=== PATIENT | male | born 1930 | race Caucasian/White ===

== ENCOUNTER → 2016-06-08 | Outpatient (CLI) | payer OTHER ==
[~2016-06-08] MED LIST: ACET-749 PO; ASPI81TA28 PO; ATOR-26 PO; INSUINJ8 SC; LEVO125T72 PO; METO50TA17 PO; MGNO400 PO; MULT-845 PO; PLV75 PO; PRLSR20 PO
[2016-06-08 10:45] LABS: BASO % 0.5 %; BASO ABS # 0.04 K/uL (0-0.2); COMPLETE YES; EOS % 4.4 %; HEMATOCRIT 33.5 % (42-52); IG% 0.2 %; LYMPH % 29.1 %; LYMPH ABS # 2.38 K/uL (1.2-3.4); MEAN CELL VOLUME 95.2 fL (80-100); MEAN CORPUSCULAR HEMOGLOBIN 31.5 pg (25-34); MEAN CORPUSCULAR HGB CONC 33.1 g/dl (32-36); MEAN PLATELET VOLUME 10.9 fL (7.4-10.4); MONO % 5.1 %; NEUT % 60.7 %; PLATELET COUNT 179 K/uL (130-400); RED BLOOD COUNT 3.52 M/uL (4.7-6.1); WHITE BLOOD COUNT 8.19 K/uL (4.8-10.8)
[2016-06-08 10:56] LABS: ALT/SGPT 24 U/L (12-78); AST/SGOT 21 U/L (15-37); BLOOD UREA NITROGEN 45 mg/dl (7-18); BUN/CREATININE RATIO 19.6 (10-20); CALCIUM 8.2 mg/dl (8.5-10.1); CARBON DIOXIDE 27 mmol/L (21-32); CHLORIDE 108 mmol/L (98-107); GLUCOSE 289 mg/dl (70-99); POTASSIUM 4.2 mmol/L (3.5-5.1); SODIUM 144 mmol/L (136-145)
[2016-06-08 11:06] LABS: ALB/GLOB RATIO 0.9 (0.9-2); ALKALINE PHOSPHATASE 62 U/L (45-117)
[2016-06-08 11:09] LABS: ESTIMATED AVERAGE GLUCOSE 163 mg/dl; HA1C FLAG Normal (Normal)
--- NOTE | 2016-06-12 10:46 | CODING QUERY MEDICAL NECESSITY ---
CQSUPPORTING DIAGNOSIS NEEDED A supporting diagnosis is required for the test/procedure performed on this patient in order for us to be reimbursed by the patient's insurance. Please provide a supporting diagnosis for the following test/procedure listed below next to the test name along with your signature. *If there is no additional diagnosis for this patient that would support the following test/procedure please document that below next to the test/procedure. Test(s)/Procedure(s) that require a supporting diagnosis: DOS 06/08/16 GLYCATED HEMOGLOBIN TEST Provider Signature: Date: Thank you Jeannine Lopez Health Information Management Once completed, please kindly fax back to [phone] For questions please call [phone]
== END | disposition home or self-care (01) ==
LOC: C.LABBC 08:01
PROVIDERS: ATTEND Internal Medicine Geriatric Medicine
DX: I12.9 Hypertensive chronic kidney disease with stage 1 through stage 4 chronic kidney disease, or unspecified chronic kidney disease (principal); N18.3 Chronic kidney disease, stage 3 (moderate); D64.9 Anemia, unspecified; E11.29 Type 2 diabetes mellitus with other diabetic kidney complication

== ENCOUNTER → 2016-08-28 | Outpatient (CLI) | payer OTHER ==
[2016-08-28 12:56] LABS: BLOOD UREA NITROGEN 38 mg/dl (7-18); BUN/CREATININE RATIO 15.3 (10-20); CALCIUM 8.6 mg/dl (8.5-10.1); CARBON DIOXIDE 27 mmol/L (21-32); CHLORIDE 110 mmol/L (98-107); GLUCOSE 149 mg/dl (70-99); POTASSIUM 4.3 mmol/L (3.5-5.1); SODIUM 144 mmol/L (136-145)
[2016-08-28 13:01] LABS: FERRITIN 46.3 ng/ml (8.0-388.0); TOTAL IRON BINDING CAPACITY 256 mcg/dl (250-450)
[2016-08-28 13:48] LABS: HEMATOCRIT 33.5 % (42-52); MEAN CELL VOLUME 95.4 fL (80-100); MEAN CORPUSCULAR HEMOGLOBIN 32.8 pg (25-34); MEAN CORPUSCULAR HGB CONC 34.3 g/dl (32-36); MEAN PLATELET VOLUME 11.1 fL (7.4-10.4); PLATELET COUNT 170 K/uL (130-400); RED BLOOD COUNT 3.51 M/uL (4.7-6.1); WHITE BLOOD COUNT 7.81 K/uL (4.8-10.8)
[2016-08-28 13:53] LABS: BASO % 0.4 %; BASO ABS # 0.03 K/uL (0-0.2); COMPLETE YES; EOS % 4.2 %; IG% 0.1 %; LYMPH % 34.3 %; LYMPH ABS # 2.68 K/uL (1.2-3.4); MONO % 6.9 %; NEUT % 54.1 %
--- NOTE | 2016-09-02 09:35 | CODING QUERY MEDICAL NECESSITY ---
SUPPORTING DIAGNOSIS NEEDED A supporting diagnosis is required for the test/procedure performed on this patient in order for us to be reimbursed by the patient's insurance. Please provide a supporting diagnosis for the following test/procedure listed below next to the test name along with your signature. *If there is no additional diagnosis for this patient that would support the following test/procedure please document that below next to the test/procedure. Test(s)/Procedure(s) that require a supporting diagnosis: DOS 08/28 * Vitamin B12 DIAGNOSIS: Provider Signature: Date: Thank you Daniella Mai Health Information Management Once completed, please kindly fax back to [phone] For questions please call [phone]
== END | disposition home or self-care (01) ==
LOC: C.LABPBG 08:44
PROVIDERS: ATTEND Internal Medicine Geriatric Medicine
DX: E03.9 Hypothyroidism, unspecified (principal); E11.9 Type 2 diabetes mellitus without complications; N18.3 Chronic kidney disease, stage 3 (moderate); I10 Essential (primary) hypertension; D64.9 Anemia, unspecified

== ENCOUNTER → 2016-12-03 | Outpatient (CLI) | payer OTHER ==
[2016-12-03 17:38] LABS: BASO % 0.3 %; BASO ABS # 0.03 K/uL (0-0.2); COMPLETE YES; HEMATOCRIT 34.4 % (42-52); IG% 0.1 %; LYMPH % 34.7 %; LYMPH ABS # 3.28 K/uL (1.2-3.4); MEAN CELL VOLUME 99.1 fL (80-100); MEAN CORPUSCULAR HEMOGLOBIN 32.9 pg (25-34); MEAN CORPUSCULAR HGB CONC 33.1 g/dl (32-36); MEAN PLATELET VOLUME 10.9 fL (7.4-10.4); MONO % 6.7 %; NEUT % 53.2 %; PLATELET COUNT 170 K/uL (130-400); RED BLOOD COUNT 3.47 M/uL (4.7-6.1); WHITE BLOOD COUNT 9.45 K/uL (4.8-10.8)
[2016-12-03 18:24] LABS: URINE PROTIEN/CREAT RATIO 0.9 (0-0.2); URINE TOTAL PROTEIN 243.4 mg/dl (0-11.9)
[2016-12-03 18:26] LABS: ALT/SGPT 31 U/L (12-78); BLOOD UREA NITROGEN 36 mg/dl (7-18); CALCIUM 8.8 mg/dl (8.5-10.1); CARBON DIOXIDE 24 mmol/L (21-32); CHLORIDE 112 mmol/L (98-107); CHOLESTEROL 110 mg/dl (0-200); GLUCOSE 111 mg/dl (70-99); POTASSIUM 4.2 mmol/L (3.5-5.1); SODIUM 145 mmol/L (136-145)
[2016-12-03 18:36] LABS: ALKALINE PHOSPHATASE 71 U/L (45-117); AST/SGOT 25 U/L (15-37); CHOLESTEROL/HDL RATIO 4.4; HDL CHOLESTEROL 25 mg/dl; LDL CHOLESTEROL CALCULATED 31 mg/dl; TRIGLYCERIDES 272 mg/dl (0-150); VERY LOW DENSITY LIPOPROT CALC 54 mg/dl
== END | disposition home or self-care (01) ==
LOC: C.LABPBG 11:34
PROVIDERS: ATTEND Internal Medicine Geriatric Medicine
DX: E03.9 Hypothyroidism, unspecified (principal); E78.5 Hyperlipidemia, unspecified; R80.9 Proteinuria, unspecified; E11.29 Type 2 diabetes mellitus with other diabetic kidney complication; I12.9 Hypertensive chronic kidney disease with stage 1 through stage 4 chronic kidney disease, or unspecified chronic kidney disease; I42.9 Cardiomyopathy, unspecified; N18.4 Chronic kidney disease, stage 4 (severe); I25.10 Atherosclerotic heart disease of native coronary artery without angina pectoris

== ENCOUNTER → 2017-03-29 | Outpatient (CLI) | payer OTHER ==
[2017-03-29 12:53] LABS: ESTIMATED AVERAGE GLUCOSE 171 mg/dl; HA1C FLAG Normal (Normal)
[2017-03-29 12:59] LABS: BLOOD UREA NITROGEN 44 mg/dl (7-18); BUN/CREATININE RATIO 17.3 (10-20); CALCIUM 8.6 mg/dl (8.5-10.1); CARBON DIOXIDE 26 mmol/L (21-32); CHLORIDE 108 mmol/L (98-107); CREATININE 2.52 mg/dl (0.60-1.40); GLUCOSE 211 mg/dl (70-99); POTASSIUM 4.2 mmol/L (3.5-5.1); SODIUM 140 mmol/L (136-145)
== END | disposition home or self-care (01) ==
LOC: C.LABPBG 09:25
PROVIDERS: ATTEND Internal Medicine Geriatric Medicine
DX: Z00.00 Encounter for general adult medical examination without abnormal findings (principal); E11.9 Type 2 diabetes mellitus without complications; N18.4 Chronic kidney disease, stage 4 (severe)

== ENCOUNTER → 2017-07-02 | Outpatient (CLI) | payer OTHER ==
[2017-07-02 12:48] LABS: HEMATOCRIT 34.3 % (42-52); HEMOGLOBIN 11.4 g/dL (14.0-18.0); MEAN CELL VOLUME 97.4 fL (80-100); MEAN CORPUSCULAR HEMOGLOBIN 32.4 pg (25-34); MEAN CORPUSCULAR HGB CONC 33.2 g/dl (32-36); MEAN PLATELET VOLUME 10.8 fL (7.4-10.4); PLATELET COUNT 163 K/uL (130-400); RED CELL DISTRIBUTION WIDTH CV 13.2 % (11.5-14.5); RED CELL DISTRIBUTION WIDTH SD 46.6 fL (36.4-46.3); WHITE BLOOD COUNT 7.58 K/uL (4.8-10.8)
[2017-07-02 13:08] LABS: BLOOD UREA NITROGEN 50 mg/dl (7-18); CARBON DIOXIDE 27 mmol/L (21-32); CREATININE 2.81 mg/dl (0.60-1.40); GLUCOSE 244 mg/dl (70-99); POTASSIUM 4.7 mmol/L (3.5-5.1); SODIUM 138 mmol/L (136-145)
[2017-07-02 13:19] LABS: TRANSFERRIN 219 mg/dl (200-360)
== END | disposition home or self-care (01) ==
LOC: C.LABPBG 09:09
PROVIDERS: ATTEND Internal Medicine Nephrology
DX: N18.4 Chronic kidney disease, stage 4 (severe) (principal); D64.9 Anemia, unspecified; E03.9 Hypothyroidism, unspecified; I10 Essential (primary) hypertension; E11.29 Type 2 diabetes mellitus with other diabetic kidney complication; E55.9 Vitamin D deficiency, unspecified; R80.9 Proteinuria, unspecified

== ENCOUNTER → 2017-10-04 | Outpatient (CLI) | payer OTHER ==
[2017-10-04 13:02] LABS: BASO % 0.4 %; BASO ABS # 0.03 K/uL (0-0.2); EOS % 4.5 %; EOS ABS # 0.34 K/uL (0-0.5); HEMATOCRIT 33.1 % (42-52); HEMOGLOBIN 11.3 g/dL (14.0-18.0); IG# 0.01 K/uL (0.00-0.02); LYMPH % 26.4 %; LYMPH ABS # 1.99 K/uL (1.2-3.4); MEAN CELL VOLUME 97.1 fL (80-100); MEAN CORPUSCULAR HEMOGLOBIN 33.1 pg (25-34); MEAN CORPUSCULAR HGB CONC 34.1 g/dl (32-36); MONO ABS # 0.53 K/uL (0.11-0.59); NEUT % 61.6 %; NEUT ABS # 4.65 K/uL (1.4-6.5); PLATELET COUNT 155 K/uL (130-400); RED CELL DISTRIBUTION WIDTH CV 13.1 % (11.5-14.5); RED CELL DISTRIBUTION WIDTH SD 45.9 fL (36.4-46.3); WHITE BLOOD COUNT 7.55 K/uL (4.8-10.8)
[2017-10-04 14:24] LABS: ALBUMIN 3.1 gm/dl (3.4-5.0); ALT/SGPT 32 U/L (12-78); AST/SGOT 26 U/L (15-37); BLOOD UREA NITROGEN 50 mg/dl (7-18); CALCIUM 8.4 mg/dl (8.5-10.1); CARBON DIOXIDE 26 mmol/L (21-32); CREATININE 3.14 mg/dl (0.60-1.40); GLUCOSE 230 mg/dl (70-99); POTASSIUM 4.3 mmol/L (3.5-5.1); SODIUM 142 mmol/L (136-145)
[2017-10-04 14:33] LABS: ALKALINE PHOSPHATASE 67 U/L (45-117); PHOSPHORUS 3.6 mg/dl (2.5-4.9); TOTAL PROTEIN 6.7 gm/dl (6.4-8.2); TRANSFERRIN 215 mg/dl (200-360)
== END | disposition home or self-care (01) ==
LOC: C.LABPBG 07:53
PROVIDERS: ATTEND Internal Medicine Nephrology
DX: E03.9 Hypothyroidism, unspecified (principal); E78.5 Hyperlipidemia, unspecified; I25.10 Atherosclerotic heart disease of native coronary artery without angina pectoris; E11.22 Type 2 diabetes mellitus with diabetic chronic kidney disease; N18.4 Chronic kidney disease, stage 4 (severe); D64.9 Anemia, unspecified

== ENCOUNTER 2019-11-22 13:23 | Inpatient (IN) ==
--- NOTE | 2019-11-22 13:53 | Emergency Department Note ---
Impression & Plan CHF (congestive heart failure), SOB (shortness of breath), Elevated troponin ED Provider Note NAME: LEVI MORALES AGE: 89 SEX: M : 1930 ARRIVES VIA: Ambulance INFORMANT: Patient, ED PROVIDER(S): Reji Rhodes MD Chief Complaint: Shortness of breath HPI: Patient does present from home via ambulance due to concern for shortness of breath. The patient first noticed that this morning. The patient states currently sitting there he does feel improved compared to prior. The patient did receive a DuoNeb treatment along the way. 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 Patient does state he has some mild orthopnea. He does have a prior history of a valve replacement. Patient is currently not on any blood thinning medications per the patient. Patient states he did take his medications this morning. The patient has been compliant with his medications with no recent changes. Patient denies any increase in fluids. Patient denies any recent travel or coronavirus contacts. The patient has had a nonproductive productive cough. Patient is a former smoker and has not smoked in many years. Patient did receive a DuoNeb treatment in route and the patient does feel improved thereafter. ROS: See HPI for pertinent positives and negatives. A total of 10 systems were reviewed and otherwise negative. Past medical history: See below Surgical history: See below Social history: See below Physical Exam: GENERAL: Tachypnea noted. Mild wheezing noted. EYE EXAM: Normal conjunctiva. PERRL, no anisocoria and EOM's grossly intact w/o pain. NECK: Supple, no nuchal rigidity, no adenopathy, non-tender. No signs of meningismus. LUNGS: Scant wheezing throughout, mild tachypnea noted. HEART: NSR, no MRG. ABDOMEN: Abdomen soft, non-tender, normo-active bowel sounds, no masses, no rebound or guarding. BACK: No CVA TTP. SKIN: No rashes and no bruising. UPPER EXTREMITIES: Upper extremities are grossly normal. LOWER EXTREMITIES: Grossly normal, 1-2+ lower extremity edema bilaterally. Negative Homans sign. NEURO EXAM: A&O x3, cranial nerves II-XII grossly intact, normal speech, moves all 4 extremities on command w/o issue. Differential diagnoses: Reactive airway disease, pneumonia, pneumothorax, COPD, CHF, infections, cardiac ischemia, pulmonary embolism, musculoskeletal, gastrointestinal, as well as other pathologies. Course: Patient was seen and evaluated the bedside. Full history physical exam was performed. EKG: Indication: Shortness of breath Sinus rhythm first-degree AV block, prolonged NE, wide QRS, prolonged QTC, left bundle branch block pattern, normal axis, T wave inversions in the lateral leads, no sgarbossa criteria present. Imaging Studies: Radiology results as stated below per my review in the radiologist's interpretation: XR chest 1V portable HISTORY: 89 years-old Male Dyspnea acute shortness of breath COMPARISON: Chest radiograph 10/09/2019 TECHNIQUE: Portable AP view of the chest FINDINGS: Cardiac silhouette is enlarged, unchanged. Aortic valvular endograft. Calcified plaque of the thoracic aortic arch. Pulmonary vascular congestion. Small pleural effusions. Interstitial coarsening with mild bibasilar densities. No pneumothorax. Degenerative changes of the shoulders and spine. IMPRESSION: 1. Cardiomegaly with pulmonary edema. 2. Small pleural effusions with bibasilar opacities suggestive of atelectasis versus pneumonitis. ACT 112: Negative or not required by law. The above report was generated using voice recognition software. It may contain grammatical, syntax or spelling errors. Electronically signed by: Josh Dumont M.D. 11/22/2019 2:46 PM Dictated: 11/22/19 1444 Transcribed: 11/22/19 1444 Cardiac monitoring: An order was placed for continuous cardiac monitoring. The monitor shows a rate of 96 with sinus rhythm. MDM: Patient did present with concern for shortness of breath. He acutely awoke with it this morning. Patient's chest x-ray does show vascular congestion. Patient's EKG is relatively unchanged. Patient is elevated blood glucose as well as elevated troponin and BNP. I believe the patient's elevated troponin is due to demand ischemia secondary to CHF. The patient was given some additional Lasix. I did speak with the on-call hospitalist Dr. Hagen and the patient subsequently admitted to the medicine service. Past Med/Surg History Medical History Amaurosis fugax of right eye (Chronic) Anemia (Chronic) Aortic stenosis, severe (Resolved) CAD (coronary artery disease) (Chronic) Carcinoma of prostate Cardiomyopathy (Chronic) Carotid atherosclerosis (Chronic) Cerebrovascular disease (Chronic) Chronic hip pain (Chronic) CKD (chronic kidney disease), stage IV (Chronic) Clostridium difficile diarrhea Diabetes mellitus with renal complications (Chronic) Dyslipidemia (Chronic) First degree atrioventricular block (Chronic) Gastroesophageal reflux disease (Chronic) H/O: stroke (2014) L hemispheric subcortical infarct History of aortic stenosis History of cholecystitis (Chronic) History of cholelithiasis (Chronic) History of prostate cancer Hypertension (Chronic) Hypothyroidism (Chronic) 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) Tremor (Chronic) Vitamin D deficiency (Chronic) Surgical History H/O prostatectomy History of cardiac cath CATH STENT 1 FIRST RIGHT POSTEROLATERAL BRANCH History of inguinal hernia repair LEFT INGUINAL HERNIORRHAPHY 1986 S/P CABG (coronary artery bypass graft) S/P coronary artery stent placement (12/2015) RCA S/P prostatectomy 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) Status post placement of implantable loop recorder w/ removal May 2015 Family History Father , IN 70'S WITH HEART DISEASE Patient's father is Heart disease Mother , AT AGE 86 Laryngeal cancer Patient's mother is Denies family history of Ovarian cancer Prostate cancer Kidney disease CKD (chronic kidney disease) Myocardial infarction Breast cancer Bleeding disorder Lung cancer Colorectal cancer Social History Preferred Language: Chinese Communication Ability: Effective Visual Impairment: Limited Hearing Ability: Use of Hearing Aid Speech Language Pathologist Assistant Required: No Beliefs That Will Affect Care: None marital status: Current Living Situation: Spouse Current Living Situation Comment: Lives at home with spouse in [place]. 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 Other Information That Helps Us Care for You: No other: twice; 4 kids from first marriage, none from 2nd marriage. Feels Safe at Home: Yes Smoking Status: Former smoker Years Smoked: 1 ; Hx Alcohol Use: No Hx Substance Use: No Childhood Exposure to Second-Hand Smoke: No Diet Comment: Doesnt follow diet. caffeine: Yes (coffee x 5-6 per day. ) during the past year weight has: remained stable Dental Care, Regularly: Yes Physical Activity Frequency: Does not Exercise Seatbelt Use: always Sunscreen Use: No Allergies Allergies Allergy/AdvReac Type Severity Reaction Status Date / Time No Known Drug Allergies Allergy . Verified 11/22/19 15:04 Home Meds Home Medications Medication Instructions Recorded Confirmed insulin NPH isoph U-100 human 42 unit SUBCUT QPM 06/12/19 11/22/19 [Novolin N NPH U-100 Insulin] insulin NPH isoph U-100 human 60 unit SUBCUT QAM 06/12/19 11/22/19 [Novolin N NPH U-100 Insulin] aspirin 25 mg-dipyridamole 200 mg 1 cap PO DAILY cap 07/13/19 11/22/19 capsule,ext.release 12 hr multiphase furosemide 40 mg PO DAILY 11/22/19 11/22/19 Previous Rx's Medication Instructions Recorded cholecalciferol (vitamin D3) 50 2,000 units PO DAILY #30 cap 12/13/18 mcg (2,000 unit) capsule multivitamin 1 tab PO DAILY #30 tab 12/13/18 amlodipine 10 mg tablet 10 mg PO DAILY #90 tab 02/07/19 omeprazole 20 mg capsule,delayed 20 mg PO DAILY #90 cap 02/07/19 release blood sugar diagnostic #500 ea 06/28/19 calcitriol 0.5 mcg capsule 0.5 mcg PO UD #90 cap 07/20/19 levothyroxine 137 mcg tablet 137 mcg PO DAILY #90 tab 08/25/19 atorvastatin 80 mg tablet 80 mg PO DAILY #90 tab 09/08/19 metoprolol succinate 100 mg 100 mg PO DAILY #90 tab 09/13/19 tablet,extended release 24 hr Results & Data (ED) Vital Signs Vital Signs - 24 hr 11/22/19 13:31 11/22/19 13:33 11/22/19 13:40 Temperature Temperature Source Pulse Rate 97 H 96 H 94 H Pulse Rate from SpO2 Sensor 97 H 98 H 94 H Respiratory Rate 39 H 28 H 35 H Respiratory Effort / Characteristics SOB on Exertion Respiratory Depth Normal Respiratory Pattern Tachypnea Blood Pressure 124/90 Blood Pressure Mean 96 Pulse Oximetry 96 96 95 Oxygen Delivery Method Room Air Sepsis Recent Fever Within 48 Hours Sepsis Action Taken by Nursing 11/22/19 13:45 11/22/19 13:50 11/22/19 14:00 Temperature 37.0 C Temperature Source Oral Pulse Rate 96 H 95 H 101 H Pulse Rate from SpO2 Sensor 94 H 100 H Respiratory Rate 36 H 39 H 39 H Respiratory Effort / Characteristics Non-Labored Respiratory Depth Normal Respiratory Pattern Blood Pressure 124/90 128/72 Blood Pressure Mean 101 98 Pulse Oximetry 95 95 96 Oxygen Delivery Method Room Air Sepsis Recent Fever Within 48 Hours No Sepsis Action Taken by Nursing No Action Required 11/22/19 14:10 11/22/19 14:20 11/22/19 14:28 Temperature Temperature Source Pulse Rate 91 H 91 H Pulse Rate from SpO2 Sensor 92 H 92 H Respiratory Rate 27 H 34 H Respiratory Effort / Characteristics Respiratory Depth Respiratory Pattern Blood Pressure Blood Pressure Mean Pulse Oximetry 95 95 95 Oxygen Delivery Method Room Air Sepsis Recent Fever Within 48 Hours Sepsis Action Taken by Nursing 11/22/19 14:30 11/22/19 14:40 11/22/19 14:50 Temperature Temperature Source Pulse Rate 92 H 92 H 91 H Pulse Rate from SpO2 Sensor 92 H 91 H Respiratory Rate 34 H 34 H 34 H Respiratory Effort / Characteristics Respiratory Depth Respiratory Pattern Blood Pressure 125/72 Blood Pressure Mean 93 Pulse Oximetry 96 96 Oxygen Delivery Method Sepsis Recent Fever Within 48 Hours Sepsis Action Taken by Nursing 11/22/19 15:00 11/22/19 15:10 11/22/19 15:20 Temperature Temperature Source Pulse Rate 87 98 H 88 Pulse Rate from SpO2 Sensor 87 88 Respiratory Rate 31 H 37 H 39 H Respiratory Effort / Characteristics Respiratory Depth Respiratory Pattern Blood Pressure 123/66 Blood Pressure Mean 82 Pulse Oximetry 96 96 Oxygen Delivery Method Sepsis Recent Fever Within 48 Hours Sepsis Action Taken by Nursing 11/22/19 15:30 11/22/19 15:40 11/22/19 15:50 Temperature Temperature Source Pulse Rate 88 92 H 81 Pulse Rate from SpO2 Sensor 89 Respiratory Rate 37 H 34 H 39 H Respiratory Effort / Characteristics Respiratory Depth Respiratory Pattern Blood Pressure 121/64 Blood Pressure Mean 94 Pulse Oximetry 96 Oxygen Delivery Method Sepsis Recent Fever Within 48 Hours Sepsis Action Taken by Nursing 11/22/19 16:15 11/22/19 16:16 11/22/19 16:20 Temperature Temperature Source Pulse Rate 95 H 96 H 93 H Pulse Rate from SpO2 Sensor Respiratory Rate 25 H 38 H 35 H Respiratory Effort / Characteristics Respiratory Depth Respiratory Pattern Blood Pressure 141/76 H Blood Pressure Mean 93 Pulse Oximetry Oxygen Delivery Method Sepsis Recent Fever Within 48 Hours Sepsis Action Taken by [facility] Medications Current Medication List: was personally reviewed by me Laboratory Data Attestation: I reviewed the patient's lab results. Result diagrams: 11/22/19 12:53 11/22/19 12:53 Lab Results 11/22/19 11/22/19 11/22/19 Range/Units 12:53 12:53 12:53 WBC 10.09 (4.8-10.8) K/uL RBC 3.43 L (4.7-6.1) M/uL Hgb 11.1 L (14.0-18.0) g/dL Hct 34.5 L (42-52) % MCV 100.6 H (80-100) fL MCH 32.4 (25-34) pg MCHC 32.2 (32-36) g/dL RDW Std Deviation 46.4 H (36.4-46.3) fL RDW Coeff of Neymar 12.7 (11.5-14.5) % Plt Count 259 (130-400) K/uL MPV 11.3 H (7.4-10.4) fL Immature Gran % (Auto) 0.1 % Neut % (Auto) 65.4 % Lymph % (Auto) 24.8 % [place] % (Auto) 7.4 % Eos % (Auto) 2.0 % Baso % (Auto) 0.3 % Immature Gran # (Auto) 0.01 (0.00-0.02) K/uL Neut # (Auto) 6.60 H (1.4-6.5) K/uL Lymph # (Auto) 2.50 (1.2-3.4) K/uL [place] # (Auto) 0.75 H (0.11-0.59) K/uL Eos # (Auto) 0.20 (0-0.5) K/uL Baso # (Auto) 0.03 (0-0.2) K/uL PT Cancelled INR Cancelled APTT Cancelled PTT Ratio Cancelled Sodium 137 (136-145) mmol/L Potassium 4.9 (3.5-5.1) mmol/L Chloride 103 (98-107) mmol/L Carbon Dioxide 25 (21-32) mmol/L Anion Gap 9.0 (3-11) BUN 63 H (7-18) mg/dl Creatinine 3.68 H (0.6-1.4) mg/dl Est Cr Clr Drug Dosing Not Reportable Est GFR ( Amer) 15.9 Est GFR (Non-Af Amer) 13.7 BUN/Creatinine Ratio 17.3 (10-20) Glucose 361 H* (70-99) mg/dl Calcium 8.6 (8.5-10.1) mg/dl Phosphorus 3.7 (2.5-4.9) mg/dl Total Bilirubin 0.5 (0.2-1) mg/dl AST 29 (15-37) U/L ALT 29 (12-78) U/L Alkaline Phosphatase 71 (45-117) U/L Troponin I 0.264 H* (0-0.045) ng/ml NT-Pro-B Natriuret Pep 82952 H (0-1800) pg/ml Total Protein 7.3 (6.4-8.2) gm/dl Albumin 2.7 L (3.4-5.0) gm/dl Globulin 4.6 H (2.5-4.0) gm/dl Albumin/Globulin Ratio 0.6 L (0.9-2) Beta-Hydroxybutyric Acd 0.88 (0.2-2.81) mg/dl 11/22/19 Range/Units 14:30 WBC (4.8-10.8) K/uL RBC (4.7-6.1) M/uL Hgb (14.0-18.0) g/dL Hct (42-52) % MCV (80-100) fL MCH (25-34) pg MCHC (32-36) g/dL RDW Std Deviation (36.4-46.3) fL RDW Coeff of Neymar (11.5-14.5) % Plt Count (130-400) K/uL MPV (7.4-10.4) fL Immature Gran % (Auto) % Neut % (Auto) % Lymph % (Auto) % [place] % (Auto) % Eos % (Auto) % Baso % (Auto) % Immature Gran # (Auto) (0.00-0.02) K/uL Neut # (Auto) (1.4-6.5) K/uL Lymph # (Auto) (1.2-3.4) K/uL [place] # (Auto) (0.11-0.59) K/uL Eos # (Auto) (0-0.5) K/uL Baso # (Auto) (0-0.2) K/uL PT 11.3 INR 1.1 APTT 28.8 PTT Ratio 1.0 Sodium (136-145) mmol/L Potassium (3.5-5.1) mmol/L Chloride (98-107) mmol/L Carbon Dioxide (21-32) mmol/L Anion Gap (3-11) BUN (7-18) mg/dl Creatinine (0.6-1.4) mg/dl Est Cr Clr Drug Dosing Est GFR ( Amer) Est GFR (Non-Af Amer) BUN/Creatinine Ratio (10-20) Glucose (70-99) mg/dl Calcium (8.5-10.1) mg/dl Phosphorus (2.5-4.9) mg/dl Total Bilirubin (0.2-1) mg/dl AST (15-37) U/L ALT (12-78) U/L Alkaline Phosphatase (45-117) U/L Troponin I (0-0.045) ng/ml NT-Pro-B Natriuret Pep (0-1800) pg/ml Total Protein (6.4-8.2) gm/dl Albumin (3.4-5.0) gm/dl Globulin (2.5-4.0) gm/dl Albumin/Globulin Ratio (0.9-2) Beta-Hydroxybutyric Acd (0.2-2.81) mg/dl Administered Medications Discontinued Medications Furosemide (Lasix) 40 mg IV NOW STA Stop: 11/22/19 15:19 Last Admin: 11/22/19 16:56 Dose: 40 mg Documented by: [id number] Furosemide (Lasix) 40 mg IV NOW STA Stop: 11/22/19 17:18 Last Admin: 11/22/19 17:35 Dose: 40 mg Documented by: [id number] Discharge Plan Visit Data *Final* Discharge Date/Time: 11/22/19 17:42 Chief Complaint: Shortness of Breath/Dyspnea ED Provider: Reji Rhodes Discharge Problem: CHF (congestive heart failure), SOB (shortness of breath), Elevated troponin Patient Disposition: Admitted As Inpatient Discharge Instructions Interventions: ED Discharge Assessment Last Done: 11/22/19 17:42 Discharge Problem: CHF (congestive heart failure) Qualifiers: Heart failure type: unspecified Heart failure chronicity: acute on chronic Qualified Code(s): I50.9 - Heart failure, unspecified
[2019-11-22 14:11] LABS: Basophils # (auto) 0.03 K/uL (0-0.2); Basophils % (auto) 0.3 %; Hematocrit (blood only) 34.5 % (42-52); Hemoglobin 11.1 g/dL (14.0-18.0); Immature Granulocytes # (auto) 0.01 K/uL (0.00-0.02); Immature Granulocytes % (auto) 0.1 %; Lymphocytes % (auto) 24.8 %; Mean Corpuscular Hemoglobin 32.4 pg (25-34); Mean Corpuscular Hgb Conc 32.2 g/dL (32-36); Mean Corpuscular Volume 100.6 fL (80-100); Mean Platelet Volume 11.3 fL (7.4-10.4); Monocytes # (auto) 0.75 K/uL (0.11-0.59); Monocytes % (auto) 7.4 %; Neutrophils % (auto) 65.4 %; Platelet Count 259 K/uL (130-400); RDW Coefficient of Variation 12.7 % (11.5-14.5); RDW Standard Deviation 46.4 fL (36.4-46.3); Red Blood Count 3.43 M/uL (4.7-6.1); White Blood Count 10.09 K/uL (4.8-10.8)
[2019-11-22 14:23] LABS: Alanine Aminotransferase 29 U/L (12-78); Albumin Level 2.7 gm/dl (3.4-5.0); Aspartate Aminotransferase 29 U/L (15-37); BUN Creatinine Ratio 17.3 (10-20); Bilirubin,Total 0.5 mg/dl (0.2-1); Blood Urea Nitrogen 63 mg/dl (7-18); Calcium 8.6 mg/dl (8.5-10.1); Carbon Dioxide 25 mmol/L (21-32); Chloride 103 mmol/L (98-107); Est GFR (African American) 15.9; Est GFR (Non-African American) 13.7; Glucose 361 mg/dl (70-99); Phosphorus 3.7 mg/dl (2.5-4.9); Potassium 4.9 mmol/L (3.5-5.1); Sodium 137 mmol/L (136-145)
[2019-11-22 14:31] LABS: Albumin Globulin Ratio 0.6 (0.9-2); Alkaline Phosphatase 71 U/L (45-117); Globulin 4.6 gm/dl (2.5-4.0); NT Pro B Type Natriuretic Pept 10422 pg/ml (0-1800); Total Protein 7.3 gm/dl (6.4-8.2); Troponin I 0.264 ng/ml (0-0.045)
[2019-11-22 14:45] LABS: Beta-Hydroxybutyrate 0.88 mg/dl (0.2-2.81)
--- NOTE | 2019-11-22 14:47 | XRay Report ---
XR chest 1V portable HISTORY: 89 years-old Male Dyspnea acute shortness of breath COMPARISON: Chest radiograph 10/09/2019 TECHNIQUE: Portable AP view of the chest FINDINGS: Cardiac silhouette is enlarged, unchanged. Aortic valvular endograft. Calcified plaque of the thoraci c aortic arch. Pulmonary vascular congestion. Small pleural effusions. Interstitial coarsening with m ild bibasilar densities. No pneumothorax. Degenerative changes of the shoulders and spine. IMPRESSION: 1. Cardiomegaly with pulmonary edema. 2. Small pleural effusions with bibasilar opacities suggestive of atelectasis versus pneumonitis. ACT 112: Negative or not required by law. The above report was generated using voice recognition software. It may contain grammatical, syntax o r spelling errors. Electronically signed by: Josh Dumont M.D. 11/22/2019 2:46 PM
[2019-11-22 14:59] LABS: INR 1.1 (0.9-1.1); Partial Thromboplastin Time 28.8 Seconds (21.0-31.0); Prothrombin Time 11.3 Seconds (9.0-12.0)
[2019-11-22] MEDS ORDERED: FUROSEMIDE 40 MG/4 ML VIAL IV STA ×2 (15:18→17:17)
--- NOTE | 2019-11-22 16:24 | History & Physical Report ---
Date of Service November 22, 2019 Assessment & Plan (1) Acute respiratory distress: Patient had chest pain followed by significant dyspnea starting acutely this am. He has evidence of volume overload today and has a positive troponin in the setting of his chest pain. Distress may have been multifactorial. He has known CAD with RCA stent in 2015 prior to his TAVR for . I checked on patient several hours after admission. He had received 80mg of IV lasix with good diuresis. Symptoms were improved and lung exam was improved. He had no further chest pain. Treat for volume overload. Serial troponins. Recheck echo (last was in 05/2019). (2) Acute diastolic CHF (congestive heart failure): Acute diastolic CHF in the setting of severe CKD stage 4. Improved s/p lasix 80mg IV x 1. MAR today shows lasix 40mg daily at home, but recent nephrology clinic visit shows he should have been taking bumex 2mg daily. He would benefit from home health at discharge. In meantime, continue diuresis. Will need re-dosing of diuretics in the AM on 11/22 if renal function is stable. Recheck echo. R/o ACS contributing to pulmonary edema - troponins, etc. (3) Elevated troponin: Concerning for ACS given his known CAD and the chest pain at presentation. Of note - LBBB was present on 10/2019 EKG. [id number] will trend his troponins. If troponin rises significantly START low-dose heparin infusion and consult cardiology in AM tomorrow. (4) CAD (coronary artery disease): records indicate RCA stent on December 2015 pre-TAVR heart catheterization. by report his other major coronary vessels were normal but I don't have the actual report. in light of +troponin will add aspirin 81mg daily (he is on aggrenox but aspirin dose is low). cont BB. cont high-intensity statin. follows with [facility] cardiology as outpatient. 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 total daily dose of insulin is ~100 units start lantus 25 units BID start novolog with meals - correction 25; carb ratio 1:8 BSGs ac/hs DM diet (8) Dyslipidemia: on high-intensity statin w/ lipitor 80mg daily if NSTEMI is confirmed then check lipids while here (9) History of aortic stenosis: s/p TAVR 2015 at [facility] 05/2019 with good valve function no appreciable aortic murmur on exam today (10) Hypothyroidism: TSH 06/2019 was wnl Cont synthroid (11) Hypertension: cont home meds (12) H/O: stroke: cont aggrenox for secondary prevention (13) DVT prophylaxis: to be on heparin infusion Kayli - daughter - updated by phone today History of Present Illness Chief Complaint: chest pain, shortness of breath Primary Care Provider: KRYSTLE Lizarraga 89yo male with h/o CKD stage 4, TAVR [address] [facility] for aortic stenosis, hypothyroidism, T2DM on insulin, HTN, GERD, hyperlipidemia, CAD s/p RCA stent 12/2015, and prior prostate cancer who presents with c/o chest pain that awoke him from sleep about 6 or 7am this am. It was substernal and did not radiate. No nausea, emesis, diaphoresis. He did have dyspnea. He states the pain lasted all morning and resolved by the time of ER arrival. He states he received a nebulizer treatment on the ambulance and this helped - and in fact - nearly r esolved the pain. Records also suggest he received nitroglycerin x 1 in the ambulance - unknown if helpful for his symptoms. No cough. He has had LE edema present for several years but worsened in the last 1-2 months. He has noted abdominal swelling. Denies eating salty foods. Denies excessive water intake (2-3 bottles/day). No chest pain prior to today's event. Allergies Allergy/AdvReac Type Severity Reaction Status Date / Time No Known Drug Allergies Allergy . Verified 11/22/19 15:04 Home Medications Home Medications Medication Instructions Recorded Confirmed Type cholecalciferol (vitamin D3) 50 2,000 units PO DAILY #30 cap 12/13/18 11/22/19 Rx mcg (2,000 unit) capsule multivitamin 1 tab PO DAILY #30 tab 12/13/18 11/22/19 Rx amlodipine 10 mg tablet 10 mg PO DAILY #90 tab 02/07/19 11/22/19 Rx omeprazole 20 mg capsule,delayed 20 mg PO DAILY #90 cap 02/07/19 11/22/19 Rx release insulin NPH isoph U-100 human 42 unit SUBCUT QPM 06/12/19 11/22/19 History [Novolin N NPH U-100 Insulin] insulin NPH isoph U-100 human 60 unit SUBCUT QAM 06/12/19 11/22/19 History [Novolin N NPH U-100 Insulin] blood sugar diagnostic #500 ea 06/28/19 10/26/19 Rx aspirin 25 mg-dipyridamole 200 mg 1 cap PO DAILY cap 07/13/19 11/22/19 History capsule,ext.release 12 hr multiphase calcitriol 0.5 mcg capsule 0.5 mcg PO UD #90 cap 07/20/19 11/22/19 Rx levothyroxine 137 mcg tablet 137 mcg PO DAILY #90 tab 08/25/19 11/22/19 Rx atorvastatin 80 mg tablet 80 mg PO DAILY #90 tab 09/08/19 11/22/19 Rx metoprolol succinate 100 mg 100 mg PO DAILY #90 tab 09/13/19 11/22/19 Rx tablet,extended release 24 hr furosemide 40 mg PO DAILY 11/22/19 11/22/19 History Past Med/Surg History Medical History Amaurosis fugax of right eye (Chronic) Anemia (Chronic) Aortic stenosis, severe (Resolved) CAD (coronary artery disease) (Chronic) Carcinoma of prostate Cardiomyopathy (Chronic) Carotid atherosclerosis (Chronic) Cerebrovascular disease (Chronic) Chronic hip pain (Chronic) CKD (chronic kidney disease), stage IV (Chronic) Clostridium difficile diarrhea Diabetes mellitus with renal complications (Chronic) Dyslipidemia (Chronic) First degree atrioventricular block (Chronic) Gastroesophageal reflux disease (Chronic) H/O: stroke (2014) L hemispheric subcortical infarct History of aortic stenosis History of cholecystitis (Chronic) History of cholelithiasis (Chronic) History of prostate cancer Hypertension (Chronic) Hypothyroidism (Chronic) 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) Tremor (Chronic) Vitamin D deficiency (Chronic) Surgical History H/O prostatectomy History of cardiac cath CATH STENT 1 FIRST RIGHT POSTEROLATERAL BRANCH History of inguinal hernia repair LEFT INGUINAL HERNIORRHAPHY 1987 S/P coronary artery stent placement (12/2015) RCA - [facility] S/P prostatectomy 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) [facility] Status post placement of implantable loop recorder w/ removal May 2015 Family History Father , IN 70'S WITH HEART DISEASE Patient's father is Heart disease Mother , AT AGE 86 Laryngeal cancer Patient's mother is Denies family history of Ovarian cancer Prostate cancer Kidney disease CKD (chronic kidney disease) Myocardial infarction Breast cancer Bleeding disorder Lung cancer Colorectal cancer Social History Preferred Language: Nigerien Communication Ability: Effective Visual Impairment: Limited Hearing Ability: Use of Hearing Aid Report Analyst Required: No Beliefs That Will Affect Care: None marital status: Current Living Situation: Spouse Current Living Situation Comment: Lives at home with spouse in [place]. 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 Other Information That Helps Us Care for You: No other: twice; 4 kids from first marriage, none from 2nd marriage. Feels Safe at Home: Yes Smoking Status: Former smoker Years Smoked: 1 ; Hx Alcohol Use: No Hx Substance Use: No Childhood Exposure to Second-Hand Smoke: No Diet Comment: Doesnt follow diet. caffeine: Yes (coffee x 5-6 per day. ) during the past year weight has: remained stable Dental Care, Regularly: Yes Physical Activity Frequency: Does not Exercise Seatbelt Use: always Sunscreen Use: No Review of Systems Constitutional: + weight gain; no fever, no chills and no anorexia Eyes: + discharge (right eye); no worsening vision Ear, Nose, Mouth, Throat: no sore throat and no dysphagia Respiratory: + dyspnea on exertion and + wheezing; no cough Cardiovascular: + chest pain (today - see HPI; none in the last few weeks) and + edema; no orthopnea and no paroxysmal nocturnal dyspnea Gastrointestinal: no abdominal pain, no vomiting and no diarrhea/loose stools Genitourinary: no difficulty urinating Musculoskeletal: no back pain and no neck pain Integumentary: + rash (buttock ) Neurologic: no unsteadiness Psychiatric: no depression Endocrine: diabetes -- blood sugars have been "high" (200-300) Hematologic / Lymphatic: no easy bleeding Physical Exam Constitutional: well developed, well nourished and + acute distress (tachypneic, audible wheezing); no altered mental status Eyes: PERRL ENMT: external ear and nose normal, oropharynx normal Neck: trachea midline, no thyromegaly Respiratory: + respiratory distress, + labored breathing and + tachypneic Auscultation: + crackles (extensive b/l - 2/[address] back) and + wheezes (end-exp wheezes) Cardiovascular: Rate/Rhythm: regular rate and regular rhythm Heart Sounds: normal S1 and normal S2; no murmur Vessels: + JVD (2/[address] way up neck), posterior tibial pulses present and dorsalis pedis pulses present Extremities: + edema (1-2+ b/l legs) Gastrointestinal (Abdomen): normal bowel sounds, soft, nontender, no hepatosplenomegaly +hepatojugular reflex Musculoskeletal: no cyanosis or clubbing, extremities motor strength 5/5 Skin: no rashes, warm and dry Neurologic: deep tendon reflexes 2+ bilaterally and moves all extremities Psychiatric: A+Ox3, euthymic affect Lymphatic: no cervical lymphadenopathy Results & Data Results & Data ([facility]) Vital Signs (Past 12 Hours) Vital Signs Temp Pulse Resp BP Pulse Ox 11/22/19 14:28 95 11/22/19 13:45 37.0 C 96 H 36 H 124/90 95 Laboratory Results Laboratory Results - last 24 hr 11/22/19 11/22/19 11/22/19 12:53 12:53 12:53 WBC 10.09 RBC 3.43 L Hgb 11.1 L Hct 34.5 L MCV 100.6 H MCH 32.4 MCHC 32.2 RDW Std Deviation 46.4 H RDW Coeff of Neymar 12.7 Plt Count 259 MPV 11.3 H Immature Gran % (Auto) 0.1 Neut % (Auto) 65.4 Lymph % (Auto) 24.8 Stanley % (Auto) 7.4 Eos % (Auto) 2.0 Baso % (Auto) 0.3 Immature Gran # (Auto) 0.01 Neut # (Auto) 6.60 H Lymph # (Auto) 2.50 Stanley # (Auto) 0.75 H Eos # (Auto) 0.20 Baso # (Auto) 0.03 PT Cancelled INR Cancelled APTT Cancelled PTT Ratio Cancelled Sodium 137 Potassium 4.9 Chloride 103 Carbon Dioxide 25 Anion Gap 9.0 BUN 63 H Creatinine 3.68 H Est Cr Clr Drug Dosing Not Reportable Est GFR ( Amer) 15.9 Est GFR (Non-Af Amer) 13.7 BUN/Creatinine Ratio 17.3 Glucose 361 H* POC Glucose Calcium 8.6 Phosphorus 3.7 Total Bilirubin 0.5 AST 29 ALT 29 Alkaline Phosphatase 71 Troponin I 0.264 H* NT-Pro-B Natriuret Pep 77660 H Total Protein 7.3 Albumin 2.7 L Globulin 4.6 H Albumin/Globulin Ratio 0.6 L Beta-Hydroxybutyric Acd 0.88 11/22/19 11/22/19 11/22/19 14:30 18:29 20:00 WBC RBC Hgb Hct MCV MCH MCHC RDW Std Deviation RDW Coeff of Neymar Plt Count MPV Immature Gran % (Auto) Neut % (Auto) Lymph % (Auto) Stanley % (Auto) Eos % (Auto) Baso % (Auto) Immature Gran # (Auto) Neut # (Auto) Lymph # (Auto) Stanley # (Auto) Eos # (Auto) Baso # (Auto) PT 11.3 INR 1.1 APTT 28.8 PTT Ratio 1.0 Sodium Potassium Chloride Carbon Dioxide Anion Gap BUN Creatinine Est Cr Clr Drug Dosing Est GFR ( Amer) Est GFR (Non-Af Amer) BUN/Creatinine Ratio Glucose POC Glucose 222 H Calcium Phosphorus Total Bilirubin AST ALT Alkaline Phosphatase Troponin I 1.170 H* NT-Pro-B Natriuret Pep Total Protein Albumin Globulin Albumin/Globulin Ratio Beta-Hydroxybutyric Acd Diagnostic Findings 1. CXR - IMPRESSION: 1. Cardiomegaly with pulmonary edema. 2. Small pleural effusions with bibasilar opacities suggestive of atelectasis versus pneumonitis. 2. EKG - my reading - NSR; LBBB (was present on 10/2019 EKG scanned in EMR); NEW ST depressions V5 and V6 in comparison to 10/2019 EKG; I/AVL with ST depresions (old) 3. EKG from ambulance -- ?a.fib Code Status & VTE Plan Code Status DNR/DNI VTE Prophylaxis Plan VTE Prophylaxis will be ordered: Yes PG Care Time/CCT Total # of Minutes Spent Total Time Spent with Patient: Total time spent is greater than 50% in coordination of care (as documented) at patient's floor/unit and/or counseling patient: Coding Level of Care Code 81127 Initial Inpt Care Lvl 3 Diagnoses Acute respiratory distress R06.03 Acute diastolic CHF (congestive heart failure) I50.31 Elevated troponin R79.89 CAD (coronary artery disease) I25.10 Coronary Disease-Associated Artery/Lesion type: [place] artery [place] vs. transplanted heart: [place] heart Associated angina: angina presence unspecified Chest pain R07.9 Chest pain type: unspecified CKD (chronic kidney disease), stage IV N18.4 Diabetes mellitus with renal complications E11.22; N18.4; Z79.4 Diabetes mellitus type: type 2 Diabetes mellitus continuous churn buttermaker insulin use: with [facility] use Diabetes mellitus complication detail: with chronic kidney disease Chronic kidney disease stage: stage 4 (severe) Dyslipidemia E78.5 History of aortic stenosis Z86.79 Hypothyroidism E03.9 Hypothyroidism type: acquired Hypertension I10 Hypertension type: essential hypertension H/O: stroke Z86.73 DVT prophylaxis Z29.9 (1) CAD (coronary artery disease) Coronary Disease-Associated Artery/Lesion type: [place] artery [place] vs. transplanted heart: [place] heart Associated angina: angina presence unspecified Qualified Code(s): I25.10 - Atherosclerotic heart disease of [place] coronary artery without angina pectoris (2) Chest pain Chest pain type: unspecified Qualified Code(s): R07.9 - Chest pain, unspecified (3) Diabetes mellitus with renal complications Diabetes mellitus type: type 2 Diabetes mellitus continuous churn buttermaker insulin use: with continuous churn buttermaker use Diabetes mellitus complication detail: with chronic kidney disease Chronic kidney disease stage: stage 4 (severe) Qualified Code(s): E11.22 - Type 2 diabetes mellitus with diabetic chronic kidney disease; N18.4 - Chronic kidney disease, stage 4 (severe); 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
[2019-11-22] MEDS ORDERED: ACETAMINOPHEN 325 MG TAB PO PRN (18:03)
[2019-11-22] MEDS ORDERED: ONDANSETRON INJ 2 MG/ML 2 ML VIAL IV PRN (18:03)
[2019-11-22] MEDS: ASPIRIN 81 MG ECTAB PO SCH (19:47)
[2019-11-22] MEDS ORDERED: Heparin IV Low Dose *NO* Bolus IV SCH (21:10)
[2019-11-22] MEDS: HEPARIN SODIUM/DEXTROSE 25,000 UNITS/500 ML BAG IV SCH (21:54)
[2019-11-22] MEDS: INSULIN GLARGINE SOLOSTAR 100 UNITS/ML 3 ML PEN SC SCH (21:55)
[2019-11-22] MEDS: INSULIN ASPART 100 UNITS/ML 3 ML PEN SC SCH (21:56)
[2019-11-22] MEDS ORDERED: METOPROLOL TARTRATE 25 MG TAB PO STA (23:04)
[2019-11-23 04:28] LABS: Partial Thromboplastin Ratio 1.4; Partial Thromboplastin Time 38.3 Seconds (21.0-31.0)
[2019-11-23 04:37] LABS: BUN Creatinine Ratio 17.6 (10-20); Est GFR (Non-African American) 14.7; Potassium 3.7 mmol/L (3.5-5.1)
[2019-11-23] MEDS ORDERED: HEPARIN IV BOLUS 4,500 UNITS in SYRINGE 0 ML IV ONE (05:45)
[2019-11-23] MEDS: LEVOTHYROXINE SODIUM 137 MCG TABLET PO SCH (06:01)
[2019-11-23 06:27] LABS: Magnesium 1.9 mg/dl (1.8-2.4); Troponin I 1.57 ng/ml (0-0.045)
--- NOTE | 2019-11-23 07:44 | Hospitalist Progress Note ---
Date of Service November 23, 2019 Assessment & Plan (1) Acute respiratory distress: Patient had chest pain followed by significant dyspnea starting acutely this am. He has evidence of volume overload on admission likely non stemi with peak and fall of troponin He has known CAD with RCA stent in 2015 prior to his TAVR for . 80mg of IV lasix on admission with good diuresis. Echocardiogram shows heart failure reduced ejection fraction decline from previous no focal regional wall motion abnormalities and no significant valvular abnormalities (2) Acute diastolic CHF (congestive heart failure): Acute heart failure reduced ejection fraction in the setting of severe CKD stage 4. Improved s/p lasix 80mg IV x 1. MAR today shows lasix 40mg daily at home, but recent nephrology clinic visit shows he should have been taking bumex 2mg daily. will restart bumex, given extra dose of Bumex 2 mg in the afternoon of 11/22 for a total of 4 mg on 11/22 continuing Bumex 2 mg daily in the morning on 11/23 (3) Elevated troponin: Concerning for ACS given his known CAD and the chest pain at presentation. troponin with upward trend but overall not significantly high, started on heparin infusion Of note - LBBB was present on 10/2019 EKG. consult cardiology however the patient is in a difficult situation as risk verification procedure such as a left heart cath likely push is renal failure into the realm of needing renal replacement and the patient is not ready to do that. Given his symptoms have quickly resolved with diuresis will attempt to modify his medications for medical management of any underlying coronary disease. His renal dysfunction does prevent us from using afterload reduction to help his significantly reduced ejection fraction. (4) CAD (coronary artery disease): records indicate RCA stent on December 2015 pre-TAVR heart catheterization. +troponin added aspirin 81mg daily (he is on aggrenox but aspirin dose is low). cont BB. cont high-intensity statin. follows with [facility] [place] as outpatient. Dr. Keen saw the patient and will change him to dual antiplatelet therapy likely discontinuing his Aggrenox (5) CKD (chronic kidney disease), stage IV: follows with [facility] nephrology baseline Cr 3 to 3.5, remains in range after diuresis CKD dates back 10-15 years based on records (6) Diabetes mellitus with renal complications: hold NPH total daily dose of insulin is ~100 units lantus 25 units BID plus novolog with meals -pharmacy is adjusting his correction factor and carb ratio BSGs ac/hs DM diet (7) Dyslipidemia: on high-intensity statin w/ lipitor 80mg daily (8) History of aortic stenosis: s/p TAVR 2016 at [facility] echo 05/2019 with good valve function (9) Hypothyroidism: TSH 06/2019 was wnl Cont synthroid (10) Hypertension: cont home meds (11) H/O: stroke: Will likely transition a dual antiplatelet therapy (12) DVT prophylaxis: to be on heparin infusion for 48 hours His Aleyda was updated on the phone 11/22 her numbers [phone] Admission and Anticipated Discharge Date Admission Date: November 22, 2019 Subjective Pt states he feels fine and back to normal, still wtih some evidence of fluid overload on exam, no further chest discomfort or Paroxysmal dyspnea Review of Systems Review of Systems: Mild distress and fatigue no headache, blurry or double vision no speech or swallowing issues no chest pain, pressure or palpitations no shortness of breath, mild dyspnea on exertion, nonproductive cough but no wheezes no abdominal pain, nausea or vomiting, diarrhea or constipation no dysuria, hematuria or frequency no focal joint pain or swelling no back pain, CVA tenderness or radicular pain no bruising, bleeding or rashes no focal signs of weakness or numbness or altered sensation no complaints or anxiety or depression. Physical Exam Physical Exam: The patient appeared well nourished and normally developed. Vital signs as documented. Head exam is normocephalic atraumatic no scleral icterus Neck is with 2 to 3 cm JVD, thyromegaly, or carotid bruits. Lungs are rales at the bases Cardiac exam, Rhythm is regular.. Systolic ejection murmur Abdominal exam reveals normal bowel sounds, soft non tender, no masses Extremities are nonedematous and both pedal pulses are normal. Neurologic exam is alert and oriented, no focal loss of strength or sensation Skin is without bruises or rashes Psychologically is without concerns for anxiety or depression Results & Data Results & Data ([facility]) Vital Signs (Past 12 Hours) Vital Signs Temp Pulse Pulse Resp BP BP Pulse Ox 11/23/19 05:00 103 H 24 126/72 93 11/23/19 03:55 97.3 F L 58 L 20 128/63 96 11/23/19 00:00 98.1 F 88 89 20 126/82 143/79 H 94 11/22/19 21:59 92 H 128/72 94 PG Care Time/CCT Total # of Minutes Spent Total Time Spent with Patient: Total time spent is greater than 50% in coordination of care (as documented) at patient's floor/unit and/or counseling patient: Coding Level of Care Code 82442 Subseq Hosp Care Lvl 3 Diagnoses Acute respiratory distress R06.03 Acute diastolic CHF (congestive heart failure) I50.31 Elevated troponin R79.89 CAD (coronary artery disease) I25.10 Associated angina: angina presence unspecified Coronary Disease-Associated Artery/Lesion type: [place] artery [place] vs. transplanted heart: [place] heart CKD (chronic kidney disease), stage IV N18.4 Diabetes mellitus with renal complications E11.22; N18.4; Z79.4 Chronic kidney disease stage: stage 4 (severe) Diabetes mellitus complication detail: with chronic kidney disease Diabetes mellitus long term care social worker insulin use: with long term care social worker use Diabetes mellitus type: type 2 Dyslipidemia E78.5 History of aortic stenosis Z86.79 Hypothyroidism E03.9 Hypothyroidism type: acquired Hypertension I10 Hypertension type: essential hypertension H/O: stroke Z86.73 DVT prophylaxis Z29.9 (1) CAD (coronary artery disease) Associated angina: angina presence unspecified Coronary Disease-Associated Artery/Lesion type: [place] artery [place] vs. transplanted heart: [place] heart Qualified Code(s): I25.10 - Atherosclerotic heart disease of [place] coronary artery without angina pectoris (2) Hypothyroidism Hypothyroidism type: acquired Qualified Code(s): E03.9 - Hypothyroidism, unspecified (3) Diabetes mellitus with renal complications Chronic kidney disease stage: stage 4 (severe) Diabetes mellitus complication detail: with chronic kidney disease Diabetes mellitus assisted insulin use: with assisted use Diabetes mellitus type: type 2 Qualified Code(s): E11.22 - Type 2 diabetes mellitus with diabetic chronic kidney disease; N18.4 - Chronic kidney disease, stage 4 (severe); 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
[2019-11-23] MEDS: ASPIRIN 81 MG ECTAB PO SCH (08:22)
[2019-11-23] MEDS: BUMETANIDE 1 MG TAB PO SCH (08:22)
[2019-11-23] MEDS: PANTOprazole 40 MG TAB PO SCH (08:22)
[2019-11-23] MEDS: CALCITRIOL 0.25 MCG CAPSULE PO SCH (08:22)
[2019-11-23] MEDS: ATORVASTATIN 40 MG TAB PO SCH (08:22)
[2019-11-23] MEDS: MULTIVITAMIN TAB PO SCH (08:22)
[2019-11-23] MEDS: AMLODIPINE BESYLATE 5 MG TAB PO SCH (08:23)
[2019-11-23] MEDS: CHOLECALCIFEROL 1,000 UNITS 25 MCG TAB PO SCH (08:23)
[2019-11-23] MEDS: INSULIN GLARGINE SOLOSTAR 100 UNITS/ML 3 ML PEN SC SCH ×2 (08:23→21:17)
[2019-11-23] MEDS: METOPROLOL SUCC 50MG EXT REL TAB PO SCH (08:23)
[2019-11-23] MEDS: INSULIN ASPART 100 UNITS/ML 3 ML PEN SC SCH ×4 (08:24→21:17)
[2019-11-23] MEDS ORDERED: DIPYRIDAMOLE/ASPIRIN CAP PO SCH (09:00)
--- NOTE | 2019-11-23 10:10 | Nephrology Consultation ---
Date of Consultation November 23, 2019 Assessment & Plan (1) CKD (chronic kidney disease), stage IV: * Stable advanced CKD: baseline Cr has been 3.4 - 3.8 * Discussed indications/risks/benefits/alternatives of VICE PRESIDENT OF TALENT ACQUISITION in detail w/ patient today. He is interested in obtaining dialysis education and undergoing vascular access evaluation as an outpatient (2) CHF (congestive heart failure): * Continue Bumex 2 mg po today * As outpatient Mr. Soria should weight himself daily. "Dry weight" should be set at 180 lbs/81kg (current weight). He should take Bumex 1 mg daily but increase dose to 2 mg daily for weight > 180 lbs * Will ask dietitian to provide education on low sodium diet. Patient reports that most of his meals are prepackaged (can, jar, box) and may be high in sodium History of Present Illness Reason for Consultation: CKD Attending Physician: Andrés Nicolas MD History of Present Illness Mr. Soria is an 89 year old white male who is seen at the request of Dr. Nicolas for evaluation of CKD in the setting of CHF. Medical records in the EMR were reviewed today and are summarized as follows: Mr. Soria has stage IV CKD w/ baseline Cr 3.4 (EGFR 20 cc/min) due to microvascular disease. His Park Naturalist is Dr. Webb. They have discussed VICE PRESIDENT OF TALENT ACQUISITION in the past and Mr. Soria has declined. Mr. Soria's medical history is also significant for AODM, HTN, MGUS, hypothyroidism, carotid vascular disease s/p CVA, ASCVD s/p RCA stenting, and s/p TAVR. Mr. Soria is monitored closely by [facility]iology. LVEF has been 50 - 55% (05/25). In 10/24 he presented to the Cardiology office w/ a 7 lb weight gain and progressive dyspnea. Lasix 40 mg da josé luis was converted to Bumex 2 mg daily until dry weight is obtained and then reduce to Bumex 1 mg daily. Despite these measures, Mr. Soria developed progressive dyspnea. He was admitted to [facility] 11/21 with CHF. CXR reveals CMG and mild pulmonary congestion w/ small bilateral effusions. IV Furosemide therapy was provided. Patient has diuresed 500 cc. He is now subjectively improved and breathing comfortably on RA. He is anxious to return home. Allergies Allergy/AdvReac Type Severity Reaction Status Date / Time No Known Drug Allergies Allergy . Verified 11/22/19 15:04 Home Medications Home Medications Medication Instructions Recorded Confirmed Type cholecalciferol (vitamin D3) 50 2,000 units PO DAILY #30 cap 12/13/18 11/22/19 Rx mcg (2,000 unit) capsule multivitamin 1 tab PO DAILY #30 tab 12/13/18 11/22/19 Rx amlodipine 10 mg tablet 10 mg PO DAILY #90 tab 02/07/19 11/22/19 Rx omeprazole 20 mg capsule,delayed 20 mg PO DAILY #90 cap 02/07/19 11/22/19 Rx release insulin NPH isoph U-100 human 42 unit SUBCUT QPM 06/12/19 11/22/19 History [Novolin N NPH U-100 Insulin] insulin NPH isoph U-100 human 60 unit SUBCUT QAM 06/12/19 11/22/19 History [Novolin N NPH U-100 Insulin] blood sugar diagnostic #500 ea 06/28/19 10/26/19 Rx aspirin 25 mg-dipyridamole 200 mg 1 cap PO DAILY cap 07/13/19 11/22/19 History capsule,ext.release 12 hr multiphase calcitriol 0.5 mcg capsule 0.5 mcg PO UD #90 cap 07/20/19 11/22/19 Rx levothyroxine 137 mcg tablet 137 mcg PO DAILY #90 tab 08/25/19 11/22/19 Rx atorvastatin 80 mg tablet 80 mg PO DAILY #90 tab 09/08/19 11/22/19 Rx metoprolol succinate 100 mg 100 mg PO DAILY #90 tab 09/13/19 11/22/19 Rx tablet,extended release 24 hr furosemide 40 mg PO DAILY 11/22/19 11/22/19 History Patient History Medical History Amaurosis fugax of right eye (Chronic) Anemia (Chronic) Aortic stenosis, severe (Resolved) CAD (coronary artery disease) (Chronic) Carcinoma of prostate Cardiomyopathy (Chronic) Carotid atherosclerosis (Chronic) Cerebrovascular disease (Chronic) Chronic hip pain (Chronic) CKD (chronic kidney disease), stage IV (Chronic) Clostridium difficile diarrhea Diabetes mellitus with renal complications (Chronic) Dyslipidemia (Chronic) First degree atrioventricular block (Chronic) Gastroesophageal reflux disease (Chronic) H/O: stroke (2014) L hemispheric subcortical infarct History of aortic stenosis History of cholecystitis (Chronic) History of cholelithiasis (Chronic) History of prostate cancer Hypertension (Chronic) Hypothyroidism (Chronic) 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) Tremor (Chronic) Vitamin D deficiency (Chronic) Surgical History H/O prostatectomy History of cardiac cath CATH STENT 1 FIRST RIGHT POSTEROLATERAL BRANCH History of inguinal hernia repair LEFT INGUINAL HERNIORRHAPHY 1986 S/P coronary artery stent placement (12/2015) RCA - [facility] S/P prostatectomy 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) [facility] Status post placement of implantable loop recorder w/ removal May 2015 Family History Father , IN 70'S WITH HEART DISEASE Patient's father is Heart disease Mother , AT AGE 86 Laryngeal cancer Patient's mother is Denies family history of Ovarian cancer Prostate cancer Kidney disease CKD (chronic kidney disease) Myocardial infarction Breast cancer Bleeding disorder Lung cancer Colorectal cancer Social History Preferred Language: Sami Communication Ability: Effective Visual Impairment: Limited Hearing Ability: Use of Hearing Aid Pattern Maker Required: No Beliefs That Will Affect Care: None marital status: Current Living Situation: Spouse Current Living Situation Comment: Lives at home with spouse in [place]. 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 Other Information That Helps Us Care for You: No other: twice; 4 kids from first marriage, none from 2nd marriage. Feels Safe at Home: Yes Smoking Status: Former smoker Years Smoked: 1 ; Hx Alcohol Use: No Hx Substance Use: No Childhood Exposure to Second-Hand Smoke: No Diet Comment: Doesnt follow diet. caffeine: Yes (coffee x 5-6 per day. ) during the past year weight has: remained stable Dental Care, Regularly: Yes Physical Activity Frequency: Does not Exercise Seatbelt Use: always Sunscreen Use: No Review of Systems Constitutional: no fever Eyes: no problem reported Ear, Nose, Mouth, Throat: no problem reported Respiratory: no cough and no dyspnea Cardiovascular: no chest pain, no palpitations and no edema Gastrointestinal: no abdominal pain, no nausea, no vomiting and no diarrhea/loose stools Genitourinary: no dysuria, no urinary hesitancy and no hematuria Musculoskeletal: no back pain Integumentary: no rash Neurologic: no falls, no dizziness and no confusion Physical Exam Constitutional: not in distress Eyes: PERRL, conjunctivae normal, anicteric sclerae ENMT: external ear and nose normal, oropharynx normal Neck: trachea midline, no thyromegaly Respiratory: normal respiratory effort, lungs clear to auscultation Cardiovascular: Rate/Rhythm: regular rate and regular rhythm Extremities: no edema Gastrointestinal (Abdomen): normal bowel sounds, soft, nontender, no hepatosplenomegaly Musculoskeletal: Extremities: no cyanosis Skin: no rashes, warm and dry Neurologic: awake (hard of hearing) Results & Data Vital Signs (Past 12 Hours) Vital Signs Temp Pulse Pulse Resp BP BP Pulse Ox 11/23/19 08:59 99 H 11/23/19 07:54 36.4 C L 100 H 18 121/68 95 11/23/19 05:00 103 H 24 126/72 93 11/23/19 03:55 36.3 C L 58 L 20 128/63 96 11/23/19 00:00 36.7 C 88 89 20 126/82 143/79 H 94 11/22/19 21:59 92 H 128/72 94 Laboratory Results Laboratory Tests 11/22/19 11/23/19 12:53 04:07 WBC 10.09 Hgb 11.1 L Hct 34.5 L Plt Count 259 Sodium 142 Potassium 3.7 D Chloride 107 Carbon Dioxide 28 BUN 61 H Creatinine 3.49 H Glucose 85 PG Care Time/CCT Total # of Minutes Spent Total Time Spent with Patient: Total time spent is greater than 50% in coordination of care (as documented) at patient's floor/unit and/or counseling patient: Coding Level of Care Code 41372 Inpt Consult Level 5 Diagnoses CKD (chronic kidney disease), stage IV N18.4 CHF (congestive heart failure) I50.9 Heart failure chronicity: acute on chronic Heart failure type: unspecified (1) CHF (congestive heart failure) Heart failure chronicity: acute on chronic Heart failure type: unspecified Qualified Code(s): I50.9 - Heart failure, unspecified
[2019-11-23 12:18] LABS: Partial Thromboplastin Ratio 1.9
--- NOTE | 2019-11-23 12:38 | XCELERA ---
[id number]___[id number]
[2019-11-23 12:44] LABS: Partial Thromboplastin Time 52.7 Seconds (21.0-31.0)
[2019-11-23] MEDS ORDERED: BUMETANIDE 2 MG in SYRINGE 0 ML IV ONE (15:00)
--- NOTE | 2019-11-23 16:24 | Cardiology Consultation ---
Date of Consultation November 23, 2019 Assessment & Plan (1) CHF (congestive heart failure): The patient did describe some dyspnea leading up to his admission. He seems to have an element of pulmonary vascular congestion overall volume overload. I would agree with attempts at diuresis. Sent terminal proBNP is markedly elevated but this is difficult to interpret in the setting of advanced age, atrial fibrillation and renal dysfunction. (2) Elevated troponin: Unclear if this represents an acute coronary syndrome. He did have some chest pain. However, 2 hours of symptoms I think would lead to higher elevations in his biomarkers. Even small element of ischemia in the setting of his cardiomyopathy and renal failure may result in his elevation of biomarkers. Nonetheless, I would agree with treating with heparin for 24 hours. We can continue to monitor her for additional symptoms. I do not believe he is a good candidate for coronary angiography or other testing due to his renal dysfunction. I think it would be very high risk for contrast nephropathy. My discussion today centered around his acceptance of dialysis in the event he suffered renal failure. While he did consent to development of dialysis access, he was quite adamant on several different occasions during our conversation today that he would not want dialysis. (3) CAD (coronary artery disease): He has a history of intervention to the right coronary artery prior to his TAVR. He has been maintained on aspirin and atorvastatin (4) Cardiomyopathy: While he did have an echocardiogram performed in May of 2019 suggestive of preserved LV function, his echocardiogram today reveals significant LV dysfunction. This was previously documented. It seems that his degree of LV dysfunction waxes and wanes in severity. He appears to be slightly decompensated and volume overloaded. He is on metoprolol succinate. He is on daily diuretic. He is not on Alexx or ARB due to his renal dysfunction. With his history of ischemic heart disease and LV dysfunction, he would generally be a candidate for an ICD as primary prevention against sudden cardiac . However, given his significant renal dysfunction and advanced age I think it is unlikely that he would derive significant benefit from such a device. (5) S/P TAVR (transcatheter aortic valve replacement): Normally functioning aortic valve 1 echocardiography performed today (6) Atrial fibrillation: This appears to be a new diagnosis for the patient. He is not appear to be overtly symptomatic from the arrhythmia. Unclear if he could have had atrial fibrillation leading up to his admission which precipitated worsening cardiac function and pulmonary edema. Overall rate control appears to be adequate likely due to an element of conduction disease. However, given his comorbidities he should be started on anticoagulation. Unfortunately, with his degree of renal dysfunction and advanced age she is best served by warfarin. I think reduced dose apixaban would be an alternative. (7) Pericardial effusion: He has a small, hemodynamically insignificant pericardial effusion. This is of unknown chronicity. Possibly related to volume overload and renal dysfunction. History of Present Illness Reason for Consultation: Chest pain, elevated troponin Requesting Physician: Maria Isabel Attending Physician: Andrés Nicolas MD History of Present Illness The patient is an 89-year-old gentleman with a history of coronary disease status post PCI to the right coronary artery in 2016. At that time he also underwent a percutaneous aortic valve replacement. He is also known to have severe renal dysfunction. Yesterday morning the patient reported an episode of chest discomfort. This was associated with significant breathing difficulty. His discomfort was precordial in nature. It lasted for approximately 2 hours before he contacted EMS. Patient was administered some nitroglycerin with improvement in his symptoms. Upon arrival to the emergency room additional i nterventions relieved his symptoms entirely. He has not had any recurrence. Up until the past couple of days the patient has been feeling well. He did report some mild dyspnea leading up to this event. Generally speaking he is a fairly sedentary individual but does not have much in the way of limitations with activity. He denies recent dizziness or lightheadedness. He has not had fevers or chills. He denies orthopnea but generally does sleep in a recliner and has done so for some time. He cannot recall having similar chest pains in the past. Allergies Allergy/AdvReac Type Severity Reaction Status Date / Time No Known Drug Allergies Allergy . Verified 11/22/19 15:04 Home Medications Home Medications Medication Instructions Recorded Confirmed Type cholecalciferol (vitamin D3) 50 2,000 units PO DAILY #30 cap 12/13/18 11/22/19 Rx mcg (2,000 unit) capsule multivitamin 1 tab PO DAILY #30 tab 12/13/18 11/22/19 Rx amlodipine 10 mg tablet 10 mg PO DAILY #90 tab 02/07/19 11/22/19 Rx omeprazole 20 mg capsule,delayed 20 mg PO DAILY #90 cap 02/07/19 11/22/19 Rx release insulin NPH isoph U-100 human 42 unit SUBCUT QPM 06/12/19 11/22/19 History [Novolin N NPH U-100 Insulin] insulin NPH isoph U-100 human 60 unit SUBCUT QAM 06/12/19 11/22/19 History [Novolin N NPH U-100 Insulin] blood sugar diagnostic #500 ea 06/28/19 10/26/19 Rx aspirin 25 mg-dipyridamole 200 mg 1 cap PO DAILY cap 07/13/19 11/22/19 History capsule,ext.release 12 hr multiphase calcitriol 0.5 mcg capsule 0.5 mcg PO UD #90 cap 07/20/19 11/22/19 Rx levothyroxine 137 mcg tablet 137 mcg PO DAILY #90 tab 08/25/19 11/22/19 Rx atorvastatin 80 mg tablet 80 mg PO DAILY #90 tab 09/08/19 11/22/19 Rx metoprolol succinate 100 mg 100 mg PO DAILY #90 tab 09/13/19 11/22/19 Rx tablet,extended release 24 hr furosemide 40 mg PO DAILY 11/22/19 11/22/19 History Patient History Medical History Amaurosis fugax of right eye (Chronic) Anemia (Chronic) Aortic stenosis, severe (Resolved) CAD (coronary artery disease) (Chronic) Carcinoma of prostate Cardiomyopathy (Chronic) Carotid atherosclerosis (Chronic) Cerebrovascular disease (Chronic) Chronic hip pain (Chronic) CKD (chronic kidney disease), stage IV (Chronic) Clostridium difficile diarrhea Diabetes mellitus with renal complications (Chronic) Dyslipidemia (Chronic) First degree atrioventricular block (Chronic) Gastroesophageal reflux disease (Chronic) H/O: stroke (2014) L hemispheric subcortical infarct History of aortic stenosis History of cholecystitis (Chronic) History of cholelithiasis (Chronic) History of prostate cancer Hypertension (Chronic) Hypothyroidism (Chronic) 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) Tremor (Chronic) Vitamin D deficiency (Chronic) Surgical History H/O prostatectomy History of cardiac cath CATH STENT 1 FIRST RIGHT POSTEROLATERAL BRANCH History of inguinal hernia repair LEFT INGUINAL HERNIORRHAPHY 1986 S/P coronary artery stent placement (12/2015) [facility] S/P prostatectomy 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) [facility] Status post placement of implantable loop recorder w/ removal May 2015 Family History Father , IN 70'S WITH HEART DISEASE Patient's father is Heart disease Mother , AT AGE 86 Laryngeal cancer Patient's mother is Denies family history of Ovarian cancer Prostate cancer Kidney disease CKD (chronic kidney disease) Myocardial infarction Breast cancer Bleeding disorder Lung cancer Colorectal cancer Social History Preferred Language: Uruguayan Communication Ability: Effective Visual Impairment: Limited Hearing Ability: Use of Hearing Aid 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 Other Information That Helps Us Care for You: No other: twice; 4 kids from first marriage, none from 2nd marriage. Feels Safe at Home: Yes Smoking Status: Former smoker Years Smoked: 1 ; Hx Alcohol Use: No Hx Substance Use: No Childhood Exposure to Second-Hand Smoke: No Diet Comment: Doesnt follow diet. caffeine: Yes (coffee x 5-6 per day. ) during the past year weight has: remained stable Dental Care, Regularly: Yes Physical Activity Frequency: Does not Exercise Seatbelt Use: always Sunscreen Use: No Review of Systems Review of Systems: All systems reviewed & are unremarkable except as noted in HPI & below He denies any recent changes in his diet. Physical Exam Physical Exam: The patient is alert and oriented. Mood and affect appeared normal. He answered all questions appropriately. Hard of hearing HEENT: Pupils are equal and reactive to light and accommodation. Extraocular movements are intact. The sclerae are anicteric. Neuro: Cranial nerves intact Neck: Patient's neck is supple. He has palpable carotid pulses bilaterally without bruits on auscultation. There is no evidence of jugular venous distention. The thyroid is not enlarged. Lungs: Crackles in both lung santamaria. No expiratory wheezing. Normal respiratory effort. Cardiac: Heart demonstrates an irregular rate and rhythm. Normal S1 and S2. Soft systolic murmur of variable intensity. Pulses: The patient has palpable radial pulses bilaterally that are equal in intensity Extremities: There was no evidence of hypoperfusion. There is no cyanosis or clubbing. There is no edema. Skin: I did not appreciate any rashes on examination today. Results & Data ([facility]) Vital Signs (Past 12 Hours) Vital Signs Temp Pulse Pulse Resp BP BP Pulse Ox 11/23/19 11:00 36.4 C L 93 H 18 106/64 94 11/23/19 08:59 99 H 11/23/19 07:54 36.4 C L 100 H 18 121/68 95 11/23/19 05:00 103 H 24 126/72 93 Laboratory Results Abnormal Lab Results 11/22/19 11/22/19 11/22/19 18:29 20:00 21:17 APTT PTT Ratio Sodium Potassium Chloride Carbon Dioxide Anion Gap BUN Creatinine Est Cr Clr Drug Dosing Est GFR ( Amer) Est GFR (Non-Af Amer) BUN/Creatinine Ratio Glucose POC Glucose 222 H 243 H Calcium Magnesium Troponin I 1.170 H* 11/23/19 11/23/19 11/23/19 00:48 04:07 04:07 APTT 38.3 H PTT Ratio 1.4 Sodium 142 Potassium 3.7 D Chloride 107 Carbon Dioxide 28 Anion Gap 7.0 BUN 61 H Creatinine 3.49 H Est Cr Clr Drug Dosing 15.0 Est GFR ( Amer) 17.0 Est GFR (Non-Af Amer) 14.7 BUN/Creatinine Ratio 17.6 Glucose 85 POC Glucose Calcium 9.0 Magnesium Troponin I 2.020 H* 11/23/19 11/23/19 11/23/19 05:39 07:23 11:40 APTT PTT Ratio Sodium Potassium Chloride Carbon Dioxide Anion Gap BUN Creatinine Est Cr Clr Drug Dosing Est GFR ( Amer) Est GFR (Non-Af Amer) BUN/Creatinine Ratio Glucose POC Glucose 70 272 H Calcium Magnesium 1.9 Troponin I 1.570 H* 11/23/19 11:50 APTT 52.7 H* PTT Ratio 1.9 Sodium Potassium Chloride Carbon Dioxide Anion Gap BUN Creatinine Est Cr Clr Drug Dosing Est GFR ( Amer) Est GFR (Non-Af Amer) BUN/Creatinine Ratio Glucose POC Glucose Calcium Magnesium Troponin I Diagnostic Findings Chest x-ray obtained at time admission revealed evidence of pulmonary edema Echocardiogram performed today revealed severely reduced LV systolic function with essentially global hypokinesis, normal prosthetic aortic valve function and moderate mitral regurgitation. Small pericardial effusion. ECG Additional Comments: EKG obtained at time admission revealed atrial fibrillation and left bundle-branch block PG Care Time/CCT Total # of Minutes Spent Total Time Spent with Patient: Total time spent is greater than 50% in coordination of care (as documented) at patient's floor/unit and/or counseling patient: Coding Level of Care Code 65712 Initial Inpt Care Lvl 3 Diagnoses CHF (congestive heart failure) I50.9 Heart failure chronicity: acute on chronic Heart failure type: unspecified Elevated troponin R79.89 CAD (coronary artery disease) I25.10 Coronary Disease-Associated Artery/Lesion type: [place] artery [place] vs. transplanted heart: [place] heart Associated angina: angina presence unspecified Cardiomyopathy I42.9 S/P TAVR (transcatheter aortic valve replacement) Z95.2 Atrial fibrillation I48.91 Pericardial effusion I31.3 (1) CHF (congestive heart failure) Heart failure chronicity: acute on chronic Heart failure type: unspecified Qualified Code(s): I50.9 - Heart failure, unspecified (2) CAD (coronary artery disease) Coronary Disease-Associated Artery/Lesion type: [place] artery [place] vs. transplanted heart: [place] heart Associated angina: angina presence unspecified Qualified Code(s): I25.10 - Atherosclerotic heart disease of [place] coronary artery without angina pectoris
--- NOTE | 2019-11-23 16:59 | Electrocardiogram Report ---
Test Reason : Blood Pressure : / mmHG Vent. Rate : 090 BPM Atrial Rate : 090 BPM P-R Int : 226 ms QRS Dur : 172 ms QT Int : 442 ms P-R-T Axes : 073 018 193 degrees QTc Int : 540 ms Sinus rhythm with 1st degree A-V block with Fusion complexes Left bundle branch block Abnormal ECG When compared with ECG of 12-JUN-2019 15:38, Fusion complexes are now Present Premature supraventricular complexes are no longer Present Left bundle branch block is now Present Confirmed by Kj Keen ([id number]) on 11/23/2019 4:59:21 PM Referred By: REFERRED SELF Confirmed By:Jhon Keen
--- NOTE | 2019-11-23 17:05 | Electrocardiogram Report ---
Test Reason : Blood Pressure : / mmHG Vent. Rate : 093 BPM Atrial Rate : 093 BPM P-R Int : 192 ms QRS Dur : 170 ms QT Int : 434 ms P-R-T Axes : 053 000 165 degrees QTc Int : 539 ms Normal sinus rhythm Left bundle branch block Abnormal ECG When compared with ECG of 22-NOV-2019 14:45, (unconfirmed) Fusion complexes are no longer Present NV interval has decreased T wave inversion less evident in Lateral leads Confirmed by Kj Keen ([id number]) on 11/23/2019 5:05:29 PM Referred By: REFERRED SELF Confirmed By:Jhon Keen
--- NOTE | 2019-11-23 17:12 | Electrocardiogram Report ---
Test Reason : Blood Pressure : / mmHG Vent. Rate : 093 BPM Atrial Rate : 066 BPM P-R Int : 000 ms QRS Dur : 172 ms QT Int : 428 ms P-R-T Axes : 000 000 180 degrees QTc Int : 532 ms Atrial fibrillation with premature ventricular or aberrantly conducted complexes Left bundle branch block Abnormal ECG When compared with ECG of 22-NOV-2019 21:32, (unconfirmed) Atrial fibrillation has replaced Sinus rhythm Confirmed by Kj Keen ([id number]) on 11/23/2019 5:11:49 PM Referred By: REFERRED SELF Confirmed By:Jhon Keen
[2019-11-23] MEDS: WARFARIN SOD 5 MG TAB PO SCH (18:47)
[2019-11-23] MEDS: HEPARIN SODIUM/DEXTROSE 25,000 UNITS/500 ML BAG IV SCH (21:16)
[2019-11-24] MEDS: LEVOTHYROXINE SODIUM 137 MCG TABLET PO SCH (05:32)
[2019-11-24 07:14] LABS: INR 1.1 (0.9-1.1); Partial Thromboplastin Ratio 1.5; Partial Thromboplastin Time 41.2 Seconds (21.0-31.0); Prothrombin Time 11.5 Seconds (9.0-12.0)
[2019-11-24 07:34] LABS: BUN Creatinine Ratio 15.4 (10-20); Calcium 9.1 mg/dl (8.5-10.1); Creatinine Clr Calc Pharmacy 13.5 ml/min; Est GFR (African American) 15.2; Est GFR (Non-African American) 13.1; Potassium 4.2 mmol/L (3.5-5.1)
[2019-11-24] MEDS ORDERED: HEPARIN IV BOLUS 4,500 UNITS in SYRINGE 0 ML IV ONE (07:39)
[2019-11-24] MEDS: METOPROLOL SUCC 50MG EXT REL TAB PO SCH (08:06)
[2019-11-24] MEDS: CHOLECALCIFEROL 1,000 UNITS 25 MCG TAB PO SCH (08:07)
[2019-11-24] MEDS: AMLODIPINE BESYLATE 5 MG TAB PO SCH (08:07)
[2019-11-24] MEDS: ATORVASTATIN 40 MG TAB PO SCH (08:07)
[2019-11-24] MEDS: MULTIVITAMIN TAB PO SCH (08:08)
[2019-11-24] MEDS: PANTOprazole 40 MG TAB PO SCH (08:08)
[2019-11-24] MEDS: CLOPIDOGREL BISULFATE 75 MG TAB PO SCH (08:09)
[2019-11-24] MEDS: BUMETANIDE 1 MG TAB PO SCH (08:09)
[2019-11-24] MEDS: INSULIN GLARGINE SOLOSTAR 100 UNITS/ML 3 ML PEN SC SCH ×2 (08:10→22:07)
[2019-11-24] MEDS: INSULIN ASPART 100 UNITS/ML 3 ML PEN SC SCH ×4 (08:12→22:06)
--- NOTE | 2019-11-24 09:27 | Nephrology Progress Note ---
Date of Service November 24, 2019 Assessment & Plan (1) CKD (chronic kidney disease), stage IV: * Stable advanced CKD: baseline Cr has been 3.4 - 3.8 * Discussed indications/risks/benefits/alternatives of [employer] in detail w/ patient again today. He is interested in discussing this further w/ Dr. Webb. He is open to obtaining dialysis education and undergoing vascular access evaluation as an outpatient (2) CHF (congestive heart failure): * Continue Bumex 2 mg po daily. If weight drops < 180 lbs (81 kg) then reduce to Bumex 1 mg daily * As outpatient Mr. Soria should weight himself daily. "Dry weight" should be set at 180 lbs/81kg (current weight). He should take Bumex 1 mg daily but increase dose to 2 mg daily for weight > 180 lbs * Dietitian has been asked to provide education on low sodium diet. Patient reports that most of his meals are prepackaged (can, jar, box) and may be high in sodium Admission and Anticipated Discharge Date Admission Date: November 22, 2019 Subjective Mr. Soria was seen & examined in his hospital room this morning. He was breathing comfortably on RA. He denied angina, dyspnea or uremic symptoms. Mr. Soria reports brisk UO in response to Bumex therapy. I&O's were matched overnight. Mr. Soria is anxious to return home Review of Systems Constitutional: no fever and no weakness Eyes: no problem reported Ear, Nose, Mouth, Throat: no problem reported Respiratory: no cough and no dyspnea Cardiovascular: no chest pain, no palpitations and no edema Gastrointestinal: no abdominal pain, no nausea, no vomiting and no diarrhea/loose stools Genitourinary: no dysuria, no urinary hesitancy and no hematuria Musculoskeletal: no back pain Integumentary: no rash Neurologic: no dizziness Physical Exam Constitutional: not in distress Eyes: PERRL, conjunctivae normal, anicteric sclerae ENMT: external ear and nose normal, oropharynx normal Neck: trachea midline, no thyromegaly Respiratory: normal respiratory effort, lungs clear to auscultation Cardiovascular: Rate/Rhythm: regular rate and regular rhythm Extremities: no edema Gastrointestinal (Abdomen): normal bowel sounds, soft, nontender, no hepatosplenomegaly Musculoskeletal: Extremities: no cyanosis Skin: no rashes, warm and dry Neurologic: awake (hard of hearing) Results & Data ([facility]) Vital Signs (Past 12 Hours) Vital Signs Temp Pulse Resp BP Pulse Ox 11/24/19 07:00 36.6 C 96 H 20 124/67 96 11/24/19 02:55 36.5 C 86 15 95/60 L 94 11/23/19 23:45 36.7 C 86 17 107/62 97 Laboratory Results Laboratory Tests 11/24/19 06:35 Sodium 138 Potassium 4.2 Chloride 103 Carbon Dioxide 27 BUN 59 H Creatinine 3.82 H D Glucose 111 H Calcium 9.1 PG Care Time/CCT Total # of Minutes Spent Total Time Spent with Patient: Total time spent is greater than 50% in coordination of care (as documented) at patient's floor/unit and/or counseling patient: Coding Level of Care Code 80321 Subseq Hosp Care Lvl 3 Diagnoses CKD (chronic kidney disease), stage IV N18.4 CHF (congestive heart failure) I50.9 Heart failure chronicity: acute on chronic Heart failure type: unspecified (1) CHF (congestive heart failure) Heart failure chronicity: acute on chronic Heart failure type: unspecified Qualified Code(s): I50.9 - Heart failure, unspecified
[2019-11-24] MEDS: NITROGLYCERIN SL 0.4 MG/TAB TAB SL PRN ×2 (11:31→12:14)
--- NOTE | 2019-11-24 12:47 | Hospitalist Progress Note ---
Date of Service November 24, 2019 Assessment & Plan (1) Acute respiratory distress: Patient had chest pain followed by significant dyspnea starting acutely this am. recurrent chest pain required morphine likely non stemi/ type II Mi, with peak and fall of troponin He has known CAD with RCA stent in 2015 prior to his TAVR for . pt was given additional bumex 11/22 and transitioned to plavix/coumadin, with persistent CP/SOB will try to add nitrate po Echocardiogram shows heart failure reduced ejection fraction decline from previous no focal regional wall motion abnormalities and no significant valvular abnormalities (2) Acute diastolic CHF (congestive heart failure): Acute heart failure reduced ejection fraction in the setting of severe CKD stage 4. bumex 2mg daily. (3) Elevated troponin: Myocardial infarction type 2 due to demand ischemia Concerning for ACS given his known CAD and the chest pain at presentation, and recurrent chest pain with minimal exertion. heparin infusion x m48 hours Of note - LBBB was present on 10/2019 EKG. consult cardiology however the patient is in a difficult situation as risk verification procedure such as a left heart cath likely push is renal failure into the realm of needing renal replacement and the patient is not ready to do that. Given his symptoms have quickly resolved with diuresis will attempt to modify his medications for medical management of any underlying coronary disease. His renal dysfunction does prevent us from using afterload reduction to help his significantly reduced ejection fraction. (4) CAD (coronary artery disease): records indicate RCA stent on December 2015 pre-TAVR heart catheterization. +troponin added aspirin 81mg daily transition to plavix/couimadin for CAD secondary prevention and Thromboembolic prevention with PAF cont BB. cont high-intensity statin. 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 total daily dose of insulin is ~100 units lantus 25 units BID plus novolog with meals -pharmacy is adjusting his correction factor and carb ratio BSGs ac/hs DM diet (7) Dyslipidemia: on high-intensity statin w/ lipitor 80mg daily (8) History of aortic stenosis: s/p TAVR 2015 at [place] echo 05/2019 with good valve function (9) Hypothyroidism: TSH 06/2019 was wnl Cont synthroid (10) Hypertension: cont home meds (11) H/O: stroke: Will likely transition a dual antiplatelet therapy (12) DVT prophylaxis: to be on heparin infusion for 48 hours His Aleyda was updated on the phone 11/22 her numbers [phone] Admission and Anticipated Discharge Date Admission Date: November 22, 2019 Subjective Mr Soria was seen shortly after walking back from bathroom, he was dyspneic and complaining of chest pain, state ECG did not show any changes and he was in sinus rhythm but earlier was in afib, two nitro sl did not help and was given morphine Review of Systems Review of Systems: Mild distress and fatigue no headache, blurry or double vision no speech or swallowing issues left sided chest pain, no pressure or palpitations shortness of breath/hernandez, no further cough but no wheezes no abdominal pain, nausea or vomiting, diarrhea or constipation no dysuria, hematuria or frequency no focal joint pain or swelling no back pain, CVA tenderness or radicular pain no bruising, bleeding or rashes no focal signs of weakness or numbness or altered sensation no complaints or anxiety or depression. Physical Exam Physical Exam: The patient appeared well nourished and normally developed. Vital signs as documented. Head exam is normocephalic atraumatic no scleral icterus Neck remains with 2 to 3 cm JVD, thyromegaly, or carotid bruits. Lungs are rales at the bases Cardiac exam, Rhythm is regular.. Systolic ejection murmur Abdominal exam reveals normal bowel sounds, soft non tender, no masses Extremities are nonedematous and both pedal pulses are normal. Neurologic exam is alert and oriented, no focal loss of strength or sensation Skin is without bruises or rashes Psychologically is without concerns for anxiety or depression Results & Data Results & Data ([facility]) Vital Signs (Past 12 Hours) Vital Signs Temp Pulse Pulse Resp BP Pulse Ox 11/24/19 11:00 86 20 119/73 93 11/24/19 08:20 93 H 11/24/19 07:00 97.9 F 96 H 20 124/67 96 11/24/19 02:55 97.7 F 86 15 95/60 L 94 PG Care Time/CCT Total # of Minutes Spent Total Time Spent with Patient: Total time spent is greater than 50% in coordination of care (as documented) at patient's floor/unit and/or counseling patient: Coding Level of Care Code 52458 Subseq Hosp Care Lvl 3 Diagnoses Acute respiratory distress R06.03 Acute diastolic CHF (congestive heart failure) I50.31 Elevated troponin R79.89 CAD (coronary artery disease) I25.10 Associated angina: angina presence unspecified Coronary Disease-Associated Artery/Lesion type: [place] artery [place] vs. transplanted heart: [place] heart CKD (chronic kidney disease), stage IV N18.4 Diabetes mellitus with renal complications E11.22; N18.4; Z79.4 Chronic kidney disease stage: stage 4 (severe) Diabetes mellitus complication detail: with chronic kidney disease Diabetes mellitus jail insulin use: with jail use Diabetes mellitus type: type 2 Dyslipidemia E78.5 History of aortic stenosis Z86.79 Hypothyroidism E03.9 Hypothyroidism type: acquired Hypertension I10 Hypertension type: essential hypertension H/O: stroke Z86.73 DVT prophylaxis Z29.9 (1) CAD (coronary artery disease) Associated angina: angina presence unspecified Coronary Disease-Associated Artery/Lesion type: [place] artery [place] vs. transplanted heart: [place] heart Qualified Code(s): I25.10 - Atherosclerotic heart disease of [place] coronary artery without angina pectoris (2) Hypothyroidism Hypothyroidism type: acquired Qualified Code(s): E03.9 - Hypothyroidism, unspecified (3) Diabetes mellitus with renal complications Chronic kidney disease stage: stage 4 (severe) Diabetes mellitus complication detail: with chronic kidney disease Diabetes mellitus jail insulin use: with jail use Diabetes mellitus type: type 2 Qualified Code(s): E11.22 - Type 2 diabetes mellitus with diabetic chronic kidney disease; N18.4 - Chronic kidney disease, stage 4 (severe); Z79.4 - long term acute care registered nurse (current) use of insulin (4) Hypertension Hypertension type: essential hypertension Qualified Code(s): I10 - Essential (primary) hypertension
[2019-11-24] MEDS: MoRPHine SULFATE 2 MG/ML CARP IV PRN ×2 (13:08→17:59)
[2019-11-24] MEDS ORDERED: ALUMINUM/MAGNESIUM SUSP 18 ML, LIDOCAINE HCL VISCOUS 2% 6 ML, BARCODE IDENTIFIER 1 EA PO ONE (13:40)
[2019-11-24] MEDS: ISOSORBIDE DINITRATE 10 MG TAB PO SCH (14:01)
--- NOTE | 2019-11-24 14:03 | XRay Report ---
XR chest 1V portable CLINICAL HISTORY: chest pain dyspnea COMPARISON STUDY: 11/22/2019 FINDINGS: Unchanged exam compared to the prior study. Small bilateral pleural effusions. Probable sup erimposed left basilar infiltrate also unchanged. Moderate cardiomegaly. Evidence for a valve repair. Upper lungs are clear. IMPRESSION: 1. Bilateral pleural effusions with superimposed left basilar infiltrate. 2. No major change compared to the prior study. 3. Pulmonary vascular congestion stable to slightly improved. ACT 112: Negative or not required by law. The above report was generated using voice recognition software. It may contain grammatical, syntax or spelling errors. Electronically signed by: Chris Muñoz M.D. 11/24/2019 2:02 PM
[2019-11-24 14:46] LABS: Partial Thromboplastin Ratio 2.3
[2019-11-24 14:47] LABS: Partial Thromboplastin Time 65.1 Seconds (21.0-31.0)
[2019-11-24] MEDS: WARFARIN SOD 5 MG TAB PO SCH (16:46)
[2019-11-24] MEDS ORDERED: LORazepam 0.5 MG/1 ML VIAL IV PRN (18:15)
[2019-11-24] MEDS ORDERED: SUCRALFATE 1 GM/10 ML UDC PO ONE (18:15)
--- NOTE | 2019-11-24 18:40 | Cardiology Progress Note ---
Date of Service November 24, 2019 Assessment & Plan (1) CHF (congestive heart failure): Clinically improved. He will continue on his daily Bumex 2 milligrams. On metoprolol but no Alexx inhibitor due to renal dysfunction (2) Elevated troponin: Trending downward. Our decision was not to pursue an invasive evaluation given his concerns about dialysis. I think heparin can be continued as long as he is in the hospital. This could certainly be discontinued tomorrow morning if he is still here. I would send him home on warfarin and Plavix. (3) CAD (coronary artery disease): He has a history of intervention to the right coronary artery prior to his TAVR. He has been maintained on aspirin and atorvastatin. (4) Cardiomyopathy: (5) S/P TAVR (transcatheter aortic valve replacement): Normally functioning aortic valve on echocardiography (6) Atrial fibrillation: A new diagnosis. No recurrence. Started on warfarin and will be maintained on warfarin and Plavix. Aspirin can be discontinued. (7) Pericardial effusion: He has a small, hemodynamically insignificant pericardial effusion. This is of unknown chronicity. Possibly related to volume overload and renal dysfunction. (8) Chest pain: He has some symptoms of chest pain again this afternoon. These are atypical in nature. He describes in this pleuritic. He has been started on some isosorbide dinitrate. For continued symptoms topical nitrates or narcotics could be attempted. Admission and Anticipated Discharge Date Admission Date: November 22, 2019 Subjective This afternoon the patient was anxious to be discharged. Denies any worsening breathing difficulty. He has not been very mobile during the day. He did describe some vague chest discomfort that appear to be pleuritic in nature. He did not report breathing trouble. Review of Systems Review of Systems: Per HPI Physical Exam Physical Exam: The patient is alert and oriented. Mood and affect appeared normal. He answered all questions appropriately. Hard of hearing HEENT: Pupils are equal and reactive to light and accommodation. Extraocular movements are intact. The sclerae are anicteric. Neuro: Cranial nerves intact Lungs: Generally clear lung [place]. Occasional crackle in the bases bilaterally. No expiratory wheezing. Normal respiratory effort. Cardiac: Heart demonstrates an irregular rate and rhythm. Normal S1 and S2. Soft systolic murmur of variable intensity. Pulses: The patient has palpable radial pulses bilaterally that are equal in intensity Skin: I did not appreciate any rashes on examination today. Results & Data ([facility]) Vital Signs (Past 12 Hours) Vital Signs Temp Pulse Pulse Resp BP Pulse Ox 11/24/19 15:33 36.5 C 94 H 16 106/63 96 11/24/19 15:11 95 H 11/24/19 11:00 86 20 119/73 93 11/24/19 08:20 93 H 11/24/19 07:00 36.6 C 96 H 20 124/67 96 Laboratory Results Abnormal Lab Results 11/23/19 11/24/19 11/24/19 20:38 06:35 06:35 PT 11.5 INR 1.1 APTT 41.2 H PTT Ratio 1.5 Sodium 138 Potassium 4.2 Chloride 103 Carbon Dioxide 27 Anion Gap 9.0 BUN 59 H Creatinine 3.82 H D Est Cr Clr Drug Dosing 13.5 Est GFR ( Amer) 15.2 Est GFR (Non-Af Amer) 13.1 BUN/Creatinine Ratio 15.4 Glucose 111 H POC Glucose 261 H Calcium 9.1 11/24/19 11/24/19 11/24/19 07:34 11:45 14:04 PT INR APTT 65.1 H* PTT Ratio 2.3 Sodium Potassium Chloride Carbon Dioxide Anion Gap BUN Creatinine Est Cr Clr Drug Dosing Est GFR ( Amer) Est GFR (Non-Af Amer) BUN/Creatinine Ratio Glucose POC Glucose 144 H 276 H Calcium 11/24/19 16:57 PT INR APTT PTT Ratio Sodium Potassium Chloride Carbon Dioxide Anion Gap BUN Creatinine Est Cr Clr Drug Dosing Est GFR ( Amer) Est GFR (Non-Af Amer) BUN/Creatinine Ratio Glucose POC Glucose 162 H Calcium PG Care Time/CCT Total # of Minutes Spent Total Time Spent with Patient: Total time spent is greater than 50% in coordination of care (as documented) at patient's floor/unit and/or counseling patient: Coding Level of Care Code 98960 Subseq Obs Care Lvl 3 Diagnoses CHF (congestive heart failure) I50.9 Heart failure chronicity: acute on chronic Heart failure type: unspecified Elevated troponin R79.89 CAD (coronary artery disease) I25.10 Coronary Disease-Associated Artery/Lesion type: [place] artery [place] vs. transplanted heart: [place] heart Associated angina: angina presence unspecified Cardiomyopathy I42.9 S/P TAVR (transcatheter aortic valve replacement) Z95.2 Atrial fibrillation I48.91 Pericardial effusion I31.3 Chest pain R07.9 (1) CHF (congestive heart failure) Heart failure chronicity: acute on chronic Heart failure type: unspecified Qualified Code(s): I50.9 - Heart failure, unspecified (2) CAD (coronary artery disease) Coronary Disease-Associated Artery/Lesion type: [place] artery [place] vs. transplanted heart: [place] heart Associated angina: angina presence unspecified Qualified Code(s): I25.10 - Atherosclerotic heart disease of [place] coronary artery without angina pectoris
--- NOTE | 2019-11-24 19:21 | Electrocardiogram Report ---
Test Reason : Blood Pressure : / mmHG Vent. Rate : 098 BPM Atrial Rate : 098 BPM P-R Int : 176 ms QRS Dur : 166 ms QT Int : 424 ms P-R-T Axes : 002 -34 142 degrees QTc Int : 541 ms Sinus rhythm with Premature atrial complexes Left axis deviation Left bundle branch block Abnormal ECG Confirmed by Kj Keen ([id number]) on 11/24/2019 7:21:09 PM Referred By: REFERRED SELF Confirmed By:Jhon Keen
[2019-11-24] MEDS ORDERED: NITROGLYCERIN 2% OINTMENT 30GM TUBE EXT ONE (23:29)
[2019-11-24] MEDS ORDERED: MoRPHine SULFATE 2 MG/ML CARP IV STA (23:29)
[2019-11-25] MEDS: LEVOTHYROXINE SODIUM 137 MCG TABLET PO SCH (06:30)
[2019-11-25] MEDS: ISOSORBIDE DINITRATE 10 MG TAB PO SCH ×2 (06:30→11:32)
[2019-11-25 07:16] LABS: INR 1.2 (0.9-1.1); Prothrombin Time 12.2 Seconds (9.0-12.0)
[2019-11-25 07:45] LABS: BUN Creatinine Ratio 16.3 (10-20); Calcium 8.5 mg/dl (8.5-10.1); Creatinine Clr Calc Pharmacy 11.7 ml/min; Est GFR (African American) 12.8; Potassium 4.2 mmol/L (3.5-5.1)
[2019-11-25] MEDS: INSULIN ASPART 100 UNITS/ML 3 ML PEN SC SCH ×4 (07:48→21:19)
[2019-11-25] MEDS: HEPARIN SODIUM/DEXTROSE 25,000 UNITS/500 ML BAG IV SCH (07:49)
[2019-11-25] MEDS: INSULIN GLARGINE SOLOSTAR 100 UNITS/ML 3 ML PEN SC SCH ×2 (07:50→21:18)
[2019-11-25] MEDS: ATORVASTATIN 40 MG TAB PO SCH (07:58)
[2019-11-25] MEDS: CHOLECALCIFEROL 1,000 UNITS 25 MCG TAB PO SCH (07:58)
[2019-11-25] MEDS: PANTOprazole 40 MG TAB PO SCH (07:58)
[2019-11-25] MEDS: METOPROLOL SUCC 50MG EXT REL TAB PO SCH (07:58)
[2019-11-25] MEDS: MULTIVITAMIN TAB PO SCH (07:58)
[2019-11-25] MEDS: CLOPIDOGREL BISULFATE 75 MG TAB PO SCH (07:59)
[2019-11-25] MEDS: CALCITRIOL 0.25 MCG CAPSULE PO SCH (07:59)
[2019-11-25] MEDS ORDERED: BUMETANIDE 2 MG in SYRINGE 0 ML IV ONE (08:00)
[2019-11-25] MEDS ORDERED: ACETAMINOPHEN 1000 MG/100 ML IV IV PRN (08:46)
[2019-11-25 09:07] LABS: Troponin I 0.434 ng/ml (0-0.045)
[2019-11-25 09:24] LABS: Albumin Globulin Ratio 0.5 (0.9-2); Albumin Level 2.3 gm/dl (3.4-5.0); Bilirubin,Total 0.6 mg/dl (0.2-1); Globulin 4.3 gm/dl (2.5-4.0); Total Protein 6.6 gm/dl (6.4-8.2)
[2019-11-25] MEDS: MoRPHine SULFATE 2 MG/ML CARP IV PRN ×2 (09:53→17:35)
--- NOTE | 2019-11-25 10:18 | CT Scan Report ---
CT abd pelvis oral con only CT DOSE: 512.01 mGy.cm HISTORY: Pain diffuse abdominal pain TECHNIQUE: Multiaxial CT images of the abdomen and pelvis were performed following the use of oral co ntrast. A dose lowering technique was utilized adhering to the principles of ALARA. COMPARISON STUDY: 02/22/2018 FINDINGS: Moderate cardiomegaly. Reconstructive changes of aortic valve. Small pericardial effusion. Bilateral lower lobe consolidative change. Bilateral basilar pleural effusions. Several small gallstones. Kidneys are negative for hydronephrosis. Nonobstructive bowel pattern. Bladder is midline. No free fluid within the pelvic cul-de-sac. Prior prostatectomy. IMPRESSION: 1. Bilateral bibasilar consolidative change with bilateral pleural effusions. 2. Cardiomegaly with a small pericardial effusion. 3. Several small gallstones. 4. Prior prostatectomy. 5. Otherwise negative study. ACT 112: Negative or not required by law. The above report was generated using voice recognition software. It may contain grammatical, syntax or spelling errors. Electronically signed by: Chris Muñoz M.D. 11/25/2019 10:17 AM
--- NOTE | 2019-11-25 11:01 | Nephrology Progress Note ---
Date of Service November 25, 2019 Assessment & Plan (1) CKD (chronic kidney disease), stage IV: Willy has advanced stage 4/5 CKD with baseline creatinine around 3.4-3.5 secondary to microvascular disease. Admitted to the hospital with chest pain, initially troponin was slightly elevated but it was trending down, no new changes in EKG. Was also found to have new onset AFib, started on Coumadin. Initially found to have volume overload, pulmonary congestion and continued on home dose of Bumex 2 mg daily however on hold since this morning as renal function progressively worsen with creatinine up to 4.5. Still makes urine but urine output seems to be dropping as well. --discussed with Willy about his current situation with worsening of renal function however he still does not want dialysis as he expressed many times before. Discussed over the telephone with his Aleyda ( [phone]) who mentioned that they had discussion several times including her daughter and both of them know that car never wanted dialysis. Explained that renal function might continue to worsen and he developed different electrolyte abnormalities or volume overload without dialysis, she verbalized understanding. --resume Bumex 2 mg daily and increase dose as needed, try to keep even or slightly net negative --monitor renal function daily renal panel, if renal function continues to worsen recommend consulting palliative care cap service to set up hospice care. Will follow (2) CHF (congestive heart failure): Admission and Anticipated Discharge Date Admission Date: November 22, 2019 Subjective Willy was seen and examined in his room this morning. He was awake, alert, seems comfortable but somewhat confused. Denied any specific symptoms specifically no chest pain, shortness of breath, had some abdominal pain which now seems to have resolved. Feels hungry and waiting for lunch. Renal function continues to worsen, electrolyte remained relatively acceptable. Decent urine output. Blood pressure stable. Volume status seems otherwise acceptable. Review of Systems Review of Systems: All systems reviewed & are unremarkable except as noted in HPI & below Physical Exam Constitutional: well developed, well nourished and comfortable; no acute distress Neck: normal visual inspection Respiratory: normal respiratory effort, lungs clear to auscultation Auscultation: + diminished lung sounds Cardiovascular: RRR, no murmur, no edema Rate/Rhythm: + irregularly irregular Heart Sounds: normal S1 and normal S2 Extremities: + edema (trace b/l LE edema.) Neurologic: moves all extremities, awake and + confused Psychiatric: A+Ox3, euthymic affect Results & Data ([facility]) Vital Signs (Past 12 Hours) Vital Signs Temp Pulse Pulse Resp BP Pulse Ox 11/25/19 07:00 36.6 C 102 H 20 117/67 92 11/25/19 06:25 91 H 132/73 11/25/19 04:01 37 C 77 16 125/66 91 11/25/19 02:15 85 11/24/19 23:27 36.3 C L 70 18 130/77 94 PG Care Time/CCT Total # of Minutes Spent Total Time Spent with Patient: Total time spent is greater than 50% in coordination of care (as documented) at patient's floor/unit and/or counseling patient: Coding Level of Care Code 27474 Subseq Hosp Care Lvl 3 Diagnoses CKD (chronic kidney disease), stage IV N18.4 CHF (congestive heart failure) I50.9 Heart failure chronicity: acute on chronic Heart failure type: unspecified (1) CHF (congestive heart failure) Heart failure chronicity: acute on chronic Heart failure type: unspecified Qualified Code(s): I50.9 - Heart failure, unspecified
[2019-11-25] MEDS: SUCRALFATE 1 GM/10 ML UDC PO SCH ×3 (11:32→21:17)
[2019-11-25] MEDS: LIDOCAINE 5% 1 PATCH TD SCH (12:14)
--- NOTE | 2019-11-25 15:18 | Hospitalist Progress Note ---
Date of Service November 25, 2019 Assessment & Plan (1) Chest wall pain: Subjectively this has been the biggest issue to the patient, initially feared to be angina he had no response to nitro or morphine, and had no dynamic ecg changes nor rise in troponin associated with it, has no cutaneous rash to be shingles and since was near RUQ had lfts that are normal and CT abd/pelvis that was unrevealing, now has rib x rays pending and will try topical lido patch as did have some confusion secondary to morphine (2) Acute respiratory distress: Patient had chest pain followed by significant dyspnea, recurrent rib/chest wall pain, not remidied by morphine previous non stemi/ type II Mi, with peak and fall of troponin He has known CAD with RCA stent in 2016 prior to his TAVR for . pt was given additional bumex 11/22 and transitioned to plavix/coumadin, with persistent CP/SOB will try to add nitrate po Echocardiogram shows heart failure reduced ejection fraction decline from previous no focal regional wall motion abnormalities and no significant valvular abnormalities (3) Acute diastolic CHF (congestive heart failure): Acute heart failure reduced ejection fraction in the setting of severe CKD stage 4. bumex 2mg daily has resulted in climbing Cr. (4) Elevated troponin: Myocardial infarction type 2 due to demand ischemia Concerning for ACS given his known CAD and the chest pain at presentation, and recurrent chest pain with minimal exertion. heparin infusion x 48 hours-> started coumadin due to PAF noted on monitor started on isosorbide Of note - LBBB was present on 10/2019 EKG. consult cardiology however the patient is in a difficult situation as risk verification procedure such as a left heart cath likely push is renal failure into the realm of needing renal replacement and the patient is not ready to do that. Given his symptoms have quickly resolved with diuresis will attempt to modify his medications for medical management of any underlying coronary disease. His renal dysfunction does prevent us from using afterload reduction to help his significantly reduced ejection fraction. (5) CAD (coronary artery disease): records indicate RCA stent on December 2015 pre-TAVR heart catheterization. +troponin added aspirin 81mg daily transition to plavix/couimadin for CAD secondary prevention and Thromboembolic prevention with PAF cont BB. added isosorbide cont high-intensity statin. 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 total daily dose of insulin is ~100 units due to hypoglycemia did reduce lantus to 20 units BID on 11/25/19, plus novolog with meals -pharmacy is adjusting his correction factor and carb ratio BSGs ac/hs DM diet (8) Dyslipidemia: on high-intensity statin w/ lipitor 80mg daily (9) History of aortic stenosis: s/p TAVR 2016 at [place] echo 05/2019 with good valve function (10) Hypothyroidism: TSH 06/2019 was wnl Cont synthroid (11) Hypertension: cont home meds (12) H/O: stroke: Will likely transition a dual antiplatelet therapy (13) DVT prophylaxis: to be on heparin infusion for 48 hours His Aleyda was updated on the phone 11/24 her numbers [phone], daughter also updated, if renal function worsens may have palliative care consult Admission and Anticipated Discharge Date Admission Date: November 22, 2019 Subjective this pt has been troubled by right sided upper abdominal pain. he has had an extensive workup thus far being non revealing to the cause of the pain, will treat symptomatically. i did speak to both his daughter and and the biggest issue regarding his health is his worsening renal failure in conjunction with his heart failure Review of Systems Review of Systems: Mild distress and fatigue no headache, blurry or double vision no speech or swallowing issues no formal chest pain no pressure or palpitations continues with shortness of breath/hernandez, no further cough but no wheezes right upper quadrant abdominal pain, reproducible, no nausea or vomiting, diarrhea or constipation no dysuria, hematuria or frequency no focal joint pain or swelling no back pain, CVA tenderness or radicular pain no bruising, bleeding or rashes no focal signs of weakness or numbness or altered sensation no complaints or anxiety or depression. Physical Exam Physical Exam: The patient appeared well nourished and normally developed. Vital signs as documented. Head exam is normocephalic atraumatic no scleral icterus Neck remains with 2 to 3 cm JVD, thyromegaly, or carotid bruits. Lungs are rales at the bases, he is tachypneic Cardiac exam, Rhythm is regular.. Systolic ejection murmur Abdominal exam reveals normal bowel sounds, soft, reproducible to right lower rib cage Extremities are nonedematous and both pedal pulses are normal. Neurologic exam is alert and oriented x2, no focal loss of strength or sensation Skin is without bruises or rashes Psychologically is without concerns for anxiety or depression Results & Data Results & Data ([facility]) Vital Signs (Past 12 Hours) Vital Signs Temp Pulse Resp BP Pulse Ox 11/25/19 11:00 97.5 F L 67 20 103/64 93 11/25/19 07:00 97.9 F 102 H 20 117/67 92 11/25/19 06:25 91 H 132/73 11/25/19 04:01 98.6 F 77 16 125/66 91 PG Care Time/CCT Total # of Minutes Spent Total Time Spent with Patient: Total time spent is greater than 50% in coordina tion of care (as documented) at patient's floor/unit and/or counseling patient: Coding Level of Care Code 35281 Subseq Hosp Care Lvl 3 Diagnoses Chest wall pain R07.89 Acute respiratory distress R06.03 Acute diastolic CHF (congestive heart failure) I50.31 Elevated troponin R79.89 CAD (coronary artery disease) I25.10 Associated angina: angina presence unspecified Coronary Disease-Associated Artery/Lesion type: [place] artery [place] vs. 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 transplanted heart: [place] heart Qualified Code(s): I25.10 - Atherosclerotic heart disease of [place] coronary artery without angina pectoris (2) Hypothyroidism Hypothyroidism type: acquired Qualified Code(s): E03.9 - Hypothyroidism, unspecified (3) Diabetes mellitus with renal complications Chronic kidney disease stage: stage 4 (severe) Diabetes mellitus complication detail: with chronic kidney disease Diabetes mellitus housekeeping assistant insulin use: with senior living use Diabetes mellitus type: type 2 Qualified Code(s): E11.22 - Type 2 diabetes mellitus with diabetic chronic kidney disease; N18.4 - Chronic kidney disease, stage 4 (severe); Z79.4 - [facility] (current) use of insulin (4) Hypertension Hypertension type: essential hypertension Qualified Code(s): I10 - Essential (primary) hypertension
--- NOTE | 2019-11-25 16:06 | XRay Report ---
XR ribs RT min 2V CLINICAL HISTORY: focal anterior right rib pain COMPARISON: None. DISCUSSION: No acute process of the ribs. Possible nondisplaced cortical fracture anterior right eigh th rib. Small parenchymal infiltrate versus atelectatic change right lung base. No evidence of pneumothorax. There is no evidence for soft tissue swelling. IMPRESSION: 1. Nondisplaced cortical fracture anterior right eighth rib. 2. No evidence for pneumothorax. 3. Small parenchymal infiltrate versus atelectasis right base. ACT 112: Negative or not required by law. The above report was generated using voice recognition software. It may contain grammatical, syntax or spelling errors. Electronically signed by: Chris Muñoz M.D. 11/25/2019 4:05 PM
[2019-11-25] MEDS: WARFARIN SOD 5 MG TAB PO SCH (16:23)
[2019-11-25] MEDS: PANTOprazole 40 MG in SYRINGE 0 ML IV SCH (21:17)
[2019-11-26] MEDS ORDERED: DEXTROSE 50% 50 ML SYRINGE IV PRN (03:45)
[2019-11-26] MEDS ORDERED: GLUCOSE 10 TABS/TUBE PO PRN (03:45)
[2019-11-26] MEDS ORDERED: CARBOHYDRATES FOR HYPOGLYCEMIA PO PRN (03:45)
[2019-11-26] MEDS ORDERED: GLUCOSE 40% GEL 15 GM TUBE PO PRN (03:45)
[2019-11-26] MEDS ORDERED: GLUCAGON FOR INJ 1 MG VIAL IM PRN (03:45)
[2019-11-26 06:22] LABS: INR 1.4 (0.9-1.1); Prothrombin Time 14.4 Seconds (9.0-12.0)
[2019-11-26] MEDS: LEVOTHYROXINE SODIUM 137 MCG TABLET PO SCH (06:35)
[2019-11-26] MEDS: ISOSORBIDE DINITRATE 10 MG TAB PO SCH ×2 (06:36→11:32)
--- NOTE | 2019-11-26 07:19 | Hospitalist Progress Note ---
Date of Service November 26, 2019 Assessment & Plan (1) Chest wall pain: Subjectively this has been the biggest issue to the patient, initially feared to be angina he had no response to nitro or morphine, and had no dynamic ecg changes nor rise in troponin associated with it, has no cutaneous rash to be shingles and since was near RUQ had lfts that are normal and CT abd/pelvis that was unrevealing, rib x rays reveal anterior right 8th rib fracture (2) Acute respiratory distress: Patient had chest pain followed by significant dyspnea, recurrent rib/chest wall pain, now found to be a rib fracture previous non stemi/ type II Mi, with peak and fall of troponin He has known CAD with RCA stent in 2016 prior to his TAVR for . pt was given additional bumex 11/22 and transitioned to plavix/coumadin, with persistent CP/SOB did start isosorbide Echocardiogram shows heart failure reduced ejection fraction decline from previous no focal regional wall motion abnormalities and no significant valvular abnormalities (3) Acute diastolic CHF (congestive heart failure): Acute heart failure reduced ejection fraction in the setting of severe CKD stage 4. bumex 2mg daily has resulted in climbing Cr. (4) Atrial fibrillation: rate controlled with metoprolol and coumadin. inr 1.4 (5) Elevated troponin: Myocardial infarction type 2 due to demand ischemia Concerning for ACS given his known CAD and the chest pain at presentation, and recurrent chest pain with minimal exertion. heparin infusion x 48 hours-> started coumadin due to PAF noted on monitor started on isosorbide Of note - LBBB was present on 10/2019 EKG. consult cardiology however the patient is in a difficult situation as risk verification procedure such as a left heart cath likely push is renal failure into the realm of needing renal replacement and the patient is not ready to do that. Given his symptoms have quickly resolved with diuresis will attempt to modify his medications for medical management of any underlying coronary disease. His renal dysfunction does prevent us from using afterload reduction to help his significantly reduced ejection fraction. (6) CAD (coronary artery disease): records indicate RCA stent on December 2015 pre-TAVR heart catheterization. +troponin added aspirin 81mg daily transition to plavix/couimadin for CAD secondary prevention and Thromboembolic prevention with PAF cont BB. added isosorbide cont high-intensity statin. 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 total daily dose of insulin is ~100 units due to hypoglycemia did reduce lantus to 20 units BID on 11/25/19, plus novolog with meals -pharmacy is adjusting his correction factor and carb ratio BSGs ac/hs DM diet (9) Dyslipidemia: on high-intensity statin w/ lipitor 80mg daily (10) History of aortic stenosis: s/p TAVR 2016 at [place] echo 05/2019 with good valve function (11) Hypothyroidism: TSH 06/2019 was wnl Cont synthroid (12) Hypertension: cont home meds (13) H/O: stroke: Will transition a plavix and coumadin (14) DVT prophylaxis: started on coumadin for afib His Aleyda was updated on the phone 11/24, , 22 her numbers [phone], daughter also updated, if renal function worsens may have palliative care consult as is refusing future dialysis Admission and Anticipated Discharge Date Admission Date: November 22, 2019 Subjective this pt has been troubled by right sided upper abdominal pain. he has had an extensive workup thus far being non revealing to the cause of the pain, will treat symptomatically. i did speak to both his daughter and and the biggest issue regarding his health is his worsening renal failure in conjunction with his heart failure Review of Systems Review of Systems: Mild distress and fatigue no headache, blurry or double vision no speech or swallowing issues no formal chest pain no pressure or palpitations continues with shortness of breath/hernandez, no further cough but no wheezes right upper quadrant abdominal pain, reproducible, no nausea or vomiting, diarrhea or constipation no dysuria, hematuria or frequency no focal joint pain or swelling no back pain, CVA tenderness or radicular pain no bruising, bleeding or rashes no focal signs of weakness or numbness or altered sensation no complaints or anxiety or depression. Physical Exam Physical Exam: The patient appeared well nourished and normally developed. Vital signs as documented. Head exam is normocephalic atraumatic no scleral icterus Neck remains with 2 to 3 cm JVD, thyromegaly, or carotid bruits. Lungs are rales at the bases, he is tachypneic Cardiac exam, Rhythm is regular.. Systolic ejection murmur Abdominal exam reveals normal bowel sounds, soft, reproducible to right lower rib cage Extremities are nonedematous and both pedal pulses are normal. Neurologic exam is alert and oriented x2, no focal loss of strength or sensation Skin is without bruises or rashes Psychologically is without concerns for anxiety or depression Results & Data Results & Data ([facility]) Vital Signs (Past 12 Hours) Vital Signs Temp Pulse Pulse Resp BP BP Pulse Ox 11/26/19 05:40 98.1 F 84 20 125/59 L 92 11/26/19 00:53 98.1 F 86 20 124/73 92 11/26/19 00:36 86 11/25/19 20:05 97.5 F L 94 H 18 127/59 L 90 PG Care Time/CCT Total # of Minutes Spent Total Time Spent with Patient: Total time spent is greater than 50% in coordination of care (as documented) at patient's floor/unit and/or counseling patient: Coding Level of Care Code 15780 Subseq Hosp Care Lvl 3 Diagnoses Chest wall pain R07.89 Acute respiratory distress R06.03 Acute diastolic CHF (congestive heart failure) I50.31 Atrial fibrillation I48.91 Elevated troponin R79.89 CAD (coronary artery disease) I25.10 Associated angina: angina presence unspecified Coronary Disease-Associated Artery/Lesion type: [place] artery [place] vs. transplanted heart: [place] heart CKD (chronic kidney disease), stage IV N18.4 Diabetes mellitus with renal complications E11.22; N18.4; Z79.4 Chronic kidney disease stage: stage 4 (severe) Diabetes mellitus complication detail: with chronic kidney disease Diabetes mellitus intermediate insulin use: with intermediate use Diabetes mellitus type: type 2 Dyslipidemia E78.5 History of aortic stenosis Z86.79 Hypothyroidism E03.9 Hypothyroidism type: acquired Hypertension I10 Hypertension type: essential hypertension H/O: stroke Z86.73 DVT prophylaxis Z29.9 (1) CAD (coronary artery disease) Associated angina: angina presence unspecified Coronary Disease-Associated Artery/Lesion type: [place] artery [place] vs. transplanted heart: [place] heart Qualified Code(s): I25.10 - Atherosclerotic heart disease of [place] coronary artery without angina pectoris (2) Hypothyroidism Hypothyroidism type: acquired Qualified Code(s): E03.9 - Hypothyroidism, unspecified (3) Diabetes mellitus with renal complications Chronic kidney disease stage: stage 4 (severe) Diabetes mellitus complication detail: with chronic kidney disease Diabetes mellitus assistant terminal manager insulin use: with intermediate use Diabetes mellitus type: type 2 Qualified Code(s): E11.22 - Type 2 diabetes mellitus with diabetic chronic kidney disease; N18.4 - Chronic kidney disease, stage 4 (severe); Z79.4 - [facility] (current[facility] use of insulin (4) Hypertension Hypertension type: essential hypertension Qualified Code(s): I10 - Essential (primary) hypertension
[2019-11-26] MEDS: METOPROLOL SUCC 50MG EXT REL TAB PO SCH (07:38)
[2019-11-26] MEDS: LIDOCAINE 5% 1 PATCH TD SCH (07:38)
[2019-11-26] MEDS: CLOPIDOGREL BISULFATE 75 MG TAB PO SCH (07:38)
[2019-11-26] MEDS: CHOLECALCIFEROL 1,000 UNITS 25 MCG TAB PO SCH (07:38)
[2019-11-26] MEDS: SUCRALFATE 1 GM/10 ML UDC PO SCH ×4 (07:38→20:10)
[2019-11-26] MEDS: ATORVASTATIN 40 MG TAB PO SCH (07:38)
[2019-11-26] MEDS: MULTIVITAMIN TAB PO SCH (07:38)
[2019-11-26] MEDS: PANTOprazole 40 MG in SYRINGE 0 ML IV SCH ×2 (08:32→20:10)
[2019-11-26] MEDS: INSULIN GLARGINE SOLOSTAR 100 UNITS/ML 3 ML PEN SC SCH ×2 (08:32→20:53)
[2019-11-26] MEDS: INSULIN ASPART 100 UNITS/ML 3 ML PEN SC SCH ×4 (08:32→20:54)
[2019-11-26 09:31] LABS: Albumin Level 2.3 gm/dl (3.4-5.0); BUN Creatinine Ratio 16.5 (10-20); Calcium 8.6 mg/dl (8.5-10.1); Creatinine Clr Calc Pharmacy 11.6 ml/min; Est GFR (African American) 12.6; Est GFR (Non-African American) 10.9; Potassium 4.1 mmol/L (3.5-5.1)
[2019-11-26 09:32] LABS: Phosphorus 4.9 mg/dl (2.5-4.9)
--- NOTE | 2019-11-26 10:51 | Nephrology Progress Note ---
Date of Service November 26, 2019 Assessment & Plan (1) CKD (chronic kidney disease), stage IV: Willy has advanced stage 4/5 CKD with baseline creatinine around 3.4-3.5 secondary to microvascular disease. Admitted to the hospital with chest pain, initially troponin was slightly elevated but it was trending down, no new changes in EKG. Was also found to have new onset AFib, started on Coumadin. Initially found to have volume overload, pulmonary congestion and continued on home dose of Bumex 2 mg daily however on hold since this morning as renal function progressively worsen with creatinine up to 4.5. Still makes urine but urine output seems to be dropping as well. --discussed again with Willy about his current situation with worsening of renal function however now it seems he is not sure what he wants but at jorge a same time he just wants to go home. Discussed over the telephone with his Aleyda ( [phone]) yesterday who mentioned that they had discussion several times including her daughter and both of them know that car never wanted dialysis. Explained that renal function might continue to worsen and he developed different electrolyte abnormalities or volume overload without dialysis, she verbalized understanding. --suggest palliative care consult and possible hospice care. --resume Bumex 2 mg daily and increase dose as needed, try to keep even or slightly net negative --monitor renal function with daily renal panel. Will follow (2) CHF (congestive heart failure): Admission and Anticipated Discharge Date Admission Date: November 22, 2019 Subjective Willy was seen and examined in his room this morning. He looks better today, more awake, alert, seems comfortable. Has occasional pleuritic chest pain. No improvment in renal function , electrolyte remained relatively acceptable. Decent urine output. Blood pressure stable. Volume status seems otherwise acceptable. Review of Systems Review of Systems: All systems reviewed & are unremarkable except as noted in HPI & below Physical Exam Constitutional: well developed, well nourished and comfortable; no acute distress Neck: normal visual inspection Respiratory: normal respiratory effort; no respiratory distress Auscultation: + diminished lung sounds Cardiovascular: RRR, no murmur, no edema Rate/Rhythm: + irregularly irregular Heart Sounds: normal S1 and normal S2 Neurologic: moves all extremities, awake and + confused Psychiatric: A+Ox3, euthymic affect Results & Data ([facility]) Vital Signs (Past 12 Hours) Vital Signs Temp Pulse Pulse Resp BP Pulse Ox 11/26/19 08:00 36.6 C 87 18 107/59 L 90 11/26/19 05:40 36.7 C 84 20 125/59 L 92 11/26/19 00:53 36.7 C 86 20 124/73 92 11/26/19 00:36 86 PG Care Time/CCT Total # of Minutes Spent Total Time Spent with Patient: Total time spent is greater than 50% in coordination of care (as documented) at patient's floor/unit and/or counseling patient: Coding Level of Care Code 43561 Subseq Hosp Care Lvl 3 Diagnoses CKD (chronic kidney disease), stage IV N18.4 CHF (congestive heart failure) I50.9 Heart failure chronicity: acute on chronic Heart failure type: unspecified (1) CHF (congestive heart failure) Heart failure chronicity: acute on chronic Heart failure type: unspecified Qualified Code(s): I50.9 - Heart failure, unspecified
[2019-11-26] MEDS: WARFARIN SOD 5 MG TAB PO SCH (16:51)
[2019-11-27] MEDS: LEVOTHYROXINE SODIUM 137 MCG TABLET PO SCH (06:36)
[2019-11-27] MEDS: ISOSORBIDE DINITRATE 10 MG TAB PO SCH ×2 (06:37→11:17)
[2019-11-27 06:44] LABS: Albumin Level 2.3 gm/dl (3.4-5.0); BUN Creatinine Ratio 18.6 (10-20); Calcium 9.5 mg/dl (8.5-10.1); Creatinine Clr Calc Pharmacy 12.3 ml/min; Est GFR (African American) 13.6; Est GFR (Non-African American) 11.7; Potassium 4.3 mmol/L (3.5-5.1)
[2019-11-27 06:58] LABS: Phosphorus 4.3 mg/dl (2.5-4.9)
[2019-11-27] MEDS: MULTIVITAMIN TAB PO SCH (08:04)
[2019-11-27] MEDS: METOPROLOL SUCC 50MG EXT REL TAB PO SCH (08:04)
[2019-11-27] MEDS: CHOLECALCIFEROL 1,000 UNITS 25 MCG TAB PO SCH (08:04)
[2019-11-27] MEDS: PANTOprazole 40 MG in SYRINGE 0 ML IV SCH (08:04)
[2019-11-27] MEDS: ATORVASTATIN 40 MG TAB PO SCH (08:04)
[2019-11-27] MEDS: SUCRALFATE 1 GM/10 ML UDC PO SCH ×4 (08:05→20:28)
[2019-11-27] MEDS: LIDOCAINE 5% 1 PATCH TD SCH (08:05)
[2019-11-27] MEDS: CLOPIDOGREL BISULFATE 75 MG TAB PO SCH (08:05)
[2019-11-27] MEDS: INSULIN GLARGINE SOLOSTAR 100 UNITS/ML 3 ML PEN SC SCH ×2 (08:08→20:28)
[2019-11-27] MEDS: INSULIN ASPART 100 UNITS/ML 3 ML PEN SC SCH ×4 (08:08→20:28)
--- NOTE | 2019-11-27 09:29 | Nephrology Progress Note ---
Date of Service November 27, 2019 Assessment & Plan (1) CKD (chronic kidney disease), stage IV: Willy has advanced stage 4/5 CKD with baseline creatinine around 3.4-3.5 secondary to microvascular disease. Admitted to the hospital with chest pain, initially troponin was slightly elevated but it was trending down, no new changes in EKG. Was also found to have new onset AFib, started on Coumadin. Initially found to have volume overload, pulmonary congestion and continued on home dose of Bumex 2 mg daily however on hold since this morning as renal function progressively worsen with creatinine up to 4.5. Still makes urine but urine output seems to be dropping as well. --discussed again with Willy about his current situation with worsening of renal function however now it seems he is not sure what he wants but at the same time he just wants to go home. Discussed over the telephone with his Aleyda ( [phone]) who mentioned that they had discussion several times including her daughter and both of them know that car never wanted dialysis. Explained that renal function might continue to worsen and he developed different electrolyte abnormalities or volume overload without dialysis, she verbalized understanding. --suggest palliative care consult and possible hospice care. --hold Bumex for now, try to keep even or slightly net negative, resume at 1 mg daily one discharge. --monitor renal function with daily renal panel. Will follow Admission and Anticipated Discharge Date Admission Date: November 22, 2019 Subjective Willy was seen and examined in his room this morning. He seems to be back to his baseline, awake, alert, seems comfortable. Relatively stable renal function , electrolyte remained relatively acceptable. Decent urine output, net negative. Blood pressure stable. Volume status seems otherwise acceptable. Review of Systems Review of Systems: All systems reviewed & are unremarkable except as noted in HPI & below Physical Exam Constitutional: well developed, well nourished and comfortable; no acute distress Neck: normal visual inspection Respiratory: normal respiratory effort, lungs clear to auscultation normal respiratory effort; no respiratory distress Auscultation: + diminished lung sounds Cardiovascular: RRR, no murmur, no edema Rate/Rhythm: + irregularly irregular Heart Sounds: normal S1 and normal S2 Neurologic: moves all extremities, awake and + confused Psychiatric: A+Ox3, euthymic affect Results & Data ([facility]) Vital Signs (Past 12 Hours) Vital Signs Temp Pulse Pulse Resp BP BP Pulse Ox 11/27/19 07:21 36.5 C 91 H 20 115/69 93 11/27/19 04:13 36.7 C 91 H 19 113/78 94 11/27/19 00:30 36.6 C 87 18 132/73 93 11/27/19 00:00 87 PG Care Time/CCT Total # of Minutes Spent Total Time Spent with Patient: Total time spent is greater than 50% in coordination of care (as documented) at patient's floor/unit and/or counseling patient: Coding Level of Care Code 48926 Subseq Hosp Care Lvl 3 Diagnoses CKD (chronic kidney disease), stage IV N18.4
--- NOTE | 2019-11-27 15:27 | Hospitalist Progress Note ---
Date of Service November 27, 2019 Assessment & Plan (1) Acute systolic CHF (congestive heart failure): Echo on 11/22 showed EF 25-30%. Severe global hypokinesis. - On diuretics earlier in admission; however, presently on hold for being euvolemic. - Monitor symptoms, weights, and I&Os. (2) CKD (chronic kidney disease), stage IV: Follows with [facility] nephrology. Baseline Cr was 3 to 3.5, now in the 4 range. - No major improvement over several days. 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 - Consider palliative care consult. (3) Atrial fibrillation: Rate controlled with metoprolol. - Continue warfarin for anticoagulation. - INR was 1.4 on 11/25 (4) Chest wall pain: Subjectively this has been the biggest issue to the patient. Initially feared to be angina, but he had no response to nitro or morphine, had no dynamic EKG changes or rise in troponin associated with it, has no cutaneous rash to be shingles. Since it was near his RUQ, he had LFTs drawn that were normal and CT abd/pelvis that was unrevealing. - Rib x-rays on 11/24 revealed anterior right 8th rib fracture. - Treating with pain management options. (5) CAD (coronary artery disease): Records indicate RCA stent on December 2015 pre-TAVR heart catheterization. - Continue Plavix, beta-homero, Imdur, statin (6) Acute respiratory distress: Due to CHF. - Continue O2 as needed for O2 sat > 90%. (7) Elevated troponin: Myocardial infarction type 2 due to demand ischemia. 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 Total daily dose of insulin is ~100 units. - Due to hypoglycemia did reduce Lantus to 20 units BID on 11/25/19, plus sliding scale insulin - Blood sugars today are overall good, though bumped > 300 after lunch. (9) Dyslipidemia: - Continue atorvastatin (10) History of aortic stenosis: S/p TAVR 2016 at [place]. Echo 05/2019 with good valve function. (11) Hypothyroidism: TSH in 06/2019 was 2.65. - Cont home Synthroid 137 mcg (12) Hypertension: BP today is 150/65. - Cont home meds (13) H/O: stroke: - Continue Plavix and warfarin for above issues. (14) DVT prophylaxis: Warfarin for afib Admission and Anticipated Discharge Date Admission Date: November 22, 2019 Subjective No complaints at all today. He wants to go home. Reports no fevers/chills, chest pain, shortness of breath, abdominal pain, nausea, or vomiting. Physical Exam Constitutional: WD/WN, vitals as above Eyes: EOM intact bilaterally; no conjunctival abnormality ENMT: external ear and nose normal, oropharynx normal Neck: trachea midline, no thyromegaly normal visual inspection Respiratory: normal respiratory effort, lungs clear to auscultation no respiratory distress Cardiovascular: RRR, no murmur, no edema Gastrointestinal (Abdomen): Inspection/Auscultation: abdomen normal to inspection; abdomen not distended Musculoskeletal: no cyanosis or clubbing, extremities motor strength 5/5 Skin: no rashes, warm and dry Neurologic: moves all extremities and awake Psychiatric: Orientation: alert, oriented to person and cooperative Results & Data Results & Data ([facility]) Vital Signs (Past 12 Hours) Vital Signs Temp Pulse Resp BP BP Pulse Ox 11/27/19 11:31 36.4 C L 81 20 116/63 93 11/27/19 07:21 36.5 C 91 H 20 115/69 93 11/27/19 04:13 36.7 C 91 H 19 113/78 94 PG Care Time/CCT Total # of Minutes Spent Total Time Spent with Patient: Total time spent is greater than 50% in coordination of care (as documented) at patient's floor/unit and/or counseling patient: Coding Level of Care Code 72074 Subseq Hosp Care Lvl 3 Diagnoses Acute systolic CHF (congestive heart failure) I50.21 CKD (chronic kidney disease), stage IV N18.4 Atrial fibrillation I48.91 Chest wall pain R07.89 CAD (coronary artery disease) I25.10 Coronary Disease-Associated Artery/Lesion type: [place] artery [place] vs. transplanted heart: [place] heart Associated angina: angina presence unspecified Acute respiratory distress R06.03 Elevated troponin R79.89 Diabetes mellitus with renal complications E11.22; N18.4; Z79.4 Diabetes mellitus type: type 2 Diabetes mellitus intermediate insulin use: with intermediate use Diabetes mellitus complication detail: with chronic kidney disease Chronic kidney disease stage: stage 4 (severe) Dyslipidemia E78.5 History of aortic stenosis Z86.79 Hypothyroidism E03.9 Hypothyroidism type: acquired Hypertension I10 Hypertension type: essential hypertension H/O: stroke Z86.73 DVT prophylaxis Z29.9 (1) CAD (coronary artery disease) Coronary Disease-Associated Artery/Lesion type: [place] artery [place] vs. 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
[2019-11-27] MEDS: WARFARIN SOD 5 MG TAB PO SCH (17:10)
[2019-11-27] MEDS: PANTOprazole 40 MG TAB PO SCH (20:28)
[2019-11-28] MEDS: LEVOTHYROXINE SODIUM 137 MCG TABLET PO SCH (06:15)
[2019-11-28] MEDS: ISOSORBIDE DINITRATE 10 MG TAB PO SCH ×2 (06:15→13:10)
[2019-11-28 06:21] LABS: Hematocrit (blood only) 31.6 % (42-52); Hemoglobin 10.2 g/dL (14.0-18.0); Mean Corpuscular Hemoglobin 31.9 pg (25-34); Mean Corpuscular Hgb Conc 32.3 g/dL (32-36); Mean Corpuscular Volume 98.8 fL (80-100); Mean Platelet Volume 10.1 fL (7.4-10.4); Platelet Count 276 K/uL (130-400); RDW Coefficient of Variation 12.9 % (11.5-14.5); RDW Standard Deviation 46.3 fL (36.4-46.3); White Blood Count 8.51 K/uL (4.8-10.8)
[2019-11-28 06:30] LABS: INR 2.1 (0.9-1.1); Prothrombin Time 21.2 Seconds (9.0-12.0)
[2019-11-28 06:53] LABS: Albumin Level 2.3 gm/dl (3.4-5.0); BUN Creatinine Ratio 19.2 (10-20); Calcium 8.4 mg/dl (8.5-10.1); Creatinine Clr Calc Pharmacy 12.2 ml/min; Est GFR (African American) 13.6; Est GFR (Non-African American) 11.8
[2019-11-28 07:00] LABS: Phosphorus 3.6 mg/dl (2.5-4.9)
[2019-11-28] MEDS: MULTIVITAMIN TAB PO SCH (08:05)
[2019-11-28] MEDS: CHOLECALCIFEROL 1,000 UNITS 25 MCG TAB PO SCH (08:05)
[2019-11-28] MEDS: CLOPIDOGREL BISULFATE 75 MG TAB PO SCH (08:06)
[2019-11-28] MEDS: PANTOprazole 40 MG TAB PO SCH ×2 (08:07→20:51)
[2019-11-28] MEDS: ATORVASTATIN 40 MG TAB PO SCH (08:07)
[2019-11-28] MEDS: SUCRALFATE 1 GM/10 ML UDC PO SCH ×4 (08:07→20:50)
[2019-11-28] MEDS: CALCITRIOL 0.25 MCG CAPSULE PO SCH (08:08)
[2019-11-28 08:12] LABS: Folate (Folic Acid) 22.6 ng/ml (>5.38)
[2019-11-28] MEDS: INSULIN ASPART 100 UNITS/ML 3 ML PEN SC SCH ×4 (08:13→20:50)
[2019-11-28] MEDS: INSULIN GLARGINE SOLOSTAR 100 UNITS/ML 3 ML PEN SC SCH ×2 (08:13→20:49)
[2019-11-28] MEDS ORDERED: EPOETIN ALFA 20,000 UNITS/ML VIAL SQ ONE (08:33)
[2019-11-28] MEDS: LIDOCAINE 5% 1 PATCH TD SCH (09:47)
[2019-11-28] MEDS: METOPROLOL SUCC 50MG EXT REL TAB PO SCH (09:47)
--- NOTE | 2019-11-28 11:55 | Nephrology Progress Note ---
Date of Service November 28, 2019 Assessment & Plan (1) CKD (chronic kidney disease), stage IV: Willy has advanced stage 4/5 CKD with baseline creatinine around 3.4-3.5 secondary to microvascular disease. Admitted to the hospital with chest pain, initially troponin was slightly elevated but it was trending down, no new changes in EKG. Was also found to have new onset AFib, started on Coumadin. Initially found to have volume overload, pulmonary congestion and continued on home dose of Bumex 2 mg daily however on hold since this morning as renal function progressively worsen with creatinine up to 4.5. Still makes urine, net negative. Clinically stable, no worsening but no improvement in renal function, voiding normally, BP volume status remained acceptable off of diuretics. 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 Pt refused rehab and plan to go home. --continue to hold Bumex for now, OK to be discharge with home health and monitoring of UO, weight daily and lab weekly. Diuretics can be resumed as needed for weight gain > 3 lbs in 2 days, worsening LE edema, decrease in UO or SOB. --monitor renal function with daily renal panel while in patient. --f/u in out pt clinic in 3 to 4 weeks. Will follow Admission and Anticipated Discharge Date Admission Date: November 22, 2019 Subjective Willy was seen and examined in his room this morning. He was lying in bed, awake, alert, seems comfortable, but reports overall not feeling well, although denied any specific symptoms. Relatively stable renal function , electrolyte remained acceptable. Decent urine output, net negative. Blood pressure stable. Volume status seems otherwise acceptable. Review of Systems Review of Systems: All systems reviewed & are unremarkable except as noted in HPI & below Physical Exam Constitutional: well developed, well nourished and comfortable; no acute distress Neck: normal visual inspection Respiratory: normal respiratory effort, lungs clear to auscultation normal respiratory effort; no respiratory distress Auscultation: + diminished lung sounds Cardiovascular: Rate/Rhythm: + irregularly irregular Heart Sounds: normal S1 and normal S2 Extremities: + edema (trace b/l LE edema.) Neurologic: moves all extremities, awake and + confused Psychiatric: A+Ox3, euthymic affect Results & Data ([facility]) Vital Signs (Past 12 Hours) Vital Signs Temp Pulse Pulse Resp BP Pulse Ox 11/28/19 11:29 36.6 C 82 18 127/70 94 11/28/19 07:00 36.4 C L 80 20 116/66 94 11/28/19 06:14 82 20 126/67 96 11/28/19 00:30 96 11/28/19 00:03 36.4 C L 80 20 146/75 H 97 PG Care Time/CCT Total # of Minutes Spent Total Time Spent with Patient: Total time spent is greater than 50% in coordination of care (as documented) at patient's floor/unit and/or counseling patient: Coding Level of Care Code 23845 Subseq Hosp Care Lvl 3 Diagnoses CKD (chronic kidney disease), stage IV N18.4
--- NOTE | 2019-11-28 14:44 | Hospitalist Progress Note ---
Date of Service November 28, 2019 Assessment & Plan (1) Acute systolic CHF (congestive heart failure): Echo on 11/22 showed EF 25-30%. Severe global hypokinesis. - On diuretics earlier in admission; however, presently on hold for being euvolemic. - Monitor symptoms, weights, and I&Os. -> Weight stable today at 81.8 kg; actually slightly lower than priors. No shortness of breath. (2) CKD (chronic kidney disease), stage IV: Follows with [facility] [place] nephrology. Baseline Cr was 3 to 3.5, now in the 4 range. - No major improvement over several days. 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 Cr. stable today at 4.2. - Consider palliative care consult. (3) Atrial fibrillation: Rate controlled with metoprolol. - Continue warfarin for anticoagulation. - INR was 2.1 on 11/27 (4) Chest wall pain: Subjectively this has been the biggest issue to the patient. Initially feared to be angina, but he had no response to nitro or morphine, had no dynamic EKG changes or rise in troponin associated with it, has no cutaneous rash to be shingles. Since it was near his RUQ, he had LFTs drawn that were normal and CT abd/pelvis that was unrevealing. - Rib x-rays on 11/24 revealed anterior right 8th rib fracture. - Treating with pain management options. (5) CAD (coronary artery disease): Records indicate RCA stent on December 2015 pre-TAVR heart catheterization. - Continue Plavix, beta-homero, Imdur, statin (6) Acute respiratory distress: Due to CHF. - Continue O2 as needed for O2 sat > 90%. (7) Elevated troponin: Myocardial infarction type 2 due to demand ischemia. 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 Total daily dose of insulin is ~100 units. - Due to hypoglycemia did reduce Lantus to 20 units BID on 11/25/19, plus sliding scale insulin - Blood sugars today are overall good, though bumped > 300 after lunch on 11/26. Stable today. (9) Dyslipidemia: - Continue atorvastatin (10) History of aortic stenosis: S/p TAVR 2016 at [place]. Echo 05/2019 with good valve function. (11) Hypothyroidism: TSH in 06/2019 was 2.65. - Cont home Synthroid 137 mcg (12) Hypertension: BP today is 130/70. - Cont home meds (13) H/O: stroke: - Continue Plavix and warfarin for above issues. (14) DVT prophylaxis: Warfarin for afib -> INR now therapeutic. Admission and Anticipated Discharge Date Admission Date: November 22, 2019 Subjective No major concerns today. Reports no fevers/chills, chest pain, shortness of breath, abdominal pain, nausea, or vomiting. Physical Exam Constitutional: WD/WN, vitals as above Eyes: EOM intact bilaterally; no conjunctival abnormality ENMT: external ear and nose normal, oropharynx normal Neck: trachea midline, no thyromegaly normal visual inspection Respiratory: normal respiratory effort, lungs clear to auscultation no respiratory distress Cardiovascular: RRR, no murmur, no edema Gastrointestinal (Abdomen): Inspection/Auscultation: abdomen normal to inspection; abdomen not distended Musculoskeletal: no cyanosis or clubbing, extremities motor strength 5/5 Skin: no rashes, warm and dry Neurologic: moves all extremities and awake Psychiatric: Orientation: alert, oriented to person and cooperative Results & Data Results & Data ([facility]) Vital Signs (Past 12 Hours) Vital Signs Temp Pulse Pulse Resp BP Pulse Ox 11/28/19 11:29 36.6 C 82 18 127/70 94 11/28/19 07:00 36.4 C L 80 20 116/66 94 11/28/19 06:14 82 20 126/67 96 PG Care Time/CCT Total # of Minutes Spent Total Time Spent with Patient: Total time spent is greater than 50% in coordination of care (as documented) at patient's floor/unit and/or counseling patient: Coding Level of Care Code 77122 Subseq Hosp Care Lvl 2 Diagnoses Acute systolic CHF (congestive heart failure) I50.21 CKD (chronic kidney disease), stage IV N18.4 Atrial fibrillation I48.91 Chest wall pain R07.89 CAD (coronary artery disease) I25.10 Coronary Disease-Associated Artery/Lesion type: [place] artery [place] vs. transplanted heart: [place] heart Associated angina: angina presence unspecified Acute respiratory distress R06.03 Elevated troponin R79.89 Diabetes mellitus with renal complications E11.22; N18.4; Z79.4 Diabetes mellitus type: type 2 Diabetes mellitus manager terminal insulin use: with halfway use Diabetes mellitus complication detail: with chronic kidney disease Chronic kidney disease stage: stage 4 (severe) Dyslipidemia E78.5 History of aortic stenosis Z86.79 Hypothyroidism E03.9 Hypothyroidism type: acquired Hypertension I10 Hypertension type: essential hypertension H/O: stroke Z86.73 DVT prophylaxis Z29.9 (1) CAD (coronary artery disease) Coronary Disease-Associated Artery/Lesion type: [place] artery [place] vs. 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
[2019-11-28] MEDS: WARFARIN SOD 5 MG TAB PO SCH (16:18)
[2019-11-29] MEDS: LEVOTHYROXINE SODIUM 137 MCG TABLET PO SCH (05:45)
[2019-11-29] MEDS: ISOSORBIDE DINITRATE 10 MG TAB PO SCH ×2 (05:45→12:03)
[2019-11-29] MEDS: SUCRALFATE 1 GM/10 ML UDC PO SCH ×2 (07:51→12:02)
[2019-11-29] MEDS: CHOLECALCIFEROL 1,000 UNITS 25 MCG TAB PO SCH (07:52)
[2019-11-29] MEDS: MULTIVITAMIN TAB PO SCH (07:52)
[2019-11-29] MEDS: ATORVASTATIN 40 MG TAB PO SCH (07:53)
[2019-11-29] MEDS: METOPROLOL SUCC 50MG EXT REL TAB PO SCH (07:53)
[2019-11-29] MEDS: CLOPIDOGREL BISULFATE 75 MG TAB PO SCH (07:54)
[2019-11-29] MEDS: PANTOprazole 40 MG TAB PO SCH (07:54)
[2019-11-29] MEDS: LIDOCAINE 5% 1 PATCH TD SCH (07:54)
[2019-11-29 08:17] LABS: Hematocrit (blood only) 32.5 % (42-52); Hemoglobin 10.9 g/dL (14.0-18.0); Mean Corpuscular Hemoglobin 32.8 pg (25-34); Mean Corpuscular Hgb Conc 33.5 g/dL (32-36); Mean Corpuscular Volume 97.9 fL (80-100); Mean Platelet Volume 9.9 fL (7.4-10.4); Platelet Count 331 K/uL (130-400); RDW Standard Deviation 46.1 fL (36.4-46.3); Red Blood Count 3.32 M/uL (4.7-6.1); White Blood Count 8.71 K/uL (4.8-10.8)
[2019-11-29 08:25] LABS: INR 2.2 (0.9-1.1); Prothrombin Time 22.4 Seconds (9.0-12.0)
[2019-11-29 08:51] LABS: Albumin Level 2.5 gm/dl (3.4-5.0); BUN Creatinine Ratio 18.8 (10-20); Calcium 8.8 mg/dl (8.5-10.1); Creatinine Clr Calc Pharmacy 12.6 ml/min; Est GFR (Non-African American) 12.1; Phosphorus 3.5 mg/dl (2.5-4.9); Potassium 4.5 mmol/L (3.5-5.1)
[2019-11-29] MEDS: INSULIN ASPART 100 UNITS/ML 3 ML PEN SC SCH ×2 (09:26→12:03)
[2019-11-29] MEDS ORDERED: LANTUS PER UNIT CHARGE SQ ONE (09:30)
--- NOTE | 2019-11-29 10:35 | Nephrology Progress Note ---
Date of Service November 29, 2019 Assessment & Plan (1) CKD (chronic kidney disease), stage IV: Willy has advanced stage 4/5 CKD with baseline creatinine around 3.4-3.5 secondary to microvascular disease. Admitted to the hospital with chest pain, initially troponin was slightly elevated but it was trending down, no new changes in EKG. Was also found to have new onset AFib, started on Coumadin. Initially found to have volume overload, pulmonary congestion and continued on home dose of Bumex 2 mg daily however on hold since this morning as renal function progressively worsen with creatinine up to 4.5. Still makes urine, net negative. Clinically stable, renal function relatively stable, voiding normally, BP volume status remained acceptable off of diuretics. 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 Pt refused rehab and plan to go home. --continue to hold Bumex on discharge with home health and monitoring of UO, weight daily and lab weekly. Diuretics can be resumed as needed for weight gain > 3 lbs in 2 days, worsening LE edema, decrease in UO or SOB. --CBC, renal panel early next week and then in 2 weeks --f/u in out pt clinic in 3 to 4 weeks. Will follow Admission and Anticipated Discharge Date Admission Date: November 22, 2019 Subjective Willy was seen and examined in his room this morning. He has been otherwise doing well,, awake, alert, seems comfortable, denied any specific symptoms. Relatively stable renal function, electrolyte remained acceptable. Decent urine output, net even. Blood pressure stable. Volume status seems acceptable. Review of Systems Review of Systems: All systems reviewed & are unremarkable except as noted in HPI & below Physical Exam Constitutional: well developed, well nourished and comfortable; no acute distress Neck: normal visual inspection Respiratory: normal respiratory effort, lungs clear to auscultation normal respiratory effort; no respiratory distress Auscultation: + diminished lung sounds Cardiovascular: Rate/Rhythm: + irregularly irregular Heart Sounds: normal S1 and normal S2 Neurologic: moves all extremities, awake and + confused Psychiatric: A+Ox3, euthymic affect Results & Data ([facility]) Vital Signs (Past 12 Hours) Vital Signs Temp Pulse Pulse Resp BP BP Pulse Ox 11/29/19 07:27 37.0 C 97 H 18 152/66 H 94 11/29/19 03:40 36.5 C 97 H 18 138/72 92 11/29/19 02:42 79 11/28/19 22:58 36.7 C 81 20 127/67 97 PG Care Time/CCT Total # of Minutes Spent Total Time Spent with Patient: Total time spent is greater than 50% in coordination of care (as documented) at patient's floor/unit and/or counseling patient: Coding Level of Care Code 07188 Subseq Hosp Care Lvl 3 Diagnoses CKD (chronic kidney disease), stage IV N18.4
--- NOTE | 2019-11-29 18:16 | Discharge Summary ---
Date of Service November 29, 2019 Admission HPI Per Admitting Provider 89yo male with h/o CKD stage 4, TAVR 2016 at [facility] for aortic stenosis, hypothyroidism, T2DM on insulin, HTN, GERD, hyperlipidemia, CAD s/p RCA stent 12/2015, and prior prostate cancer who presents with c/o chest pain that awoke him from sleep about 6 or 7am this am. It was substernal and did not radiate. No nausea, emesis, diaphoresis. He did have dyspnea. He states the pain lasted all morning and resolved by the time of ER arrival. He states he received a nebulizer treatment on the ambulance and this helped - and in fact - nearly resolved the pain. Records also suggest he received nitroglycerin x 1 in the ambulance - unknown if helpful for his symptoms. No cough. He has had LE edema present for several years but worsened in the last 1-2 months. He has noted abdominal swelling. Denies eating salty foods. Denies excessive water intake (2-3 bottles/day). No chest pain prior to today's event. Principal Diagnosis CHF exacerbation Discharge Exam Constitutional WD/WN, vitals as above Eyes EOM intact bilaterally; no conjunctival abnormality ENMT external ear and nose normal, oropharynx normal Neck trachea midline, no thyromegaly normal visual inspection Respiratory normal respiratory effort, lungs clear to auscultation no respiratory distress Cardiovascular RRR, no murmur, no edema Gastrointestinal (Abdomen) Inspection/Auscultation: abdomen normal to inspection; abdomen not distended Musculoskeletal no cyanosis or clubbing, extremities motor strength 5/5 Skin no rashes, warm and dry Neurologic moves all extremities and awake Psychiatric Orientation: alert, oriented to person and cooperative Discharge Data Allergies Allergy/AdvReac Type Severity Reaction Status Date / Time No Known Drug Allergies Allergy . Verified 11/22/19 15:04 Consultations 11/22/19 15:44 ED Decision to Admit Stat 11/23/19 07:47 Consult Nephrology Routine 11/23/19 10:46 Consult Cardiology Routine Ordered Studies 11/25/19 07:10 CT abd pelvis oral con only Stat Hospital Course (1) Acute systolic CHF (congestive heart failure): Echo on 11/22 showed EF 25-30%. Severe global hypokinesis. - On diuretics earlier in admission; however, presently on hold for being euvolemic. - Monitor symptoms, weights, and I&Os. -> Weight stable today at 81.8 kg; actually slightly lower than priors. No shortness of breath. Will need to restart Lasix for weight gain > 3 lbs over 1-2 days. (2) CKD (chronic kidney disease), stage IV: [place] [facility] [place]. Baseline Cr was 3 to 3.5, now in the 4 range. - No major improvement over several days. - Nephrology recommends PHLEBOTOMY DIRECTOR, but patient and family in agreement he would not want that at this point in his life. Cr. stable today at 4.2. - Consider palliative care consult. (3) Atrial fibrillation: Rate controlled with metoprolol. - Continue warfarin for anticoagulation. - INR was 2.2 on 11/28 -> Will need to follow up with PCP or Anticoagulation Clinic. (4) Chest wall pain: Subjectively this has been the biggest issue to the patient. Initially feared to be angina, but he had no response to nitro or morphine, had no dynamic EKG changes or rise in troponin associated with it, has no cutaneous rash to be shingles. Since it was near his RUQ, he had LFTs drawn that were normal and CT abd/pelvis that was unrevealing. - Rib x-rays on 11/24 revealed anterior right 8th rib fracture. - Treating with pain management options. (5) CAD (coronary artery disease): Records indicate RCA stent on December 2015 pre-TAVR heart catheterization. - Continue Plavix, beta-homero, Imdur, statin (6) Acute respiratory distress: Due to CHF. - Continue O2 as needed for O2 sat > 90%. (7) Elevated troponin: Myocardial infarction type 2 due to demand ischemia. 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 Total daily dose of insulin is ~100 units. - Due to hypoglycemia did reduce Lantus to 20 units BID on 11/25/19, plus sliding scale insulin - Blood sugars today are overall good, though bumped > 300 after lunch on 11/26. Stable today. (9) Dyslipidemia: - Continue atorvastatin (10) History of aortic stenosis: S/p TAVR 2016 at [place]. Echo 05/2019 with good valve function. (11) Hypothyroidism: TSH in 06/2019 was 2.65. - Cont home Synthroid 137 mcg (12) Hypertension: BP today is 130/70. - Cont home meds (13) H/O: stroke: - Continue Plavix and warfarin for above issues. (14) DVT prophylaxis: Warfarin for afib -> INR now therapeutic. 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 Becky Lopez, on WednesdayNovember 27 at 10:00 am. *If you need to change this appointment, call their office at [phone].) Madelin Webb MD [Physician] - (Please see Dr. Webb in the clinic in 3-4 weeks.) Diet: Carb Consistent or DM2, Heart Healthy and Low Sodium (2gm) Addtl Attending Provider Instructions: You were admitted with chest pain and trouble breathing. The chest pain is from a broken rib, and we will give you some non-narcotic medications to help with this pain. The shortness of breath was from fluid building up in your lungs. This is due to your kidneys only working at about 10% of what they should be. This kidney issue probably comes from slow, long-term impacts from your diabetes and high blood pressure. Your kidneys are still making urine which is good, and with some medication we were able to get the fluid off your lungs which allowed you to breath more comfortably. Your weight on the day of discharge is 181 lbs on our scales. Please go home and weigh yourself. If you see yourself gain more than 2 lbs in 1-2 days, please start the diuretic pill that you were on previously and call your doctor. The pill is called Lasix. In the hospital, you didn't need it because we have a fairly strict, low-salt diet that helps prevent the body from retaining fluid, but as your diet changes, you will need to adjust this medication. For your atrial fibrillation (the irregular heart rhythm), we started a medication called warfarin which will help prevent clots from forming in the heart and causing a stroke. This medication must be monitored with something called an "INR" which tells us how thin your blood is. Please follow up with your PCP or you could come to the [facility] ( ) which could test your blood and adjust the warfarin dose at the same time. Pending Studies at Discharge: No Stand-Alone Forms: My [facility], Smoking Cessation Medications and DC Order Prescriptions: New clopidogrel 75 mg Tablet 75 mg PO QAM Qty: 30 RF: 0 warfarin 3 mg tablet 3 mg PO DAILY Qty: 30 RF: 0 isosorbide dinitrate 10 mg Tablet 10 mg PO BID@0700,1200 Qty: 60 RF: 0 pantoprazole 40 mg Tablet,Delayed Release (Dr/Ec) 40 mg PO DAILY Qty: 30 RF: 0 lidocaine 5 % Adhesive Patch,Medicated 1 patch transdermal QAM Qty: 30 RF: 0 Continued (DME) Precision Xtra Test Strip See Rx Instructions .ROUTE .MEDSUPPLY Qty: 500 RF: 1 levothyroxine 137 mcg tablet 137 mcg PO DAILY Qty: 90 RF: 1 atorvastatin 80 mg tablet 80 mg PO DAILY Qty: 90 RF: 1 metoprolol succinate 100 mg tablet extended release 24 hr 100 mg PO DAILY Qty: 90 RF: 1 calcitriol 0.5 mcg capsule 0.5 mcg PO UD Qty: 90 RF: 3 cholecalciferol (vitamin D3) 2,000 unit capsule 2,000 units PO DAILY Qty: 30 RF: 0 multivitamin tablet 1 tab PO DAILY Qty: 30 RF: 0 amlodipine 10 mg tablet 10 mg PO DAILY Qty: 90 RF: 0 Novolin N NPH U-100 Insulin 100 unit/mL suspension 60 unit SUBCUT QAM RF: 0 Novolin N NPH U-100 Insulin 100 unit/mL suspension 42 unit SUBCUT QPM RF: 0 Changed furosemide 40 mg tablet 40 mg PO DAILY PRN (Reason: For weight gain > 2 lbs. or leg swelling) Qty: 0 RF: 0 Discontinued aspirin-dipyridamole 25-200 mg capsule, ER multiphase 12 hr 1 cap PO DAILY RF: 0 omeprazole 20 mg capsule,delayed release(DR/EC) 20 mg PO DAILY Qty: 90 RF: 0 Discharge Orders: Discharge Order (Routine); Ordered 11/29/19 Ordered By: Jeramy Covarrubias Admission Data Admit Date/Time: 11/22/19 16:23 Attending Provider: Jeramy Covarrubias Admit Provider: Shyam Hagen Primary Care Provider: Dimitris Avila Other Providers: Madelin Webb ; Simeon Keen ; Jeramy Covarrubias Other Interventions: Discharge Summary Assessment (RN) Last Done: 11/29/19 11:05 DC Date/Time DO NOT enter until pt leaves facility: 11/29/19 14:40 Coding Level of Care Code D/C Day Management >30 mins Diagnoses Acute systolic CHF (congestive heart failure) I50.21 CKD (chronic kidney disease), stage IV N18.4 Atrial fibrillation I48.91 Chest wall pain R07.89 CAD (coronary artery disease) I25.10 Coronary Disease-Associated Artery/Lesion type: [place] artery [place] vs. 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
== END 2019-11-29 14:40 | disposition home health service (06) | DRG 280 ==
LOC: ED 13:23 → 2N 16:23 → SUATTDRO 16:23 → 2N 17:42

== ENCOUNTER 2019-12-16 14:15 | Inpatient (IN) ==
--- NOTE | 2019-12-16 14:29 | Emergency Department Note ---
History of Present Illness General Chief complaint: Rib Injury/Pain Stated complaint: RIB PAIN Time Seen by Provider: 12/16/19 14:16 Source: patient and EMS Mode of arrival: EMS Limitations: no limitations History of Present Illness Provider complaint: Chest pain Onset (ago): day(s) Location: chest Radiation: non-radiation Severity: mild Pain Consistency: + colicky Quality: + sharp Relieved By: + none Exacerbated By: + none Associated symptoms: + denies other symptoms Treatments prior to arrival: none This is an 89-year-old male who presents via EMS from home complaining of right- sided chest pain. Patient states pain first started last week while he was admitted. Patient states during that admission he was found to have rib fracture. Patient states he has not been using any medications to treat the pain. Patient denies any radiation of the pain, denies any accompanying symptoms. Patient states the pain does not change with position or exertion. Patient states some of his medications were changed following his admission last week. Patient states he does have a history of heart problems as well as kidney problems. Patient does admit to mild lower extremity edema, however he does not feel this is any worse than prior. Patient states the pain comes and goes, however when present is very sharp but only last several seconds and then resolves. On review of EMR, patient was admitted last week for chest pain evaluation. Patient was found to have new onset atrial fibrillation, as well as pulmonary edema. Patient does have a history of chronic kidney disease. Pt seen during a time of high acuity and national emergency pandemic while wearing PPE. Home Medications Home Medications Medication Instructions Recorded Confirmed Type lidocaine 1 patch TRANSDERMAL QAM #30 ea 11/29/19 12/16/19 Rx blood sugar diagnostic #500 ea 12/12/19 12/16/19 Rx clopidogrel 75 mg tablet 75 mg PO QAM #90 tab 12/12/19 12/16/19 Rx insulin NPH isoph U-100 human 100 See Rx Instructions SUBCUT DAILY 12/12/19 12/16/19 Rx unit/mL subcutaneous suspension #100 ml amlodipine 10 mg PO QAM 12/16/19 12/16/19 History atorvastatin 80 mg PO HS 12/16/19 12/16/19 History cholecalciferol (vitamin D3) 2,000 units PO QAM 12/16/19 12/16/19 History furosemide 40 mg PO QAM 12/16/19 12/16/19 History isosorbide dinitrate 10 mg PO BIDM 12/16/19 12/16/19 History levothyroxine 137 mcg PO QAM 12/16/19 12/16/19 History metoprolol succinate 200 mg PO QAM 12/16/19 12/16/19 History multivitamin 1 tab PO QAM 12/16/19 12/16/19 History pantoprazole 40 mg PO QAM 12/16/19 12/16/19 History warfarin 1 mg PO SUTUTHSA@0800 12/16/19 12/16/19 History warfarin 3 mg PO QAM 12/16/19 12/16/19 History Allergies Allergy/AdvReac Type Severity Reaction Status Date / Time No Known Drug Allergies Allergy . Verified 12/16/19 15:03 Past Med/Surg History Medical History Amaurosis fugax of right eye (Chronic) Anemia (Chronic) Aortic stenosis, severe CAD (coronary artery disease) (Chronic) Carcinoma of prostate Cardiomyopathy (Chronic) Carotid atherosclerosis (Chronic) Cerebrovascular disease (Chronic) Chronic hip pain (Chronic) CKD (chronic kidney disease), stage IV (Chronic) Clostridium difficile diarrhea Diabetes mellitus with renal complications (Chronic) Dyslipidemia (Chronic) First degree atrioventricular block (Chronic) Gastroesophageal reflux disease (Chronic) H/O: stroke (2014) L hemispheric subcortical infarct History of aortic stenosis History of cholecystitis (Chronic) History of cholelithiasis (Chronic) History of prostate cancer Hypertension (Chronic) Hypothyroidism (Chronic) 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) Tremor (Chronic) Vitamin D deficiency (Chronic) Surgical History H/O prostatectomy History of cardiac cath CATH STENT 1 FIRST RIGHT POSTEROLATERAL BRANCH History of inguinal hernia repair LEFT INGUINAL HERNIORRHAPHY 1986 S/P coronary artery stent placement (12/2015) RCA - [facility] S/P prostatectomy 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) [facility] Status post placement of implantable loop recorder w/ removal May 2015 Family History Father , IN 70'S WITH HEART DISEASE Patient's father is Heart disease Mother , AT AGE 86 Laryngeal cancer Patient's mother is Denies family history of Ovarian cancer Prostate cancer Kidney disease CKD (chronic kidney disease) Myocardial infarction Breast cancer Bleeding disorder Lung cancer Colorectal cancer Social History Preferred Language: Sinhala Communication Ability: Effective Visual Impairment: Limited Hearing Ability: Use of Hearing Aid [employer] Required: No Beliefs That Will Affect Care: None marital status: Current Living Situation: Spouse Current Living Situation Comment: Lives at home with spouse in [place]. 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 Feels Safe at Home: Yes Smoking Status: Never smoker Hx Alcohol Use: No Hx Substance Use: No Childhood Exposure to Second-Hand Smoke: No Diet Comment: Doesnt follow diet. caffeine: Yes (coffee x 5-6 per day. ) during the past year weight has: remained stable Dental Care, Regularly: Yes Physical Activity Frequency: Does not Exercise Seatbelt Use: always Sunscreen Use: No Review of Systems See HPI for pertinent positives & negatives. and A total of 10 systems reviewed and were otherwise negative Physical Exam Vital Signs Vital Signs - 24 hr 12/16/19 14:27 12/16/19 15:52 12/16/19 16:00 Temperature 36.4 C L Temperature Source Oral Pulse Rate 62 94 H 99 H Pulse Rate from SpO2 Sensor 100 H Respiratory Rate 18 32 H 40 H Respiratory Effort / Characteristics Respiratory Pattern Blood Pressure 140/91 137/78 140/79 Blood Pressure Mean 107 95 105 Pulse Oximetry 96 91 Oxygen Delivery Method Room Air Nasal Cannula Oxygen Flow Rate 5 Fraction of Inspired Oxygen Sepsis Recent Fever Within 48 Hours No Sepsis New/Unexplained Change in Mental Status No Sepsis Action Taken by Nursing No Action Required 12/16/19 16:31 12/16/19 16:40 12/16/19 16:45 Temperature Temperature Source Pulse Rate 101 H 100 H 97 H Pulse Rate from SpO2 Sensor 99 H 109 H 112 H Respiratory Rate 40 H 32 H 35 H Respiratory Effort / Characteristics Respiratory Pattern Blood Pressure 141/91 H 141/95 H 142/86 H Blood Pressure Mean 124 111 123 Pulse Oximetry 98 100 100 Oxygen Delivery Method Oxygen Flow Rate Fraction of Inspired Oxygen Sepsis Recent Fever Within 48 Hours Sepsis New/Unexplained Change in Mental Status Sepsis Action Taken by Nursing 12/16/19 16:49 12/16/19 16:50 12/16/19 16:55 Temperature Temperature Source Pulse Rate 88 104 H 105 H Pulse Rate from SpO2 Sensor 107 H 105 H Respiratory Rate 36 H 39 H 38 H Respiratory Effort / Characteristics Spontaneous Short of Breath Respiratory Pattern Tachypnea Blood Pressure 156/95 H 155/87 H Blood Pressure Mean 108 114 Pulse Oximetry 99 100 98 Oxygen Delivery Method Oxygen Flow Rate Fraction of Inspired Oxygen 40 Sepsis Recent Fever Within 48 Hours Sepsis New/Unexplained Change in Mental Status Sepsis Action Taken by Nursing 12/16/19 17:01 12/16/19 17:05 12/16/19 17:10 Temperature Temperature Source Pulse Rate 103 H 98 H 95 H Pulse Rate from SpO2 Sensor 103 H 98 H 95 H Respiratory Rate 31 H 36 H 36 H Respiratory Effort / Characteristics Respiratory Pattern Blood Pressure 156/112 H 155/82 H 155/87 H Blood Pressure Mean 125 98 104 Pulse Oximetry 98 98 98 Oxygen Delivery Method Oxygen Flow Rate Fraction of Inspired Oxygen Sepsis Recent Fever Within 48 Hours Sepsis New/Unexplained Change in Mental Status Sepsis Action Taken by Nursing 12/16/19 17:15 Temperature Temperature Source Pulse Rate 95 H Pulse Rate from SpO2 Sensor 100 H Respiratory Rate 36 H Respiratory Effort / Characteristics Respiratory Pattern Blood Pressure 150/87 H Blood Pressure Mean 110 Pulse Oximetry 94 Oxygen Delivery Method Oxygen Flow Rate Fraction of Inspired Oxygen Sepsis Recent Fever Within 48 Hours Sepsis New/Unexplained Change in Mental Status Sepsis Action Taken by Nursing GENERAL: alert, well appearing, well nourished, no distress, non-toxic EYE EXAM: normal conjunctiva, PERRL and EOM's grossly intact OROPHARYNX: no exudate, no erythema, lips, buccal mucosa, and tongue normal and mucous membranes are moist NECK: supple, no nuchal rigidity, no adenopathy, non-tender LUNGS: Clear to auscultation. Normal chest wall mechanics, no w/r/r HEART: no murmurs, S1 normal and S2 normal, reproducible chest pain with palpation of left upper sternal border ABDOMEN: abdomen soft, non-tender, normo-active bowel sounds, no masses, no rebound or guarding. BACK: Back is symmetrical on inspection and there is no deformity, no midline tenderness, no CVA tenderness. SKIN: no rashes and no bruising UPPER EXTREMITIES: upper extremities are grossly normal. FROM, nml pulses b/l. LOWER EXTREMITIES: Trace pitting edema. FROM, nml pulses b/l. NEURO EXAM: Normal sensorium, cranial nerves II-XII grossly intact, normal speech, no gross weakness of arms, no gross weakness of legs. Gross sensation intact. Course Course 1620: Patient now acutely short of breath, oxygen via nasal cannula applied and turned up to 4 L/min. Patient states he now feels worse than my initial exam. I updated he and the who is now at bedside on the initial results. She confirms he has not missed any recent doses of his medications including his diuretic. 1640: Pt's breathing now worse. RT called for initiation of BiPAP. 1650: Pt's breathing slightly improved now on BiPAP. confirms pt is a DNI. 1711: Patient reexamined at bedside, patient's work of breathing is improved. Patient's heart rate and tachypnea are improving on BiPAP. Case discussed with Dr. Bergeron for additional inpatient management. He recommends an additional dose of Lasix in addition to the 40 mg the patient was already given. Administered Medications Discontinued Medications Acetaminophen (Tylenol) 650 mg PO NOW STA Stop: 12/16/19 15:09 Last Admin: 12/16/19 15:52 Dose: 650 mg Documented by: [id number] Furosemide (Lasix) 40 mg IV NOW STA Stop: 12/16/19 16:26 Last Admin: 12/16/19 16:36 Dose: 40 mg Documented by: [id number] Furosemide (Lasix) 40 mg IV NOW STA Stop: 12/16/19 17:17 Last Admin: 12/16/19 18:35 Dose: 40 mg Documented by: [id number] Magnesium Sulfate/Dextrose (Magnesium Sulfate / D5w) 1 gm in 100 mls @ 100 mls/hr IV NOW STA Stop: 12/16/19 16:38 Last Infusion: 12/16/19 16:54 Dose: 0 mls/hr Documented by: [id number] Admin: 12/16/19 15:54 Dose: 100 mls/hr Documented by: [id number] Nitroglycerin (Nitro-Bid 2%) 1 inch EXT NOW STA Stop: 12/16/19 16:44 Last Admin: 12/16/19 16:53 Dose: 1 inch Documented by: [id number] Critical Care Time Critical Care Time: Yes Total Critical Care Time: 38 Critical care of 38 min performed to assess and manage high likelihood of life-threatening dyspnea, involving labs and imaging performed with assessment to evaluate chest pain and acute dyspnea diagnosis with frequent reassessment. This time includes bedside time, treatment discussions with patient/family/consultants, documentation time and excludes procedure time. Medical Decision Making Differential Diagnosis Differential diagnoses includes but is not limited to acute coronary syndrome, myocardial infarction, pericarditis, pulmonary embolus, aortic dissection, pneumonia, pneumothorax, musculoskeletal, shingles, esophageal. Medical Records Attestation: I reviewed the patient's medical records. Home Medications Current Medication List: was personally reviewed by me Laboratory Data Attestation: I reviewed the patient's lab results. Result diagrams: 12/16/19 14:40 12/16/19 14:40 Lab Results 12/16/19 12/16/19 12/16/19 Range/Units 14:40 14:40 14:40 WBC 7.47 (4.8-10.8) K/uL RBC 3.53 L (4.7-6.1) M/uL Hgb 11.2 L (14.0-18.0) g/dL Hct 35.5 L (42-52) % MCV 100.6 H (80-100) fL MCH 31.7 (25-34) pg MCHC 31.5 L (32-36) g/dL RDW Std Deviation 50.4 H (36.4-46.3) fL RDW Coeff of Neymar 13.9 (11.5-14.5) % Plt Count 187 (130-400) K/uL MPV 10.5 H (7.4-10.4) fL Immature Gran % (Auto) 0.1 % Neut % (Auto) 54.2 % Lymph % (Auto) 34.9 % [place] % (Auto) 6.2 % Eos % (Auto) 4.3 % Baso % (Auto) 0.3 % Neut # (Auto) 4.05 (1.4-6.5) K/uL Lymph # (Auto) 2.61 (1.2-3.4) K/uL [place] # (Auto) 0.46 (0.11-0.59) K/uL Eos # (Auto) 0.32 (0-0.5) K/uL Baso # (Auto) 0.02 (0-0.2) K/uL Immature Gran # (Auto) 0.01 (0.00-0.02) K/uL PT 12.1 H (9.0-12.0) Seconds INR 1.2 H (0.9-1.1) Sodium 143 (136-145) mmol/L Potassium 4.6 (3.5-5.1) mmol/L Chloride 111 H (98-107) mmol/L Carbon Dioxide 27 (21-32) mmol/L Anion Gap 5.0 (3-11) BUN 51 H (7-18) mg/dl Creatinine 3.52 H (0.6-1.4) mg/dl Est Cr Clr Drug Dosing 14.4 ml/min Est GFR ( Amer) 16.8 Est GFR (Non-Af Amer) 14.5 BUN/Creatinine Ratio 14.4 (10-20) Glucose 228 H (70-99) mg/dl Calcium 8.1 L (8.5-10.1) mg/dl Magnesium 1.6 L (1.8-2.4) mg/dl Total Bilirubin 0.5 (0.2-1) mg/dl AST 16 (15-37) U/L ALT 25 (12-78) U/L Alkaline Phosphatase 65 (45-117) U/L Troponin I 0.028 (0-0.045) ng/ml NT-Pro-B Natriuret Pep 82666 H (0-1800) pg/ml Total Protein 6.9 (6.4-8.2) gm/dl Albumin 2.8 L (3.4-5.0) gm/dl Globulin 4.1 H (2.5-4.0) gm/dl Albumin/Globulin Ratio 0.7 L (0.9-2) Imaging Data Radiologist's Impression: SINGLE VIEW CHEST CLINICAL HISTORY: Atypical chest pain. FINDINGS: An AP, portable, upright chest radiograph is compared to study dated 11/24/2019. There is evidence of previous cardiac valve surgery. The heart is enlarged noting atherosclerotic calcification of the thoracic aorta. There is evidence of congestive failure and interstitial edema. Small pleural effusions are noted. Bibasilar opacities likely represent atelectasis. No pneumothorax is seen. The skeletal structures are osteopenic. The bony thorax is grossly intact. IMPRESSION: 1. Cardiomegaly with evidence of congestive failure and mild interstitial edema. 2. Small pleural effusions. 3. Dependent opacities likely represent atelectasis. Clinical correlation will be required. ACT 112: Negative or not required by law. Electronically signed by: Harsha Weir M.D. 12/16/2019 2:47 PM Blood Pressure Blood Pressure Findings: Elevated blood pressure Blood Pressure Disposition: further management by hospitalist DEJUAN Narrative Patient initially well-appearing here with no distress, and stable vital signs. I did review patient's recent admission. Patient with significant cardiac and renal history. Patient had trace pedal edema which she felt was chronic, and denied any shortness of breath or cough during my initial interview. Patient with intermittent right upper chest pain which she states is been there since his most recent admission and he attributed to the rib fracture that was noted at that time. While being observed here during repletion of his magnesium through the IV, patient appeared to go into flash pulmonary edema and became acutely short of breath with bilateral rales, increased work of breathing, tachypnea, and mild hypoxia. Patient initially placed on nasal cannula and I reexamine the patient at bedside. Patient given a dose of Lasix, Nitropaste ordered, a repeat EKG and chest x-ray ordered. Patient now appears to have worsening pulmonary edema and evolving pleural effusions. Patient's breathing continued to get worse and respiratory was contacted to initiate BiPAP treatment. Patient slowly improved with addition of BiPAP. Case was discussed with hospitalist for additional inpatient evaluation and monitoring. Patient and his were updated at bedside. did confirm DNI status. Patient's initial troponin negative, however BNP was elevated, even compared to prior on review of EMR. Patient's chronic kidney disease slightly worse compared to prior also. An order was placed for continuous cardiac monitoring. The monitor shows a rate of 84 with normal sinus rhythm. Impression & Plan Chest pain, Acute pulmonary edema, CKD (chronic kidney disease), Acute dyspnea, Elevated brain natriuretic peptide (BNP) level Discharge Plan Visit Data *Final* Discharge Date/Time: 12/16/19 18:28 Chief Complaint: Rib Injury/Pain Stated Complaint: RIB PAIN ED Provider: Dana Carrasco Discharge Problem: Chest pain, Acute pulmonary edema, CKD (chronic kidney disease), Acute dyspnea, Elevated brain natriuretic peptide (BNP) level Patient Disposition: Admitted As Inpatient Discharge Instructions Interventions: ED Discharge Assessment Last Done: 12/16/19 18:28 Discharge Problem: Chest pain Qualifiers: Chest pain type: unspecified Qualified Code(s): R07.9 - Chest pain, unspecified CKD (chronic kidney disease) Qualifiers: Chronic kidney disease stage: unspecified stage Qualified Code(s): N18.9 - Chronic kidney disease, unspecified
--- NOTE | 2019-12-16 14:48 | XRay Report ---
SINGLE VIEW CHEST CLINICAL HISTORY: Atypical chest pain. FINDINGS: An AP, portable, upright chest radiograph is compared to study dated 11/24/2019. There is ev idence of previous cardiac valve surgery. The heart is enlarged noting atherosclerotic calcification of the thoracic aorta. There is evidence of congestive failure and interstitial edema. Small pleural effusions are noted. Bibasilar opacities likely represent atelectasis. No pneumothorax is seen. The s keletal structures are osteopenic. The bony thorax is grossly intact. IMPRESSION: 1. Cardiomegaly with evidence of congestive failure and mild interstitial edema. 2. Small pleural effusions. 3. Dependent opacities likely represent atelectasis. Clinical correlation will be required. ACT 112: Negative or not required by law. Electronically signed by: Harsha Weir M.D. 12/16/2019 2:47 PM
[2019-12-16 14:54] LABS: Basophils # (auto) 0.02 K/uL (0-0.2); Basophils % (auto) 0.3 %; Eosinophils # (auto) 0.32 K/uL (0-0.5); Eosinophils % (auto) 4.3 %; Hematocrit (blood only) 35.5 % (42-52); Hemoglobin 11.2 g/dL (14.0-18.0); Immature Granulocytes # (auto) 0.01 K/uL (0.00-0.02); Immature Granulocytes % (auto) 0.1 %; Lymphocytes # (auto) 2.61 K/uL (1.2-3.4); Lymphocytes % (auto) 34.9 %; Mean Corpuscular Hemoglobin 31.7 pg (25-34); Mean Corpuscular Hgb Conc 31.5 g/dL (32-36); Mean Corpuscular Volume 100.6 fL (80-100); Mean Platelet Volume 10.5 fL (7.4-10.4); Monocytes # (auto) 0.46 K/uL (0.11-0.59); Monocytes % (auto) 6.2 %; Neutrophils # (auto) 4.05 K/uL (1.4-6.5); Neutrophils % (auto) 54.2 %; Platelet Count 187 K/uL (130-400); RDW Coefficient of Variation 13.9 % (11.5-14.5); RDW Standard Deviation 50.4 fL (36.4-46.3); Red Blood Count 3.53 M/uL (4.7-6.1); White Blood Count 7.47 K/uL (4.8-10.8)
[2019-12-16 15:04] LABS: INR 1.2 (0.9-1.1); Prothrombin Time 12.1 Seconds (9.0-12.0)
[2019-12-16] MEDS ORDERED: ACETAMINOPHEN 325 MG TAB PO STA (15:08)
[2019-12-16 15:13] LABS: Albumin Level 2.8 gm/dl (3.4-5.0); BUN Creatinine Ratio 14.4 (10-20); Calcium 8.1 mg/dl (8.5-10.1); Creatinine Clr Calc Pharmacy 14.4 ml/min; Est GFR (African American) 16.8; Est GFR (Non-African American) 14.5; Magnesium 1.6 mg/dl (1.8-2.4); Potassium 4.6 mmol/L (3.5-5.1)
[2019-12-16 15:18] LABS: Albumin Globulin Ratio 0.7 (0.9-2); Bilirubin,Total 0.5 mg/dl (0.2-1); Globulin 4.1 gm/dl (2.5-4.0); Total Protein 6.9 gm/dl (6.4-8.2); Troponin I 0.028 ng/ml (0-0.045)
[2019-12-16] MEDS ORDERED: MAGNESIUM SULFATE / D5W 1 GM/100 ML BAG IV STA (15:39)
[2019-12-16] MEDS ORDERED: FUROSEMIDE 40 MG/4 ML VIAL IV STA ×2 (16:25→17:16)
--- NOTE | 2019-12-16 16:42 | XRay Report ---
SINGLE VIEW CHEST CLINICAL HISTORY: Dyspnea. FINDINGS: An AP, portable, upright chest radiograph is compared to study performed earlier the same d ay 12/16/2019. The examination is degraded by portable technique and patient rotation. There is eviden ce of previous cardiac valve surgery. The heart is enlarged noting atherosclerotic calcification of t he thoracic aorta. There is evidence of congestive failure and interstitial edema. Small pleural effu sions are noted. Bibasilar opacities likely represent atelectasis. No pneumothorax is seen. The skele rebecca structures are osteopenic. The bony thorax is grossly intact. IMPRESSION: 1. Cardiomegaly with congestive failure and worsening interstitial edema. 2. Small pleural effusions. 3. Dependent opacities likely represent atelectasis. Clinical correlation will be required. ACT 112: Negative or not required by law. Electronically signed by: Harsha Weir M.D. 12/16/2019 4:41 PM
[2019-12-16] MEDS ORDERED: NITROGLYCERIN 2% OINTMENT 30GM TUBE EXT STA (16:43)
--- NOTE | 2019-12-16 17:18 | History & Physical Report ---
Date of Service December 16, 2019 Assessment & Plan (1) Acute systolic CHF (congestive heart failure): Acute on chronic systolic CHF/pericardial effusion/atrial fibrillation/severe aortic stenosis/hypertension- The patient will be admitted to telemetry for serial cardiac enzymes, serial EKG's, cardiac rhythm monitoring. Given Lasix 80 mg IV in ED and Nitropaste [address] on Lasix 80 mg IV every morning. Place on Nitropaste 1 inch anterior chest wall every 6 hours Hold amlodipine and oral furosemide. Continue clopidogrel, metoprolol succinate and warfarin. Continue BiPAP at current settings, and taper to nasal cannula as symptoms improve. Present on Admission?: Yes (2) Pericardial effusion: See above Present on Admission?: Yes (3) Atrial fibrillation: Present on Admission?: Yes (4) Aortic stenosis, severe: see aboveSee above Present on Admission?: Yes (5) CAD (coronary artery disease): See above Present on Admission?: Yes (6) CKD (chronic kidney disease), stage IV: Follow laboratories serially while diuresing Present on Admission?: Yes (7) Diabetes mellitus with renal complications: Hold insulin NPH until able to eat. Placed on Accu-Cheks before meals and at bedtime with NovoLog coverage per scale Present on Admission?: Yes (8) Gastroesophageal reflux disease: continue pantoprazole Present on Admission?: Yes (9) Hypothyroidism: Continue levothyroxine 37 mcg daily Present on Admission?: Yes History of Present Illness Chief Complaint: The patient presented to the emergency department with complaint of worsening chest pain and shortness of breath. Primary Care Provider: KRYSTLE Lizarraga The patient is a 89-year-old male with a past medical history including pericardial effusion, atrial fibrillation, severe aortic stenosis, CHF, LVH, hyperlipidemia, prostate cancer, left carotid stenosis, hypothyroidism, CAD, CKD stage IV, cardiomyopathy, cerebrovascular disease, diabetes mellitus, dyslipidemia, first-degree heart block, secondary hyperparathyroidism and vitamin D deficiency. He was most recently mated from 11/21-11/28 for similar symptoms as today. Evaluation in the emergency department included chest x-ray, which showed significantly worse CHF than previous admission. He was given Lasix 80 mg IV in the ED and Nitropaste 1 inch to anterior chest wall. He was placed on BiPAP with improved oxygenation and comfort. Allergies Allergy/AdvReac Type Severity Reaction Status Date / Time No Known Drug Allergies Allergy . Verified 12/16/19 15:03 Home Medications Home Medications Medication Instructions Recorded Confirmed Type lidocaine 1 patch TRANSDERMAL QAM #30 ea 11/29/19 12/16/19 Rx blood sugar diagnostic #500 ea 12/12/19 12/16/19 Rx clopidogrel 75 mg tablet 75 mg PO QAM #90 tab 12/12/19 12/16/19 Rx insulin NPH isoph U-100 human 100 See Rx Instructions SUBCUT DAILY 12/12/19 12/16/19 Rx unit/mL subcutaneous suspension #100 ml amlodipine 10 mg PO QAM 12/16/19 12/16/19 History atorvastatin 80 mg PO HS 12/16/19 12/16/19 History cholecalciferol (vitamin D3) 2,000 units PO QAM 12/16/19 12/16/19 History furosemide 40 mg PO QAM 12/16/19 12/16/19 History isosorbide dinitrate 10 mg PO BIDM 12/16/19 12/16/19 History levothyroxine 137 mcg PO QAM 12/16/19 12/16/19 History metoprolol succinate 200 mg PO QAM 12/16/19 12/16/19 History multivitamin 1 tab PO QAM 12/16/19 12/16/19 History pantoprazole 40 mg PO QAM 12/16/19 12/16/19 History warfarin 1 mg PO SUTUTHSA@0800 12/16/19 12/16/19 History warfarin 3 mg PO QAM 12/16/19 12/16/19 History Past Med/Surg History Medical History Amaurosis fugax of right eye (Chronic) Anemia (Chronic) Aortic stenosis, severe CAD (coronary artery disease) (Chronic) Carcinoma of prostate Cardiomyopathy (Chronic) Carotid atherosclerosis (Chronic) Cerebrovascular disease (Chronic) Chronic hip pain (Chronic) CKD (chronic kidney disease), stage IV (Chronic) Clostridium difficile diarrhea Diabetes mellitus with renal complications (Chronic) Dyslipidemia (Chronic) First degree atrioventricular block (Chronic) Gastroesophageal reflux disease (Chronic) H/O: stroke (2014) L hemispheric subcortical infarct History of aortic stenosis History of cholecystitis (Chronic) History of cholelithiasis (Chronic) History of prostate cancer Hypertension (Chronic) Hypothyroidism (Chronic) 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) Tremor (Chronic) Vitamin D deficiency (Chronic) Surgical History H/O prostatectomy History of cardiac cath CATH STENT 1 FIRST RIGHT POSTEROLATERAL BRANCH History of inguinal hernia repair LEFT INGUINAL HERNIORRHAPHY 1986 S/P coronary artery stent placement (12/2015) [facility] S/P prostatectomy 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) [facility] Status post placement of implantable loop recorder w/ removal May 2015 Family History Father , IN 70'S WITH HEART DISEASE Patient's father is Heart disease Mother , AT AGE 86 Laryngeal cancer Patient's mother is Denies family history of Ovarian cancer Prostate cancer Kidney disease CKD (chronic kidney disease) Myocardial infarction Breast cancer Bleeding disorder Lung cancer Colorectal cancer Social History Preferred Language: Swedish Communication Ability: Effective Visual Impairment: Limited Hearing Ability: Use of Hearing Aid Psychologists Required: No Beliefs That Will Affect Care: None marital status: Current Living Situation: Spouse Current Living Situation Comment: Lives at home with spouse in [place]. 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 Feels Safe at Home: Yes Smoking Status: Never smoker Hx Alcohol Use: No Hx Substance Use: No Childhood Exposure to Second-Hand Smoke: No Diet Comment: Doesnt follow diet. caffeine: Yes (coffee x 5-6 per day. ) during the past year weight has: remained stable Dental Care, Regularly: Yes Physical Activity Frequency: Does not Exercise Seatbelt Use: always Sunscreen Use: No Review of Systems Review of Systems: The patient denies palpitations, cough, sore throat, fevers, chills, sweats, nausea, vomiting, diarrhea , constipation, abdominal pain, pelvic pain, blood in urine or stool, dysuria, urinary frequency or urgency, lightheadedness, dizziness, headache, memory loss, loss of consciousness, rash, abnormal bruising or bleeding, focal weakness, numbness or tingling in arms or legs, generalized arthralgias or myalgias, back or neck pain, or night sweats. The review of systems is otherwise negative other than for that already noted above, and at least 10 systems have been reviewed. Physical Exam Physical Exam: The patient is awake, alert and oriented 3, wearing BiPAP mask, sitting upright in bed and in moderate acute distress. HEENT--PERRL, EOMI, mucous membranes and oropharynx. Neck--supple. No JVD. No bruits. Thyroid normal, trachea midline, no adenopathy. Heart--normal S1 and S2. No murmurs, rubs or gallops. Lungs--crackles at the bases to alf up on the right, greater than left. Moderate respiratory distress, no accessory muscle use. Abdomen--normal bowel sounds and soft. Nontender. Nondistended. Extremities--no cyanosis or clubbing. 2+ bilateral pretibial pitting edema. Dermatologic--normal skin turgor, normal color, no abnormal lymph nodes, no rash. Neurologic--cranial nerves II through XII grossly intact. Rheumatologic--exam limited by shortness of breath Psychiatric--normal affect. Results & Data Results & Data ([facility]) Vital Signs (Past 12 Hours) Vital Signs Temp Pulse Resp BP Pulse Ox 12/16/19 16:49 88 36 H 99 12/16/19 16:00 99 H 40 H 140/79 91 12/16/19 15:52 94 H 32 H 137/78 12/16/19 14:27 97.5 F L 62 18 140/91 96 Laboratory Results Laboratory Results WBC 7.47 K/uL (4.8-10.8) 12/16/19 14:40 RBC 3.53 M/uL (4.7-6.1) L 12/16/19 14:40 Hgb 11.2 g/dL (14.0-18.0) L 12/16/19 14:40 Hct 35.5 % (42-52) L 12/16/19 14:40 MCV 100.6 fL (80-100) H 12/16/19 14:40 MCH 31.7 pg (25-34) 12/16/19 14:40 MCHC 31.5 g/dL (32-36) L 12/16/19 14:40 RDW Std Deviation 50.4 fL (36.4-46.3) H 12/16/19 14:40 RDW Coeff of Neymar 13.9 % (11.5-14.5) 12/16/19 14:40 Plt Count 187 K/uL (130-400) 12/16/19 14:40 MPV 10.5 fL (7.4-10.4) H 12/16/19 14:40 Immature Gran % (Auto) 0.1 % 12/16/19 14:40 Neut % (Auto) 54.2 % 12/16/19 14:40 Lymph % (Auto) 34.9 % 12/16/19 14:40 Pettis % (Auto) 6.2 % 12/16/19 14:40 Eos % (Auto) 4.3 % 12/16/19 14:40 Baso % (Auto) 0.3 % 12/16/19 14:40 Neut # (Auto) 4.05 K/uL (1.4-6.5) 12/16/19 14:40 Lymph # (Auto) 2.61 K/uL (1.2-3.4) 12/16/19 14:40 Pettis # (Auto) 0.46 K/uL (0.11-0.59) 12/16/19 14:40 Eos # (Auto) 0.32 K/uL (0-0.5) 12/16/19 14:40 Baso # (Auto) 0.02 K/uL (0-0.2) 12/16/19 14:40 Immature Gran # (Auto) 0.01 K/uL (0.00-0.02) 12/16/19 14:40 PT 12.1 Seconds (9.0-12.0) H 12/16/19 14:40 INR 1.2 (0.9-1.1) H 12/16/19 14:40 Sodium 143 mmol/L (136-145) 12/16/19 14:40 Potassium 4.6 mmol/L (3.5-5.1) 12/16/19 14:40 Chloride 111 mmol/L (98-107) H 12/16/19 14:40 Carbon Dioxide 27 mmol/L (21-32) 12/16/19 14:40 Anion Gap 5.0 (3-11) 12/16/19 14:40 BUN 51 mg/dl (7-18) H 12/16/19 14:40 Creatinine 3.52 mg/dl (0.6-1.4) H 12/16/19 14:40 Est Cr Clr Drug Dosing 14.4 ml/min 12/16/19 14:40 Est GFR ( Amer) 16.8 12/16/19 14:40 Est GFR (Non-Af Amer) 14.5 12/16/19 14:40 BUN/Creatinine Ratio 14.4 (10-20) 12/16/19 14:40 Glucose 228 mg/dl (70-99) H 12/16/19 14:40 Calcium 8.1 mg/dl (8.5-10.1) L 12/16/19 14:40 Magnesium 1.6 mg/dl (1.8-2.4) L 12/16/19 14:40 Total Bilirubin 0.5 mg/dl (0.2-1) 12/16/19 14:40 AST 16 U/L (15-37) 12/16/19 14:40 ALT 25 U/L (12-78) 12/16/19 14:40 Alkaline Phosphatase 65 U/L (45-117) 12/16/19 14:40 Troponin I 0.028 ng/ml (0-0.045) 12/16/19 14:40 NT-Pro-B Natriuret Pep 63162 pg/ml (0-1800) H 12/16/19 14:40 Total Protein 6.9 gm/dl (6.4-8.2) 12/16/19 14:40 Albumin 2.8 gm/dl (3.4-5.0) L 12/16/19 14:40 Globulin 4.1 gm/dl (2.5-4.0) H 12/16/19 14:40 Albumin/Globulin Ratio 0.7 (0.9-2) L 12/16/19 14:40 Diagnostic Findings [facility] [place] [phone] XRay Report Patient: LEVI MORALES OAdmit Date: 12/16/19 MR#: [id number]: [facility] Acct ID:[id number]: Date: 1930[facility] Zip: [place] [address] Age: 89Location: ED Sex: M Room/Bed: Att Phy:Diagnosis: RIB PAIN Vikki Phy: Dimitris Avila CRNPService Date: 12/16/19 [facility] Phy:Interpreting Phy: Harsha Weir MD Admit Phy: Ordering Phy: Dana Carrasco, DO cc: ~ SINGLE VIEW CHEST CLINICAL HISTORY: Atypical chest pain. FINDINGS: An AP, portable, upright chest radiograph is compared to study dated 11/24/2019. There is evidence of previous cardiac valve surgery. The heart is enlarged noting atherosclerotic calcification of the thoracic aorta. There is evidence of congestive failure and interstitial edema. Small pleural effusions are noted. Bibasilar opacities likely represent atelectasis. No pneumothorax is seen. The skeletal structures are osteopenic. The bony thorax is grossly intact. IMPRESSION: 1. Cardiomegaly with evidence of congestive failure and mild interstitial edema. 2. Small pleural effusions. 3. Dependent opacities likely represent atelectasis. Clinical correlation will be required. ACT 112: Negative or not required by law. Electronically signed by: Harsha Weir M.D. 12/16/2019 2:47 PM Dictated: 12/16/19 1445 Transcribed: 12/16/19 1445 [place], [place] [phone] XRay Report Patient: LEVI MORALES OAdmit Date: 12/16/19 MR#: [id number]: [address] [place] [address] Acct ID:[id number]: Date: 1930[facility] Zip: [place] [address] Age: 89Location: ED Sex: M Room/Bed: Att Phy:Diagnosis: RIB PAIN Vikki Phy: Dimitris Avila CRNPService Date: 12/16/19 Fam Phy:Interpreting Phy: Harsha Weir MD Admit Phy: Ordering Phy: Dana Carrasco, DO cc: ~ SINGLE VIEW CHEST CLINICAL HISTORY: Dyspnea. FINDINGS: An AP, portable, upright chest radiograph is compared to study performed earlier the same day 12/16/2019. The examination is degraded by portable technique and patient rotation. There is evidence of previous cardiac valve surgery. The heart is enlarged noting atherosclerotic calcification of the thoracic aorta. There is evidence of congestive failure and interstitial edema. Small pleural effusions are noted. Bibasilar opacities likely represent atelectasis. No pneumothorax is seen. The skeletal structures are osteopenic. The bony thorax is grossly intact. IMPRESSION: 1. Cardiomegaly with congestive failure and worsening interstitial edema. 2. Small pleural effusions. 3. Dependent opacities likely represent atelectasis. Clinical correlation will be required. ACT 112: Negative or not required by law. Electronically signed by: Harsha Weir M.D. 12/16/2019 4:41 PM Dictated: 12/16/19 1640 Transcribed: 12/16/19 1640 Code Status & VTE Plan Code Status Full code VTE Prophylaxis Plan VTE Prophylaxis will be ordered: Yes PG Care Time/CCT Total # of Minutes Spent Total Time Spent with Patient: Total time spent is greater than 50% in coordination of care (as documented) at patient's floor/unit and/or counseling patient: Coding Level of Care Code 48522 Initial Inpt Care Lvl 3 Diagnoses Acute systolic CHF (congestive heart failure) I50.21 Pericardial effusion I31.3 Atrial fibrillation I48.91 Aortic stenosis, severe I35.0 CAD (coronary artery disease) I25.10 Coronary Disease-Associated Artery/Lesion type: grindstone artery [place] vs. transplanted heart: grindstone heart Associated angina: angina presence unspecified CKD (chronic kidney disease), stage IV N18.4 Diabetes mellitus with renal complications E11.22; N18.4; Z79.4 Diabetes mellitus type: type 2 Diabetes mellitus fci insulin use: with fci use Diabetes mellitus complication detail: with chronic kidney disease Chronic kidney disease stage: stage 4 (severe) Gastroesophageal reflux disease K21.9 Hypothyroidism E03.9 Hypothyroidism type: acquired (1) Hypothyroidism Hypothyroidism type: acquired Qualified Code(s): E03.9 - Hypothyroidism, unspecified (2) CAD (coronary artery disease) Coronary Disease-Associated Artery/Lesion type: grindstone artery [place] vs. transplanted heart: grindstone heart Associated angina: angina presence unspecified Qualified Code(s): I25.10 - Atherosclerotic heart disease of grindstone coronary artery without angina pectoris (3) Diabetes mellitus with renal complications Diabetes mellitus type: type 2 Diabetes mellitus fci insulin use: with fci use Diabetes mellitus complication detail: with chronic kidney disease Chronic kidney disease stage: stage 4 (severe) Qualified Code(s): E11.22 - Type 2 diabetes mellitus with diabetic chronic kidney disease; N18.4 - Chronic kidney disease, stage 4 (severe); Z79.4 - FDC (current) use of insulin
[2019-12-16] MEDS ORDERED: ONDANSETRON INJ 2 MG/ML 2 ML VIAL IV PRN (19:12)
[2019-12-16] MEDS ORDERED: CARBOHYDRATES FOR HYPOGLYCEMIA PO PRN (19:12)
[2019-12-16] MEDS ORDERED: GLUCAGON FOR INJ 1 MG VIAL SQ PRN (19:12)
[2019-12-16] MEDS ORDERED: GLUCOSE 40% GEL 15 GM TUBE PO PRN (19:12)
[2019-12-16] MEDS ORDERED: DEXTROSE 50% 50 ML SYRINGE IV PRN (19:12)
[2019-12-16] MEDS ORDERED: GLUCOSE 10 TABS/TUBE PO PRN (19:12)
[2019-12-16] MEDS ORDERED: ACETAMINOPHEN 325 MG TAB PO PRN (19:12)
[2019-12-16] MEDS: NITROGLYCERIN 2% OINTMENT 30GM TUBE EXT SCH (21:31)
[2019-12-16] MEDS: ATORVASTATIN 40 MG TAB PO SCH (21:32)
[2019-12-16] MEDS: INSULIN ASPART 100 UNITS/ML 3 ML PEN SC SCH (21:44)
[2019-12-17] MEDS: NITROGLYCERIN 2% OINTMENT 30GM TUBE EXT SCH ×3 (02:10→16:05)
[2019-12-17 03:00] LABS: Basophils # (auto) 0.02 K/uL (0-0.2); Basophils % (auto) 0.2 %; Eosinophils # (auto) 0.31 K/uL (0-0.5); Eosinophils % (auto) 3.8 %; Hematocrit (blood only) 35.3 % (42-52); Hemoglobin 11.5 g/dL (14.0-18.0); Immature Granulocytes # (auto) 0.01 K/uL (0.00-0.02); Immature Granulocytes % (auto) 0.1 %; Lymphocytes # (auto) 2.51 K/uL (1.2-3.4); Lymphocytes % (auto) 31.1 %; Mean Corpuscular Hemoglobin 32.6 pg (25-34); Mean Corpuscular Hgb Conc 32.6 g/dL (32-36); Mean Platelet Volume 10.5 fL (7.4-10.4); Monocytes # (auto) 0.55 K/uL (0.11-0.59); Monocytes % (auto) 6.8 %; Neutrophils # (auto) 4.66 K/uL (1.4-6.5); Platelet Count 181 K/uL (130-400); RDW Coefficient of Variation 13.8 % (11.5-14.5); RDW Standard Deviation 49.7 fL (36.4-46.3); Red Blood Count 3.53 M/uL (4.7-6.1); White Blood Count 8.06 K/uL (4.8-10.8)
[2019-12-17 03:12] LABS: INR 1.2 (0.9-1.1); Prothrombin Time 12.4 Seconds (9.0-12.0)
[2019-12-17 03:17] LABS: Albumin Level 2.8 gm/dl (3.4-5.0); BUN Creatinine Ratio 15.9 (10-20); Calcium 8.4 mg/dl (8.5-10.1); Creatinine Clr Calc Pharmacy 15.7 ml/min; Est GFR (African American) 18.7; Est GFR (Non-African American) 16.2; Magnesium 1.8 mg/dl (1.8-2.4); Potassium 4.3 mmol/L (3.5-5.1)
[2019-12-17 03:22] LABS: Phosphorus 3.8 mg/dl (2.5-4.9); Troponin I 0.037 ng/ml (0-0.045)
[2019-12-17] MEDS: LEVOTHYROXINE SODIUM 137 MCG TABLET PO SCH (06:01)
[2019-12-17] MEDS: ISOSORBIDE DINITRATE 10 MG TAB PO SCH ×2 (07:01→15:22)
[2019-12-17] MEDS: LIDOCAINE 5% 1 PATCH TD SCH (08:20)
[2019-12-17] MEDS: CLOPIDOGREL BISULFATE 75 MG TAB PO SCH (08:21)
[2019-12-17] MEDS: METOPROLOL SUCC 50MG EXT REL TAB PO SCH (08:21)
[2019-12-17] MEDS: CHOLECALCIFEROL 1,000 UNITS 25 MCG TAB PO SCH (08:21)
[2019-12-17] MEDS: PANTOprazole 40 MG TAB PO SCH (08:21)
[2019-12-17] MEDS: INSULIN ASPART 100 UNITS/ML 3 ML PEN SC SCH ×4 (08:23→20:25)
[2019-12-17] MEDS ORDERED: FUROSEMIDE 80 MG in SYRINGE 0 ML IV SCH (09:00)
[2019-12-17] MEDS ORDERED: FUROSEMIDE 40 MG/4 ML VIAL IV SCH (09:00)
--- NOTE | 2019-12-17 10:24 | Nephrology Consultation ---
Date of Consultation December 17, 2019 Assessment & Plan (1) CKD (chronic kidney disease), stage IV: * Stable advanced CKD. Baseline Cr has been 3.4 - 3.8 * Reviewed indications for HD w/ patient this am. He understands the implications of kidney failure and does not want vascular access creation or HD if his kidneys fail (2) CHF (congestive heart failure): * Echocardiogram 11/24: Significant drop in LVEF to 25% * Troponin WNL x2 so far this hospitalization * Will order renal US, renal artery doppler and urine microscopy however suspect that CHF related to ICM. Recommend titrating nitrate as BP will allow, advise consultation w/ Cardiology * Net 1450 cc diuresis since admission. "Dry weight" appears to have dropped to 176 lbs * Will transition back to outpatient diuretic regimen of Furosemide 40 mg each morning (3) Cardiomyopathy: * LVEF 25%, intermittent atrial fibrillation, recurrent CHF * AICD held due to advanced CKD and desire to avoid HD * Prognosis guarded. Advise consultation w/ palliative care to outline goals of care History of Present Illness Reason for Consultation: Flash pulmonary edema in the setting of advanced CKD Attending Physician: Shyam Hagen History of Present Illness Mr. Soria is an 89 year old white male who is seen at the request of Dr. Bergeron for evaluation of flash pulmonary edema in the setting of advanced CKD. Medical records in the EMR were reviewed today and are summarized as follows: Mr. Soria has stage IV CKD w/ baseline Cr 3.4 (EGFR 20 cc/min) due to microvascular disease. His Refractory Mixer is Dr. Webb. They have discussed INNERSOLE FITTER in the past and Mr. Soria has declined. He has reaffirmed this decision today. Mr. Soria's medical history is also significant for AODM, HTN, MGUS, hypothyroidism, carotid vascular disease s/p CVA, ASCVD s/p RCA stenting, and s/p TAVR. Mr. Soria is monitored closely by [facility] Card[facility]. In 11/24 he developed new onset atrial fibrillation. He is being managed w/ rate control and anticoagulation. Echocardiogram 11/24 revealed a significant drop in LVEF to ~ 25%. ICD was considered but not pursued. It was felt that ICD would not appreciably prolong his life in the setting of advanced CKD and desire to avoid HD. Mr. Soria was last admitted 11/21 - 11/29/19 for management of CHF. He was managed w/ IV diuretic therapy. At discharge his "dry weight" was set at 179 lbs. He was advised to take Furosemide 40 mg daily. Mr. Soria was also diagnosed w/ a R rib fracture in November. Yesterday Mr. Soria presented to the ED w/ complaints of R chest discomfort. ECG revealed 1st degree AVB, LBBB. Initial troponin was wnl. BP was controlled. CXR revealed mild pulmonary congestion. While in ED Mr. Soria suffered acute onset or respiratory distress requiring BiPAP therapy. CXR revealed worsening pulmonary edema. Cardiac enzymes were normal x2 but BNP was markedly elevated. Mr. Soria's condition improved following Furosemide 80 mg IV x2 and topical NTP. This morning he is breathing comfortably on O2 at 5 L/min NC. He denies angina or palpitations. Serum Cr is stable at 3.2. Allergies Allergy/AdvReac Type Severity Reaction Status Date / Time No Known Drug Allergies Allergy . Verified 12/16/19 15:03 Home Medications Home Medications Medication Instructions Recorded Confirmed Type lidocaine 1 patch TRANSDERMAL QAM #30 ea 11/29/19 12/16/19 Rx blood sugar diagnostic #500 ea 12/12/19 12/16/19 Rx clopidogrel 75 mg tablet 75 mg PO QAM #90 tab 12/12/19 12/16/19 Rx insulin NPH isoph U-100 human 100 See Rx Instructions SUBCUT DAILY 12/12/19 12/16/19 Rx unit/mL subcutaneous suspension #100 ml amlodipine 10 mg PO QAM 12/16/19 12/16/19 History atorvastatin 80 mg PO HS 12/16/19 12/16/19 History cholecalciferol (vitamin D3) 2,000 units PO QAM 12/16/19 12/16/19 History furosemide 40 mg PO QAM 12/16/19 12/16/19 History isosorbide dinitrate 10 mg PO BIDM 12/16/19 12/16/19 History levothyroxine 137 mcg PO QAM 12/16/19 12/16/19 History metoprolol succinate 200 mg PO QAM 12/16/19 12/16/19 History multivitamin 1 tab PO QAM 12/16/19 12/16/19 History pantoprazole 40 mg PO QAM 12/16/19 12/16/19 History warfarin 1 mg PO SUTUTHSA@0800 12/16/19 12/16/19 History warfarin 3 mg PO QAM 12/16/19 12/16/19 History Patient History Medical History Amaurosis fugax of right eye (Chronic) Anemia (Chronic) Aortic stenosis, severe CAD (coronary artery disease) (Chronic) Carcinoma of prostate Cardiomyopathy (Chronic) Carotid atherosclerosis (Chronic) Cerebrovascular disease (Chronic) Chronic hip pain (Chronic) CKD (chronic kidney disease), stage IV (Chronic) Clostridium difficile diarrhea Diabetes mellitus with renal complications (Chronic) Dyslipidemia (Chronic) First degree atrioventricular block (Chronic) Gastroesophageal reflux disease (Chronic) H/O: stroke (2014) L hemispheric subcortical infarct History of aortic stenosis History of cholecystitis (Chronic) History of cholelithiasis (Chronic) History of prostate cancer Hypertension (Chronic) Hypothyroidism (Chronic) 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) Tremor (Chronic) Vitamin D deficiency (Chronic) Surgical History H/O prostatectomy History of cardiac cath CATH STENT 1 FIRST RIGHT POSTEROLATERAL BRANCH History of inguinal hernia repair LEFT INGUINAL HERNIORRHAPHY 1986 S/P coronary artery stent placement (12/2015) [facility] S/P prostatectomy 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) [facility] Status post placement of implantable loop recorder w/ removal May 2015 Family History Father , IN 70'S WITH HEART DISEASE Patient's father is Heart disease Mother , AT AGE 86 Laryngeal cancer Patient's mother is Denies family history of Ovarian cancer Prostate cancer Kidney disease CKD (chronic kidney disease) Myocardial infarction Breast cancer Bleeding disorder Lung cancer Colorectal cancer Social History Preferred Language: Chinese Communication Ability: Effective Visual Impairment: Limited Hearing Ability: Use of Hearing Aid Shingle Trimmer Required: No Beliefs That Will Affect Care: None marital status: Current Living Situation: Spouse Current Living Situation Comment: Lives at home with spouse in [place]. 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 Feels Safe at Home: Yes Smoking Status: Never smoker Hx Alcohol Use: No Hx Substance Use: No Childhood Exposure to Second-Hand Smoke: No Diet Comment: Doesnt follow diet. caffeine: Yes (coffee x 5-6 per day. ) during the past year weight has: remained stable Dental Care, Regularly: Yes Physical Activity Frequency: Does not Exercise Seatbelt Use: always Sunscreen Use: No Review of Systems Constitutional: + weakness; no fever Eyes: no problem reported Ear, Nose, Mouth, Throat: no problem reported Respiratory: no dyspnea Cardiovascular: + edema; no chest pain and no palpitations Gastrointestinal: no abdominal pain, no nausea, no vomiting and no diarrhea/loose stools Genitourinary: no dysuria, no urinary hesitancy and no hematuria Musculoskeletal: no back pain Integumentary: no rash Neurologic: no falls, no dizziness and no confusion Physical Exam Constitutional: + frail appearing; not in distress Eyes: PERRL, conjunctivae normal, anicteric sclerae ENMT: external ear and nose normal, oropharynx normal Neck: trachea midline, no thyromegaly Respiratory: normal respiratory effort Auscultation: + rales (at bases bilaterally) Cardiovascular: Rate/Rhythm: regular rate and regular rhythm Extremities: + edema (1+ pretibial edema) Gastrointestinal (Abdomen): normal bowel sounds, soft, nontender, no hepatosplenomegaly Musculoskeletal: Extremities: no cyanosis Skin: no rashes, warm and dry Neurologic: awake; not confused Results & Data Vital Signs (Past 12 Hours) Vital Signs Temp Pulse Pulse Resp BP BP Pulse Ox 12/17/19 08:00 36.4 C L 83 20 111/59 L 98 12/17/19 04:08 36.4 C L 79 18 140/68 95 12/17/19 00:00 90 12/16/19 23:27 36.3 C L 80 18 114/78 94 Laboratory Results Laboratory Tests 12/17/19 12/17/19 02:49 02:49 WBC 8.06 Hgb 11.5 L Hct 35.3 L Plt Count 181 Sodium 146 H Potassium 4.3 Chloride 112 H Carbon Dioxide 27 BUN 51 H Creatinine 3.22 H D Glucose 160 H Calcium 8.4 L Albumin 2.8 L PG Care Time/CCT Total # of Minutes Spent Total Time Spent with Patient: Total time spent is greater than 50% in coordination of care (as documented) at patient's floor/unit and/or counseling patient: Coding Level of Care Code 00172 Inpt Consult Level 5 Diagnoses CKD (chronic kidney disease), stage IV N18.4 CHF (congestive heart failure) I50.9 Heart failure chronicity: acute on chronic Heart failure type: unspecified Cardiomyopathy I42.9 (1) CHF (congestive heart failure) Heart failure chronicity: acute on chronic Heart failure type: unspecified Qualified Code(s): I50.9 - Heart failure, unspecified
[2019-12-17 12:20] LABS: Appearance Urine Clear (Clear); Bacteria Urine Automated Negative (Negative); Bilirubin Urine Negative (Negative); Blood Urine Negative (Negative); Color Urine Yellow; Glucose Urine UA 1+ (Negative); Ketones Urine Negative (Negative); Leukocyte Esterase Urine Negative (Negative); Nitrite Urine Negative (Negative); Protein Urine 1+ (Negative); RBC Urine Automated 0-4 /hpf (0-4); Urobilinogen Urine Negative (Negative); WBC Urine Automated 0 /hpf (0-5); pH Urine 5.5 (4.5-7.5)
--- NOTE | 2019-12-17 12:34 | Electrocardiogram Report ---
Test Reason : Blood Pressure : / mmHG Vent. Rate : 092 BPM Atrial Rate : 092 BPM P-R Int : 264 ms QRS Dur : 172 ms QT Int : 452 ms P-R-T Axes : 000 -12 169 degrees QTc Int : 558 ms Sinus rhythm with sinus arrhythmia with 1st degree A-V block with PAC's and PVC's Left bundle branch block Abnormal ECG When compared with ECG of 24-NOV-2019 11:35, PVC's are present [place] interval has increased T wave inversion more evident in Lateral leads Confirmed by Daryn Chambers ([id number]) on 12/17/2019 12:33:53 PM Referred By: REFERRED SELF Confirmed By:Daryn Chambers
--- NOTE | 2019-12-17 12:39 | Electrocardiogram Report ---
Test Reason : Blood Pressure : / mmHG Vent. Rate : 098 BPM Atrial Rate : 098 BPM P-R Int : 224 ms QRS Dur : 174 ms QT Int : 376 ms P-R-T Axes : 010 004 169 degrees QTc Int : 480 ms Sinus rhythm with 1st degree A-V block Left bundle branch block Abnormal ECG When compared with ECG of 16-DEC-2019 14:44, (unconfirmed) Premature ventricular complexes are no longer Present QT has shortened Confirmed by Daryn Chambers ([id number]) on 12/17/2019 12:39:13 PM Referred By: REFERRED SELF Confirmed By:Daryn Chambers
[2019-12-17] MEDS ORDERED: WARFARIN SOD 4 MG TAB PO SCH (16:00)
--- NOTE | 2019-12-17 17:51 | Ultrasound Report ---
US venous doppler LE BI CLINICAL HISTORY: right sided chest pain, dyspnea; eval for DVT POSSIBLE PULMONARY EMBOLISM. Leg swel ling COMPARISON STUDY: 10/09/2019 FINDINGS: Real-time and color flow Doppler imaging were performed. Flow was seen within the femoral, popliteal and calf veins with no intraluminal thrombus demonstrated. The saphenous vein is patent. IMPRESSION: No evidence of lower extremity DVT. ACT 112: Negative or not required by law. Electronically signed by: Julius Ornelas M.D. 12/17/2019 5:50 PM
--- NOTE | 2019-12-17 17:52 | Ultrasound Report ---
EXAMINATION: RENAL ULTRASOUND CLINICAL HISTORY: Chronic renal disease. COMPARISON STUDY: FINDINGS: The right kidney measures 9.5 cm. The left kidney measures 9.7 cm. There is no evidence of hydronephrosis. No renal masses are visualized. There is bilateral renal cortical thinning. The bladder was not well distended. A left ureteral jet was visualized. The right ureteral jet was id entified. IMPRESSION : No evidence of hydronephrosis. Mild bilateral renal cortical thinning. ACT 112: Negative or not required by law. Electronically signed by: Julius Ornelas M.D. 12/17/2019 5:51 PM
--- NOTE | 2019-12-17 17:53 | Ultrasound Report ---
US duplex renal artery CLINICAL HISTORY: Renal disease with flash pulmonary edema. Evaluate for renal artery stenosis. COMPARISON STUDY: No previous studies for comparison. FINDINGS: The study was very limited from a technical standpoint as the patient was unwilling to cooperate with the examination. The systolic velocity within the aorta was 70 cm/s. The highest right renal artery velocity was 36 cm/s. The highest left renal velocity was 32 cm/s. Both renal veins were patent. IMPRESSION: 1. No ultrasonographic evidence of renal artery stenosis. ACT 112: Negative or not required by law. Electronically signed by: Julius Ornelas M.D. 12/17/2019 5:52 PM
[2019-12-17] MEDS: ATORVASTATIN 40 MG TAB PO SCH (20:05)
--- NOTE | 2019-12-17 20:23 | Hospitalist Progress Note ---
Date of Service December 17, 2019 Assessment & Plan (1) Acute on chronic systolic heart failure: according to CHF clinic notes baseline weight is 178/179 pounds. today he is 176#. he looks euvolemic. agree with nephrology to stop IV diuretics; change back to usual home lasix dose. acute CHF resolved. (2) Chest pain: right-sided at presentation. resolved. trop x 3 negative. did have one rib fracture on x-rays in November but doubt this caused pain. pain from a PE is possible as his INR was well below 2 yesterday/today; thus, obtain LE dopplers - r/o DVT. unable to obtain CTA chest due to severe CKD. monitor for recurrence. (3) Atrial fibrillation: in NSR at presentation and overnight. cannot rule out that runs of a.fib are contributing to volume overload, etc. remains on metoprolol xl and coumadin. continue tele monitoring. (4) Aortic stenosis, severe: s/p TAVR 2015 echo 11/2019 with normal valve gradient (5) CAD (coronary artery disease): trops neg x 3 cannot rule out that chest pain was from CAD but doubt as it was right-sided, no troponin leak, etc. 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 sliding scale needs basal start 10 units HS may need BID lantus (8) Gastroesophageal reflux disease: continue pantoprazole (9) Hypothyroidism: Continue levothyroxine 37 mcg daily TSH 06/2019 wnl (10) DVT prophylaxis: while waiting for INR to >2 with coumadin -- add heparin 5000 BID needs PT, OT evals ok to downgrade from PCU to med/tele Admission and Anticipated Discharge Date Admission Date: December 16, 2019 Subjective tele stable overnight (NSR) patient lying comfortably in bed during the visit offered no complaints of orthopnea, dyspnea or chest pain did confirm that reason for admission was right-sided chest pain and dyspnea - both resolved eating/drinking ok Review of Systems Constitutional: no fever, no chills, no fatigue and no anorexia Respiratory: no cough Cardiovascular: no chest pain Gastrointestinal: no abdominal pain Physical Exam Constitutional: + altered mental status (mild cognitive impairment ); no acute distress ENMT: external ear and nose normal, oropharynx normal Respiratory: Auscultation: + diminished lung sounds (bases); no crackles and no wheezes Cardiovascular: Rate/Rhythm: regular rate and regular rhythm Heart Sounds: normal S1 and normal S2; no murmur Vessels: posterior tibial pulses present and dorsalis pedis pulses present; no JVD Extremities: no edema Chest (Breasts): Additional Comments: no reproducible chest wall pain on exam to palpation Gastrointestinal (Abdomen): normal bowel sounds, soft, nontender, no hepatosplenomegaly Psychiatric: Orientation: alert, oriented to person and oriented to place; + not oriented to time Results & Data Results & Data ([facility]) Vital Signs (Past 12 Hours) Vital Signs Temp Pulse Pulse Resp BP Pulse Ox 12/17/19 19:39 36.4 C L 73 20 105/62 96 12/17/19 18:18 97 12/17/19 18:10 81 12/17/19 15:48 36.5 C 71 16 107/66 99 12/17/19 15:13 36.8 C 67 20 130/72 100 12/17/19 12:00 36.5 C 76 20 116/73 100 Laboratory Results Laboratory Results - last 24 hr 12/16/19 12/17/19 12/17/19 19:24 02:49 02:49 WBC 8.06 RBC 3.53 L Hgb 11.5 L Hct 35.3 L MCV 100.0 MCH 32.6 MCHC 32.6 RDW Std Deviation 49.7 H RDW Coeff of Neymar 13.8 Plt Count 181 MPV 10.5 H Immature Gran % (Auto) 0.1 Neut % (Auto) 58.0 Lymph % (Auto) 31.1 [place] % (Auto) 6.8 Eos % (Auto) 3.8 Baso % (Auto) 0.2 Neut # (Auto) 4.66 Lymph # (Auto) 2.51 [place] # (Auto) 0.55 Eos # (Auto) 0.31 Baso # (Auto) 0.02 Immature Gran # (Auto) 0.01 PT INR Sodium 146 H Potassium 4.3 Chloride 112 H Carbon Dioxide 27 Anion Gap 7.0 BUN 51 H Creatinine 3.22 H D Est Cr Clr Drug Dosing 15.7 Est GFR ( Amer) 18.7 Est GFR (Non-Af Amer) 16.2 BUN/Creatinine Ratio 15.9 Glucose 160 H POC Glucose Calcium 8.4 L Phosphorus 3.8 Magnesium 1.8 Troponin I 0.030 0.037 Albumin 2.8 L Urine Color Urine Appearance Urine pH Ur Specific [place] Urine Protein Urine Glucose (UA) Urine Ketones Urine Blood Urine Nitrite Urine Bilirubin Urine Urobilinogen Ur Leukocyte Esterase Urine WBC (Auto) Urine RBC (Auto) U Hyaline Cast (Auto) U Epithel Cells (Auto) Urine Bacteria (Auto) 12/17/19 12/17/19 12/17/19 02:49 07:18 10:54 WBC RBC Hgb Hct MCV MCH MCHC RDW Std Deviation RDW Coeff of Neymar Plt Count MPV Immature Gran % (Auto) Neut % (Auto) Lymph % (Auto) [place] % (Auto) Eos % (Auto) Baso % (Auto) Neut # (Auto) Lymph # (Auto) [place] # (Auto) Eos # (Auto) Baso # (Auto) Immature Gran # (Auto) PT 12.4 H INR 1.2 H Sodium Potassium Chloride Carbon Dioxide Anion Gap BUN Creatinine Est Cr Clr Drug Dosing Est GFR ( Amer) Est GFR (Non-Af Amer) BUN/Creatinine Ratio Glucose POC Glucose 145 H Calcium Phosphorus Magnesium Troponin I 0.031 Albumin Urine Color Urine Appearance Urine pH Ur Specific [place] Urine Protein Urine Glucose (UA) Urine Ketones Urine Blood Urine Nitrite Urine Bilirubin Urine Urobilinogen Ur Leukocyte Esterase Urine WBC (Auto) Urine RBC (Auto) U Hyaline Cast (Auto) U Epithel Cells (Auto) Urine Bacteria (Auto) 12/17/19 12/17/19 12/17/19 11:28 11:42 12:07 WBC RBC Hgb Hct MCV MCH MCHC RDW Std Deviation RDW Coeff of Neymar Plt Count MPV Immature Gran % (Auto) Neut % (Auto) Lymph % (Auto) [place] % (Auto) Eos % (Auto) Baso % (Auto) Neut # (Auto) Lymph # (Auto) [place] # (Auto) Eos # (Auto) Baso # (Auto) Immature Gran # (Auto) PT INR Sodium Potassium Chloride Carbon Dioxide Anion Gap BUN Creatinine Est Cr Clr Drug Dosing Est GFR ( Amer) Est GFR (Non-Af Amer) BUN/Creatinine Ratio Glucose POC Glucose 377 H* 339 H* Calcium Phosphorus Magnesium Troponin I Albumin Urine Color Yellow Urine Appearance Clear Urine pH 5.5 Ur Specific [place] 1.010 Urine Protein 1+ H Urine Glucose (UA) 1+ H Urine Ketones Negative Urine Blood Negative Urine Nitrite Negative Urine Bilirubin Negative Urine Urobilinogen Negative Ur Leukocyte Esterase Negative Urine WBC (Auto) 0 Urine RBC (Auto) 0-4 U Hyaline Cast (Auto) 1-5 U Epithel Cells (Auto) 5-10 H Urine Bacteria (Auto) Negative 12/17/19 12/17/19 12/17/19 16:24 17:59 20:19 WBC RBC Hgb Hct MCV MCH MCHC RDW Std Deviation RDW Coeff of Neymar Plt Count MPV Immature Gran % (Auto) Neut % (Auto) Lymph % (Auto) [place] % (Auto) Eos % (Auto) Baso % (Auto) Neut # (Auto) Lymph # (Auto) [place] # (Auto) Eos # (Auto) Baso # (Auto) Immature Gran # (Auto) PT INR Sodium Potassium Chloride Carbon Dioxide Anion Gap BUN Creatinine Est Cr Clr Drug Dosing Est GFR ( Amer) Est GFR (Non-Af Amer) BUN/Creatinine Ratio Glucose POC Glucose 161 H 108 H 146 H Calcium Phosphorus Magnesium Troponin I Albumin Urine Color Urine Appearance Urine pH Ur Specific [place] Urine Protein Urine Glucose (UA) Urine Ketones Urine Blood Urine Nitrite Urine Bilirubin Urine Urobilinogen Ur Leukocyte Esterase Urine WBC (Auto) Urine RBC (Auto) U Hyaline Cast (Auto) U Epithel Cells (Auto) Urine Bacteria (Auto) PG Care Time/CCT Total # of Minutes Spent Total Time Spent with Patient: Total time spent is greater than 50% in coordination of care (as documented) at patient's floor/unit and/or counseling patient: Coding Level of Care Code 26274 Subseq Hosp Care Lvl 2 Diagnoses Acute on chronic systolic heart failure I50.23 Chest pain R07.9 Chest pain type: unspecified Atrial fibrillation I48.0 Atrial fibrillation type: paroxysmal Aortic stenosis, severe I35.0 CAD (coronary artery disease) I25.10 Coronary Disease-Associated Artery/Lesion type: [place] artery [place] vs. transplanted heart: [place] heart Associated angina: angina presence unspecified CKD (chronic kidney disease), stage IV N18.4 Diabetes mellitus with renal complications E11.22; N18.4; Z79.4 Diabetes mellitus type: type 2 Diabetes mellitus residential insulin use: with residential use Diabetes mellitus complication detail: with chronic kidney disease Chronic kidney disease stage: stage 4 (severe) Gastroesophageal reflux disease K21.9 Hypothyroidism E03.9 Hypothyroidism type: acquired DVT prophylaxis Z29.9 (1) Atrial fibrillation Atrial fibrillation type: paroxysmal Qualified Code(s): I48.0 - Paroxysmal atrial fibrillation (2) CAD (coronary artery disease) Coronary Disease-Associated Artery/Lesion type: [place] artery [place] vs. 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
[2019-12-17] MEDS: HEPARIN SOD 5,000 UNIT/0.5 ML VIAL SQ SCH (20:54)
[2019-12-17] MEDS ORDERED: INSULIN GLARGINE SOLOSTAR 100 UNITS/ML 3 ML PEN SC SCH (21:00)
[2019-12-18] MEDS: LEVOTHYROXINE SODIUM 137 MCG TABLET PO SCH (06:13)
[2019-12-18] MEDS: ISOSORBIDE DINITRATE 10 MG TAB PO SCH ×2 (06:13→12:28)
[2019-12-18 06:56] LABS: INR 1.2 (0.9-1.1); Prothrombin Time 12.3 Seconds (9.0-12.0)
[2019-12-18 07:22] VITALS: TEMP 97.5
[2019-12-18 07:22] LABS: Albumin Level 2.8 gm/dl (3.4-5.0); BUN Creatinine Ratio 14.8 (10-20); Calcium 8.5 mg/dl (8.5-10.1); Creatinine Clr Calc Pharmacy 12.8 ml/min; Est GFR (Non-African American) 12.9; Phosphorus 3.5 mg/dl (2.5-4.9); Potassium 4.7 mmol/L (3.5-5.1)
[2019-12-18] MEDS: INSULIN ASPART 100 UNITS/ML 3 ML PEN SC SCH ×2 (09:00→12:27)
[2019-12-18] MEDS ORDERED: FUROSEMIDE 40 MG TAB PO SCH (09:00)
[2019-12-18] MEDS: METOPROLOL SUCC 50MG EXT REL TAB PO SCH (09:00)
[2019-12-18] MEDS: HEPARIN SOD 5,000 UNIT/0.5 ML VIAL SQ SCH (09:01)
[2019-12-18] MEDS: CHOLECALCIFEROL 1,000 UNITS 25 MCG TAB PO SCH (09:01)
[2019-12-18] MEDS: PANTOprazole 40 MG TAB PO SCH (09:01)
[2019-12-18] MEDS: CLOPIDOGREL BISULFATE 75 MG TAB PO SCH (09:01)
[2019-12-18] MEDS: LIDOCAINE 5% 1 PATCH TD SCH (09:01)
--- NOTE | 2019-12-18 09:56 | Nephrology Progress Note ---
Date of Service December 18, 2019 Assessment & Plan (1) CKD (chronic kidney disease), stage IV: 89 Y O M with stage IV CKD in the setting of cardiorenal syndrome, baseline creatinine lately has been around 3.5, had repeated hospital admission with volume overload. Admitted again with chest pain thought to be related to rib fracture and found to have a pulmonary congestion. Received IV diuretics with improvement in symptoms and volume status. Slight change in renal function with diuresis however not far off from baseline, electrolyte has been acceptable. Currently volume status acceptable, decent urine output, blood pressure stable. However, diuretics will need to be resume to maintain euvolemia. Would resume home diuretics dose on discharge and follow closely with Heart failure Clinic. He eventually may need to go up on diuretics at the risk of worsening renal function to avoid repeated hospitalization with volume overload. As patient repeatedly expressed not to consider renal replacement therapy, will need to continue with conservative approach. --if discharge planned for today, would resume home diuretics on discharge. --has F/U on 12/22/19 will follow while in patient Admission and Anticipated Discharge Date Admission Date: December 16, 2019 Subjective Willy was seen and examined in his room this morning. He was sitting in bedside chair, comfortable, denies any symptom of chest pain or shortness of breath, he is eager to go home. Blood pressure has been stable, volume status seems acceptable. Decent urine output with net negative > 500 mL. Slight worsening of renal function, electrolyte acceptable. Review of Systems Review of Systems: All systems reviewed & are unremarkable except as noted in HPI & below Physical Exam Constitutional: WD/WN, vitals as above no acute distress Respiratory: normal respiratory effort, lungs clear to auscultation Cardiovascular: RRR, no murmur, no edema Neurologic: moves all extremities and awake; not confused Psychiatric: A+Ox3, euthymic affect Results & Data ([facility]) Vital Signs (Past 12 Hours) Vital Signs Temp Pulse Pulse Resp BP BP Pulse Ox 12/18/19 07:37 79 12/18/19 07:21 36.4 C L 80 18 115/66 96 12/18/19 02:53 36.5 C 78 20 114/70 97 12/17/19 23:46 70 12/17/19 22:42 36.4 C L 72 20 102/47 L 95 PG Care Time/CCT Total # of Minutes Spent Total Time Spent with Patient: Total time spent is greater than 50% in coordination of care (as documented) at patient's floor/unit and/or counseling patient: Coding Level of Care Code 63542 Subseq Hosp Care Lvl 3 Diagnoses CKD (chronic kidney disease), stage IV N18.4
--- NOTE | 2019-12-18 13:53 | Palliative Care Consultation ---
Date of Consultation December 18, 2019 Assessment & Plan (1) Goals of care, counseling/discussion: Patient seen and examined in room 286 bed 1, no family at bedside. 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 fib, severe left ear-status post TAVR, history of CVA, history of prostate cancer, MUGUS, CAD status post stent and diabetes-A1c 7.9 who presented to the emergency room on 12/15 for worsening chest pain or shortness of breath. His chest x-ray showed increased CHF, small pleural effusions. Patient had been hospitalized from 11/21 to 11/28 for a similar presentation. Patient has been diuresed-respiratory status markedly improved, stable on room air, trace lower extremity edema. Patient with significant memory deficits-asked him what year it was he responded "", month was January, he did know his birthday is in [birth year]. He said he had 6 children with the last one being adopted-Aleyda stated he has 5 children with the youngest one being adopted, patient stated he has been to his current , Aleyda, for 47 years, Aleyda reported it's been 35 years. Patient stated his is 10 years younger than he is-Aleyda confirmed that is true. states patient is weighed every morning, if his weight is up 1-1/2 to 2 pounds, they call CHF clinic which advises them regarding his diuretics. - Patient with CKD stage IV-baseline creatinine 3.5 -4.0. Patient stated he does not want dialysis, confirms that decision. - Discussed CODE STATUS with patient regarding chest compressions, shock and intubation-he states he would want none of that done, this was also confirmed by his . - Discussed with the POLST form and that it will be used to protect the patient from these interventions if he comes to the hospital by ambulance or is ever in the emergency room. Patient agreeable to signing his own POLST form also asked his to sign it when he returns home. Patient's POLST form placed in his bag of belongings. (2) Acute on chronic systolic heart failure: Improved with diuresis (3) CKD (chronic kidney disease), stage IV: Baseline creatinine 3.5 -4.0, creatinine 3.87 on labs done this morning (4) Diabetes mellitus with renal complications: A1c 7.9 in September Diabetes mellitus type: type 2 Diabetes mellitus continuous churn buttermaker insulin use: with continuous churn buttermaker use Diabetes mellitus complication detail: with chronic kidney disease Chronic kidney disease stage: stage 4 (severe) Qualified Code(s): E11.22 - Type 2 diabetes mellitus with diabetic chronic kidney disease; N18.4 - Chronic kidney disease, stage 4 (severe); 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 fib, severe left ear-status post TAVR, history of CVA, history of prostate cancer, MUGUS, CAD status post stent and diabetes-A1c 7.9 who presented to the emergency room on 12/15 for worsening chest pain or shortness of breath. His chest x-ray showed increased CHF, small pleural effusions. Patient had been hospitalized from 11/21 to 11/28 for a similar presentation. Patient has been diuresed-respiratory status markedly improved, stable on room air, trace lower extremity edema. Patient with significant memory deficits-asked him what year it was he responded "", month was January, he did know his birthday is in [birth year]. He said he had 6 children with the last one being adopted-Aleyda stated he has 5 children with the youngest one being adopted, patient stated he has been to his current , Aleyda, for 47 years, Aleyda reported it's been 35 years. Patient stated his is 10 years younger than he is-Aleyda confirmed that is true. states patient is weighed every morning, if his weight is up 1-1/2 to 2 pounds, they call CHF clinic which advises them regarding his diuretics. - Patient with CKD stage IV-baseline creatinine 3.5 -4.0. Patient stated he does not want dialysis, confirms that decision. - Discussed CODE STATUS with patient regarding chest compressions, shock and intubation-he states he would want none of that done, this was also confirmed by his . - Discussed with the POLST form and that it will be used to protect the patient from these interventions if he comes to the hospital by ambulance or is ever in the emergency room. Patient agreeable to signing his own POLST form also asked his to sign it when he returns home. Patient's POLST form placed in his bag of belongings. - Allergies Allergy/AdvReac Type Severity Reaction Status Date / Time No Known Drug Allergies Allergy . Verified 12/16/19 15:03 Home Medications Home Medications Medication Instructions Recorded Confirmed Type lidocaine 1 patch TRANSDERMAL QAM #30 ea 11/29/19 12/16/19 Rx blood sugar diagnostic #500 ea 12/12/19 12/16/19 Rx clopidogrel 75 mg tablet 75 mg PO QAM #90 tab 12/12/19 12/16/19 Rx insulin NPH isoph U-100 human 100 See Rx Instructions SUBCUT DAILY 12/12/19 12/16/19 Rx unit/mL subcutaneous suspension #100 ml amlodipine 10 mg PO QAM 12/16/19 12/16/19 History atorvastatin 80 mg PO HS 12/16/19 12/16/19 History cholecalciferol (vitamin D3) 2,000 units PO QAM 12/16/19 12/16/19 History furosemide 40 mg PO QAM 12/16/19 12/16/19 History isosorbide dinitrate 10 mg PO BIDM 12/16/19 12/16/19 History levothyroxine 137 mcg PO QAM 12/16/19 12/16/19 History metoprolol succinate 200 mg PO QAM 12/16/19 12/16/19 History multivitamin 1 tab PO QAM 12/16/19 12/16/19 History pantoprazole 40 mg PO QAM 12/16/19 12/16/19 History warfarin 1 mg PO SUTUTHSA@0800 12/16/19 12/16/19 History warfarin 3 mg PO QAM 12/16/19 12/16/19 History Patient History Medical History Amaurosis fugax of right eye (Chronic) Anemia (Chronic) Aortic stenosis, severe CAD (coronary artery disease) (Chronic) Carcinoma of prostate Cardiomyopathy (Chronic) Carotid atherosclerosis (Chronic) Cerebrovascular disease (Chronic) Chronic hip pain (Chronic) CKD (chronic kidney disease), stage IV (Chronic) Clostridium difficile diarrhea Diabetes mellitus with renal complications (Chronic) Dyslipidemia (Chronic) First degree atrioventricular block (Chronic) Gastroesophageal reflux disease (Chronic) H/O: stroke (2014) L hemispheric subcortical infarct History of aortic stenosis History of cholecystitis (Chronic) History of cholelithiasis (Chronic) History of prostate cancer Hypertension (Chronic) Hypothyroidism (Chronic) 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) Tremor (Chronic) Vitamin D deficiency (Chronic) Surgical History H/O prostatectomy History of cardiac cath CATH STENT 1 FIRST RIGHT POSTEROLATERAL BRANCH History of inguinal hernia repair LEFT INGUINAL HERNIORRHAPHY 1986 S/P coronary artery stent placement (12/2015) [facility] S/P prostatectomy 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) [facility] Status post placement of implantable loop recorder w/ removal May 2015 Family History Father , IN 70'S WITH HEART DISEASE Patient's father is Heart disease Mother , AT AGE 86 Laryngeal cancer Patient's mother is Denies family history of Ovarian cancer Prostate cancer Kidney disease CKD (chronic kidney disease) Myocardial infarction Breast cancer Bleeding disorder Lung cancer Colorectal cancer Social History Preferred Language: Japanese Communication Ability: Effective Visual Impairment: Limited Hearing Ability: Use of Hearing Aid 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 Feels Safe at Home: Yes Smoking Status: Never smoker Hx Alcohol Use: No Hx Substance Use: No Childhood Exposure to Second-Hand Smoke: No Diet Comment: Doesnt follow diet. caffeine: Yes (coffee x 5-6 per day. ) during the past year weight has: remained stable Dental Care, Regularly: Yes Physical Activity Frequency: Does not Exercise Seatbelt Use: always Sunscreen Use: No Review of Systems Review of Systems: Patient denies fever, chills, chest pain, increased shortness of breath, or abdominal pain Physical Exam Physical Exam: PE: Patient awake and alert, no acute distress, sitting in chair at side of bed HEENT: EOMI, right esotropia, mild BIG SANDY Respirations: Rare crackles at bases, unlabored, no increased shortness of breath with conversation CV: Regular rate, trace lower extremity edema Abdomen: Soft, nontender Neuro: Alert to person and place, positive mild cognitive deficits with memory loss Psych: Appropriate mood and affect Results & Data Vital Signs (Past 12 Hours) Vital Signs Temp Pulse Pulse Resp BP Pulse Ox 12/18/19 11:33 97.5 F L 73 20 116/72 95 12/18/19 07:37 79 12/18/19 07:21 97.5 F L 80 18 115/66 96 12/18/19 02:53 97.7 F 78 20 114/70 97 PG Care Time/CCT Total # of Minutes Spent Total Time Spent with Patient: Total time spent 70 minutes with greater than 50% of the time spent at bedside reviewing goals of care as well as CODE STATUS, col laborating patient's statements with his as well as collaboration with attending physician. Coding Level of Care Code 62729 Inpt Consult Level 3 Diagnoses Goals of care, counseling/discussion Z71.89 Acute on chronic systolic heart failure I50.23 CKD (chronic kidney disease), stage IV N18.4 Diabetes mellitus with renal complications E11.22; N18.4; Z79.4 Diabetes mellitus type: type 2 Diabetes mellitus continuous churn buttermaker insulin use: with skilled nursing use Diabetes mellitus complication detail: with chronic kidney disease Chronic kidney disease stage: stage 4 (severe) Time Spent (min) 70
[2019-12-18 15:51] VITALS: O2SAT 97
[2019-12-18] MEDS ORDERED: WARFARIN SOD 3 MG TAB PO SCH (16:00)
[2019-12-18 16:56] VITALS: BP 102/47; PULSE 88
--- NOTE | 2019-12-18 17:30 | Discharge Summary ---
Date of Service date of admission - December 16, 2019 date of discharge - December 18, 2019 Admission HPI Per Admitting Provider The patient is a 89-year-old male with a past medical history including pericardial effusion, atrial fibrillation, severe aortic stenosis, CHF, LVH, hyperlipidemia, prostate cancer, left carotid stenosis, hypothyroidism, CAD, CKD stage IV, cardiomyopathy, cerebrovascular disease, diabetes mellitus, dyslipidemia, first-degree heart block, secondary hyperparathyroidism and vitamin D deficiency. He was most recently admitted from 11/21-11/28 for similar symptoms as today. Evaluation in the emergency department included chest x-ray, which showed significantly worse CHF than previous admission. He was given Lasix 80 mg IV in the ED and Nitropaste 1 inch to anterior chest wall. He was placed on BiPAP with improved oxygenation and comfort. Principal Diagnosis acute respiratory distress 2nd to acute/chronic systolic CHF Discharge Exam Constitutional + altered mental status (mild cognitive impairment ); no acute distress ENMT external ear and nose normal, oropharynx normal Respiratory Auscultation: + diminished lung sounds (bases); no crackles and no wheezes Cardiovascular Rate/Rhythm: regular rate and regular rhythm Heart Sounds: normal S1 and normal S2; no murmur Vessels: posterior tibial pulses present and dorsalis pedis pulses present; no JVD Extremities: no edema Gastrointestinal (Abdomen) normal bowel sounds, soft, nontender, no hepatosplenomegaly Psychiatric Orientation: alert, oriented to person and oriented to place; + not oriented to time Discharge Data Allergies Allergy/AdvReac Type Severity Reaction Status Date / Time No Known Drug Allergies Allergy . Verified 12/22/19 12:42 Consultations [facility] nephrology Palliative Care Ordered Studies US duplex renal artery Routine - no evidence of renal artery stenosis US renal/blad retro comp Routine - no evidence of urinary obstruction; renal cortical thinning US venous doppler LE BI Routine - negative for DVT of either leg Hospital Course (1) Acute on chronic systolic heart failure: according to CHF clinic notes baseline weight is 178/179 pounds. during the stay the patient diuresed and discharge weight was 176 pounds. This may be his new dry weight. he appeared euvolemic at discharge and O2 sats were normal at rest and with walking. continue CHF medications including - * metoprolol xl 200mg daily * lasix SIXTY (60mg) every morning [note increase from 40mg daily] * isosorbide dinitrate 10mg BID He is NOT an JOSELO / ARB / ENTRESTO candidate due to advanced CKD. I am heavily concerned that both he and his are struggling with medication management at home. Patient himself has cognitive impairment. I discussed his care with nephrology as well as Ms Becky Dunn from the CHF clinic. They will coordinate his care post-discharge and he will have follow-up with both within a week of discharge. (2) Acute respiratory distress: 2nd acute/chronic systolic CHF. required BIPAP briefly at beginning of stay and was quickly weaned from such within hours. (3) Chest pain: right-sided at presentation. resolved. trop x 3 negative. did have one rib fracture on x-rays in November but doubt this caused his presenting pain. pain could have been from a PE. Certainly possible as his INR was well below 2 at presentation (takes chronic coumadin for a.fib). Obtained LE dopplers to r/o DVT and these were negative. unable to obtain CTA chest due to severe CKD. he did not have any chest pain during his actual hospitalization. (4) Atrial fibrillation: in NSR at presentation and during the hospital stay. cannot rule out that runs of a.fib are contributing to volume overload, etc. remains on metoprolol xl and coumadin. (5) Aortic stenosis, severe: s/p TAVR 2015 echo 11/2019 with normal valve gradient (6) CAD (coronary artery disease): trops neg x 3 cannot rule out that chest pain was from CAD but doubt as it was right-sided, no troponin leak, etc. cont statin, plavix, BB, nitrates (7) CKD (chronic kidney disease), stage IV: Cr ranged 3.2 to 3.8 during the stay nephrology consult by [facility] nephrology was obtained dopplers of renal arteries obtained - negative for renal artery stenosis no obstruction on renal/bladder u/s patient consistently and adamantly opposes initiation of hemodialysis if kidneys fail further he will follow-up with Dr Webb within a few days of discharge in the nephrology clinic lasix was increased to 60mg qam at discharge (8) Diabetes mellitus with renal complications: he will continue Novolin-N at discharge (9) Gastroesophageal reflux disease: continue pantoprazole (10) Hypothyroidism: Continue levothyroxine 37 mcg daily TSH 06/2019 wnl (11) Seen by palliative care medicine: patient was seen in consult by Dr Roseline Gastelum from palliative care. POLST form was completed. DNR status was confirmed. despite the above patient was not ready to initiate hospice. he was also not ready to initiate a "do not rehospitalize" pathway. in light of advanced CHF and advanced CKD additional palliative care discussions in the outpatient arena should be undertaken to define & refine goals of care. interestingly the patient made it very clear he does NOT like the hospital and was quite demanding on day of discharge to be released. Total Time Total Time Spent Total Time Spent (In Minutes): 45 Total Time Includes: Examination of the Patient, Discharge Planning, Medication Reconciliation and Communication With Other Providers Discharge Plan Discharge Items Patient Disposition: Home - Home Health Services Reason For Visit: CHF EXACERBATION Discharge Diagnosis: Congestive Heart Failure exacerbation (fluid in the lungs) - fluid is now resolved; breathing improved; oxygen weaned off Activity: Resume your previous activity Activity Comment: as tolerated Non-emergency contact: Primary Care Provider and Last Model Department Supervisor Call non-emergency contact if: you have any medication questions, your symptoms worsen and you have a fever Follow-up/Referrals: Dimitris Avila CRNP [Primary Care Provider] - (please schedule follow- up with Mr Aivla within 1-2 weeks ) Madelin Webb MD [Physician] - 12/22/19 (see Dr Webb THIS WEDNESDAY as scheduled ) Becky Dunn PA-C [Physician Card Brusher] - 12/22/19 (Ms Dunn's office will contact you with appointment time for THIS WEDNESDAY) Diet: Carb Consistent or DM2 and Heart Healthy Fluids: 1500ml (6 cups) Addtl Attending Provider Instructions: You were hospitalized for chest discomfort and difficulty breathing. You did not have any evidence of heart attack. Your congestive heart failure caused water retention in the lungs which led to the breathing difficulty. Your breathing improved with lasix (water pills). We did not find blood clots in your lungs. We did not find pneumonia. We did not find any blockages in the arteries leading to your kidneys. Your oxygen was weaned off prior to discharge. Finally, you were seen by Dr Gastelum from the palliative care team who helped you and your define your goals for your care (your wishes for your health). You have told us you would NOT want CPR if your heart or lungs stopped. You also told us you would NOT want dialysis. Note that your weight at discharge is 176 pounds. Recommendations -- 1. INCREASE your lasix (furosemide) to 60mg every morning to prevent water build-up in your lungs and legs. I sent a new prescription to your pharmacy for you. Start this tomorrow morning, 12/19/19. (you previously were taking 40mg daily) 2. CHECK YOUR WEIGHT EVERY MORNING on the same scale. Again your weight at discharge is 176 pounds. If you see any weight gain of more than 2-3 pounds in 1-2 days please let your kidney doctor or your heart doctors know right away. 3. Have a blood draw on 12/21/2019 (can have this done at the [facility]) Follow-up -- see separate section Return to [facility] if -- * you have fever over 100.4 degrees * you have worsening shortness of breath * you have chest pains * any other concerns Pending Studies at Discharge: No Stand-Alone Forms: My [facility], Smoking Cessation Medications and DC Order Prescriptions: New furosemide 20 mg tablet 60 mg PO QAM Qty: 90 RF: 5 Continued (DME) Precision Xtra Test Strip See Rx Instructions .ROUTE .MEDSUPPLY Qty: 500 RF: 1 clopidogrel 75 mg tablet 75 mg PO QAM Qty: 90 RF: 1 lidocaine 5 % Adhesive Patch,Medicated 1 patch transdermal QAM Qty: 30 RF: 0 multivitamin tablet 1 tab PO QAM RF: 0 isosorbide dinitrate 10 mg tablet 10 mg PO BIDM RF: 0 levothyroxine 137 mcg tablet 137 mcg PO QAM RF: 0 atorvastatin 80 mg tablet 80 mg PO HS RF: 0 metoprolol succinate 200 mg tablet extended release 24 hr 200 mg PO QAM RF: 0 warfarin 3 mg tablet 3 mg PO QAM RF: 0 amlodipine 10 mg tablet 10 mg PO QAM RF: 0 pantoprazole 40 mg tablet,delayed release (DR/EC) 40 mg PO QAM RF: 0 warfarin 1 mg tablet 1 mg PO SUTUTHSA@0800 RF: 0 cholecalciferol (vitamin D3) 2,000 unit capsule 2,000 units PO QAM RF: 0 Changed Novolin N NPH U-100 Insulin 100 unit/mL suspension See Rx Instructions .ROUTE .COMPLEX Qty: 100 RF: 1 Discharge Orders: Discharge Order (Routine); Ordered 12/18/19 Ordered By: Shyam Hagen Admission Data Admit Date/Time: 12/16/19 17:18 Attending Provider: Shyam Hagen Admit Provider: Devaughn Bergeron Primary Care Provider: Dimitris Avila Other Providers: Devaughn Bergeron ; Madelin Webb ; Susanne Gastelum Other Interventions: Discharge Summary Assessment (RN) Last Done: 12/18/19 16:55 DC Date/Time DO NOT enter until pt leaves facility: 12/18/19 17:40 Coding Level of Care Code D/C Day Management >30 mins Diagnoses Acute on chronic systolic heart failure I50.23 Acute respiratory distress R06.03 Chest pain R07.9 Chest pain type: unspecified Atrial fibrillation I48.0 Atrial fibrillation type: paroxysmal Aortic stenosis, severe I35.0 CAD (coronary artery disease) I25.10 Associated angina: angina presence unspecified Coronary Disease-Associated Artery/Lesion type: benton artery Circle vs. transplanted heart: benton heart CKD (chronic kidney disease), stage IV N18.4 Diabetes mellitus with renal complications E11.22; N18.4; Z79.4 Chronic kidney disease stage: stage 4 (severe) Diabetes mellitus complication detail: with chronic kidney disease Diabetes mellitus usp insulin use: with rat exterminator use Diabetes mellitus type: type 2 Gastroesophageal reflux disease K21.9 Hypothyroidism E03.9 Hypothyroidism type: acquired Seen by palliative care medicine
== END 2019-12-18 17:40 | disposition home health service (06) | DRG 291 ==
LOC: ED 14:15 → SUATTDRO 17:18 → 2S 17:18 → 2N 12-17 17:50

== ENCOUNTER 2019-12-31 00:36 | Inpatient (IN) ==
[2019-12-31] MEDS ORDERED: FUROSEMIDE 40 MG/4 ML VIAL IV STA (01:05)
[2019-12-31 02:00] LABS: Basophils # (auto) 0.02 K/uL (0-0.2); Basophils % (auto) 0.3 %; Eosinophils # (auto) 0.22 K/uL (0-0.5); Hematocrit (blood only) 35.1 % (42-52); Hemoglobin 11.6 g/dL (14.0-18.0); Lymphocytes # (auto) 1.31 K/uL (1.2-3.4); Lymphocytes % (auto) 18.1 %; Mean Corpuscular Hemoglobin 32.6 pg (25-34); Mean Corpuscular Volume 98.6 fL (80-100); Mean Platelet Volume 10.6 fL (7.4-10.4); Monocytes # (auto) 0.35 K/uL (0.11-0.59); Monocytes % (auto) 4.8 %; Neutrophils # (auto) 5.34 K/uL (1.4-6.5); Neutrophils % (auto) 73.8 %; Platelet Count 190 K/uL (130-400); RDW Coefficient of Variation 14.2 % (11.5-14.5); RDW Standard Deviation 51.2 fL (36.4-46.3); Red Blood Count 3.56 M/uL (4.7-6.1); White Blood Count 7.24 K/uL (4.8-10.8)
[2019-12-31 02:17] LABS: INR 1.7 (0.9-1.1); Partial Thromboplastin Ratio 1.2; Partial Thromboplastin Time 32.5 Seconds (21.0-31.0); Prothrombin Time 17.7 Seconds (9.0-12.0)
[2019-12-31 02:51] LABS: Albumin Globulin Ratio 0.7 (0.9-2); BUN Creatinine Ratio 16.6 (10-20); Bilirubin,Total 0.3 mg/dl (0.2-1); Calcium 8.2 mg/dl (8.5-10.1); Creatinine Clr Calc Pharmacy 13.4 ml/min; Est GFR (African American) 15.1; Globulin 4.3 gm/dl (2.5-4.0); Potassium 4.7 mmol/L (3.5-5.1); Total Protein 7.3 gm/dl (6.4-8.2); Troponin I 0.022 ng/ml (0-0.045)
--- NOTE | 2019-12-31 04:17 | History & Physical Report ---
Date of Service December 31, 2019 Assessment & Plan (1) Acute on chronic respiratory failure with hypoxia: Acute on chronic respiratory failure with hypoxia/bilateral pleural effusions left greater than right/CHF exacerbation/12 pound weight gain in 5 days- The patient will be admitted to telemetry for serial cardiac enzymes, serial EKG's, cardiac rhythm monitoring. Hold amlodipine, clopidogrel, furosemide, isosorbide dinitrate, metoprolol succinate and warfarin due to n.p.o. status. Continue BiPAP, and as clinical symptoms improve, taper to nasal cannula oxygen. Given Lasix 40 mg IV x1 by the ED. Placed on albumin with Lasix IV every 6 hours x4. Chest x-ray and patient clinical examination is significantly worse than when I admitted him on 12/15. Consult his audiometrist Dr. Keen Present on Admission?: Yes (2) Bilateral pleural effusion: See above. Pleural effusion on the left, is particularly likely to be accessible to thoracentesis Present on Admission?: Yes (3) CKD stage 4 due to type 2 diabetes mellitus: Creatinine 3.85 upon admission, with range 3.22-4.46. Follow serially. Present on Admission?: Yes (4) Dyslipidemia: Hold atorvastatin until taking p.o. Present on Admission?: Yes (5) Hypertension: See above Present on Admission?: Yes History of Present Illness Chief Complaint: The patient presents to the emergency department with his , with complaint of worsening shortness of breath over the past few days. Primary Care Provider: KRYSTLE Lizarraga The patient is a 89-year-old male with a past medical history including stroke, LVH, prostate cancer, aortic stenosis, left carotid stenosis, amaurosis fugax of right eye, MGUS, dyslipidemia, cerebrovascular disease, first-degree heart block, hypertension, nonproliferative diabetic retinopathy, secondary hyperparathyroidism, tremor, vitamin D deficiency and CKD stage IV. His most recent hospitalization was from 12/15-12/18/19 for COPD exacerbation and fluid overload. He was most recently followed at the heart failure clinic on 12/25/2019, at which time he had a dry weight established at 177-179, and that date was 180. His entrance weight today is 191 pounds, and 9.3 ounces, for an almost 12 pound weight gain in 5 days. Chest x-ray in the ED showed significant pleural effusions, left much greater than right, and was given a trial Lasix 40 mg IV x1 by the ED. He was also placed on BiPAP, where he appeared to be breathing more comfortably. Allergies Allergy/AdvReac Type Severity Reaction Status Date / Time No Known Drug Allergies Allergy . Verified 12/31/19 01:47 Home Medications Home Medications Medication Instructions Recorded Confirmed Type lidocaine 1 patch TRANSDERMAL QAM #30 ea 11/29/19 12/31/19 Rx blood sugar diagnostic #500 ea 12/12/19 12/29/19 Rx clopidogrel 75 mg tablet 75 mg PO QAM #90 tab 12/12/19 12/31/19 Rx amlodipine 10 mg PO QAM 12/16/19 12/31/19 History atorvastatin 80 mg PO HS 12/16/19 12/31/19 History cholecalciferol (vitamin D3) 2,000 units PO QAM 12/16/19 12/31/19 History isosorbide dinitrate 10 mg PO BIDM 12/16/19 12/31/19 History levothyroxine 137 mcg PO QAM 12/16/19 12/31/19 History metoprolol succinate 200 mg PO QAM 12/16/19 12/31/19 History multivitamin 1 tab PO QAM 12/16/19 12/31/19 History pantoprazole 40 mg PO QAM 12/16/19 12/31/19 History warfarin 1 mg PO SUTUTHSA@0800 12/16/19 12/31/19 History warfarin 3 mg PO QAM 12/16/19 12/31/19 History Novolin N NPH U-100 Insulin See Rx Instructions .ROUTE 12/18/19 12/31/19 Rx .COMPLEX #100 ml furosemide 40 mg tablet 20 mg PO DAILY PRN tab 12/29/19 12/31/19 History furosemide 60 mg PO QAM 12/31/19 12/31/19 History Past Med/Surg History Social History Smoking Status: Former smoker Hx Alcohol Use: No Hx Substance Use: No Preferred Language: Divehi Communication Ability: Effective Visual Impairment: Limited Hearing Ability: Use of Hearing Aid Settlement Worker Required: No Beliefs That Will Affect Care: None marital status: Current Living Situation: Spouse Current Living Situation Comment: Lives at home with spouse in [place]. 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 Feels Safe at Home: Yes Childhood Exposure to Second-Hand Smoke: No Diet Comment: Doesnt follow diet. caffeine: Yes (coffee x 5-6 per day. ) during the past year weight has: remained stable Dental Care, Regularly: Yes Physical Activity Frequency: Does not Exercise Seatbelt Use: always Sunscreen Use: No Review of Systems Review of Systems: Unobtainable due to cognitive status Physical Exam Physical Exam: The patient is lethargic, does attempt to answer questions but is unintelligible, normocephalic and atraumatic, lying in bed and in no acute distress. HEENT--PERRL, EOMI, mucous membranes and oropharynx normal Neck--supple. No JVD. No bruits. Thyroid normal, trachea midline, no adenopathy. Heart--normal S1 and S2. No murmurs, rubs or gallops. Lungs--crackles at bases bilaterally. Mild respiratory distress, no accessory muscle use improved on BiPAP Abdomen--normal bowel sounds and soft. Nontender. Nondistended. Extremities--no cyanosis or clubbing. 3+ bilateral pretibial pitting edema. Dermatologic--normal skin turgor, normal color, no abnormal lymph nodes, no rash. Neurologic--cranial nerves II through XII grossly intact. Rheumatologic--limited exam Psychiatric--lethargic Results & Data Results & Data ([facility]) Vital Signs (Past 12 Hours) Vital Signs Temp Pulse Pulse Resp BP BP Pulse Ox 12/31/19 03:30 76 22 135/83 97 12/31/19 03:00 68 21 123/70 97 12/31/19 02:14 76 20 119/68 96 12/31/19 01:15 97 H 37 H 96 12/31/19 01:13 96 12/31/19 00:35 97.7 F 100 H 26 H 142/81 H 92 Laboratory Results Laboratory Results WBC 7.24 K/uL (4.8-10.8) 12/31/19 01:27 RBC 3.56 M/uL (4.7-6.1) L 12/31/19 01:27 Hgb 11.6 g/dL (14.0-18.0) L 12/31/19 01: Hct 35.1 % (42-52) L 12/31/19 01: MCV 98.6 fL (80-100) 12/31/19 01: MCH 32.6 pg (25-34) 12/31/19 01: MCHC 33.0 g/dL (32-36) 12/31/19 01: RDW Std Deviation 51.2 fL (36.4-46.3) H 12/31/19 01: RDW Coeff of Neymar 14.2 % (11.5-14.5) 12/31/19 01: Plt Count 190 K/uL (130-400) 12/31/19 01: MPV 10.6 fL (7.4-10.4) H 12/31/19 01: Immature Gran % (Auto) 0.0 % 12/31/19 01: Neut % (Auto) 73.8 % 12/31/19 01: Lymph % (Auto) 18.1 % 12/31/19 01: [place] % (Auto) 4.8 % 12/31/19 01: Eos % (Auto) 3.0 % 12/31/19 01: Baso % (Auto) 0.3 % 12/31/19: Neut # (Auto) 5.34 K/uL (1.4-6.5) 12/31/19 01: Lymph # (Auto) 1.31 K/uL (1.2-3.4) 12/31/19 01: [place] # (Auto) 0.35 K/uL (0.11-0.59) 12/31/19 01: Eos # (Auto) 0.22 K/uL (0-0.5) 12/31/19 01: Baso # (Auto) 0.02 K/uL (0-0.2) 12/31/19: Immature Gran # (Auto) 0.00 K/uL (0.00-0.02) 12/31/19 01: PT 17.7 Seconds (9.0-12.0) H 12/31/19 01: INR 1.7 (0.9-1.1) H 12/31/19 01:27 APTT 32.5 Seconds (21.0-31.0) H 12/31/19 01:27 PTT Ratio 1.2 12/31/19 01:27 Sodium 142 mmol/L (136-145) 12/31/19 01:27 Potassium 4.7 mmol/L (3.5-5.1) 12/31/19 01:27 Chloride 109 mmol/L (98-107) H 12/31/19 01:27 Carbon Dioxide 26 mmol/L (21-32) 12/31/19 01:27 Anion Gap 7.0 (3-11) 12/31/19 01:27 BUN 64 mg/dl (7-18) H 12/31/19 01:27 Creatinine 3.85 mg/dl (0.6-1.4) H 12/31/19 01:27 Est Cr Clr Drug Dosing 13.4 ml/min 12/31/19 01:27 Est GFR ( Amer) 15.1 12/31/19 01:27 Est GFR (Non-Af Amer) 13.0 12/31/19 01:27 BUN/Creatinine Ratio 16.6 (10-20) 12/31/19 01:27 Glucose 299 mg/dl (70-99) H 12/31/19 01:27 Calcium 8.2 mg/dl (8.5-10.1) L 12/31/19 01:27 Total Bilirubin 0.3 mg/dl (0.2-1) 12/31/19 01:27 AST 37 U/L (15-37) 12/31/19 01:27 ALT 52 U/L (12-78) 12/31/19 01:27 Alkaline Phosphatase 68 U/L (45-117) 12/31/19 01:27 Troponin I 0.022 ng/ml (0-0.045) 12/31/19 01:27 Total Protein 7.3 gm/dl (6.4-8.2) 12/31/19 01:27 Albumin 3.0 gm/dl (3.4-5.0) L 12/31/19 01:27 Globulin 4.3 gm/dl (2.5-4.0) H 12/31/19 01:27 Albumin/Globulin Ratio 0.7 (0.9-2) L 12/31/19 01:27 Specimen Hemolysis 12/31/19 01:27 Code Status & VTE Plan Code Status Full code VTE Prophylaxis Plan VTE Prophylaxis will be ordered: Yes PG Care Time/CCT Total # of Minutes Spent Total Time Spent with Patient: Total time spent is greater than 50% in coordination of care (as documented) at patient's floor/unit and/or counseling patient: Coding Level of Care Code 03172 Initial Inpt Care Lvl 3 Diagnoses Acute on chronic respiratory failure with hypoxia J96.21 Bilateral pleural effusion J90 CKD stage 4 due to type 2 diabetes mellitus E11.22; N18.4 Dyslipidemia E78.5 Hypertension I10 Hypertension type: essential hypertension (1) Hypertension Hypertension type: essential hypertension Qualified Code(s): I10 - Essential (primary) hypertension
--- NOTE | 2019-12-31 04:25 | Emergency Department Note ---
Impression & Plan CHF (congestive heart failure), Pleural effusion due to CHF (congestive heart failure) ED Provider Note NAME: LEVI MORALES AGE: 89 SEX: M ARRIVES VIA: Ambulance INFORMANT: [Patient][, and his ] ED PROVIDER(S): Mirella High DO CHIEF COMPLAINT: Shortness of breath PLAN: Disposition: Admitted to the [facility] Condition: Stable MEDICAL DECISION MAKING: This is an 89-year-old male patient who presents to the emergency department with worsening shortness of breath. The patient has a history of congestive heart failure and is followed by the heart failure clinic. The patient had increased his Lasix dose over the past 2 days but awoke tonight extremely short of breath. Chest x-ray shows significant worsening of his CHF with a large left-sided pleural effusion. Patient was placed on BiPAP here in the emergency department and given IV Lasix with no urinary output. Patient's creatinine has increased. I discussed the case with the [facility] and they will evaluate for further management. Triage Nursing notes reviewed and agree them. [Additional history obtained from] the patient's [Prior medical records reviewed] Vital Signs: reviewed and remarkable for slight tachycardia Differential diagnosis: CHF, cardiac ischemia, cardiac dysrhythmia, acute renal failure ER treatment provided: BiPAP IV Lasix Diagnostics interpreted by me: ECG: Sinus tachycardia at a rate of 101 with a first-degree AV block, left bundle branch block, and PACs Cardiac Monitoring: Normal sinus rhythm at a rate of 76 Laboratory studies: [See below] Imaging studies: Chest [id number] congestive heart failure with a large left-sided pleural effusion greater than right sided pleural effusion as per my interpretation HPI: 89/M arrives for evaluation of shortness of breath. Patient has a history of congestive heart failure and was hospitalized 10 days ago for the same thing. EMS explains that the patient's shortness of breath seems to have worsened over the past couple days but got much worse overnight tonight where he awoke with significant increased shortness of breath. The explains that he was instructed to double his dose of Lasix over the past 2 days but he has not had any significant increase to his urinary output. The has noticed some increased swelling to his lower legs. ROS: See above HPI for pertinent positives & negatives. A total of [10] systems reviewed and were otherwise negative. PAST MEDICAL HISTORY:[See Below] PAST SURGICAL HISTORY:[See Below] FAMILY HISTORY:[See Below] SOCIAL HISTORY:[See Below] HOME MEDICATIONS:See list ALLERGIES:None VITALS:[See Below] PHYSICAL EXAMINATION: HEENT: Head - normocephalic and atraumatic Pupils are equal, round, and reactive to light. Extraocular eye muscles are intact, and sclera are anicteric. Nose - moist nasal mucosa without discharge. Mouth - moist buccal mucosa. Oropharynx is nonerythematous and there is no tonsillar exudate or edema noted. Neck: Supple; no JVD, nuchal rigidity, cervical lymphadenopathy, or auscultated bruits. Heart: Regular rate and rhythm. There is a normal S1 and S2 with no murmurs, clicks, or gallops appreciated. Lungs: Absent breath sounds in left lung base; diffuse rales in all other lung santamaria Abdomen: Soft, completely nontender, nondistended, with good bowel sounds. There are no palpable pulsatile masses or hepatosplenomegaly. There is no guarding, rigidity, or rebound noted. Extremities: 1+ pedal edema Skin: warm and dry with good turgor and no rashes. ED COURSE: Times/Reassessments: 0050: The patient was evaluated in room C6. A complete history and physical was performed. I obtained some of the history from EMS as well as the patient's who was at the bedside. An order was placed for continuous cardiac monitoring. Patient is in sinus tachycardia at a rate of 104 A twelve-lead EKG was obtained as described above. The patient had a stat portable chest x-ray which shows bilateral pleural effusions and CHF He was placed on BiPAP. 0135: The patient was much more comfortable on the BiPAP. I reviewed some of the preliminary results with his . The patient will be given a dose of IV Lasix. The patient will be given a dose of IV Lasix. 0305: The patient was sleeping at this time. I reviewed the rest of the results with the patient's . His vital signs were stable. I will discuss the case with the [facility] Hospitalist. They will see the patient and speak with his Mirella Guerreroisidro, DO Past Med/Surg History Social History Smoking Status: Never smoker Hx Alcohol Use: No Hx Substance Use: No Preferred Language: Lao Communication Ability: Effective Visual Impairment: Limited Hearing Ability: Use of Hearing Aid Product Marketing Intern Required: No Beliefs That Will Affect Care: None marital status: Current Living Situation: Spouse Current Living Situation Comment: Lives at home with spouse in [place]. 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 Feels Safe at Home: Yes Childhood Exposure to Second-Hand Smoke: No Diet Comment: Doesnt follow diet. caffeine: Yes (coffee x 5-6 per day. ) during the past year weight has: remained stable Dental Care, Regularly: Yes Physical Activity Frequency: Does not Exercise Seatbelt Use: always Sunscreen Use: No Allergies Allergies Allergy/AdvReac Type Severity Reaction Status Date / Time No Known Drug Allergies Allergy . Verified 12/31/19 01:47 Home Meds Home Medications Medication Instructions Recorded Confirmed amlodipine 10 mg PO QAM 12/16/19 12/31/19 atorvastatin 80 mg PO HS 12/16/19 12/31/19 cholecalciferol (vitamin D3) 2,000 units PO QAM 12/16/19 12/31/19 isosorbide dinitrate 10 mg PO BIDM 12/16/19 12/31/19 levothyroxine 137 mcg PO QAM 12/16/19 12/31/19 metoprolol succinate 200 mg PO QAM 12/16/19 12/31/19 multivitamin 1 tab PO QAM 12/16/19 12/31/19 pantoprazole 40 mg PO QAM 12/16/19 12/31/19 warfarin 1 mg PO SUTUTHSA@0800 12/16/19 12/31/19 warfarin 3 mg PO QAM 12/16/19 12/31/19 furosemide 40 mg tablet 20 mg PO DAILY PRN tab 12/29/19 12/31/19 furosemide 60 mg PO QAM 12/31/19 12/31/19 Previous Rx's Medication Instructions Recorded lidocaine 1 patch TRANSDERMAL QAM #30 ea 11/29/19 blood sugar diagnostic #500 ea 12/12/19 clopidogrel 75 mg tablet 75 mg PO QAM #90 tab 12/12/19 Novolin N NPH U-100 Insulin See Rx Instructions .ROUTE 12/18/19 .COMPLEX #100 ml Results & Data (ED) Vital Signs Vital Signs - 24 hr 12/31/19 00:35 12/31/19 01:13 12/31/19 01:15 Temperature 36.5 C Temperature Source Oral Pulse Rate 100 H 97 H Pulse Rate [Right] Pulse Rhythm Irregular Pulse Rhythm [Right] Pulse Strength Normal Pulse Strength [Right] Respiratory Rate 26 H 37 H Respiratory Effort / Characteristics Non-Labored Spontaneous Spontaneous Labored Respiratory Depth Normal Deep Respiratory Pattern Regular Tachypnea Blood Pressure 142/81 H Blood Pressure [Right Arm] Blood Pressure Mean 101 Blood Pressure Mean [Right Arm] Blood Pressure Position Lying Blood Pressure Position [Right Arm] Pulse Oximetry 92 96 96 Oxygen Delivery Method Nasal Cannula BiPAP Oxygen Flow Rate 3 Fraction of Inspired Oxygen 40 SaO2/FiO2 Ratio Sepsis Recent Fever Within 48 Hours No Sepsis New/Unexplained Change in Mental Status N/A Sepsis Action Taken by Nursing No Action Required 12/31/19 02:14 12/31/19 03:00 12/31/19 03:30 Temperature Temperature Source Pulse Rate Pulse Rate [Right] 76 68 76 Pulse Rhythm Pulse Rhythm [Right] Irregular Pulse Strength Pulse Strength [Right] Normal Respiratory Rate 20 21 22 Respiratory Effort / Characteristics Non-Labored Spontaneous Non-Labored Respiratory Depth Normal Respiratory Pattern Blood Pressure Blood Pressure [Right Arm] 119/68 123/70 135/83 Blood Pressure Mean Blood Pressure Mean [Right Arm] 85 87 100 Blood Pressure Position Blood Pressure Position [Right Arm] Lying Pulse Oximetry 96 97 97 Oxygen Delivery Method Room Air BiPAP BiPAP Oxygen Flow Rate Fraction of Inspired Oxygen 40 SaO2/FiO2 Ratio 242 Sepsis Recent Fever Within 48 Hours Sepsis New/Unexplained Change in Mental Status Sepsis Action Taken by Nursing Laboratory Data Result diagrams: 12/31/19 01:27 12/31/19 01:27 Lab Results 12/31/19 12/31/19 12/31/19 Range/Units 01:27 01:27 01:27 WBC 7.24 (4.8-10.8) K/uL RBC 3.56 L (4.7-6.1) M/uL Hgb 11.6 L (14.0-18.0) g/dL Hct 35.1 L (42-52) % MCV 98.6 (80-100) fL MCH 32.6 (25-34) pg MCHC 33.0 (32-36) g/dL RDW Std Deviation 51.2 H (36.4-46.3) fL RDW Coeff of Neymar 14.2 (11.5-14.5) % Plt Count 190 (130-400) K/uL MPV 10.6 H (7.4-10.4) fL Immature Gran % (Auto) 0.0 % Neut % (Auto) 73.8 % Lymph % (Auto) 18.1 % [place] % (Auto) 4.8 % Eos % (Auto) 3.0 % Baso % (Auto) 0.3 % Neut # (Auto) 5.34 (1.4-6.5) K/uL Lymph # (Auto) 1.31 (1.2-3.4) K/uL [place] # (Auto) 0.35 (0.11-0.59) K/uL Eos # (Auto) 0.22 (0-0.5) K/uL Baso # (Auto) 0.02 (0-0.2) K/uL Immature Gran # (Auto) 0.00 (0.00-0.02) K/uL PT 17.7 H (9.0-12.0) Seconds INR 1.7 H (0.9-1.1) APTT 32.5 H (21.0-31.0) Seconds PTT Ratio 1.2 Sodium 142 (136-145) mmol/L Potassium 4.7 (3.5-5.1) mmol/L Chloride 109 H (98-107) mmol/L Carbon Dioxide 26 (21-32) mmol/L Anion Gap 7.0 (3-11) BUN 64 H (7-18) mg/dl Creatinine 3.85 H (0.6-1.4) mg/dl Est Cr Clr Drug Dosing 13.4 ml/min Est GFR ( Amer) 15.1 Est GFR (Non-Af Amer) 13.0 BUN/Creatinine Ratio 16.6 (10-20) Glucose 299 H (70-99) mg/dl Calcium 8.2 L (8.5-10.1) mg/dl Total Bilirubin 0.3 (0.2-1) mg/dl AST 37 (15-37) U/L ALT 52 (12-78) U/L Alkaline Phosphatase 68 (45-117) U/L Troponin I 0.022 (0-0.045) ng/ml Total Protein 7.3 (6.4-8.2) gm/dl Albumin 3.0 L (3.4-5.0) gm/dl Globulin 4.3 H (2.5-4.0) gm/dl Albumin/Globulin Ratio 0.7 L (0.9-2) Specimen Hemolysis Administered Medications Heparin Sodium (Porcine) (Heparin Sodium (Porcine)) 5,000 units SQ Q12 LUCA Stop: 01/30/20 08:59 Last Admin: 12/31/19 08:20 Dose: 5,000 units Documented by: [id number] Cosigned by: [id number] Furosemide 80 mg/ Syringe 8 mls @ 4 mls/min IV [id number] LUCA Stop: 01/30/20 09:59 Last Admin: 12/31/19 10:48 Dose: 4 mls/min Documented by: [id number] Insulin Aspart (Novolog Flexpen) 0 units SC ACHS LUCA Stop: 01/30/20 07:29 Last Admin: 12/31/19 12:27 Dose: 7 units Documented by: [id number] Cosigned by: [id number] Admin: 12/31/19 08:20 Dose: 4 units Documented by: [id number] Cosigned by: [id number] Nitroglycerin (Nitro-Bid 2%) 1 inch EXT Q6H LUCA Stop: 01/30/20 06:23 Last Admin: 12/31/19 14:14 Dose: 1 inch Documented by: [id number] Admin: 12/31/19 08:17 Dose: 1 inch Documented by: [id number] Discontinued Medications Furosemide (Lasix) 40 mg IV NOW STA Stop: 12/31/19 01:06 Last Admin: 12/31/19 01:26 Dose: 40 mg Documented by: [id number] Furosemide 40 mg/ Albumin (Human) 54 mls @ 54 mls/hr IV Q6H LUCA Stop: 12/31/19 23:59 Last Infusion: 12/31/19 08:17 Dose: 0 mls/hr Documented by: [id number] Admin: 12/31/19 07:02 Dose: 54 mls/hr Documented by: [id number] Discharge Plan Visit Data *Final* Discharge Date/Time: 12/31/19 05:15 Chief Complaint: Respiratory Problems Stated Complaint: BREATHING DIFFICULTY ED Provider: Mirella High Discharge Problem: CHF (congestive heart failure), Pleural effusion due to CHF (congestive heart failure) Patient Disposition: Admitted As Inpatient Discharge Instructions Interventions: ED Discharge Assessment Last Done: 12/31/19 05:15 Discharge Problem: CHF (congestive heart failure) Qualifiers: Heart failure type: unspecified Heart failure chronicity: acute on chronic Qualified Code(s): I50.9 - Heart failure, unspecified
[2019-12-31] MEDS ORDERED: ALBUMIN 25% 50 ML with FUROSEMIDE 40 MG IV SCH (05:00)
[2019-12-31 05:16] LABS: Appearance Urine Clear (Clear); Bacteria Urine Automated Negative (Negative); Bilirubin Urine Negative (Negative); Blood Urine Trace (Negative); Color Urine Yellow; Epithelial Cell Urine Auto 0-5 /lpf (0-5); Glucose Urine UA 1+ (Negative); Ketones Urine Negative (Negative); Leukocyte Esterase Urine Negative (Negative); Nitrite Urine Negative (Negative); Protein Urine 2+ (Negative); RBC Urine Automated 0-4 /hpf (0-4); Specific Gravity Urine 1.019 (1.000-1.030); Urobilinogen Urine Negative (Negative)
[2019-12-31] MEDS ORDERED: GLUCAGON FOR INJ 1 MG VIAL SQ PRN (06:24)
[2019-12-31] MEDS ORDERED: GLUCOSE 10 TABS/TUBE PO PRN (06:24)
[2019-12-31] MEDS ORDERED: CARBOHYDRATES FOR HYPOGLYCEMIA PO PRN (06:24)
[2019-12-31] MEDS ORDERED: ONDANSETRON INJ 2 MG/ML 2 ML VIAL IV PRN (06:24)
[2019-12-31] MEDS ORDERED: ACETAMINOPHEN 325 MG TAB PO PRN (06:24)
[2019-12-31] MEDS ORDERED: DEXTROSE 50% 50 ML SYRINGE IV PRN (06:24)
[2019-12-31] MEDS ORDERED: GLUCOSE 40% GEL 15 GM TUBE PO PRN (06:24)
[2019-12-31] MEDS: NITROGLYCERIN 2% OINTMENT 30GM TUBE EXT SCH ×3 (08:17→20:41)
[2019-12-31] MEDS: HEPARIN SOD 5,000 UNIT/0.5 ML VIAL SQ SCH ×2 (08:20→20:43)
[2019-12-31] MEDS: INSULIN ASPART 100 UNITS/ML 3 ML PEN SC SCH ×4 (08:20→20:43)
--- NOTE | 2019-12-31 08:41 | XRay Report ---
SINGLE VIEW CHEST CLINICAL HISTORY: Dyspnea. FINDINGS: An AP, portable, upright chest radiograph is compared to study dated 12/16/2019. There is e vidence of previous cardiac valve surgery. The heart is enlarged noting atherosclerotic calcification of the thoracic aorta. There is evidence of congestive failure and interstitial edema. Small pleural effusions are noted. Bibasilar opacities likely represent atelectasis. No pneumothorax is seen. The skeletal structures are osteopenic. The bony thorax is grossly intact. IMPRESSION: 1. Cardiomegaly with congestive failure and interstitial edema. 2. Small pleural effusions. 3. Dependent opacities likely represent atelectasis. Clinical correlation will be required. ACT 112: Negative or not required by law. Electronically signed by: Harsha Weir M.D. 12/31/2019 8:40 AM
[2019-12-31] MEDS ORDERED: PNEUMOCOCCAL ADMINISTRATION CHARGE ONE (09:00)
[2019-12-31] MEDS ORDERED: PNEUMOCOCCAL POLYSACCHARIDES 25 MCG/0.5 ML VIAL/SYR IM ONE (09:00)
--- NOTE | 2019-12-31 10:00 | Cardiology Consultation ---
Date of Consultation December 31, 2019 Assessment & Plan (1) CHF (congestive heart failure): He presents with CHF. He tells me he drinks a lot of water to help him pee. Agree with diuresis and ongoing education. Creat relatively unchanged. Suspect this admission is due to dietary indiscretion not an event of some type. (2) Elevated troponin: Slightly elevated tropnin probably due to demand ischemia. (3) CAD (coronary artery disease): He has a history of intervention to the right coronary artery prior to his TAVR. He has been maintained on aspirin and atorvastatin. I would not consider evaluation now. (4) Cardiomyopathy: While he did have an echocardiogram performed in May of 2019 suggestive of preserved LV function, his echocardiogram subsequently reveals significant LV dysfunction. He is on metoprolol succinate, he is not on Alexx or ARB due to his renal dysfunction. With his history of ischemic heart disease and LV dysfunction, he would generally be a candidate for an ICD as primary prevention against sudden cardiac . However, given his DNR status and unwillingness to consider HD and advanced age I blake not consider a device. (5) S/P TAVR (transcatheter aortic valve replacement): Normally functioning aortic valve on echocardiography recently History of Present Illness Reason for Consultation: CHF Attending Physician: Jeramy Covarrubias MD History of Present Illness This is an 89-year-old gentleman who has a history of aortic stenosis, chronic kidney disease, hypertension, diabetes mellitus and a mild cardiomyopathy. He had carotid plaque but no carotid obstructive disease and no documented atrial arrhythmia but presented with neurologic symptoms in September 2014, the symptoms were slurred speech, confusion and right upper extremity weakness consistent with TIA or CVA therefore he had an evaluation which included an MRI. He was observed to have 2 small old infarcts in the left frontal and posterior left basal ganglia region, plus what appeared to be a subacute embolic infarction in the left frontoparietal region. A carotid ultrasound showed bilateral plaque but no significant carotid stenosis. A loop recorder was implanted on 11/08/2014 to look for asymptomatic atrial fibrillation, none was identified however he wanted the loop recorder removed and therefore it was explanted on 05/16/2015 without identifying atrial fibrillation. We had been following his aortic stenosis by echocardiography and he had worsening of disease. He therefore underwent TAVR at [facility] on 02/17/2016. Catheterization on 01/03/2016 showed mild diffuse disease as well as a 90% followed by a 70% stenosis in the right coronary artery for which he had stent placement at that time. He also had a mild cardiomyopathy, prior to valve replacement his ejection fraction was 40% by echo, following valve replacement on 05/26/2016 his ejection fraction increased slightly to 40-45% and he had mild global hypokinesis and his valve was functioning well. By June 02, 2017 his left ventricular was normal in size with mild left ventricular hypertrophy and low-normal left ventricular function with ejection fraction of 50-55%. The valve was working well. Echocardiography May 09, 2018 showed low normal left ventricular function with ejection fraction of 50 to 55%, mild concentric left ventricular hypertroph y and acceptable function of the aortic valve. Most recently on May 18, 2019 his echocardiogram had similar findings with an ejection fraction of 50 to 55% and a properly functioning aortic valve replacement. More recently however on his 11/23/19 echo he had mild concentric LVH. Left ventricular systolic function was severely reduced. EF 25-30%. Mild to moderate MR. RV systolic pressure is normal. Normal IVC. Small pericardial effusion. He was recently admitted from 11/22/19 through 11/29/19. He presented with chest discomfort, shortness of breath. He appeared hypervolemic at admission. Ap parently patient stopped his diuretics prior to admission. Coronary angiography was not recommended due to CKD. He was found to be in atrial fibrillation, which was new. He was rate controlled. Anticoagulation was recommended (coumadin). He tolerated diurese and noted improvement in his symptoms. Nephrology recommends WE[employer] MECH[employer]IC, but patient and family in agreement he would not want that at this point in his life. Palliative consult was considered but not done. He was discharged on Lasix 40 mg PRN. He was evaluated by the heart failure program on 12/08/19 for hospital follow up. He was well compensated and euvolemic. He continued Lasix 40 mg. Metoprolol was increased from 100 mg to 200 mg daily. He was then re-admitted from 12/16/19 through 12/18/19 for acute respiratory distress secondary to acute systolic CHF. He presented with right sided chest pain, likely secondary to rib fractures. He developed worsening shortness of breath requiring BiPAP. He was felt to be experiencing flash pulmonary edema with worsening chest xray. He was treated with IV Lasix and admitted. Nephrology was consulted and the patient has declined dialysis if his kidneys fail. His acute component resolved quickly with diuretics. He was converted back to his home regimen. Palliative care was consulted during hospital stay. He is a DNR, again, does not want dialysis. He was discharged on Lasix 60 mg daily. He has been followed closely in our heart failure program, last seen 6 days ago. He now presents with recurrent CHF. Allergies Allergy/AdvReac Type Severity Reaction Status Date / Time No Known Drug Allergies Allergy . Verified 12/31/19 01:47 Home Medications Home Medications Medication Instructions Recorded Confirmed Type lidocaine 1 patch TRANSDERMAL QAM #30 ea 11/29/19 12/31/19 Rx blood sugar diagnostic #500 ea 12/12/19 12/29/19 Rx clopidogrel 75 mg tablet 75 mg PO QAM #90 tab 12/12/19 12/31/19 Rx amlodipine 10 mg PO QAM 12/16/19 12/31/19 History atorvastatin 80 mg PO HS 12/16/19 12/31/19 History cholecalciferol (vitamin D3) 2,000 units PO QAM 12/16/19 12/31/19 History isosorbide dinitrate 10 mg PO BIDM 12/16/19 12/31/19 History levothyroxine 137 mcg PO QAM 12/16/19 12/31/19 History metoprolol succinate 200 mg PO QAM 12/16/19 12/31/19 History multivitamin 1 tab PO QAM 12/16/19 12/31/19 History pantoprazole 40 mg PO QAM 12/16/19 12/31/19 History warfarin 1 mg PO SUTUTHSA@0800 12/16/19 12/31/19 History warfarin 3 mg PO QAM 12/16/19 12/31/19 History Novolin N NPH U-100 Insulin See Rx Instructions .ROUTE 12/18/19 12/31/19 Rx .COMPLEX #100 ml furosemide 40 mg tablet 20 mg PO DAILY PRN tab 12/29/19 12/31/19 History furosemide 60 mg PO QAM 12/31/19 12/31/19 History Patient History Social History Smoking Status: Never smoker Hx Alcohol Use: No Hx Substance Use: No Preferred Language: Urdu Communication Ability: Effective Visual Impairment: Limited Hearing Ability: Use of Hearing Aid Gas Flow Regulator Required: No Beliefs That Will Affect Care: None marital status: Current Living Situation: Spouse Current Living Situation Comment: Lives at home with spouse in [place]. 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 Feels Safe at Home: Yes Childhood Exposure to Second-Hand Smoke: No Diet Comment: Doesnt follow diet. caffeine: Yes (coffee x 5-6 per day. ) during the past year weight has: remained stable Dental Care, Regularly: Yes Physical Activity Frequency: Does not Exercise Seatbelt Use: always Sunscreen Use: No Physical Exam Physical Exam: Constitutional: Alert, cooperative and in no distress. HEENT: Unremarkable Neck: No jugular venous distention, carotid pulses are normal and equal bilaterally without bruits. Pulmonary: Decreased breath sounds at bases bilaterally. Cardiac: Regular rhythm with a soft crescendo decrescendo murmur at the base, no gallop or rub. Abdomen: Soft, nontender with normal bowel sounds. Extremities: Trace bilateral pretibial edema. Distal pulses intact. Neurologic: No focal findings. Gait is steady. Skin: No rash, ecchymoses or petechiae. Results & Data ([facility]) Vital Signs (Past 12 Hours) Vital Signs Temp Pulse Pulse Resp BP BP Pulse Ox 12/31/19 08:02 36.4 C L 79 18 135/81 97 12/31/19 07:58 88 200/84 H 98 12/31/19 06:20 36.5 C 82 19 143/71 H 98 12/31/19 05:22 68 22 97 12/31/19 05:15 68 18 127/75 99 12/31/19 03:30 76 22 135/83 97 12/31/19 03:00 68 21 123/70 97 12/31/19 02:14 76 20 119/68 96 12/31/19 01:15 97 H 37 H 96 12/31/19 01:13 96 12/31/19 00:35 36.5 C 100 H 26 H 142/81 H 92 Laboratory Results Cardiac Enzymes 12/31/19 12/31/19 Range/Units 01:27 07:14 AST 37 (15-37) U/L Troponin I 0.022 0.106 H* (0-0.045) ng/ml Coagulation 12/31/19 Range/Units 01:27 PT 17.7 H (9.0-12.0) Seconds APTT 32.5 H (21.0-31.0) Seconds CBC 12/31/19 Range/Units 01:27 WBC 7.24 (4.8-10.8) K/uL RBC 3.56 L (4.7-6.1) M/uL Hgb 11.6 L (14.0-18.0) g/dL Hct 35.1 L (42-52) % Plt Count 190 (130-400) K/uL Neut # (Auto) 5.34 (1.4-6.5) K/uL Lymph # (Auto) 1.31 (1.2-3.4) K/uL [place] # (Auto) 0.35 (0.11-0.59) K/uL Eos # (Auto) 0.22 (0-0.5) K/uL Baso # (Auto) 0.02 (0-0.2) K/uL Comprehensive Metabolic Panel 12/31/19 Range/Units 01:27 Sodium 142 (136-145) mmol/L Potassium 4.7 (3.5-5.1) mmol/L Chloride 109 H (98-107) mmol/L Carbon Dioxide 26 (21-32) mmol/L BUN 64 H (7-18) mg/dl Creatinine 3.85 H (0.6-1.4) mg/dl Glucose 299 H (70-99) mg/dl Calcium 8.2 L (8.5-10.1) mg/dl AST 37 (15-37) U/L ALT 52 (12-78) U/L Alkaline Phosphatase 68 (45-117) U/L Total Protein 7.3 (6.4-8.2) gm/dl Albumin 3.0 L (3.4-5.0) gm/dl Intake and Output 12/30/19 12/31/19 12/31/19 22:59 06:59 14:59 Intake Total 54 / 54 Balance 54 / 54 Intake: IV 54 / 54 Albumin 25% 50 ml @ 54 mls/hr 54 / 54 IV Q6H LUCA with Lasix 40 mg Rx# :[id number] Other: Weight 82.6 kg Diagnostic Findings Presenting ECG shows ST around 101 with LBBB.' Telemetry: SR with PVCs PG Care Time/CCT Total # of Minutes Spent Total Time Spent with Patient: Total time spent is greater than 50% in coordination of care (as documented) at patient's floor/unit and/or counseling patient: Coding Level of Care Code 71140 Initial Inpt Care Lvl 3 Diagnoses CHF (congestive heart failure) I50.9 Heart failure chronicity: acute on chronic Heart failure type: unspecified Elevated troponin R79.89 CAD (coronary artery disease) I25.10 Associated angina: angina presence unspecified Coronary Disease-Associated Artery/Lesion type: [place] artery [place] vs. transplanted heart: [place] heart Cardiomyopathy I42.9 S/P TAVR (transcatheter aortic valve replacement) Z95.2 (1) CAD (coronary artery disease) Associated angina: angina presence unspecified Coronary Disease-Associated Artery/Lesion type: [place] artery [place] vs. transplanted heart: [place] heart Qualified Code(s): I25.10 - Atherosclerotic heart disease of [place] coronary artery without angina pectoris (2) CHF (congestive heart failure) Heart failure chronicity: acute on chronic Heart failure type: unspecified Qualified Code(s): I50.9 - Heart failure, unspecified
[2019-12-31] MEDS: FUROSEMIDE 80 MG in SYRINGE 0 ML IV SCH ×2 (10:48→16:48)
--- NOTE | 2019-12-31 13:46 | History & Physical Bridge Note ---
Date of Service December 31, 2019 History & Physical Bridge Note Not a lot of output this morning with the 40mg IV Lasix. Will increase dose. Seen by cardiology who is in agreement.
[2020-01-01] MEDS: NITROGLYCERIN 2% OINTMENT 30GM TUBE EXT SCH ×2 (01:13→07:54)
[2020-01-01 07:18] LABS: Basophils # (auto) 0.03 K/uL (0-0.2); Basophils % (auto) 0.4 %; Eosinophils # (auto) 0.25 K/uL (0-0.5); Eosinophils % (auto) 3.3 %; Hematocrit (blood only) 36.1 % (42-52); Hemoglobin 11.9 g/dL (14.0-18.0); Immature Granulocytes # (auto) 0.01 K/uL (0.00-0.02); Immature Granulocytes % (auto) 0.1 %; Lymphocytes # (auto) 2.35 K/uL (1.2-3.4); Lymphocytes % (auto) 30.7 %; Mean Corpuscular Hemoglobin 32.1 pg (25-34); Mean Corpuscular Volume 97.3 fL (80-100); Monocytes # (auto) 0.57 K/uL (0.11-0.59); Monocytes % (auto) 7.4 %; Neutrophils # (auto) 4.45 K/uL (1.4-6.5); Neutrophils % (auto) 58.1 %; Platelet Count 162 K/uL (130-400); RDW Standard Deviation 49.7 fL (36.4-46.3); Red Blood Count 3.71 M/uL (4.7-6.1); White Blood Count 7.66 K/uL (4.8-10.8)
[2020-01-01 07:28] LABS: Partial Thromboplastin Ratio 1.1; Partial Thromboplastin Time 30.1 Seconds (21.0-31.0)
[2020-01-01 07:49] LABS: Est GFR (African American) 16.3; Magnesium 1.8 mg/dl (1.8-2.4); Potassium 4.6 mmol/L (3.5-5.1)
[2020-01-01] MEDS: HEPARIN SOD 5,000 UNIT/0.5 ML VIAL SQ SCH ×2 (07:54→20:48)
[2020-01-01] MEDS: INSULIN ASPART 100 UNITS/ML 3 ML PEN SC SCH ×4 (07:55→20:48)
[2020-01-01 08:00] LABS: Albumin Globulin Ratio 0.7 (0.9-2); Bilirubin,Total 0.9 mg/dl (0.2-1); Globulin 4.1 gm/dl (2.5-4.0); Total Protein 7.1 gm/dl (6.4-8.2)
[2020-01-01] MEDS: FUROSEMIDE 80 MG in SYRINGE 0 ML IV SCH ×2 (08:45→17:09)
--- NOTE | 2020-01-01 09:19 | Cardiology Progress Note ---
Date of Service January 01, 2020 Assessment & Plan (1) Elevated troponin: Slightly elevated troponin likely due to demand ischemia. -- Resume Metoprolol Succinate ER 200 mg po daily. -- Resume Plavix 75 mg daily. -- Resume Atorvastatin 80 mg daily. -- Resume Isosorbide Dinitrate 10 mg b.i.d. (2) CAD (coronary artery disease): He has a history of intervention to the right posterior AV Groove artery prior to his TAVR. -- Resume Metoprolol Succinate ER 200 mg po daily. -- Resume Plavix 75 mg daily. -- Resume Atorvastatin 80 mg daily. -- Resume Isosorbide Dinitrate 10 mg b.i.d. (3) Cardiomyopathy: -- Patient has a history of ischemic heart disease and LV dysfunction that would generally make him a candidate for an ICD for primary prevention against sudden cardiac . -- However, given his DNR status, unwillingness to consider HD, and advanced age -- we would not consider implanting an AICD for this patient. (4) S/P TAVR (transcatheter aortic valve replacement): -- Normally functioning prosthetic aortic valve on Echocardiogram 11/23/2019. Admission and Anticipated Discharge Date Admission Date: December 31, 2019 Subjective Mr. Soria is an 89-year-old male with a history of prior Stroke, Carotid Artery Plaques, CKD, Type 2 Diabetes Mellitus, Dyslipidemia, Hypertension, GERD, Hypothyroidism, MGUS, Severe Aortic Stenosis s/p TAVR, CAD s/p RCA PVA Groove Stent, and a Cardiomyopathy (LVEF 25% to 30% on Echo 11/23/2019) who was admitted on 12/31/2019 with an exacerbation of systolic CHF / flash pulmonary edema. Patient is currently being seen in [facility] and he is sitting in a bedside chair. He states that his breathing has improved and is close to baseline. He was able to lie flat overnight without orthopnea or pnd -- but he did not sleep very well. His body weight is down 9 pounds since he was admitted and he has a negative fluid balance of 2737 ml total. His "dry weight" at home is 177 to 179 pounds on his home scales. His body weight is 181 pounds this morning. Patient offers no complaints. He specifically denies any exertional chest pain, heaviness, tightness, pressure, or discomfort. He denies any exertional neck, jaw, back, or arm pain. He denies any orthopnea or PND. He denies any palpitations, syncope, or near syncope. ECHOCARDIOGRAM 11/23/2019: -- Mild concentric LVH. -- LV systolic function is severely reduced. -- LVEF 25% to 30%. -- Mild to moderate mitral regurgitation. -- Normal estimated RVSP. -- IVC with normal collapsibility suggesting normal CVP. -- Small pericardial effusion. ECHOCARDIOGRAM 05/18/2019: -- LV systolic function is low normal. -- LVEF 50% to 55%, No RWMA's. -- Mild concentric LVH. -- Grade 1 LV diastolic dysfunction. -- Prosthetic aortic valve is well seated with a normal gradient. -- No significant change compared to Echocardiogram 05/09/2018. HISTORICAL BACKGROUND: Patient underwent an ECHOCARDIOGRAM on 10/21/2015 which revealed the followin. Top normal LV size with moderately reduced systolic function. 2. LVEF = 35% to 40%. Global hypokinesis. 3. Moderate concentric LVH with type I diastolic dysfunction. 4. Severe (HERI = 0.8 cm). Peak velocity and mean gradient do not meet "severe" classification, but this is likely secondary to decreased LV systolic function. Mild MR. 5. Compared to Echocardiogram 07/20/2014, LV systolic function is now moderately reduced, and appears more significant. Patient was subsequently referred to [facility] for Cardiothoracic Surgical consultation regarding open AVR vs TAVR and for preoperative cardiac catheterization. He underwent the following procedures: CARDIAC CATHETERIZATION 01/03/2016: 1. LMCA -- Normal. 2. LAD -- Mild disease proximally, 40% midvessel stenosis, mild late midvessel disease. 3. D1 -- 40% proximal stenosis, 30% distal stenosis. 4. LCx -- Mild stenoses proximally, severe and diffusely diseased mid and distal vessel. 5. CHILDHOOD DEVELOPMENT TEACHER -- Dominant vessel. 20% proximal stenosis, 40% midvessel stenosis. 6. R PDA -- Mild disease. 7. R PAV groove -- 90% proximal stenosis, 70% midvessel stenosis. PERCUTANEOUS CORONARY INTERVENTION: 1. Deployment of Xience Alpine 2.75 x 23 mm JAMEY in Right PAV groove artery. TAVR 02/06/2016: -- Percutaneous transfemoral Contreras Sinan 3 TAVR 29 mm Pericardial Tissue Valve. ECHOCARDIOGRAM s/p TAVR 02/17/2016: 1. LVEF 40%. 2. Diffuse hypokinesis, especially of the proximal inferior wall. 3. Mild to moderate concentric LVH. 4. Normally functioning bioprosthetic aortic valve with trivial AI. 5. Mild to moderate MR. 6. Top normal RV size with normal RV systolic function. 7. Severe left atrial dilatation. Physical Exam Physical Exam: General: Patient in no acute distress. HEENT: Head is atraumatic, normocephalic. EOMs intact. Sclera anicteric. Facies symmetric. No perioral cyanosis. Mucous membranes moist. Neck: No JVD. JVP is just above the level of the clavicle sitting upright. Chest and Lungs: Absent breath sounds in the left base, diminished breath sounds in the right base. CVS: S1 and S2 are regular with a grade 1/6 basal systolic murmur. No obvious gallops or rubs. No diastolic murmurs. PMI is nonpalpable. No lifts, heaves, or thrills. No abdominal aortic or renal bruits. Abdominal Exam: Bowel sounds present. No masses, organomegaly, or tenderness. Extremities: No clubbing or cyanosis. Trace to +1 left leg edema, trace right leg edema. Radial pulses +2 bilaterally. Neurologic Exam: Patient is awake, alert, and oriented. Pleasant and cooperative. Answers questions appropriately. Speech is clear. TELEMETRY: -- NSR with IVCD. -- Periods of sinus tachycardia with IVCD. -- Occasional PVC's and PAC's. Results & Data ([facility]) Vital Signs (Past 12 Hours) Vital Signs Temp Pulse Resp BP Pulse Ox 01/01/20 07:54 36.7 C 76 18 129/64 95 01/01/20 04:00 36.4 C L 80 20 139/74 95 01/01/20 00:00 36.6 C 77 20 138/71 97 Laboratory Results Laboratory Results - last 24 hr 12/31/19 12/31/19 12/31/19 14:13 16:49 20:38 WBC RBC Hgb Hct MCV MCH MCHC RDW Std Deviation RDW Coeff of Neymar Plt Count MPV Immature Gran % (Auto) Neut % (Auto) Lymph % (Auto) [place] % (Auto) Eos % (Auto) Baso % (Auto) Neut # (Auto) Lymph # (Auto) [place] # (Auto) Eos # (Auto) Baso # (Auto) Immature Gran # (Auto) APTT PTT Ratio Sodium Potassium Chloride Carbon Dioxide Anion Gap BUN Creatinine Est Cr Clr Drug Dosing Est GFR ( Amer) Est GFR (Non-Af Amer) BUN/Creatinine Ratio Glucose POC Glucose 180 H 188 H Calcium Magnesium Total Bilirubin AST ALT Alkaline Phosphatase Troponin I 0.140 H* Total Protein Albumin Globulin Albumin/Globulin Ratio 12/31/19 01/01/20 01/01/20 22:22 06:55 06:55 WBC 7.66 RBC 3.71 L Hgb 11.9 L Hct 36.1 L MCV 97.3 MCH 32.1 MCHC 33.0 RDW Std Deviation 49.7 H RDW Coeff of Neymar 14.0 Plt Count 162 MPV 11.0 H Immature Gran % (Auto) 0.1 Neut % (Auto) 58.1 Lymph % (Auto) 30.7 [place] % (Auto) 7.4 Eos % (Auto) 3.3 Baso % (Auto) 0.4 Neut # (Auto) 4.45 Lymph # (Auto) 2.35 [place] # (Auto) 0.57 Eos # (Auto) 0.25 Baso # (Auto) 0.03 Immature Gran # (Auto) 0.01 APTT 30.1 PTT Ratio 1.1 Sodium Potassium Chloride Carbon Dioxide Anion Gap BUN Creatinine Est Cr Clr Drug Dosing Est GFR ( Amer) Est GFR (Non-Af Amer) BUN/Creatinine Ratio Glucose POC Glucose Calcium Magnesium Total Bilirubin AST ALT Alkaline Phosphatase Troponin I 0.104 H* Total Protein Albumin Globulin Albumin/Globulin Ratio 01/01/20 01/01/20 06:55 07:18 WBC RBC Hgb Hct MCV MCH MCHC RDW Std Deviation RDW Coeff of Neymar Plt Count MPV Immature Gran % (Auto) Neut % (Auto) Lymph % (Auto) [place] % (Auto) Eos % (Auto) Baso % (Auto) Neut # (Auto) Lymph # (Auto) [place] # (Auto) Eos # (Auto) Baso # (Auto) Immature Gran # (Auto) APTT PTT Ratio Sodium 143 Potassium 4.6 Chloride 108 H Carbon Dioxide 29 Anion Gap 6.0 BUN 65 H Creatinine 3.62 H Est Cr Clr Drug Dosing 14.0 Est GFR ( Amer) 16.3 Est GFR (Non-Af Amer) 14.0 BUN/Creatinine Ratio 18.0 Glucose 212 H POC Glucose 235 H Calcium 9.0 Magnesium 1.8 Total Bilirubin 0.9 D AST 24 ALT 43 Alkaline Phosphatase 66 Troponin I Total Protein 7.1 Albumin 3.0 L Globulin 4.1 H Albumin/Globulin Ratio 0.7 L Medications Administered Active Medications Generic Name Dose Route Start Last Admin Trade Name Freq PRN Reason Stop Dose Admin Acetaminophen 650 mg 12/31/19 06:24 Tylenol PO 01/30/20 06:23 Q4H PRN Pain or Fever Dextrose 25 - 50 ml 12/31/19 06:24 Dextrose 50% IV 01/30/20 06:23 UD PRN Hypoglycemia Protocol Protocol Glucagon 1 mg 12/31/19 06:24 Glucagen SQ 01/30/20 06:23 UD PRN Hypoglycemia Protocol Protocol Glucose 4 - 8 tabs 12/31/19 06:24 Dex4 Glucose PO 01/30/20 06:23 UD PRN Hypoglycemia Protocol Protocol Glucose 15 - 30 gm 12/31/19 06:24 Glucose 40% PO 01/30/20 06:23 UD PRN Hypoglycemia Protocol Protocol Heparin Sodium (Porcine) 5,000 units 12/31/19 09:00 01/01/20 07:54 Heparin Sodium (Porcine) SQ 01/30/20 08:59 5,000 units Q12 LUCA Administration Furosemide 80 mg/ Syringe 8 mls @ 4 mls/min 12/31/19 10:00 01/01/20 08:45 IV 01/30/20 09:59 4 mls/min [id number] LUCA Administration Insulin Aspart 0 units 12/31/19 07:30 01/01/20 07:55 Novolog Flexpen SC 01/30/20 07:29 9 units ACHS LUCA Administration Miscellaneous 15 - 30 gm 12/31/19 06:24 Carbohydrates For Hypoglycemia PO 01/30/20 06:23 UD PRN Hypoglycemia Protocol Nitroglycerin 1 inch 12/31/19 07:00 01/01/20 07:54 Nitro-Bid 2% EXT 01/30/20 06:23 1 inch Q6H LUCA Administration Ondansetron HCl 4 mg 12/31/19 06:24 Zofran IV 01/30/20 06:23 Q6H PRN Nausea PG Care Time/CCT Total # of Minutes Spent Total Time Spent with Patient: Total time spent is greater than 50% in coordination of care (as documented) at patient's floor/unit and/or counseling patient: Coding Level of Care Code 67099 Subseq Hosp Care Lvl 3 Diagnoses Elevated troponin R79.89 CAD (coronary artery disease) I25.10 Associated angina: angina presence unspecified Coronary Disease-Associated Artery/Lesion type: [place] artery [place] vs. transplanted heart: [place] heart Cardiomyopathy I42.9 S/P TAVR (transcatheter aortic valve replacement) Z95.2 (1) CAD (coronary artery disease) Associated angina: angina presence unspecified Coronary Disease-Associated Artery/Lesion type: [place] artery [place] vs. transplanted heart: [place] heart Qualified Code(s): I25.10 - Atherosclerotic heart disease of [place] coronary artery without angina pectoris
[2020-01-01] MEDS: ISOSORBIDE DINITRATE 10 MG TAB PO SCH (11:59)
[2020-01-01] MEDS: METOPROLOL SUCC 50MG EXT REL TAB PO SCH (11:59)
[2020-01-01] MEDS: ATORVASTATIN 40 MG TAB PO SCH (11:59)
--- NOTE | 2020-01-01 13:37 | Electrocardiogram Report ---
Test Reason : Blood Pressure : / mmHG Vent. Rate : 101 BPM Atrial Rate : 101 BPM P-R Int : 264 ms QRS Dur : 174 ms QT Int : 456 ms P-R-T Axes : 031 009 171 degrees QTc Int : 591 ms Sinus tachycardia with 1st degree A-V block with Premature atrial complexes with Aberrant conduction Left bundle branch block Abnormal ECG When compared with ECG of 16-DEC-2019 16:25, Aberrant conduction is now Present Confirmed by Baron Holland ([id number] on 01/01/2020 1:37:41 PM Referred By: REFERRED SELF Confirmed By:Baron Holland
--- NOTE | 2020-01-01 22:31 | Hospitalist Progress Note ---
Date of Service January 01, 2020 Assessment & Plan (1) Acute on chronic respiratory failure with hypoxia: Acute on chronic respiratory failure with hypoxia/bilateral pleural effusions left greater than right/CHF exacerbation/12 pound weight gain in 5 days- Appears likely to be acute congestive heart failure secondary to LOW EF and likely dietary non compliance. Patient appears to not be handling the furosemide as well at home. Likely due to the poor bioavaliablity. May likely switch to bumex as an outpatient. The patient will be admitted to telemetry for serial cardiac enzymes, serial EKG's, cardiac rhythm monitoring. resumed furosemide, isosorbide dinitrate, metoprolol succinate. Plavix and wafarin and amlodipine are still held. Continue IV lasix as creatinine has maintained well and patient is tolerating this medication, (2) Bilateral pleural effusion: See above. Pleural effusion on the left, is particularly likely to be accessible to thoracentesis (3) CKD stage 4 due to type 2 diabetes mellitus: Creatinine 3.85 upon admission, with range 3.22-4.46. Follow serially. (4) Dyslipidemia: Hold atorvastatin until taking p.o. (5) Hypertension: See above Admission and Anticipated Discharge Date Admission Date: December 31, 2019 Subjective Patient appears more awake today. He has no new complaints. He wants to go home. His is at bedside. He reports he continues to require nasal cannula. Review of Systems Review of Systems: All systems reviewed & are unremarkable except as noted in HPI & below Physical Exam Physical Exam: AA0 to person, normocephalic and atraumatic, lying in bed and in no acute distress. HEENT--PERRL, EOMI, mucous membranes and oropharynx normal Neck--supple. No JVD. No bruits. Thyroid normal, trachea midline, no adenopathy. Heart--normal S1 and S2. No murmurs, rubs or gallops. Lungs--crackles at bases bilaterally. Mild respiratory distress, no accessory muscle use improved on BiPAP Abdomen--normal bowel sounds and soft. Nontender. Nondistended. Extremities--no cyanosis or clubbing. decreased edema. Dermatologic--normal skin turgor, normal color, no abnormal lymph nodes, no rash. Neurologic--cranial nerves II through XII grossly intact. Rheumatologic--limited exam Results & Data Results & Data ([facility]) Vital Signs (Past 12 Hours) Vital Signs Temp Pulse Pulse Resp BP Pulse Ox 01/01/20 19:43 36.7 C 77 18 129/74 95 01/01/20 16:00 80 01/01/20 15:22 36.4 C L 71 18 136/71 97 01/01/20 12:00 37.2 C 84 16 133/59 L 97 PG Care Time/CCT Total # of Minutes Spent Total Time Spent with Patient: Total time spent is greater than 50% in coordination of care (as documented) at patient's floor/unit and/or counseling patient: Coding Level of Care Code 96578 Subseq Hosp Care Lvl 3 Diagnoses Acute on chronic respiratory failure with hypoxia J96.21 Bilateral pleural effusion J90 CKD stage 4 due to type 2 diabetes mellitus E11.22; N18.4 Dyslipidemia E78.5 Hypertension I10 Hypertension type: essential hypertension Time Spent (min) 35 (1) Hypertension Hypertension type: essential hypertension Qualified Code(s): I10 - Essential (primary) hypertension
[2020-01-02] MEDS: LOPERAMIDE HCL 2 MG CAP PO PRN ×2 (04:49→09:45)
[2020-01-02 07:32] LABS: Basophils # (auto) 0.02 K/uL (0-0.2); Basophils % (auto) 0.2 %; Eosinophils # (auto) 0.25 K/uL (0-0.5); Eosinophils % (auto) 2.5 %; Hematocrit (blood only) 37.8 % (42-52); Hemoglobin 12.3 g/dL (14.0-18.0); Immature Granulocytes # (auto) 0.01 K/uL (0.00-0.02); Immature Granulocytes % (auto) 0.1 %; Lymphocytes # (auto) 2.34 K/uL (1.2-3.4); Mean Corpuscular Hemoglobin 31.8 pg (25-34); Mean Corpuscular Hgb Conc 32.5 g/dL (32-36); Mean Corpuscular Volume 97.7 fL (80-100); Mean Platelet Volume 11.2 fL (7.4-10.4); Monocytes # (auto) 0.63 K/uL (0.11-0.59); Monocytes % (auto) 6.2 %; Neutrophils # (auto) 6.91 K/uL (1.4-6.5); Platelet Count 188 K/uL (130-400); RDW Coefficient of Variation 13.9 % (11.5-14.5); RDW Standard Deviation 49.7 fL (36.4-46.3); Red Blood Count 3.87 M/uL (4.7-6.1); White Blood Count 10.16 K/uL (4.8-10.8)
[2020-01-02 07:46] LABS: Partial Thromboplastin Ratio 1.1; Partial Thromboplastin Time 29.8 Seconds (21.0-31.0)
[2020-01-02 08:11] LABS: BUN Creatinine Ratio 18.5 (10-20); Calcium 8.7 mg/dl (8.5-10.1); Est GFR (African American) 16.9; Est GFR (Non-African American) 14.6; Magnesium 1.8 mg/dl (1.8-2.4); Potassium 4.3 mmol/L (3.5-5.1)
[2020-01-02 08:14] LABS: Albumin Globulin Ratio 0.8 (0.9-2); Bilirubin,Total 0.9 mg/dl (0.2-1); Globulin 3.9 gm/dl (2.5-4.0); Total Protein 6.9 gm/dl (6.4-8.2)
[2020-01-02] MEDS: FUROSEMIDE 80 MG in SYRINGE 0 ML IV SCH ×2 (09:29→17:25)
[2020-01-02] MEDS: HEPARIN SOD 5,000 UNIT/0.5 ML VIAL SQ SCH ×2 (09:29→21:25)
[2020-01-02] MEDS: ATORVASTATIN 40 MG TAB PO SCH (09:30)
[2020-01-02] MEDS: METOPROLOL SUCC 50MG EXT REL TAB PO SCH (09:30)
[2020-01-02] MEDS: INSULIN ASPART 100 UNITS/ML 3 ML PEN SC SCH ×4 (09:30→21:23)
[2020-01-02] MEDS: ISOSORBIDE DINITRATE 10 MG TAB PO SCH ×2 (09:30→12:14)
--- NOTE | 2020-01-02 09:48 | Cardiology Progress Note ---
Date of Service January 02, 2020 Assessment & Plan Admission and Anticipated Discharge Date Admission Date: December 31, 2019 Subjective Mr. 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 Patient is currently being seen in [facility] and he is lying flat in bed. He states that his breathing has improved and is at baseline. He was able to lie flat overnight without orthopnea or pnd. His body weight is down 9 pounds since he was admitted and he has a negative fluid balance of 2737 ml total. His "dry weight" at home is 177 to 179 pounds on his home scales. His body weight is 181 pounds this morning. Patient offers no complaints. He specifically denies any exertional chest pain, heaviness, tightness, pressure, or discomfort. He denies any exertional neck, jaw, back, or arm pain. He denies any orthopnea or PND. He denies any palpitations, syncope, or near syncope. Results & Data ([facility]) Vital Signs (Past 12 Hours) Vital Signs Temp Pulse Resp BP BP Pulse Ox 01/02/20 07:56 36.5 C 80 18 137/72 97 01/02/20 03:55 37.4 C 87 18 148/74 H 94 01/01/20 23:52 36.5 C 79 20 130/74 97 PG Care Time/CCT Total # of Minutes Spent Total Time Spent with Patient: Total time spent is greater than 50% in coordination of care (as documented) at patient's floor/unit and/or counseling patient: Coding
--- NOTE | 2020-01-02 10:03 | Cardiology Progress Note ---
Date of Service January 02, 2020 Assessment & Plan (1) CHF (congestive heart failure): Mr. Soria is an 89-year-old male with a history of prior Stroke, Carotid Artery Plaques, CKD, Type 2 Diabetes Mellitus, Dyslipidemia, Hypertension, GERD, Hypothyroidism, MGUS, Severe Aortic Stenosis s/p TAVR, CAD s/p RCA PVA Groove Stent, and a Cardiomyopathy (LVEF 25% to 30% on Echo 11/23/2019) who was admitted on 12/31/2019 with an exacerbation of systolic CHF / flash pulmonary edema. Patient is currently being seen in [facility] and he is lying flat in bed. He states that his breathing has improved and is at baseline. He was able to lie flat overnight without orthopnea or pnd. His body weight is down to 170.7 pounds today according to our scales His "dry weight" at home is 177 to 179 pounds on his home scales. He has a negative fluid balance and has been diuresing well. His Creatinine is 3.50 mg/dl has improved compared to yesterday (3.62.mg/dl). Recommend the following: -- Continue Metoprolol Succinate ER 200 mg po daily. -- Continue Plavix 75 mg daily. -- Continue Atorvastatin 80 mg daily. -- Continue Isosorbide Dinitrate 10 mg b.i.d. -- Remain off of Amlodipine because of decreased LV systolic function. -- Consider converting to oral Lasix and discharging on 80 mg daily, f/u labs in 1 week. -- Maintain a 2 gram low sodium diet. -- [place] in [facility] [place] [facility] within 7 to 10 days of discharge. (2) Elevated troponin: Slightly elevated troponin likely due to demand ischemia. -- Continue Metoprolol Succinate ER 200 mg po daily. -- Continue Plavix 75 mg daily. -- Continue Atorvastatin 80 mg daily. -- Continue Isosorbide Dinitrate 10 mg b.i.d. (3) CAD (coronary artery disease): He has a history of intervention to the right posterior AV Groove artery prior to his TAVR. -- Continue Metoprolol Succinate ER 200 mg po daily. -- Continue Plavix 75 mg daily. -- Continue Atorvastatin 80 mg daily. -- Continue Isosorbide Dinitrate 10 mg b.i.d. (4) Cardiomyopathy: -- Patient has a history of ischemic heart disease and LV dysfunction that would generally make him a candidate for an ICD for primary prevention against sudden cardiac . -- However, given his DNR status, unwillingness to consider HD, and advanced age -- we would not consider implanting an AICD for this patient. (5) S/P TAVR (transcatheter aortic valve replacement): -- Normally functioning prosthetic aortic valve on Echocardiogram 11/23/2019. Admission and Anticipated Discharge Date Admission Date: December 31, 2019 Supervising Physician Co-Signing Physician Notes Reviewed with Eliseo Moran, agree with above. Subjective Mr. Soria is an 89-year-old male with a history of prior Stroke, Carotid Artery Plaques, CKD, Type 2 Diabetes Mellitus, Dyslipidemia, Hypertension, GERD, Hypothyroidism, MGUS, Severe Aortic Stenosis s/p TAVR, CAD s/p RCA PVA Groove Stent, and a Cardiomyopathy (LVEF 25% to 30% on Echo 11/23/2019) who was admitted on 12/31/2019 with an exacerbation of systolic CHF / flash pulmonary edema. Patient is currently being seen in [facility]- and he is lying flat in bed. He states that his breathing has improved and is at baseline. He was able to lie flat overnight without orthopnea or pnd. His body weight is down to 170.7 pounds today according to our scales His "dry weight" at home is 177 to 179 pounds on his home scales. Patient is complaining of loose bowel movements over the past 2 days. He offers no other complaints. He specifically denies any exertional chest pain, heaviness, tightness, pressure, or discomfort. He denies any exertional neck, jaw, back, or arm pain. He denies any orthopnea or PND. He denies any palpitations, syncope, or near syncope. His Creatinine is 3.50 mg/dl which is down from yesterday (3.62.mg/dl). Physical Exam Physical Exam: General: Patient in no acute distress. HEENT: Head is atraumatic, normocephalic. EOMs intact. Sclera anicteric. Facies symmetric. No perioral cyanosis. Mucous membranes moist. Neck: No JVD. JVP is just above the level of the clavicle sitting upright. Chest and Lungs: Improved breath sounds throughout, still with absent breath sounds in left base. CVS: S1 and S2 are regular with a grade 1/6 basal systolic murmur. No obvious gallops or rubs. No diastolic murmurs. PMI is nonpalpable. No lifts, heaves, or thrills. No abdominal aortic or renal bruits. Abdominal Exam: Bowel sounds present. No masses, organomegaly, or tenderness. Extremities: No clubbing or cyanosis. No leg edema. Radial pulses +2 bilaterally. Neurologic Exam: Patient is awake, alert, and oriented. Pleasant and cooperative. Answers questions appropriately. Speech is clear. TELEMETRY: -- NSR with IVCD rates in the 60's and 70's. -- Occasional PVC's and PAC's. ECHOCARDIOGRAM 11/23/2019: -- Mild concentric LVH. -- LV systolic function is severely reduced. -- LVEF 25% to 30%. -- Mild to moderate mitral regurgitation. -- Normal estimated RVSP. -- IVC with normal collapsibility suggesting normal CVP. -- Small pericardial effusion. Results & Data ([facility]) Vital Signs (Past 12 Hours) Vital Signs Temp Pulse Resp BP BP Pulse Ox 01/02/20 07:56 36.5 C 80 18 137/72 97 01/02/20 03:55 37.4 C 87 18 148/74 H 94 01/01/20 23:52 36.5 C 79 20 130/74 97 Laboratory Results Laboratory Results - last 24 hr 01/01/20 01/01/20 01/01/20 11:20 11:21 14:04 WBC RBC Hgb Hct MCV MCH MCHC RDW Std Deviation RDW Coeff of Neymar Plt Count MPV Immature Gran % (Auto) Neut % (Auto) Lymph % (Auto) [place] % (Auto) Eos % (Auto) Baso % (Auto) Neut # (Auto) Lymph # (Auto) [place] # (Auto) Eos # (Auto) Baso # (Auto) Immature Gran # (Auto) APTT PTT Ratio Sodium Potassium Chloride Carbon Dioxide Anion Gap BUN Creatinine Est Cr Clr Drug Dosing Est GFR ( Amer) Est GFR (Non-Af Amer) BUN/Creatinine Ratio Glucose POC Glucose 431 H* 393 H* 296 H Calcium Magnesium Total Bilirubin AST ALT Alkaline Phosphatase Total Protein Albumin Globulin Albumin/Globulin Ratio Stl C. diff Tox B Gene 07/27/20 07/27/20 07/27/20 16:33 17:26 20:25 WBC RBC Hgb Hct MCV MCH MCHC RDW Std Deviation RDW Coeff of Neymar Plt Count MPV Immature Gran % (Auto) Neut % (Auto) Lymph % (Auto) [place] % (Auto) Eos % (Auto) Baso % (Auto) Neut # (Auto) Lymph # (Auto) [place] # (Auto) Eos # (Auto) Baso # (Auto) Immature Gran # (Auto) APTT PTT Ratio Sodium Potassium Chloride Carbon Dioxide Anion Gap BUN Creatinine Est Cr Clr Drug Dosing Est GFR ( Amer) Est GFR (Non-Af Amer) BUN/Creatinine Ratio Glucose POC Glucose 160 H 140 H 172 H Calcium Magnesium Total Bilirubin AST ALT Alkaline Phosphatase Total Protein Albumin Globulin Albumin/Globulin Ratio Stl C. diff Tox B Gene 01/02/20 01/02/20 01/02/20 02:00 06:55 06:55 WBC 10.16 RBC 3.87 L Hgb 12.3 L Hct 37.8 L MCV 97.7 MCH 31.8 MCHC 32.5 RDW Std Deviation 49.7 H RDW Coeff of Neymar 13.9 Plt Count 188 MPV 11.2 H Immature Gran % (Auto) 0.1 Neut % (Auto) 68.0 Lymph % (Auto) 23.0 [place] % (Auto) 6.2 Eos % (Auto) 2.5 Baso % (Auto) 0.2 Neut # (Auto) 6.91 H Lymph # (Auto) 2.34 [place] # (Auto) 0.63 H Eos # (Auto) 0.25 Baso # (Auto) 0.02 Immature Gran # (Auto) 0.01 APTT 29.8 PTT Ratio 1.1 Sodium Potassium Chloride Carbon Dioxide Anion Gap BUN Creatinine Est Cr Clr Drug Dosing Est GFR ( Amer) Est GFR (Non-Af Amer) BUN/Creatinine Ratio Glucose POC Glucose Calcium Magnesium Total Bilirubin AST ALT Alkaline Phosphatase Total Protein Albumin Globulin Albumin/Globulin Ratio Stl C. diff Tox B Gene Negative Cdiff Gene 01/02/20 01/02/20 06:55 06:58 WBC RBC Hgb Hct MCV MCH MCHC RDW Std Deviation RDW Coeff of Neymar Plt Count MPV Immature Gran % (Auto) Neut % (Auto) Lymph % (Auto) [place] % (Auto) Eos % (Auto) Baso % (Auto) Neut # (Auto) Lymph # (Auto) [place] # (Auto) Eos # (Auto) Baso # (Auto) Immature Gran # (Auto) APTT PTT Ratio Sodium 140 Potassium 4.3 Chloride 104 Carbon Dioxide 28 Anion Gap 8.0 BUN 65 H Creatinine 3.50 H Est Cr Clr Drug Dosing 14.0 Est GFR ( Amer) 16.9 Est GFR (Non-Af Amer) 14.6 BUN/Creatinine Ratio 18.5 Glucose 231 H POC Glucose 237 H Calcium 8.7 Magnesium 1.8 Total Bilirubin 0.9 AST 28 ALT 43 Alkaline Phosphatase 67 Total Protein 6.9 Albumin 3.0 L Globulin 3.9 Albumin/Globulin Ratio 0.8 L Stl C. diff Tox B Gene Medications Administered Active Medications Generic Name Dose Route Start Last Admin Trade Name Freq PRN Reason Stop Dose Admin Acetaminophen 650 mg 12/31/19 06:24 Tylenol PO 01/30/20 06:23 Q4H PRN Pain or Fever Atorvastatin Calcium 80 mg 01/01/20 11:30 01/02/20 09:30 Lipitor PO 01/31/20 11:29 80 mg QAM LUCA Administration Clopidogrel Bisulfate 75 mg 01/02/20 10:00 Plavix PO 02/01/20 09:59 QAM LUCA Dextrose 25 - 50 ml 12/31/19 06:24 Dextrose 50% IV 01/30/20 06:23 UD PRN Hypoglycemia Protocol Protocol Glucagon 1 mg 12/31/19 06:24 Glucagen SQ 01/30/20 06:23 UD PRN Hypoglycemia Protocol Protocol Glucose 4 - 8 tabs 12/31/19 06:24 Dex4 Glucose PO 01/30/20 06:23 UD PRN Hypoglycemia Protocol Protocol Glucose 15 - 30 gm 12/31/19 06:24 Glucose 40% PO 01/30/20 06:23 UD PRN Hypoglycemia Protocol Protocol Heparin Sodium (Porcine) 5,000 units 12/31/19 09:00 01/02/20 09:29 Heparin Sodium (Porcine) SQ 01/30/20 08:59 5,000 units Q12 LUCA Administration Furosemide 80 mg/ Syringe 8 mls @ 4 mls/min 12/31/19 10:00 01/02/20 09:29 IV 01/30/20 09:59 4 mls/min [id number] LUCA Administration Insulin Aspart 0 units 12/31/19 07:30 01/02/20 09:30 Novolog Flexpen SC 01/30/20 07:29 4 units ACHS LUCA Administration Isosorbide Dinitrate 10 mg 01/01/20 10:55 01/02/20 09:30 Isordil PO 01/31/20 10:54 10 mg BID@0700,1200 LUCA Administration Levothyroxine Sodium 137 mcg 01/02/20 10:00 Levothyroxine Sodium PO 02/01/20 09:59 DAILYBB LUCA Loperamide HCl 2 mg 01/02/20 02:31 01/02/20 04:49 Imodium PO 02/01/20 02:30 2 mg PRN PRN Administration Diarrhea Metoprolol Succinate 200 mg 01/01/20 11:30 01/02/20 09:30 Toprol Xl PO 01/31/20 11:29 200 mg QAM LUCA Administration Miscellaneous 15 - 30 gm 12/31/19 06:24 Carbohydrates For Hypoglycemia PO 01/30/20 06:23 UD PRN Hypoglycemia Protocol Ondansetron HCl 4 mg 12/31/19 06:24 Zofran IV 01/30/20 06:23 Q6H PRN Nausea Warfarin Sodium 3 mg 01/03/20 09:00 Coumadin PO 02/02/20 08:59 QAM LUCA Warfarin Sodium 1 mg 01/04/20 08:00 Coumadin PO 02/03/20 07:59 SUTUTHSA@0800 [facility] PG Care Time/CCT Total # of Minutes Spent Total Time Spent with Patient: Total time spent is greater than 50% in coordination of care (as documented) at patient's floor/unit and/or counseling patient: Coding Level of Care Code 66971 Subseq Hosp Care Lvl 3 Diagnoses CHF (congestive heart failure) I50.9 Heart failure chronicity: acute on chronic Heart failure type: unspecified Elevated troponin R79.89 CAD (coronary artery disease) I25.10 Associated angina: angina presence unspecified Coronary Disease-Associated Artery/Lesion type: [place] artery [place] vs. transplanted heart: [place] heart Cardiomyopathy I42.9 S/P TAVR (transcatheter aortic valve replacement) Z95.2 (1) CAD (coronary artery disease) Associated angina: angina presence unspecified Coronary Disease-Associated Artery/Lesion type: [place] artery [place] vs. transplanted heart: [place] heart Qualified Code(s): I25.10 - Atherosclerotic heart disease of [place] coronary artery without angina pectoris (2) CHF (congestive heart failure) Heart failure chronicity: acute on chronic Heart failure type: unspecified Qualified Code(s): I50.9 - Heart failure, unspecified
--- NOTE | 2020-01-02 10:31 | Hospitalist Progress Note ---
Date of Service January 02, 2020 Assessment & Plan (1) Acute on chronic respiratory failure with hypoxia: Acute on chronic respiratory failure with hypoxia/bilateral pleural effusions left greater than right/CHF exacerbation/12 pound weight gain in 5 days- Appears likely to be acute congestive heart failure secondary to LOW EF and likely dietary non compliance. Patient appears to not be handling the furosemide as well at home. Likely due to the poor bioavaliablity. May likely switch to bumex as an outpatient. The patient will be admitted to telemetry for serial cardiac enzymes, serial EKG's, cardiac rhythm monitoring. resumed furosemide, isosorbide dinitrate, metoprolol succinate. Plavix and wafarin and amlodipine are still held. Continue IV lasix as creatinine has maintained well and patient is tolerating this medication. Creatinine has not been worsening. (2) Bilateral pleural effusion: See above. Pleural effusion on the left, is particularly likely to be accessible to thoracentesis (3) CKD stage 4 due to type 2 diabetes mellitus: Creatinine 3.85 upon admission, with range 3.22-4.46. Follow serially. (4) Dyslipidemia: Hold atorvastatin until taking p.o. (5) Hypertension: See above will transfer to med surg. Admission and Anticipated Discharge Date Admission Date: December 31, 2019 Subjective Patient had a rough night last night. Patient did not sleep. Patient was trying to get out of bed. This am he is more calm, but is still having diarrhea. Loos stools, no blood. Review of Systems Review of Systems: All systems reviewed & are unremarkable except as noted in HPI & below Physical Exam Physical Exam: AA0 to person, normocephalic and atraumatic, lying in bed and in no acute distress. HEENT--PERRL, EOMI, mucous membranes and oropharynx normal Neck--supple. No JVD. No bruits. Thyroid normal, trachea midline, no adenopathy. Heart--normal S1 and S2. No murmurs, rubs or gallops. Lungs--crackles at bases bilaterally. Mild respiratory distress, no accessory muscle use improved on BiPAP Abdomen--normal bowel sounds and soft. Nontender. Nondistended. Extremities--no cyanosis or clubbing. decreased edema. Dermatologic--normal skin turgor, normal color, no abnormal lymph nodes, no rash. Neurologic--cranial nerves II through XII grossly intact. Rheumatologic--limited exam Results & Data Results & Data ([facility]) Vital Signs (Past 12 Hours) Vital Signs Temp Pulse Resp BP BP Pulse Ox 01/02/20 07:56 36.5 C 80 18 137/72 97 01/02/20 03:55 37.4 C 87 18 148/74 H 94 01/01/20 23:52 36.5 C 79 20 130/74 97 PG Care Time/CCT Total # of Minutes Spent Total Time Spent with Patient: Total time spent is greater than 50% in coordination of care (as documented) at patient's floor/unit and/or counseling patient: Coding Level of Care Code 88972 Subseq Hosp Care Lvl 3 Diagnoses Acute on chronic respiratory failure with hypoxia J96.21 Bilateral pleural effusion J90 CKD stage 4 due to type 2 diabetes mellitus E11.22; N18.4 Dyslipidemia E78.5 Hypertension I10 Hypertension type: essential hypertension Time Spent (min) 35 (1) Hypertension Hypertension type: essential hypertension Qualified Code(s): I10 - Essential (primary) hypertension
[2020-01-02] MEDS: LEVOTHYROXINE SODIUM 137 MCG TABLET PO SCH (11:16)
[2020-01-02] MEDS: CLOPIDOGREL BISULFATE 75 MG TAB PO SCH (11:16)
[2020-01-02] MEDS: LOPERAMIDE HCL 2 MG CAP PO SCH ×4 (11:18→23:11)
[2020-01-02] MEDS ORDERED: PHARMACY GLYCEMIC MGMT CONSULT PRN (15:11)
[2020-01-02] MEDS ORDERED: INSULIN GLARGINE SOLOSTAR 100 UNITS/ML 3 ML PEN SC ONE (15:15)
--- NOTE | 2020-01-02 15:26 | Pharmacy Report ---
Pharmacy Glycemic Short Note 2 - Date of Service January 02, 2020 - Glycemic Short BSG Results (Last 24 hours): 01/01/20 01/01/20 01/01/20 16:33 17:26 20:25 Glucose POC Glucose 160 H 140 H 172 H 01/02/20 01/02/20 01/02/20 06:55 06:58 11:40 Glucose 231 H POC Glucose 237 H 277 H OUTPATIENT ANTIDIABETIC REGIMEN: * NPH 60 units w/ breakfast + 30 units with evening meal * A1c = 7.9% 09/18/19 ASSESSMENT: * Patient admitted for acute on chronic resp failure, likely due to ADHF * Fasting BSGs 230-240 range last 2 days - will initiate basal insulin. On prior admissions patient required ~60 units of insulin per day while tolerating a diet and at times required up to 40 units of basal insulin per day. Will base initial basal/bolus doses upon an anticipated total daily dose of ~60 units. PLAN FOR INPATIENT GLYCEMIC CONTROL: * Hold outpatient oral diabetes medications * Basal insulin * Lantus 20units x 1 now then 15 units SQ BID * Bolus insulin * NovoLog per scale ACHS or Q6hrs while NPO * Goal Range: Low 110 mg/dL - High 140 mg/dL * Correction Factor: 25 mg/dL/unit * Nutritional / Prandial insulin per carb ratio of 1 unit per 8 grams CHO consumed PLAN FOR DISCHARGE: * to be determined
[2020-01-02] MEDS ORDERED: WARFARIN SOD 5 MG TAB PO SCH (16:00)
[2020-01-02] MEDS: WARFARIN SOD 4 MG TAB PO SCH (16:17)
[2020-01-02] MEDS: INSULIN GLARGINE SOLOSTAR 100 UNITS/ML 3 ML PEN SC SCH (21:24)
[2020-01-03] MEDS: LOPERAMIDE HCL 2 MG CAP PO SCH ×6 (03:37→22:48)
[2020-01-03] MEDS: LEVOTHYROXINE SODIUM 137 MCG TABLET PO SCH (06:30)
[2020-01-03] MEDS: ISOSORBIDE DINITRATE 10 MG TAB PO SCH ×2 (06:31→12:19)
[2020-01-03 08:15] LABS: Basophils # (auto) 0.02 K/uL (0-0.2); Basophils % (auto) 0.2 %; Eosinophils # (auto) 0.25 K/uL (0-0.5); Eosinophils % (auto) 2.1 %; Hematocrit (blood only) 36.1 % (42-52); Hemoglobin 12.2 g/dL (14.0-18.0); Immature Granulocytes # (auto) 0.03 K/uL (0.00-0.02); Immature Granulocytes % (auto) 0.3 %; Lymphocytes % (auto) 25.5 %; Mean Corpuscular Hemoglobin 32.5 pg (25-34); Mean Corpuscular Hgb Conc 33.8 g/dL (32-36); Mean Corpuscular Volume 96.3 fL (80-100); Mean Platelet Volume 10.7 fL (7.4-10.4); Monocytes # (auto) 0.82 K/uL (0.11-0.59); Neutrophils # (auto) 7.63 K/uL (1.4-6.5); Neutrophils % (auto) 64.9 %; Platelet Count 189 K/uL (130-400); RDW Coefficient of Variation 13.9 % (11.5-14.5); RDW Standard Deviation 49.5 fL (36.4-46.3); Red Blood Count 3.75 M/uL (4.7-6.1); White Blood Count 11.75 K/uL (4.8-10.8)
[2020-01-03 08:27] LABS: INR 1.2 (0.9-1.1); Prothrombin Time 12.6 Seconds (9.0-12.0)
[2020-01-03] MEDS: METOPROLOL SUCC 50MG EXT REL TAB PO SCH (08:51)
[2020-01-03] MEDS: FUROSEMIDE 80 MG in SYRINGE 0 ML IV SCH (08:51)
[2020-01-03] MEDS: INSULIN GLARGINE SOLOSTAR 100 UNITS/ML 3 ML PEN SC SCH ×2 (08:51→21:02)
[2020-01-03] MEDS: HEPARIN SOD 5,000 UNIT/0.5 ML VIAL SQ SCH ×2 (08:51→21:01)
[2020-01-03] MEDS: ATORVASTATIN 40 MG TAB PO SCH (08:51)
[2020-01-03] MEDS: CLOPIDOGREL BISULFATE 75 MG TAB PO SCH (08:51)
[2020-01-03 08:52] LABS: Albumin Level 2.9 gm/dl (3.4-5.0); BUN Creatinine Ratio 18.9 (10-20); Calcium 8.8 mg/dl (8.5-10.1); Creatinine Clr Calc Pharmacy 13.4 ml/min; Est GFR (Non-African American) 13.8; Magnesium 1.9 mg/dl (1.8-2.4); Potassium 3.8 mmol/L (3.5-5.1)
[2020-01-03] MEDS: INSULIN ASPART 100 UNITS/ML 3 ML PEN SC SCH ×4 (08:52→20:56)
[2020-01-03 08:56] LABS: Albumin Globulin Ratio 0.7 (0.9-2); Bilirubin,Total 0.6 mg/dl (0.2-1); Globulin 3.9 gm/dl (2.5-4.0); Total Protein 6.8 gm/dl (6.4-8.2)
[2020-01-03 10:10] LABS: Estimated Average Glucose 212 mg/dl
--- NOTE | 2020-01-03 15:24 | XRay Report ---
XR KUB/Abdomen 1 view CLINICAL HISTORY: diarrhea COMPARISON STUDY: 02/22/2018 FINDINGS: The soft tissues, psoas shadows, renal outlines and intestinal gas pattern appear normal. T here is no evidence for bowel obstruction. No abnormal abdominal calcifications are seen. Small left pleural effusion IMPRESSION: 1. No acute process in the abdomen. 2. Small left pleural effusion and/or atelectasis. ACT 112: Negative or not required by law. The above report was generated using voice recognition software. It may contain grammatical, syntax or spelling errors. Electronically signed by: Chris Muñoz M.D. 01/03/2020 3:22 PM
--- NOTE | 2020-01-03 16:29 | Electrocardiogram Report ---
Test Reason : Blood Pressure : / mmHG Vent. Rate : 081 BPM Atrial Rate : 081 BPM P-R Int : 232 ms QRS Dur : 172 ms QT Int : 466 ms P-R-T Axes : 087 -09 165 degrees QTc Int : 541 ms Sinus rhythm with 1st degree A-V block Left bundle branch block Abnormal ECG When compared with ECG of 31-DEC-2019 00:41, (unconfirmed) HR has decreased Confirmed by Baron Holland ([id number] on 01/03/2020 4:29:00 PM Referred By: REFERRED SELF Confirmed By:Baron Holland
[2020-01-03] MEDS: WARFARIN SOD 3 MG TAB PO SCH (16:30)
[2020-01-03] MEDS: CIPRO 0.3%/DEXAMETHASONE 0.1% OTIC SUSP 7.5ML OT SCH (21:00)
--- NOTE | 2020-01-03 22:57 | Hospitalist Progress Note ---
Date of Service January 03, 2020 Assessment & Plan (1) Acute on chronic respiratory failure with hypoxia: Acute on chronic respiratory failure with hypoxia/bilateral pleural effusions left greater than right/CHF exacerbation/12 pound weight gain in 5 days- Appears likely to be acute congestive heart failure secondary to LOW EF and likely dietary non compliance. Patient appears to not be handling the furosemide as well at home. Likely due to the poor bioavaliablity. May likely switch to bumex as an outpatient. The patient will be admitted to telemetry for serial cardiac enzymes, serial EKG's, cardiac rhythm monitoring. resumed furosemide, isosorbide dinitrate, metoprolol succinate. Plavix and wafarin and amlodipine are still held. Continue IV lasix as creatinine has maintained well and patient is tolerating this medication. Creatinine has not been worsening. (2) Bilateral pleural effusion: See above. Pleural effusion on the left, is particularly likely to be accessible to thoracentesis (3) CKD stage 4 due to type 2 diabetes mellitus: Creatinine 3.85 upon admission, with range 3.22-4.46. Follow serially. (4) Dyslipidemia: Hold atorvastatin until taking p.o. (5) Hypertension: See above will transfer to med surg. (6) Diarrhea: Diarrhea has improved, will continue to monitor. hopefuly it continues to improve now that lasix will be tapered. Admission and Anticipated Discharge Date Admission Date: December 31, 2019 Subjective 89 yo male has no new complaints today. He has been having loose stools this AM, but none in the afternoon. Review of Systems Review of Systems: All systems reviewed & are unremarkable except as noted in HPI & below Physical Exam Physical Exam: AA0 to person, normocephalic and atraumatic, lying in bed and in no acute distress. HEENT--PERRL, EOMI, mucous membranes and oropharynx normal Neck--supple. No JVD. No bruits. Thyroid normal, trachea midline, no adenopathy. Heart--normal S1 and S2. No murmurs, rubs or gallops. Lungs--no crackles,, no accessory muscle use improved on BiPAP Abdomen--normal bowel sounds and soft. Nontender. Nondistended. Extremities--no cyanosis or clubbing. decreased edema. Dermatologic--normal skin turgor, normal color, no abnormal lymph nodes, no rash. Neurologic--cranial nerves II through XII grossly intact. Rheumatologic--limited exam Results & Data Results & Data ([facility]) Vital Signs (Past 12 Hours) Vital Signs Temp Pulse Resp BP BP Pulse Ox 01/03/20 22:52 36.7 C 69 18 122/70 93 01/03/20 15:33 36.5 C 70 20 115/65 96 01/03/20 11:46 36.3 C L 72 20 123/74 97 PG Care Time/CCT Total # of Minutes Spent Total Time Spent with Patient: Total time spent is greater than 50% in coordination of care (as documented) at patient's floor/unit and/or counseling patient: Coding Level of Care Code 34857 Subseq Hosp Care Lvl 2 Diagnoses Acute on chronic respiratory failure with hypoxia J96.21 Bilateral pleural effusion J90 CKD stage 4 due to type 2 diabetes mellitus E11.22; N18.4 Dyslipidemia E78.5 Hypertension I10 Hypertension type: essential hypertension Diarrhea R19.7 (1) Hypertension Hypertension type: essential hypertension Qualified Code(s): I10 - Essential (primary) hypertension
[2020-01-04] MEDS: LOPERAMIDE HCL 2 MG CAP PO SCH ×6 (03:23→23:56)
[2020-01-04] MEDS: ISOSORBIDE DINITRATE 10 MG TAB PO SCH ×2 (06:08→12:31)
[2020-01-04] MEDS: LEVOTHYROXINE SODIUM 137 MCG TABLET PO SCH (06:08)
[2020-01-04] MEDS: METOPROLOL SUCC 50MG EXT REL TAB PO SCH (07:58)
[2020-01-04] MEDS: CLOPIDOGREL BISULFATE 75 MG TAB PO SCH (07:58)
[2020-01-04] MEDS: ATORVASTATIN 40 MG TAB PO SCH (07:58)
[2020-01-04] MEDS: INSULIN GLARGINE SOLOSTAR 100 UNITS/ML 3 ML PEN SC SCH ×2 (07:59→21:47)
[2020-01-04] MEDS: INSULIN ASPART 100 UNITS/ML 3 ML PEN SC SCH ×4 (07:59→21:47)
[2020-01-04] MEDS: CIPRO 0.3%/DEXAMETHASONE 0.1% OTIC SUSP 7.5ML OT SCH ×2 (07:59→21:45)
[2020-01-04] MEDS: HEPARIN SOD 5,000 UNIT/0.5 ML VIAL SQ SCH ×2 (07:59→21:45)
[2020-01-04 08:13] LABS: INR 1.4 (0.9-1.1); Prothrombin Time 14.5 Seconds (9.0-12.0)
--- NOTE | 2020-01-04 08:21 | Electrocardiogram Report ---
Test Reason : Blood Pressure : / mmHG Vent. Rate : 081 BPM Atrial Rate : 081 BPM P-R Int : 222 ms QRS Dur : 174 ms QT Int : 490 ms P-R-T Axes : 074 -35 160 degrees QTc Int : 569 ms Sinus rhythm with 1st degree A-V block with occasional Premature ventricular complexes Left axis deviation Left bundle branch block Abnormal ECG When compared with ECG of 01-JAN-2020 06:48, (unconfirmed) Premature ventricular complexes are now Present T wave inversion more evident in Lateral leads Confirmed by Baron Holland ([id number] on 01/04/2020 8:21:12 AM Referred By: REFERRED SELF Confirmed By:Baron Holland
--- NOTE | 2020-01-04 13:50 | Pharmacy Report ---
Pharmacy Glycemic Short Note 2 - Date of Service January 04, 2020 - Glycemic Short BSG Results (Last 24 hours): 01/03/20 01/03/20 01/04/20 16:38 20:20 07:32 POC Glucose 162 H 120 H 106 H 01/04/20 11:36 POC Glucose 244 H OUTPATIENT ANTIDIABETIC REGIMEN: * NPH 60 units w/ breakfast + 30 units with evening meal * A1c = 7.9% 09/18/19 ASSESSMENT: 01/03 * Patient received 47 units of insulin yesterday, 30 of basal, 17 correctional/prandial * Fasting BSG has trended down, 106 today, will continue current basal, if continues to decrease may consider reducing * Prandial BSGs improved yesterday, lunch elevated again today, will continue current novolog parameters, tighten if continues to be hyperglycemic 01/01 * Patient admitted for acute on chronic resp failure, likely due to ADHF * Fasting BSGs 230-240 range last 2 days - will initiate basal insulin. On prior admissions patient required ~60 units of insulin per day while tolerating a diet and at times required up to 40 units of basal insulin per da y. Will base initial basal/bolus doses upon an anticipated total daily dose of ~60 units. PLAN FOR INPATIENT GLYCEMIC CONTROL: * Hold outpatient oral diabetes medications * Basal insulin * Lantus 15 units SQ BID * Bolus insulin * NovoLog per scale ACHS or Q6hrs while NPO * Goal Range: Low 110 mg/dL - High 140 mg/dL * Correction Factor: 20 mg/dL/unit * Nutritional / Prandial insulin per carb ratio of 1 unit per 8 grams CHO consumed PLAN FOR DISCHARGE: * to be determined
[2020-01-04] MEDS: WARFARIN SOD 4 MG TAB PO SCH (15:45)
[2020-01-04] MEDS ORDERED: BUMETANIDE 1 MG TAB PO ONE (16:29)
[2020-01-04 16:55] LABS: Basophils # (auto) 0.01 K/uL (0-0.2); Basophils % (auto) 0.1 %; Eosinophils # (auto) 0.04 K/uL (0-0.5); Eosinophils % (auto) 0.3 %; Hematocrit (blood only) 35.8 % (42-52); Hemoglobin 11.7 g/dL (14.0-18.0); Immature Granulocytes # (auto) 0.02 K/uL (0.00-0.02); Immature Granulocytes % (auto) 0.2 %; Lymphocytes # (auto) 2.35 K/uL (1.2-3.4); Lymphocytes % (auto) 18.2 %; Mean Corpuscular Hemoglobin 31.5 pg (25-34); Mean Corpuscular Hgb Conc 32.7 g/dL (32-36); Mean Corpuscular Volume 96.2 fL (80-100); Mean Platelet Volume 10.6 fL (7.4-10.4); Monocytes # (auto) 0.85 K/uL (0.11-0.59); Monocytes % (auto) 6.6 %; Neutrophils # (auto) 9.61 K/uL (1.4-6.5); Neutrophils % (auto) 74.6 %; Platelet Count 183 K/uL (130-400); RDW Standard Deviation 49.3 fL (36.4-46.3); Red Blood Count 3.72 M/uL (4.7-6.1); White Blood Count 12.88 K/uL (4.8-10.8)
[2020-01-04 17:12] LABS: BUN Creatinine Ratio 20.5 (10-20); Calcium 8.3 mg/dl (8.5-10.1); Creatinine Clr Calc Pharmacy 12.3 ml/min; Est GFR (African American) 14.4; Est GFR (Non-African American) 12.4; Potassium 4.3 mmol/L (3.5-5.1)
--- NOTE | 2020-01-04 23:05 | Hospitalist Progress Note ---
Date of Service January 04, 2020 Assessment & Plan (1) Acute on chronic respiratory failure with hypoxia: Acute on chronic respiratory failure with hypoxia/bilateral pleural effusions left greater than right/CHF exacerbation/12 pound weight gain in 5 days- Appears likely to be acute congestive heart failure secondary to LOW EF and likely dietary non compliance. Patient appears to not be handling the furosemide as well at home. Likely due to the poor bioavaliablity. May likely switch to bumex as an outpatient. The patient will be admitted to telemetry for serial cardiac enzymes, serial EKG's, cardiac rhythm monitoring. resumed furosemide, isosorbide dinitrate, metoprolol succinate. Resumed plavix and warfarin. will switch to bumex and monitor creatinine. (2) Bilateral pleural effusion: See above. Pleural effusion on the left, is particularly likely to be accessible to thoracentesis (3) CKD stage 4 due to type 2 diabetes mellitus: Creatinine 3.85 upon admission, with range 3.22-4.46. Follow serially. (4) Dyslipidemia: Hold atorvastatin (5) Hypertension: See above will transfer to med surg. (6) Diarrhea: Diarrhea continues to improve. Admission and Anticipated Discharge Date Admission Date: December 31, 2019 Subjective Patient reports no new symptoms at this time. Review of Systems Review of Systems: All systems reviewed & are unremarkable except as noted in HPI & below Physical Exam Physical Exam: AA0 to person, normocephalic and atraumatic, lying in bed and in no acute distress. HEENT--PERRL, EOMI, mucous membranes and oropharynx normal Neck--supple. No JVD. No bruits. Thyroid normal, trachea midline, no adenopathy. Heart--normal S1 and S2. No murmurs, rubs or gallops. Lungs--no crackles,, no accessory muscle use improved on BiPAP Abdomen--normal bowel sounds and soft. Nontender. Nondistended. Extremities--no cyanosis or clubbing. decreased edema. Dermatologic--normal skin turgor, normal color, no abnormal lymph nodes, no rash. Neurologic--cranial nerves II through XII grossly intact. Rheumatologic--limited exam Results & Data Results & Data ([facility]) Vital Signs (Past 12 Hours) Vital Signs Temp Pulse Resp BP Pulse Ox 01/04/20 15:00 36.3 C L 67 18 108/63 96 PG Care Time/CCT Total # of Minutes Spent Total Time Spent with Patient: Total time spent is greater than 50% in coordination of care (as documented) at patient's floor/unit and/or counseling patient: Coding Level of Care Code 68142 Subseq Hosp Care Lvl 2 Diagnoses Acute on chronic respiratory failure with hypoxia J96.21 Bilateral pleural effusion J90 CKD stage 4 due to type 2 diabetes mellitus E11.22; N18.4 Dyslipidemia E78.5 Hypertension I10 Hypertension type: essential hypertension Diarrhea R19.7 Time Spent (min) 25 (1) Hypertension Hypertension type: essential hypertension Qualified Code(s): I10 - Essential (primary) hypertension
[2020-01-05] MEDS: LOPERAMIDE HCL 2 MG CAP PO SCH ×6 (03:43→22:03)
[2020-01-05] MEDS: LEVOTHYROXINE SODIUM 137 MCG TABLET PO SCH (06:33)
[2020-01-05] MEDS: ISOSORBIDE DINITRATE 10 MG TAB PO SCH ×2 (06:33→12:15)
[2020-01-05 08:08] LABS: INR 1.8 (0.9-1.1); Prothrombin Time 18.8 Seconds (9.0-12.0)
[2020-01-05] MEDS: HEPARIN SOD 5,000 UNIT/0.5 ML VIAL SQ SCH ×2 (08:51→21:00)
[2020-01-05] MEDS: INSULIN ASPART 100 UNITS/ML 3 ML PEN SC SCH ×4 (08:52→21:00)
[2020-01-05] MEDS: INSULIN GLARGINE SOLOSTAR 100 UNITS/ML 3 ML PEN SC SCH ×2 (08:52→21:01)
[2020-01-05] MEDS: METOPROLOL SUCC 50MG EXT REL TAB PO SCH (08:53)
[2020-01-05] MEDS: ATORVASTATIN 40 MG TAB PO SCH (08:53)
[2020-01-05] MEDS: CLOPIDOGREL BISULFATE 75 MG TAB PO SCH (08:53)
[2020-01-05] MEDS: CIPRO 0.3%/DEXAMETHASONE 0.1% OTIC SUSP 7.5ML OT SCH ×2 (08:58→21:00)
[2020-01-05 12:45] LABS: Basophils # (auto) 0.01 K/uL (0-0.2); Basophils % (auto) 0.1 %; Eosinophils # (auto) 0.01 K/uL (0-0.5); Eosinophils % (auto) 0.1 %; Hematocrit (blood only) 33.6 % (42-52); Hemoglobin 11.2 g/dL (14.0-18.0); Immature Granulocytes # (auto) 0.02 K/uL (0.00-0.02); Immature Granulocytes % (auto) 0.2 %; Lymphocytes # (auto) 1.66 K/uL (1.2-3.4); Lymphocytes % (auto) 14.9 %; Mean Corpuscular Hemoglobin 31.9 pg (25-34); Mean Corpuscular Hgb Conc 33.3 g/dL (32-36); Mean Corpuscular Volume 95.7 fL (80-100); Mean Platelet Volume 10.6 fL (7.4-10.4); Monocytes # (auto) 0.62 K/uL (0.11-0.59); Monocytes % (auto) 5.6 %; Neutrophils # (auto) 8.84 K/uL (1.4-6.5); Neutrophils % (auto) 79.1 %; Platelet Count 171 K/uL (130-400); RDW Standard Deviation 49.1 fL (36.4-46.3); Red Blood Count 3.51 M/uL (4.7-6.1); White Blood Count 11.16 K/uL (4.8-10.8)
[2020-01-05 12:55] LABS: Prothrombin Time 20.4 Seconds (9.0-12.0)
--- NOTE | 2020-01-05 13:56 | Pharmacy Report ---
Pharmacy Glycemic Short Note 2 - Date of Service January 05, 2020 - Glycemic Short BSG Results (Last 24 hours): 01/04/20 01/04/20 01/04/20 16:47 16:54 21:10 Glucose 169 H POC Glucose 165 H 114 H 01/05/20 01/05/20 07:49 12:02 Glucose POC Glucose 165 H 236 H OUTPATIENT ANTIDIABETIC REGIMEN: * NPH 60 units w/ breakfast + 30 units with evening meal * A1c = 7.9% 09/18/19 ASSESSMENT: 01/04 * Patient received 52 units of insulin yesterday with adequate control * Fasting BSG 165 today, will continue current lantus dosing * Lunch BSG continues to be elevated, will tighten breakfast parameters only for tomorrow 01/03 * Patient received 47 units of insulin yesterday, 30 of basal, 17 correctional/prandial * Fasting BSG has trended down, 106 today, will continue current basal, if continues to decrease may consider reducing * Prandial BSGs improved yesterday, lunch elevated again today, will continue current novolog parameters, tighten if continues to be hyperglycemic 01/01 * Patient admitted for acute on chronic resp failure, likely due to ADHF * Fasting BSGs 230-240 range last 2 days - will initiate basal insulin. On prior admissions patient required ~60 units of insulin per day while tolerat ing a diet and at times required up to 40 units of basal insulin per day. Will base initial basal/bolus doses upon an anticipated total daily dose of ~60 units. PLAN FOR INPATIENT GLYCEMIC CONTROL: * Hold outpatient oral diabetes medications * Basal insulin * Lantus 15 units SQ BID * Bolus insulin * NovoLog per scale ACHS or Q6hrs while NPO * Goal Range: Low 110 mg/dL - High 140 mg/dL * Correction Factor: 20 mg/dL/unit * Nutritional / Prandial insulin per carb ratio of 1 unit per 7 grams CHO consumed at breakfast, 8 grams CHO consumed at lunch,dinner, HS PLAN FOR DISCHARGE: * to be determined
[2020-01-05] MEDS: WARFARIN SOD 3 MG TAB PO SCH (16:23)
--- NOTE | 2020-01-05 22:35 | Hospitalist Progress Note ---
Date of Service January 05, 2020 Assessment & Plan (1) Acute on chronic respiratory failure with hypoxia: Acute on chronic respiratory failure with hypoxia/bilateral pleural effusions left greater than right/CHF exacerbation/12 pound weight gain in 5 days- Appears likely to be acute congestive heart failure secondary to LOW EF and likely dietary non compliance. Patient appears to not be handling the furosemide as well at home. Likely due to the poor bioavaliablity. May likely switch to bumex as an outpatient. Patient improved on lasix. However, creatinine has risen. Will hold diuretic. will monitor renal function. ordered repeat weight. (2) Bilateral pleural effusion: See above. Pleural effusion on the left, is particularly likely to be accessible to thoracentesis (3) CKD stage 4 due to type 2 diabetes mellitus: Creatinine 3.85 upon admission, with range 3.22-4.46. Follow serially. (4) Dyslipidemia: Hold atorvastatin (5) Hypertension: See above will transfer to med surg. (6) Diarrhea: Diarrhea continues to improve. (7) Metabolic encephalopathy: Acute metabolic encephalopathy will monitor. likely uremic encephalopathy. Updated . Admission and Anticipated Discharge Date Admission Date: December 31, 2019 Subjective 89 yo male has no new complaints. His is at bedside and reports that he appears more confused today. Review of Systems Review of Systems: All systems reviewed & are unremarkable except as noted in HPI & below Physical Exam Physical Exam: AA0 to person, normocephalic and atraumatic, lying in bed and in no acute distress. HEENT--PERRL, EOMI, mucous membranes and oropharynx normal Neck--supple. No JVD. No bruits. Thyroid normal, trachea midline, no adenopathy. Heart--normal S1 and S2. No murmurs, rubs or gallops. Lungs--no crackles,, no accessory muscle use improved on BiPAP Abdomen--normal bowel sounds and soft. Nontender. Nondistended. Extremities--no cyanosis or clubbing. decreased edema. Dermatologic--normal skin turgor, normal color, no abnormal lymph nodes, no rash. Neurologic--cranial nerves II through XII grossly intact. Rheumatologic--limited exam Results & Data Results & Data ([facility]) Vital Signs (Past 12 Hours) Vital Signs Temp Pulse Resp BP Pulse Ox 01/05/20 14:59 36.2 C L 75 112/65 95 07/31/20 11:46 36.4 C L 68 18 125/68 98 PG Care Time/CCT Total # of Minutes Spent Total Time Spent with Patient: Total time spent is greater than 50% in coordination of care (as documented) at patient's floor/unit and/or counseling patient: Coding Level of Care Code 73998 Subseq Hosp Care Lvl 3 Diagnoses Acute on chronic respiratory failure with hypoxia J96.21 Bilateral pleural effusion J90 CKD stage 4 due to type 2 diabetes mellitus E11.22; N18.4 Dyslipidemia E78.5 Hypertension I10 Hypertension type: essential hypertension Diarrhea R19.7 Metabolic encephalopathy G93.41 (1) Hypertension Hypertension type: essential hypertension Qualified Code(s): I10 - Essential (primary) hypertension
[2020-01-06] MEDS: LEVOTHYROXINE SODIUM 137 MCG TABLET PO SCH (06:01)
[2020-01-06] MEDS: ISOSORBIDE DINITRATE 10 MG TAB PO SCH ×2 (06:02→12:28)
[2020-01-06 07:21] LABS: Hematocrit (blood only) 35.6 % (42-52); Hemoglobin 11.7 g/dL (14.0-18.0); Mean Corpuscular Hemoglobin 31.8 pg (25-34); Mean Corpuscular Hgb Conc 32.9 g/dL (32-36); Mean Corpuscular Volume 96.7 fL (80-100); Mean Platelet Volume 10.9 fL (7.4-10.4); Platelet Count 242 K/uL (130-400); RDW Standard Deviation 49.7 fL (36.4-46.3); Red Blood Count 3.68 M/uL (4.7-6.1); White Blood Count 15.21 K/uL (4.8-10.8)
[2020-01-06] MEDS ORDERED: INSULIN ASPART 100 UNITS/ML 3 ML PEN SC SCH (07:30)
[2020-01-06 07:39] LABS: INR 2.1 (0.9-1.1); Prothrombin Time 21.6 Seconds (9.0-12.0)
[2020-01-06] MEDS: CIPRO 0.3%/DEXAMETHASONE 0.1% OTIC SUSP 7.5ML OT SCH ×2 (07:43→20:48)
[2020-01-06] MEDS: METOPROLOL SUCC 50MG EXT REL TAB PO SCH (07:43)
[2020-01-06] MEDS: CLOPIDOGREL BISULFATE 75 MG TAB PO SCH (07:43)
[2020-01-06] MEDS: ATORVASTATIN 40 MG TAB PO SCH (07:43)
[2020-01-06] MEDS: INSULIN ASPART 100 UNITS/ML 3 ML PEN SC SCH ×4 (08:08→20:46)
[2020-01-06] MEDS: HEPARIN SOD 5,000 UNIT/0.5 ML VIAL SQ SCH ×2 (08:08→20:47)
[2020-01-06] MEDS: INSULIN GLARGINE SOLOSTAR 100 UNITS/ML 3 ML PEN SC SCH ×2 (08:09→20:59)
[2020-01-06 13:56] LABS: Albumin Level 2.9 gm/dl (3.4-5.0); BUN Creatinine Ratio 26.5 (10-20); Calcium 8.7 mg/dl (8.5-10.1); Creatinine Clr Calc Pharmacy 13.2 ml/min; Est GFR (African American) 15.8; Est GFR (Non-African American) 13.6; Potassium 4.2 mmol/L (3.5-5.1)
[2020-01-06 13:58] LABS: Albumin Globulin Ratio 0.8 (0.9-2); Bilirubin,Total 0.4 mg/dl (0.2-1); Globulin 3.8 gm/dl (2.5-4.0); Total Protein 6.7 gm/dl (6.4-8.2)
[2020-01-06 14:23] LABS: Basophils # (auto) 0.01 K/uL (0-0.2); Basophils % (auto) 0.1 %; Echinocytes 1+; Eosinophils # (auto) 0.03 K/uL (0-0.5); Eosinophils % (auto) 0.2 %; Immature Granulocytes # (auto) 0.02 K/uL (0.00-0.02); Immature Granulocytes % (auto) 0.1 %; Lymphocytes # (auto) 3.62 K/uL (1.2-3.4); Lymphocytes % (auto) 23.6 %; Monocytes # (auto) 0.88 K/uL (0.11-0.59); Monocytes % (auto) 5.7 %; Neutrophils % (auto) 70.3 %
--- NOTE | 2020-01-06 14:27 | XRay Report ---
XR KUB/Abdomen 1 view CLINICAL HISTORY: diarrhea pain COMPARISON STUDY: No previous studies for comparison. FINDINGS: The soft tissues, psoas shadows, renal outlines and intestinal gas pattern appear normal. T here is no evidence for bowel obstruction. No abnormal abdominal calcifications are seen. IMPRESSION: Normal study. ACT 112: Negative or not required by law. The above report was generated using voice recognition software. It may contain grammatical, syntax or spelling errors. Electronically signed by: Chris Muñoz M.D. 01/06/2020 2:26 PM
--- NOTE | 2020-01-06 14:30 | XRay Report ---
XR chest 2V PA/lateral CLINICAL HISTORY: hypoxia dyspnea COMPARISON STUDY: 12/31/2019 FINDINGS: Moderate decrease in volume of a left effusion. Trace pleural effusion right base. Intersti tial infiltrative changes in the lung bases is considered improved. IMPRESSION: Improving congestive failure. Decrease in volume of bilateral pleural effusions. ACT 112: Negative or not required by law. The above report was generated using voice recognition software. It may contain grammatical, syntax or spelling errors. Electronically signed by: Chris Muñoz M.D. 01/06/2020 2:28 PM
[2020-01-06] MEDS: WARFARIN SOD 4 MG TAB PO SCH (18:01)
--- NOTE | 2020-01-06 22:30 | Hospitalist Progress Note ---
Date of Service January 06, 2020 Assessment & Plan (1) Acute on chronic respiratory failure with hypoxia: Acute on chronic respiratory failure with hypoxia/bilateral pleural effusions left greater than right/CHF exacerbation/12 pound weight gain in 5 days- Appears likely to be acute congestive heart failure secondary to LOW EF and likely dietary non compliance. Patient appears to not be handling the furosemide as well at home. Likely due to the poor bioavaliablity. May likely switch to bumex as an outpatient. Patient improved on lasix. Appears to be euvolemic However, creatinine has risen. May be due to his diarrhea, however for the past 24 hous, not having much loose stools. Will hold diuretic. will monitor renal function. ordered repeat weight, despite it being ordered daily, it is not showing up for past 2 days. Informed nurse to retake it (2) Bilateral pleural effusion: See above. Pleural effusion on the left, is particularly likely to be accessible to thoracentesis (3) CKD stage 4 due to type 2 diabetes mellitus: Creatinine 3.85 upon admission, with range 3.22-4.46. Follow serially. currently at 4 (4) Dyslipidemia: Hold atorvastatin (5) Hypertension: See above will transfer to med surg. (6) Diarrhea: Diarrhea continues to improve. will monitor, unsure of the cause given no signs of infection. No medications that would e causing it. WBC has gradually be going up as well. (7) Metabolic encephalopathy: Acute metabolic encephalopathy will monitor. Has improved. likely uremic encephalopathy. Updated . Admission and Anticipated Discharge Date Admission Date: December 31, 2019 Subjective 89 yo male reports feeling well. He has no new complaints. Review of Systems Review of Systems: All systems reviewed & are unremarkable except as noted in HPI & below Physical Exam Physical Exam: AA0 to person, normocephalic and atraumatic, lying in bed and in no acute distress. HEENT--PERRL, EOMI, mucous membranes and oropharynx normal Neck--supple. No JVD. No bruits. Thyroid normal, trachea midline, no adenopathy. Heart--normal S1 and S2. No murmurs, rubs or gallops. Lungs--no crackles,, no accessory muscle use improved on BiPAP Abdomen--normal bowel sounds and soft. Nontender. Nondistended. Extremities--no cyanosis or clubbing. decreased edema. Dermatologic--normal skin turgor, normal color, no abnormal lymph nodes, no rash. Neurologic--cranial nerves II through XII grossly intact. Rheumatologic--limited exam Results & Data Results & Data ([facility]) Vital Signs (Past 12 Hours) Vital Signs Temp Pulse Resp BP Pulse Ox 01/06/20 15:25 36.5 C 68 16 112/55 L 97 01/06/20 14:31 36.4 C L 70 18 117/68 99 PG Care Time/CCT Total # of Minutes Spent Total Time Spent with Patient: Total time spent is greater than 50% in coordination of care (as documented) at patient's floor/unit and/or counseling patient: Coding Level of Care Code 72552 Subseq Hosp Care Lvl 3 Diagnoses Acute on chronic respiratory failure with hypoxia J96.21 Bilateral pleural effusion J90 CKD stage 4 due to type 2 diabetes mellitus E11.22; N18.4 Dyslipidemia E78.5 Hypertension I10 Hypertension type: essential hypertension Diarrhea R19.7 Metabolic encephalopathy G93.41 Time Spent (min) 35 (1) Hypertension Hypertension type: essential hypertension Qualified Code(s): I10 - Essential (primary) hypertension
[2020-01-07] MEDS: LEVOTHYROXINE SODIUM 137 MCG TABLET PO SCH (06:06)
[2020-01-07 06:24] LABS: INR 2.4 (0.9-1.1); Prothrombin Time 23.8 Seconds (9.0-12.0)
[2020-01-07] MEDS: ISOSORBIDE DINITRATE 10 MG TAB PO SCH ×2 (07:35→13:11)
[2020-01-07] MEDS: METOPROLOL SUCC 50MG EXT REL TAB PO SCH (08:10)
[2020-01-07] MEDS: ATORVASTATIN 40 MG TAB PO SCH (08:10)
[2020-01-07] MEDS: CLOPIDOGREL BISULFATE 75 MG TAB PO SCH (08:10)
[2020-01-07] MEDS: CIPRO 0.3%/DEXAMETHASONE 0.1% OTIC SUSP 7.5ML OT SCH ×2 (08:13→21:06)
[2020-01-07 09:13] LABS: Albumin Level 2.5 gm/dl (3.4-5.0); BUN Creatinine Ratio 28.2 (10-20); Calcium 8.1 mg/dl (8.5-10.1); Est GFR (African American) 16.9; Est GFR (Non-African American) 14.6; Potassium 4.1 mmol/L (3.5-5.1)
[2020-01-07] MEDS: INSULIN ASPART 100 UNITS/ML 3 ML PEN SC SCH ×4 (09:16→21:28)
[2020-01-07] MEDS: HEPARIN SOD 5,000 UNIT/0.5 ML VIAL SQ SCH ×2 (09:17→21:09)
[2020-01-07] MEDS: INSULIN GLARGINE SOLOSTAR 100 UNITS/ML 3 ML PEN SC SCH ×2 (09:17→21:10)
[2020-01-07 09:18] LABS: Albumin Globulin Ratio 0.7 (0.9-2); Bilirubin,Total 0.4 mg/dl (0.2-1); Globulin 3.8 gm/dl (2.5-4.0); Total Protein 6.3 gm/dl (6.4-8.2)
[2020-01-07 09:33] LABS: Basophils # (auto) 0.02 K/uL (0-0.2); Basophils % (auto) 0.2 %; Eosinophils # (auto) 0.07 K/uL (0-0.5); Eosinophils % (auto) 0.8 %; Hematocrit (blood only) 33.8 % (42-52); Hemoglobin 11.1 g/dL (14.0-18.0); Immature Granulocytes # (auto) 0.01 K/uL (0.00-0.02); Immature Granulocytes % (auto) 0.1 %; Lymphocytes # (auto) 2.11 K/uL (1.2-3.4); Lymphocytes % (auto) 25.4 %; Mean Corpuscular Hgb Conc 32.8 g/dL (32-36); Mean Corpuscular Volume 97.4 fL (80-100); Mean Platelet Volume 11.6 fL (7.4-10.4); Monocytes # (auto) 0.54 K/uL (0.11-0.59); Monocytes % (auto) 6.5 %; Neutrophils # (auto) 5.55 K/uL (1.4-6.5); Platelet Count 210 K/uL (130-400); Platelet Estimate Normal (Normal); RDW Coefficient of Variation 14.2 % (11.5-14.5); RDW Standard Deviation 50.5 fL (36.4-46.3); Red Blood Count 3.47 M/uL (4.7-6.1)
--- NOTE | 2020-01-07 11:54 | Hospitalist Progress Note ---
Date of Service January 07, 2020 Assessment & Plan (1) Acute on chronic respiratory failure with hypoxia: Acute on chronic respiratory failure with hypoxia/bilateral pleural effusions left greater than right/CHF exacerbation/12 pound weight gain in 5 days- Appears likely to be acute congestive heart failure secondary to LOW EF and likely dietary non compliance. Patient appears to not be handling the furosemide as well at home. Likely due to the poor bioavaliablity. May likely switch to bumex as an outpatient. Patient improved on lasix. Appears to be euvolemic However, creatinine has risen. May be due to his diarrhea, however for the past 24 hous, not having much loose stools. Will hold diuretic especially given diarrhea. will monitor renal function. ordered repeat weight, despite it being ordered daily, it is not showing up for past 2 days. Informed nurse to retake it. It is 77 kg. Given his diarrhea, will likely have patient on 1mg of bumex daily or a sliding scale of his diuretics in regards to his daily weights. Will prefer the latter. May consider discussing with Adrianna Mona as she is back next week. It appears his can help administer the medications and monitor weights. Discharge is held for diarrhea, will reorder stool tests. wonders if him having chocolate cake from [employer] yesterday precipitated the diarrhea. (2) Bilateral pleural effusion: See above. Pleural effusion on the left, is particularly likely to be accessible to thoracentesis (3) CKD stage 4 due to type 2 diabetes mellitus: Creatinine 3.8 upon admission, with range 3.22-4.46. Follow serially. currently at 3.5 (4) Dyslipidemia: Hold atorvastatin (5) Hypertension: See above will transfer to med surg. (6) Diarrhea: Diarrhea worsened today. will monitor, unsure of the cause given no signs of infection. No medications that would e causing it. WBC improved which is reassuring. (7) Metabolic encephalopathy: Acute metabolic encephalopathy will monitor. Has improved. likely uremic encephalopathy. Updated . Admission and Anticipated Discharge Date Admission Date: December 31, 2019 Subjective Patient reports feeling well. Only complaint was this morning, patient was having significant diarrhea, and having to go to the bathroom every 10 minutes. Patient is concerned that he cannot make it to his house in [place]. Review of Systems Review of Systems: All systems reviewed & are unremarkable except as noted in HPI & below Physical Exam Physical Exam: AA0 to person, normocephalic and atraumatic, lying in bed and in no acute distress. HEENT--PERRL, EOMI, mucous membranes and oropharynx normal Neck--supple. No JVD. No bruits. Thyroid normal, trachea midline, no adenopathy. Heart--normal S1 and S2. No murmurs, rubs or gallops. Lungs--no crackles,, no accessory muscle use improved on BiPAP Abdomen--normal bowel sounds and soft. Nontender. Nondistended. Extremities--no cyanosis or clubbing. decreased edema. Dermatologic--normal skin turgor, normal color, no abnormal lymph nodes, no rash. Neurologic--cranial nerves II through XII grossly intact. Rheumatologic--limited exam Results & Data Results & Data ([facility]) Vital Signs (Past 12 Hours) Vital Signs Temp Pulse Resp BP Pulse Ox 01/07/20 07:34 36.5 C 75 16 135/70 97 PG Care Time/CCT Total # of Minutes Spent Total Time Spent with Patient: Total time spent is greater than 50% in coordination of care (as documented) at patient's floor/unit and/or counseling patient: Coding Level of Care Code 84564 Subseq Hosp Care Lvl 3 Diagnoses Acute on chronic respiratory failure with hypoxia J96.21 Bilateral pleural effusion J90 CKD stage 4 due to type 2 diabetes mellitus E11.22; N18.4 Dyslipidemia E78.5 Hypertension I10 Hypertension type: essential hypertension Diarrhea R19.7 Metabolic encephalopathy G93.41 Time Spent (min) 35 (1) Hypertension Hypertension type: essential hypertension Qualified Code(s): I10 - Essential (primary) hypertension
--- NOTE | 2020-01-07 12:36 | Pharmacy Report ---
Pharmacy Glycemic Short Note 2 - Date of Service January 07, 2020 - Glycemic Short BSG Results (Last 24 hours): 01/06/20 01/06/20 01/06/20 06:57 16:51 20:57 Glucose 100 H POC Glucose 137 H 184 H 01/07/20 01/07/20 01/07/20 05:55 08:27 11:57 Glucose 105 H POC Glucose 132 H 274 H OUTPATIENT ANTIDIABETIC REGIMEN: * NPH 60 units w/ breakfast + 30 units with evening meal * A1c = 7.9% 09/18/19 ASSESSMENT: 01/06: * Willy received 51 units of insulin yesterday (this is significantly less than home usage) * 30 units of basal * 19 units of bolus * Fasting BSG at goal - continue same * Post prandials continue to fluctuate despite tightening carb coverage on 01/05. Lunch and HS BSG are typically the highest. Will further tighten today. 01/04 * Patient received 52 units of insulin yesterday with adequate control * Fasting BSG 165 today, will continue current lantus dosing * Lunch BSG continues to be elevated, will tighten breakfast parameters only for tomorrow 01/03 * Patient received 47 units of insulin yesterday, 30 of basal, 17 correctional/prandial * Fasting BSG has trended down, 106 today, will continue current basal, if continues to decrease may consider reducing * Prandial BSGs improved yesterday, lunch elevated again today, will continue current novolog parameters, tighten if continues to be hyperglycemic 01/01 * Patient admitted for acute on chronic resp failure, likely due to ADHF * Fasting BSGs 230-240 range last 2 days - will initiate basal insulin. On prior admissions patient required ~60 units of insulin per day while tolerating a diet and at times required up to 40 units of basal insulin per day. Will base initial basal/bolus doses upon an anticipated total daily dose of ~60 units. PLAN FOR INPATIENT GLYCEMIC CONTROL: * Basal insulin * Lantus 15 units SQ BID * Bolus insulin * NovoLog per scale ACHS or Q6hrs while NPO * Goal Range: Low 110 mg/dL - High 140 mg/dL * Correction Factor: 20 mg/dL/unit * Nutritional / Prandial insulin per carb ratio of 1 unit per 5 grams CHO consumed at breakfast PLAN FOR DISCHARGE: * A1c = 7.9% (September 2019); acceptable for patient age * Seems reasonable to resume home regimen as long as patient is not experiencing frequent hypoglycemia (requiring significantly less insulin as inpatient)
[2020-01-07] MEDS: WARFARIN SOD 4 MG TAB PO SCH (16:06)
[2020-01-08] MEDS: LEVOTHYROXINE SODIUM 137 MCG TABLET PO SCH (06:22)
[2020-01-08] MEDS: ISOSORBIDE DINITRATE 10 MG TAB PO SCH ×2 (06:24→13:16)
[2020-01-08] MEDS: CLOPIDOGREL BISULFATE 75 MG TAB PO SCH (08:50)
[2020-01-08] MEDS: METOPROLOL SUCC 50MG EXT REL TAB PO SCH (08:50)
[2020-01-08] MEDS: ATORVASTATIN 40 MG TAB PO SCH (08:51)
[2020-01-08] MEDS: CIPRO 0.3%/DEXAMETHASONE 0.1% OTIC SUSP 7.5ML OT SCH (08:51)
[2020-01-08] MEDS: INSULIN GLARGINE SOLOSTAR 100 UNITS/ML 3 ML PEN SC SCH (09:03)
[2020-01-08] MEDS: HEPARIN SOD 5,000 UNIT/0.5 ML VIAL SQ SCH (09:04)
[2020-01-08 09:05] LABS: Basophils # (auto) 0.02 K/uL (0-0.2); Basophils % (auto) 0.2 %; Eosinophils # (auto) 0.11 K/uL (0-0.5); Eosinophils % (auto) 1.2 %; Hematocrit (blood only) 35.2 % (42-52); Hemoglobin 11.6 g/dL (14.0-18.0); Immature Granulocytes # (auto) 0.01 K/uL (0.00-0.02); Immature Granulocytes % (auto) 0.1 %; Lymphocytes # (auto) 2.54 K/uL (1.2-3.4); Mean Platelet Volume 10.8 fL (7.4-10.4); Monocytes % (auto) 6.6 %; Neutrophils % (auto) 63.9 %; Platelet Count 249 K/uL (130-400); RDW Coefficient of Variation 14.1 % (11.5-14.5); RDW Standard Deviation 50.4 fL (36.4-46.3); Red Blood Count 3.63 M/uL (4.7-6.1); White Blood Count 9.08 K/uL (4.8-10.8)
[2020-01-08] MEDS: INSULIN ASPART 100 UNITS/ML 3 ML PEN SC SCH ×2 (09:06→13:16)
[2020-01-08 09:12] LABS: INR 2.3 (0.9-1.1)
[2020-01-08 09:34] LABS: Albumin Level 2.9 gm/dl (3.4-5.0); BUN Creatinine Ratio 28.3 (10-20); Calcium 8.7 mg/dl (8.5-10.1); Creatinine Clr Calc Pharmacy 14.2 ml/min; Est GFR (Non-African American) 14.7; Potassium 4.1 mmol/L (3.5-5.1)
[2020-01-08 09:37] LABS: Albumin Globulin Ratio 0.7 (0.9-2); Bilirubin,Total 0.5 mg/dl (0.2-1); Globulin 4.1 gm/dl (2.5-4.0)
--- NOTE | 2020-01-08 12:50 | Palliative Care Consultation ---
Date of Consultation January 08, 2020 Assessment & Plan (1) Goals of care, counseling/discussion: This is an 89 year old who presented to the [facility] with increasing SOB and weight gain and was diagnosed with acute on chronic respiratory failure. The patient has a lengthy PMH including: CVA, prostate CA, aortic stenosis, CVD, CAD (first degree heart block), HTN, CKD Stage IV, LVH and others including respiratory failure. He is followed at the CHF/COPD clinic and his last visit was on December 25, 2019. Since this admission the patient has received treatment but has noticed his creatinine to rise (currently 3.49), resulting in his diuretics being held. Ultimately, this gentleman has multiple terminal conditions and he expressed that he would not like to return to the hospital once discharged. Palliative Care was consulted to discuss goals of care. -I met with the patient in room 384-1. His , Aleyda, was at the bedside. The patient was sitting in his bedside chair in no apparent distress. He had his oxygen on his head while he was eating his lunch. -Pt stated that he is feeling that he would no longer like to proceed with future hospitalizations. -We discussed how things were going at home prior to this admission and he stated that he was with [facility] and felt like he wasnt getting what he needed. -We discussed Hospice and what that entails. Per his , Aleyda, she can provide the care with possibly some additional overnight support. -We discussed calling Hospice instead of 911 and they agreed together this was a good plan. -We completed a POLST form indicating DNR/DNI, Comfort Measures only, trial abx and no artifical nutrition or hydration. -I discussed the above with Renée from Case Management. The patient has an elevating bed at home, so would need a bedside commode, and bedside table, along with oxygen. The patietn does have oxygen at home. -Hopeful planned discharge today and patient will return home with [facility] -No symptom management needs at this time. One daughter is local and will assist with care. 28/12 animal caretaker supervisor list provided to patients . -PPS: 30% (2) CHF (congestive heart failure): Heart failure chronicity: acute on chronic Heart failure type: unspecified Qualified Code(s): I50.9 - Heart failure, unspecified (3) Metabolic encephalopathy: (4) Acute on chronic respiratory failure with hypoxia: (5) H/O: stroke: History of Present Illness Reason for Consultation: Goals of care Requesting Physician: KRYSTLE Fleming Attending Physician: Jeramy Covarrubias MD History of Present Illness This is an 89 year old who presented to the [facility] with increasing SOB and weight gain and was diagnosed with acute on chronic respiratory failure. The patient has a lengthy PMH including: CVA, prostate CA, aortic stenosis, CVD, CAD (first degree heart block), HTN, CKD Stage IV, LVH and others including respiratory failure. He is followed at the CHF/COPD clinic and his last visit was on December 25, 2019. Since this admission the patient has received treatment but has noticed his creatinine to rise (currently 3.49), resulting in his diuretics being held. Ultimately, this gentleman has multiple terminal conditions and he expressed that he would not like to return to the hospital once discharged. Palliative Care was consulted to discuss goals of care. Please see A/P for furt her details. Thank you kindly for involving the Palliative Care team with this patient. Allergies Allergy/AdvReac Type Severity Reaction Status Date / Time No Known Drug Allergies Allergy . Verified 12/31/19 01:47 Home Medications Home Medications Medication Instructions Recorded Confirmed Type lidocaine 1 patch TRANSDERMAL QAM #30 ea 11/29/19 12/31/19 Rx blood sugar diagnostic #500 ea 12/12/19 12/29/19 Rx clopidogrel 75 mg tablet 75 mg PO QAM #90 tab 12/12/19 12/31/19 Rx amlodipine 10 mg PO QAM 12/16/19 12/31/19 History atorvastatin 80 mg PO HS 12/16/19 12/31/19 History cholecalciferol (vitamin D3) 2,000 units PO QAM 12/16/19 12/31/19 History isosorbide dinitrate 10 mg PO BIDM 12/16/19 12/31/19 History levothyroxine 137 mcg PO QAM 12/16/19 12/31/19 History metoprolol succinate 200 mg PO QAM 12/16/19 12/31/19 History multivitamin 1 tab PO QAM 12/16/19 12/31/19 History pantoprazole 40 mg PO QAM 12/16/19 12/31/19 History warfarin 1 mg PO SUTUTHSA@0800 12/16/19 12/31/19 History warfarin 3 mg PO QAM 12/16/19 12/31/19 History Novolin N NPH U-100 Insulin See Rx Instructions .ROUTE 12/18/19 12/31/19 Rx .COMPLEX #100 ml furosemide 80 mg PO QAM #0 tab 01/08/20 12/31/19 Rx Patient History Medical History (Updated 01/08/20 @ 15:57 by KRYSTLE Moore) Amaurosis fugax of right eye (Chronic) Anemia (Chronic) Aortic stenosis, severe CAD (coronary artery disease) Carcinoma of prostate Cardiomyopathy Carotid atherosclerosis (Chronic) Cerebrovascular disease (Chronic) Chronic hip pain (Chronic) CKD (chronic kidney disease), stage IV Clostridium difficile diarrhea Diabetes mellitus with renal complications Dyslipidemia (Chronic) First degree atrioventricular block (Chronic) Gastroesophageal reflux disease Goals of care, counseling/discussion H/O: stroke (2014) L hemispheric subcortical infarct History of aortic stenosis History of cholecystitis (Chronic) History of cholelithiasis (Chronic) History of prostate cancer Hypertension (Chronic) Hypothyroidism 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) Tremor (Chronic) Vitamin D deficiency (Chronic) Surgical History H/O prostatectomy History of cardiac cath CATH STENT 1 FIRST RIGHT POSTEROLATERAL BRANCH History of inguinal hernia repair LEFT INGUINAL HERNIORRHAPHY 1986 S/P coronary artery stent placement (12/2015) RCA - [facility] S/P prostatectomy 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) [facility] Status post placement of implantable loop recorder w/ removal May 2015 Family History Father , IN 70'S WITH HEART DISEASE Patient's father is Heart disease Mother , AT AGE 86 Laryngeal cancer Patient's mother is Denies family history of Ovarian cancer Prostate cancer Kidney disease CKD (chronic kidney disease) Myocardial infarction Breast cancer Bleeding disorder Lung cancer Colorectal cancer Social History Smoking Status: Never smoker Hx Alcohol Use: No Hx Substance Use: No Preferred Language: Malay Communication Ability: Effective Visual Impairment: Limited Hearing Ability: Use of Hearing Aid Agricultural Economist Required: No Beliefs That Will Affect Care: None marital status: Current Living Situation: Spouse Current Living Situation Comment: Lives at home with spouse in [place]. 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 Feels Safe at Home: Yes Childhood Exposure to Second-Hand Smoke: No Diet Comment: Doesnt follow diet. caffeine: Yes (coffee x 5-6 per day. ) during the past year weight has: remained stable Dental Care, Regularly: Yes Physical Activity Frequency: Does not Exercise Seatbelt Use: always Sunscreen Use: No Review of Systems Review of Systems: General: Pt denies DOZIER, pain HEENT: Pt denies dizziness, dysphagia CV: Pt denies chest pain Resp: Pt denies SOB GI: Pt denies abdominal pain, N/V : Pt denies urinary changes Skin: Pt denies skin changes Physical Exam Constitutional: + frail appearing and cooperative Respiratory: Auscultation: + diminished lung sounds Cardiovascular: RRR, no murmur, no edema Gastrointestinal (Abdomen): normal bowel sounds, soft, nontender, no hepatosplenomegaly Skin: no rashes, warm and dry + dry skin and + purpura Psychiatric: A+Ox3, euthymic affect Genitourinary: Voids in urinal Results & Data Vital Signs (Past 12 Hours) Vital Signs Temp Pulse Resp BP Pulse Ox 01/08/20 07:30 36.4 C L 68 18 123/64 100 PG Care Time/CCT Total # of Minutes Spent Total Time Spent with Patient: Total time spent is greater than 50% in coordination of care (as documented) at patient's floor/unit and/or counseling patient: 100 Coding Level of Care Code 73383 Inpt Consult Level 4 Diagnoses Goals of care, counseling/discussion Z71.89 CHF (congestive heart failure) I50.9 Heart failure chronicity: acute on chronic Heart failure type: unspecified Metabolic encephalopathy G93.41 Acute on chronic respiratory failure with hypoxia J96.21 H/O: stroke Z86.73 Time Spent (min) 100 Time Spent Midlevel Total time spent 100 minutes with > 50% of that time spent assessing the patient, discussing goals of care with the patient and his and communicating with IDT.
--- NOTE | 2020-01-08 14:39 | Discharge Summary ---
Date of Service January 08, 2020 Admission HPI Per Admitting Provider The patient is a 89-year-old male with a past medical history including stroke, LVH, prostate cancer, aortic stenosis, left carotid stenosis, amaurosis fugax of right eye, MGUS, dyslipidemia, cerebrovascular disease, first-degree heart block, hypertension, nonproliferative diabetic retinopathy, secondary hyperparathyroidism, tremor, vitamin D deficiency and CKD stage IV. His most recent hospitalization was from 12/15-12/18/19 for COPD exacerbation and fluid overload. He was most recently followed at the heart failure clinic on 12/25/2019, at which time he had a dry weight established at 177-179, and that date was 180. His entrance weight today is 191 pounds, and 9.3 ounces, for an almost 12 pound weight gain in 5 days. Chest x-ray in the ED showed significant pleural effusions, left much greater than right, and was given a trial Lasix 40 mg IV x1 by the ED. He was also placed on BiPAP, where he appeared to be breathing more comfortably. Principal Diagnosis CHF Discharge Exam Constitutional WD/WN, vitals as above Respiratory normal respiratory effort, lungs clear to auscultation Cardiovascular RRR, no murmur, no edema Gastrointestinal (Abdomen) Inspection/Auscultation: abdomen normal to inspection and normal bowel sounds; abdomen not distended Percussion/Palpation: abdomen soft; abdomen nontender Musculoskeletal no cyanosis or clubbing, extremities motor strength 5/5 Skin no rashes, warm and dry Neurologic moves all extremities and awake Psychiatric A+Ox3, euthymic affect Discharge Data Allergies Allergy/AdvReac Type Severity Reaction Status Date / Time No Known Drug Allergies Allergy . Verified 12/31/19 01:47 Consultations 12/31/19 06:24 Consult Cardiology Routine 01/08/20 09:38 Consult Palliative Care Routine Hospital Course (1) CHF (congestive heart failure): acute on chronic systolic chf see below (2) Acute on chronic respiratory failure with hypoxia: Acute on chronic respiratory failure with hypoxia/bilateral pleural effusions left greater than right/CHF exacerbation/12 pound weight gain in 5 days- Appears likely to be acute congestive heart failure secondary to LOW EF and likely dietary non compliance. Patient appears to not be handling the furosemide as well at home. Likely due to the poor bioavaliablity. Patient improved on lasix. Appears to be euvolemic Patient did not have lasix over the past couple of days due to concerns for creatinine. Discussed with Adrianna Dunn from heart failure clinic and per cardiology note, will send patient home with furosemide 80 mg daily (3) Bilateral pleural effusion: See above. Pleural effusion on the left (4) CKD stage 4 due to type 2 diabetes mellitus: stable at baseline around 3.5 (5) Dyslipidemia: Hold atorvastatin - can resume on admission (6) Hypertension: See above (7) Diarrhea: Improved WBC improved which is reassuring. (8) Metabolic encephalopathy: Resolved (9) DMII (diabetes mellitus, type 2): blood sugars acceptable Can resume home regimen at discharge, A1c in September was 7.9% Dispo: per discussion with palliative care, patient will return home today on Hospice. They will arrange for oxygen to be available Total Time Total Time Spent Total Time Spent (In Minutes): greater than 30 minutes Discharge Plan Discharge Items Patient Disposition: Hospice - Home Reason For Visit: ACUTE ON CHRONIC RESP FAILURE W/ HYPOXIA Discharge Diagnosis: Acute on chronic resp failure w hypoxia Activity: Resume your previous activity Non-emergency contact: Primary Care Provider Call non-emergency contact if: you have any medication questions Follow-up/Referrals: Dimitris Avila CRNP [Primary Care Provider] - Diet: Low Sodium (2gm) Addtl Attending Provider Instructions: (1) Acute on chronic respiratory failure with hypoxia due to CHF exacerbation Your lasix will be increased to 80 mg daily Call your Primary Care doctor if any of the following symptoms or problems start or get worse: * Shortness of breath or difficulty breathing * Wake up at night short of breath * Chest pain * Cough * Swelling of your hands, feet, or legs * More fatigued or tired with your normal activity * Palpitations - sudden fast heart beats WEIGHT * Weigh yourself every morning after using the bathroom. * Use the same scale. * Wear the same amount of clothing. * Write your weight down on a chart. * Call your Primary Care doctor if you gain more than 2-3 pounds in 1-2 days. MEDICATIONS * Use this discharge instruction sheet for medication instructions. * Take your medications at the time your doctor ordered. * Do not skip a dose of your medicines. * If you miss a dose of medicine, take it as soon as possible, but DO NOT DOUBLE A DOSE. * Read your medicine information when you get home. * Know all of the side effects of your medicine. If in doubt, ask your pharmacist * Call your Primary Care doctor's office if you have any side effects. * Be sure all of your doctors know what medicine and herbs you take (including cold, flu, and herbal medicine). Take the following with you to your follow-up doctor appointments: * Weight Chart * Medication List * List of questions Do not drink excessive alcohol, beer or wine. Pending Studies at Discharge: No Stand-Alone Forms: My [facility] [place], Smoking Cessation Medications and DC Order Prescriptions: Continued (DME) Precision Xtra Test Strip See Rx Instructions .ROUTE .MEDSUPPLY Qty: 500 RF: 1 clopidogrel 75 mg tablet 75 mg PO QAM Qty: 90 RF: 1 lidocaine 5 % Adhesive Patch,Medicated 1 patch transdermal QAM Qty: 30 RF: 0 multivitamin tablet 1 tab PO QAM RF: 0 isosorbide dinitrate 10 mg tablet 10 mg PO BIDM RF: 0 levothyroxine 137 mcg tablet 137 mcg PO QAM RF: 0 atorvastatin 80 mg tablet 80 mg PO HS RF: 0 metoprolol succinate 200 mg tablet extended release 24 hr 200 mg PO QAM RF: 0 warfarin 3 mg tablet 3 mg PO QAM RF: 0 amlodipine 10 mg tablet 10 mg PO QAM RF: 0 pantoprazole 40 mg tablet,delayed release (DR/EC) 40 mg PO QAM RF: 0 warfarin 1 mg tablet 1 mg PO SUTUTHSA@0800 RF: 0 cholecalciferol (vitamin D3) 2,000 unit capsule 2,000 units PO QAM RF: 0 Novolin N NPH U-100 Insulin 100 unit/mL suspension See Rx Instructions .ROUTE .COMPLEX Qty: 100 RF: 1 Changed furosemide 40 mg tablet 80 mg PO QAM Qty: 0 RF: 0 Discontinued furosemide 40 mg tablet 20 mg PO DAILY PRN (Reason: Fluid Retention) RF: 0 Discharge Orders: Discharge Order (Routine); Ordered 01/08/20 Ordered By: Anabella Cho Admission Data Admit Date/Time: 12/31/19 04:15 Attending Provider: Jeramy Covarrubias Admit Provider: Devaughn Bergeron Primary Care Provider: Dimitris Avila Other Providers: Simeon Keen ; Susanne Gastelum Other Interventions: Discharge Summary Assessment (RN) Last Done: 01/08/20 14:43 DC Date/Time DO NOT enter until pt leaves facility: 01/08/20 16:16 Supervising Physician Co-Signing Physician Notes I supervised Anabella Cho NP on this patient's care. I examined the patient today independently of her. I discussed the plan of care with her with the plan being as written in her note except for any following changes/exceptions: None. Comfortable in bed today. Plan for hospice at home with home equipment and O2. Coding Level of Care Code D/C Day Management >30 mins Diagnoses CHF (congestive heart failure) I50.9 Heart failure chronicity: acute on chronic Heart failure type: unspecified Acute on chronic respiratory failure with hypoxia J96.21 Bilateral pleural effusion J90 CKD stage 4 due to type 2 diabetes mellitus E11.22; N18.4 Dyslipidemia E78.5 Hypertension I10 Hypertension type: essential hypertension Diarrhea R19.7 Metabolic encephalopathy G93.41 DMII (diabetes mellitus, type 2) E11.9
[2020-01-08 15:32] VITALS: BP 123/64; PULSE 68; TEMP 97.5
[2020-01-08] MEDS: WARFARIN SOD 3 MG TAB PO SCH (15:33)
[2020-01-08 16:16] VITALS: O2SAT 98
== END 2020-01-08 16:16 | disposition hospice, home (50) | DRG 291 ==
LOC: ED 00:36 → 2S 04:15 → SUATTDRO 04:15 → 2S 05:15 → 2W 01-02 10:31 → 3N 01-06 14:58

== ENCOUNTER 2020-01-30 21:39 | Observation (INO) ==
[2020-01-30] MEDS ORDERED: FUROSEMIDE 40 MG/4 ML VIAL IV STA (22:02)
[2020-01-30 22:21] LABS: Basophils # (auto) 0.01 K/uL (0-0.2); Basophils % (auto) 0.2 %; Eosinophils # (auto) 0.13 K/uL (0-0.5); Eosinophils % (auto) 2.1 %; Hematocrit (blood only) 32.6 % (42-52); Hemoglobin 10.7 g/dL (14.0-18.0); Lymphocytes # (auto) 1.62 K/uL (1.2-3.4); Lymphocytes % (auto) 25.6 %; Mean Corpuscular Hgb Conc 32.8 g/dL (32-36); Mean Corpuscular Volume 97.6 fL (80-100); Mean Platelet Volume 10.5 fL (7.4-10.4); Monocytes # (auto) 0.49 K/uL (0.11-0.59); Monocytes % (auto) 7.8 %; Neutrophils # (auto) 4.07 K/uL (1.4-6.5); Neutrophils % (auto) 64.3 %; Platelet Count 258 K/uL (130-400); RDW Coefficient of Variation 14.8 % (11.5-14.5); RDW Standard Deviation 52.7 fL (36.4-46.3); Red Blood Count 3.34 M/uL (4.7-6.1); White Blood Count 6.32 K/uL (4.8-10.8)
[2020-01-30 22:32] LABS: INR 1.7 (0.9-1.1); Partial Thromboplastin Ratio 1.1; Partial Thromboplastin Time 31.8 Seconds (21.0-31.0); Prothrombin Time 17.2 Seconds (9.0-12.0)
[2020-01-30 22:46] LABS: Albumin Globulin Ratio 0.7 (0.9-2); Albumin Level 2.9 gm/dl (3.4-5.0); BUN Creatinine Ratio 18.4 (10-20); Bilirubin,Total 0.5 mg/dl (0.2-1); Calcium 8.8 mg/dl (8.5-10.1); Creatinine Clr Calc Pharmacy 15.3 ml/min; Est GFR (African American) 15.5; Est GFR (Non-African American) 13.4; Globulin 4.3 gm/dl (2.5-4.0); Total Protein 7.2 gm/dl (6.4-8.2); Troponin I 0.027 ng/ml (0-0.045)
[2020-01-30 23:23] LABS: Potassium 4.4 mmol/L (3.5-5.1)
--- NOTE | 2020-01-30 23:43 | History & Physical Report ---
Date of Service January 30, 2020 Assessment & Plan (1) Acute CHF: Willy Soria is a 89-year-old male with a past medical history including stroke, LVH, prostate cancer, aortic stenosis, left carotid stenosis, amaurosis fugax of right eye, MGUS, dyslipidemia, cerebrovascular disease, first-degree heart block, hypertension, nonproliferative diabetic retinopathy, secondary hyperparathyroidism, tremor, vitamin D deficiency and CKD stage IV, on hospice, CHF, chronic respiratory failure who presents for dyspnea. - Presents as similar in the past with acute CHF, most likely contributed by gut wall edema preventing adequate absorption of Lasix PO. - Patient improving with Lasix 40mg x1 dose in ED here. - Will give another dose of Lasix 40mg IV in ED. - Continue with BiPAP on floor, patient appears tired most likely from work of breathing earlier, allow patient to rest/recover with BiPAP. - Plan is diuresis until safe to return home. - Creatinine appears around baseline. - Trend BMP in AM. - On hospice no other significant interventions at this time, but aim to diuresis as Lasix IV will be treatment to hopefully get him back home. DVT ppx: On Warfarin, continue with dose Dispo: PCU/tele, Obs Code: DNR/DNI FENGI: NPO except meds/sips until off BiPAP and respiratory function improves. (2) Hospice care patient: Spouse was frustrated with hospice salmon [employer] answering service tonight. They are getting a hospital bed tomorrow. Spouse states she wanted to fire hospice agency. Discussed with spouse to sleep on this and pointed out benefits of hospice and maybe as for an apology. Sounds like hospital bed will be help to care at home as he is sleeping in a makeshift upright bed because of orthopnea. (3) DMII (diabetes mellitus, type 2): NPO, so will forgo any SS insulin at this time. (4) History of prostate cancer: as noted in hx (5) History of aortic stenosis: contributor to inability to tolerate fluid overload state bc fixed cardiac output (6) Dyslipidemia: hold home statin since NPO (7) Hypertension: Hold home amlodipine since NPO. (8) CKD stage 4 due to type 2 diabetes mellitus: Creatinine appears around baseline (9) CAD (coronary artery disease): c/w home plavix 75mg History of Present Illness Chief Complaint: Dyspnea Primary Care Provider: KRYSTLE Lizarraga Willy Soria is a 89-year-old male with a past medical history including stroke, LVH, prostate cancer, aortic stenosis, left carotid stenosis, amaurosis fugax of right eye, MGUS, dyslipidemia, cerebrovascular disease, first-degree heart block, hypertension, nonproliferative diabetic retinopathy, secondary hyperparathyroidism, tremor, vitamin D deficiency and CKD stage IV, on hospice, CHF, chronic respiratory failure who presents for dyspnea. Spouse is providing history. Willy is on BiPAP currently. Spouse notes that he has had gradually worsening dyspnea over the course of the past several days. She notes that this evening when coming to bed he complained of worsening dyspnea. contacted Hospice as directed and was frustrated by having to deal with several people. She gave morphine, ativan which did not help with dyspnea. Hospice told spouse to call 911. Spouse called 911. She denies exceeding dietary salt limits. He had decreased appetite today. She notes that they are getting a hospital bed tomorrow. Willy has been unable to sleep in bed and only can in a recliner. Sp ouse is exhausted from having to keep an eye on Willy as he gets up and ambulates when Spouse nods off. He was found to have acute CHF. He was treated with Lasix 40mg IV here in Ed. Spouse notes he looks improved. Spouse notes code status still DNR/DNI. He would not want intubation if needed. BNP 87000, Creat 3.76. Weight appears up 3.3 kg from last discharge. Allergies Allergy/AdvReac Type Severity Reaction Status Date / Time No Known Drug Allergies Allergy . Verified 01/30/20 23:06 Home Medications Home Medications Medication Instructions Recorded Confirmed Type blood sugar diagnostic #500 ea 12/12/19 12/29/19 Rx clopidogrel 75 mg tablet 75 mg PO QAM #90 tab 12/12/19 01/30/20 Rx amlodipine 10 mg PO QAM 12/16/19 01/30/20 History atorvastatin 80 mg PO HS 12/16/19 01/30/20 History cholecalciferol (vitamin D3) 2,000 units PO QAM 12/16/19 01/30/20 History levothyroxine 137 mcg PO QAM 12/16/19 01/30/20 History metoprolol succinate 200 mg PO QAM 12/16/19 01/30/20 History multivitamin 1 tab PO QAM 12/16/19 01/30/20 History pantoprazole 40 mg PO QAM 12/16/19 01/30/20 History warfarin 1 mg PO SUTUTHSA@0800 12/16/19 01/30/20 History warfarin 3 mg PO QAM 12/16/19 01/30/20 History Novolin N NPH U-100 Insulin See Rx Instructions .ROUTE 12/18/19 01/30/20 Rx .COMPLEX #100 ml furosemide 80 mg PO QAM #0 tab 01/08/20 01/30/20 Rx isosorbide dinitrate 10 mg tablet 10 mg PO BIDM #60 tab 01/11/20 01/30/20 Rx furosemide [Lasix] 20 mg PO QAM 01/30/20 01/30/20 History lidocaine 1 patch TRANSDERMAL QAM PRN 01/30/20 01/30/20 History Past Med/Surg History Medical History Amaurosis fugax of right eye Anemia Aortic stenosis, severe CAD (coronary artery disease) Carcinoma of prostate Cardiomyopathy Carotid atherosclerosis Cerebrovascular disease Chronic hip pain CKD (chronic kidney disease), stage IV Clostridium difficile diarrhea Diabetes mellitus with renal complications Dyslipidemia First degree atrioventricular block Gastroesophageal reflux disease Goals of care, counseling/discussion H/O: stroke (2014) L hemispheric subcortical infarct History of aortic stenosis History of cholecystitis History of cholelithiasis History of prostate cancer Hypertension Hypothyroidism Nonproliferative diabetic retinopathy Secondary hyperparathyroidism of renal origin Tremor Vitamin D deficiency Surgical History H/O prostatectomy History of cardiac cath CATH STENT 1 FIRST RIGHT POSTEROLATERAL BRANCH History of inguinal hernia repair LEFT INGUINAL HERNIORRHAPHY 1986 S/P coronary artery stent placement (12/2015) RCA - [facility] S/P prostatectomy 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) [facility] Status post placement of implantable loop recorder w/ removal May 2015 Family History Father , IN 70'S WITH HEART DISEASE Patient's father is Heart disease Mother , AT AGE 86 Laryngeal cancer Patient's mother is Denies family history of Ovarian cancer Prostate cancer Kidney disease CKD (chronic kidney disease) Myocardial infarction Breast cancer Bleeding disorder Lung cancer Colorectal cancer Social History Smoking Status: Never smoker Second Hand Exposure: No; Do You Dip or Chew Tobacco: No; Tobacco Cessation Education Requested by Patient: No Hx Alcohol Use: No Hx Substance Use: No Preferred Language: Martiniquais Communication Ability: Effective Visual Impairment: Limited Hearing Ability: Use of Hearing Aid Community Health Advocate Required: No Beliefs That Will Affect Care: None marital status: Current Living Situation: Spouse Current Living Situation Comment: Lives at home with spouse in [place]. 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 Other Information That Helps Us Care for You: No other: twice; 4 kids from first marriage, none from 2nd marriage. Feels Safe at Home: Yes Safety Concerns: Feels Safe At This Time Childhood Exposure to Second-Hand Smoke: No Diet Comment: Doesnt follow diet. caffeine: Yes (coffee x 5-6 per day. ) during the past year weight has: remained stable Dental Care, Regularly: Yes Physical Activity Frequency: Does not Exercise Seatbelt Use: always Sunscreen Use: No Review of Systems Review of Systems: All systems reviewed & are unremarkable except as noted in HPI & below Constitutional: + weight gain; no fever and no chills Eyes: no diplopia and no spots in vision Ear, Nose, Mouth, Throat: no nasal congestion, no nasal obstruction and no epistaxis Respiratory: + dyspnea; no hemoptysis Cardiovascular: no chest pain and no syncope Gastrointestinal: no vomiting and no diarrhea/loose stools Genitourinary: no dysuria and no hematuria Musculoskeletal: no back pain and no neck pain Integumentary: no rash and no lesions Neurologic: no localized weakness and no syncope Physical Exam Constitutional: WD/WN, vitals as above comfortable Eyes: + anicteric sclerae and PERRL ENMT: Ears: no external ear abnormality Nose: no external nose abnormality Mouth: no lip abnormality Neck: normal visual inspection and trachea midline Respiratory: no respiratory distress Auscultation: + diminished lung sounds; no wheezes Cardiovascular: Rate/Rhythm: regular rate and regular rhythm Extremities: + pedal edema Gastrointestinal (Abdomen): Inspection/Auscultation: + abdomen distended Percussion/Palpation: abdomen soft; abdomen nontender, no guarding and abdomen not rigid Musculoskeletal: Head/Neck/Chest: normocephalic and head atraumatic Skin: no rashes, warm and dry Neurologic: moves all extremities tired, easily arousable Results & Data Results & Data ([facility]) Vital Signs (Past 12 Hours) Vital Signs Temp Pulse Pulse Resp BP BP Pulse Ox 01/30/20 22:46 73 23 120/59 L 93 01/30/20 22:12 75 25 H 100 01/30/20 22:01 98 01/30/20 21:56 36.8 C 57 L 25 H 127/72 98 Laboratory Results Laboratory Results - last 24 hr 01/30/20 01/30/20 01/30/20 22:12 22:12 22:12 WBC 6.32 RBC 3.34 L Hgb 10.7 L Hct 32.6 L MCV 97.6 MCH 32.0 MCHC 32.8 RDW Std Deviation 52.7 H RDW Coeff of Neymar 14.8 H Plt Count 258 MPV 10.5 H Immature Gran % (Auto) 0.0 Neut % (Auto) 64.3 Lymph % (Auto) 25.6 [place] % (Auto) 7.8 Eos % (Auto) 2.1 Baso % (Auto) 0.2 Neut # (Auto) 4.07 Lymph # (Auto) 1.62 [place] # (Auto) 0.49 Eos # (Auto) 0.13 Baso # (Auto) 0.01 Immature Gran # (Auto) 0.00 PT 17.2 H INR 1.7 H APTT 31.8 H PTT Ratio 1.1 Sodium 138 Potassium Chloride 105 Carbon Dioxide 27 Anion Gap 6.0 BUN 69 H Creatinine 3.76 H Est Cr Clr Drug Dosing 15.3 Est GFR ( Amer) 15.5 Est GFR (Non-Af Amer) 13.4 BUN/Creatinine Ratio 18.4 Glucose 161 H Calcium 8.8 Magnesium Total Bilirubin 0.5 AST ALT 42 Alkaline Phosphatase 73 Troponin I 0.027 NT-Pro-B Natriuret Pep 01061 H Total Protein 7.2 Albumin 2.9 L Globulin 4.3 H Albumin/Globulin Ratio 0.7 L 01/30/20 23:00 WBC RBC Hgb Hct MCV MCH MCHC RDW Std Deviation RDW Coeff of Neymar Plt Count MPV Immature Gran % (Auto) Neut % (Auto) Lymph % (Auto) [place] % (Auto) Eos % (Auto) Baso % (Auto) Neut # (Auto) Lymph # (Auto) [place] # (Auto) Eos # (Auto) Baso # (Auto) Immature Gran # (Auto) PT INR APTT PTT Ratio Sodium Potassium 4.4 Chloride Carbon Dioxide Anion Gap BUN Creatinine Est Cr Clr Drug Dosing Est GFR ( Amer) Est GFR (Non-Af Amer) BUN/Creatinine Ratio Glucose Calcium Magnesium 2.0 Total Bilirubin AST 25 ALT Alkaline Phosphatase Troponin I NT-Pro-B Natriuret Pep Total Protein Albumin Globulin Albumin/Globulin Ratio Code Status & VTE Plan Code Status DNR/DNI Supervising Physician Co-Signing Physician Notes Patient seen and examined, chart reviewed, case discussed with Dr. Schmidt and I agree with assessment and plan as documented above. Briefly, patient is an 89-year-old male with history of CHF, on hospice therapy presenting with worsening shortness of breath consistent with CHF exacerbation. Patient tachypneic with episodes of hypoxia in the ER requiring placement of BiPAP. Symptoms improved Presently patient is sleepy but arousable, follows commands. No acute distress Heart + S1, S2, regular, no murmurs/rubs/gallops Lungsdiminished breath sounds in the bilateral bases Abdomen positive bowel sounds, soft, mild distention, tympanic to percussion Extremities1+ pedal edema bilaterally Labs and images reviewed. Stable normochromic/normocytic anemia. BUN and creatinine near baseline at 69 and 3.76, respectively. Chest x-ray with bi-basilar airspace disease, pleural effusions Assessment/plan: Patient responding well to IV Lasix administered in the ER. We will continue to monitor intake and output, weights and symptoms. Re-dose Lasix in a.m. if needed Resident Activity Tracking Resident Involvement: Resident Care Provided Care Provided: Adult Hospital Medicine (1) CAD (coronary artery disease) Associated angina: angina presence unspecified Coronary Disease-Associated Artery/Lesion type: [place] artery [place] vs. transplanted heart: [place] heart Qualified Code(s): I25.10 - Atherosclerotic heart disease of [place] coronary artery without angina pectoris (2) Hypertension Hypertension type: essential hypertension Qualified Code(s): I10 - Essential (primary) hypertension
[2020-01-30] MEDS ORDERED: ACETAMINOPHEN 325 MG TAB PO PRN (23:58)
--- NOTE | 2020-01-31 01:13 | Emergency Department Note ---
History of Present Illness General Chief complaint: Shortness of Breath/Dyspnea Stated complaint: SOB, CHEST PAIN Source: patient, family and RN notes reviewed Mode of arrival: EMS Limitations: clinical acuity History of Present Illness Provider complaint: Shortness of breath Home Medications Home Medications Medication Instructions Recorded Confirmed Type blood sugar diagnostic #500 ea 12/12/19 12/29/19 Rx clopidogrel 75 mg tablet 75 mg PO QAM #90 tab 12/12/19 01/30/20 Rx amlodipine 10 mg PO QAM 12/16/19 01/30/20 History atorvastatin 80 mg PO HS 12/16/19 01/30/20 History cholecalciferol (vitamin D3) 2,000 units PO QAM 12/16/19 01/30/20 History levothyroxine 137 mcg PO QAM 12/16/19 01/30/20 History metoprolol succinate 200 mg PO QAM 12/16/19 01/30/20 History multivitamin 1 tab PO QAM 12/16/19 01/30/20 History pantoprazole 40 mg PO QAM 12/16/19 01/30/20 History warfarin 1 mg PO SUTUTHSA@0800 12/16/19 01/30/20 History warfarin 3 mg PO QAM 12/16/19 01/30/20 History Novolin N NPH U-100 Insulin See Rx Instructions .ROUTE 12/18/19 01/30/20 Rx .COMPLEX #100 ml furosemide 80 mg PO QAM #0 tab 01/08/20 01/30/20 Rx isosorbide dinitrate 10 mg tablet 10 mg PO BIDM #60 tab 01/11/20 01/30/20 Rx furosemide [Lasix] 20 mg PO QAM 01/30/20 01/30/20 History lidocaine 1 patch TRANSDERMAL QAM PRN 01/30/20 01/30/20 History Allergies Allergy/AdvReac Type Severity Reaction Status Date / Time No Known Drug Allergies Allergy . Verified 01/30/20 23:06 Past Med/Surg History Medical History Amaurosis fugax of right eye Anemia Aortic stenosis, severe CAD (coronary artery disease) Carcinoma of prostate Cardiomyopathy Carotid atherosclerosis Cerebrovascular disease Chronic hip pain CKD (chronic kidney disease), stage IV Clostridium difficile diarrhea Diabetes mellitus with renal complications Dyslipidemia First degree atrioventricular block Gastroesophageal reflux disease Goals of care, counseling/discussion H/O: stroke (2014) L hemispheric subcortical infarct History of aortic stenosis History of cholecystitis History of cholelithiasis History of prostate cancer Hypertension Hypothyroidism Nonproliferative diabetic retinopathy Secondary hyperparathyroidism of renal origin Tremor Vitamin D deficiency Surgical History H/O prostatectomy History of cardiac cath CATH STENT 1 FIRST RIGHT POSTEROLATERAL BRANCH History of inguinal hernia repair LEFT INGUINAL HERNIORRHAPHY 1986 S/P coronary artery stent placement (12/2015) RCA - [facility] S/P prostatectomy 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) [facility] Status post placement of implantable loop recorder w/ removal May 2015 Family History Father , IN 70'S WITH HEART DISEASE Patient's father is Heart disease Mother , AT AGE 86 Laryngeal cancer Patient's mother is Denies family history of Ovarian cancer Prostate cancer Kidney disease CKD (chronic kidney disease) Myocardial infarction Breast cancer Bleeding disorder Lung cancer Colorectal cancer Social History Smoking Status: Former smoker Hx Alcohol Use: No Hx Substance Use: No Preferred Language: Bruneian Communication Ability: Effective Visual Impairment: Limited Hearing Ability: Use of Hearing Aid Clinical Lab Assistant Required: No Beliefs That Will Affect Care: None marital status: Current Living Situation: Spouse Current Living Situation Comment: Lives at home with spouse in [place]. 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 Feels Safe at Home: Yes Childhood Exposure to Second-Hand Smoke: No Diet Comment: Doesnt follow diet. caffeine: Yes (coffee x 5-6 per day. ) during the past year weight has: remained stable Dental Care, Regularly: Yes Physical Activity Frequency: Does not Exercise Seatbelt Use: always Sunscreen Use: No Review of Systems See HPI for pertinent positives & negatives. and A total of 10 systems reviewed and were otherwise negative Physical Exam Vital Signs Vital Signs - 24 hr 01/30/20 21:56 01/30/20 22:01 01/30/20 22:12 Temperature 36.8 C Temperature Source Oral Pulse Rate 57 L 75 Pulse Rate [Right Finger] Pulse Rhythm Regular Pulse Strength Normal Respiratory Rate 25 H 25 H Respiratory Effort / Characteristics Labored Non-Labored Spontaneous Respiratory Depth Deep Normal Respiratory Pattern Regular Regular Blood Pressure 127/72 Blood Pressure [Right Arm] Blood Pressure Mean 90 Blood Pressure Mean [Right Arm] Pulse Oximetry 98 98 100 Oxygen Delivery Method Non-rebreather Non-rebreather Oxygen Flow Rate 15 15 Fraction of Inspired Oxygen 40 Sepsis Recent Fever Within 48 Hours No Sepsis New/Unexplained Change in Mental Status N/A Sepsis Action Taken by Nursing No Action Required 01/30/20 22:46 01/31/20 00:26 Temperature Temperature Source Pulse Rate 68 Pulse Rate [Right Finger] 73 Pulse Rhythm Pulse Strength Respiratory Rate 23 20 Respiratory Effort / Characteristics Respiratory Depth Normal Respiratory Pattern Blood Pressure 117/61 Blood Pressure [Right Arm] 120/59 L Blood Pressure Mean Blood Pressure Mean [Right Arm] 79 Pulse Oximetry 93 99 Oxygen Delivery Method BiPAP BiPAP Oxygen Flow Rate Fraction of Inspired Oxygen 40 Sepsis Recent Fever Within 48 Hours Sepsis New/Unexplained Change in Mental Status Sepsis Action Taken by Nursing Vital signs reviewed. General: Chronically ill-appearing 89-year-old male, nonrebreather in place HEENT: No scleral icterus, PERRLA, neck supple. Cardiovascular: Regular rate and rhythm, no extra sounds. Pulmonary: Coarse breath sounds with crackles bilaterally, increased work of breathing Abdomen: Soft, nontender, nondistended, positive bowel sounds. Musculoskeletal: Atraumatic, dependent peripheral edema Neurologic: Patient awake alert and answering most questions appropriately. Skin: Warm, dry, no rash Course Administered Medications Discontinued Medications Furosemide (Furosemide 40 Mg/4 Ml Vial) 40 mg IV NOW STA Stop: 01/30/20 22:03 Last Admin: 01/30/20 22:15 Dose: 40 mg Documented by: [id number] Critical Care Time Critical Care Time: Yes I have personally spent greater than 30 minutes of critical care time in the direct management of this patient. This includes bedside care, interpretation of diagnostic studies, and testing, discussion with consultants, patient, and family members, and other required patient management activities. This 30 minutes is in excess of all separately billable procedures. Medical Decision Making Differential Diagnosis Differential diagnosis: Etiologies such as infections, reactive airway disease, COPD, pneumonia, pleural effusion, pulmonary edema, ARDS, pneumothorax, CHF, cardiac ischemia, cardiac tamponade, dysrhythmia, anemia, pulmonary embolism, musculoskeletal, gastrointestinal process, as well as others were entertained. Medical Records Attestation: I reviewed the patient's medical records. Home Medications Current Medication List: was personally reviewed by me Laboratory Data Attestation: I reviewed the patient's lab results. Result diagrams: 01/30/20 22:12 01/30/20 23:00 Lab Results 01/30/20 01/30/20 01/30/20 Range/Units 22:12 22:12 22:12 WBC 6.32 (4.8-10.8) K/uL RBC 3.34 L (4.7-6.1) M/uL Hgb 10.7 L (14.0-18.0) g/dL Hct 32.6 L (42-52) % MCV 97.6 (80-100) fL MCH 32.0 (25-34) pg MCHC 32.8 (32-36) g/dL RDW Std Deviation 52.7 H (36.4-46.3) fL RDW Coeff of Neymar 14.8 H (11.5-14.5) % Plt Count 258 (130-400) K/uL MPV 10.5 H (7.4-10.4) fL Immature Gran % (Auto) 0.0 % Neut % (Auto) 64.3 % Lymph % (Auto) 25.6 % Bland % (Auto) 7.8 % Eos % (Auto) 2.1 % Baso % (Auto) 0.2 % Neut # (Auto) 4.07 (1.4-6.5) K/uL Lymph # (Auto) 1.62 (1.2-3.4) K/uL Bland # (Auto) 0.49 (0.11-0.59) K/uL Eos # (Auto) 0.13 (0-0.5) K/uL Baso # (Auto) 0.01 (0-0.2) K/uL Immature Gran # (Auto) 0.00 (0.00-0.02) K/uL PT 17.2 H (9.0-12.0) Seconds INR 1.7 H (0.9-1.1) APTT 31.8 H (21.0-31.0) Seconds PTT Ratio 1.1 Sodium 138 (136-145) mmol/L Potassium (3.5-5.1) mmol/L Chloride 105 (98-107) mmol/L Carbon Dioxide 27 (21-32) mmol/L Anion Gap 6.0 (3-11) BUN 69 H (7-18) mg/dl Creatinine 3.76 H (0.6-1.4) mg/dl Est Cr Clr Drug Dosing 15.3 ml/min Est GFR ( Amer) 15.5 Est GFR (Non-Af Amer) 13.4 BUN/Creatinine Ratio 18.4 (10-20) Glucose 161 H (70-99) mg/dl Calcium 8.8 (8.5-10.1) mg/dl Magnesium (1.8-2.4) mg/dl Total Bilirubin 0.5 (0.2-1) mg/dl AST (15-37) U/L ALT 42 (12-78) U/L Alkaline Phosphatase 73 (45-117) U/L Troponin I 0.027 (0-0.045) ng/ml NT-Pro-B Natriuret Pep 13931 H (0-1800) pg/ml Total Protein 7.2 (6.4-8.2) gm/dl Albumin 2.9 L (3.4-5.0) gm/dl Globulin 4.3 H (2.5-4.0) gm/dl Albumin/Globulin Ratio 0.7 L (0.9-2) 08/25/20 Range/Units 23:00 WBC (4.8-10.8) K/uL RBC (4.7-6.1) M/uL Hgb (14.0-18.0) g/dL Hct (42-52) % MCV (80-100) fL MCH (25-34) pg MCHC (32-36) g/dL RDW Std Deviation (36.4-46.3) fL RDW Coeff of Neymar (11.5-14.5) % Plt Count (130-400) K/uL MPV (7.4-10.4) fL Immature Gran % (Auto) % Neut % (Auto) % Lymph % (Auto) % Bland % (Auto) % Eos % (Auto) % Baso % (Auto) % Neut # (Auto) (1.4-6.5) K/uL Lymph # (Auto) (1.2-3.4) K/uL Bland # (Auto) (0.11-0.59) K/uL Eos # (Auto) (0-0.5) K/uL Baso # (Auto) (0-0.2) K/uL Immature Gran # (Auto) (0.00-0.02) K/uL PT (9.0-12.0) Seconds INR (0.9-1.1) APTT (21.0-31.0) Seconds PTT Ratio Sodium (136-145) mmol/L Potassium 4.4 (3.5-5.1) mmol/L Chloride (98-107) mmol/L Carbon Dioxide (21-32) mmol/L Anion Gap (3-11) BUN (7-18) mg/dl Creatinine (0.6-1.4) mg/dl Est Cr Clr Drug Dosing ml/min Est GFR ( Amer) Est GFR (Non-Af Amer) BUN/Creatinine Ratio (10-20) Glucose (70-99) mg/dl Calcium (8.5-10.1) mg/dl Magnesium 2.0 (1.8-2.4) mg/dl Total Bilirubin (0.2-1) mg/dl AST 25 (15-37) U/L ALT (12-78) U/L Alkaline Phosphatase (45-117) U/L Troponin I (0-0.045) ng/ml NT-Pro-B Natriuret Pep (0-1800) pg/ml Total Protein (6.4-8.2) gm/dl Albumin (3.4-5.0) gm/dl Globulin (2.5-4.0) gm/dl Albumin/Globulin Ratio (0.9-2) Imaging Data Attestation: I personally reviewed and interpreted this imaging study as follows: My Impression: Chest x-ray to my interpretation reveals evidence of cardiomegaly and pulmonary edema. ECG Data Attestation: I personally reviewed and interpreted this ECG as follows: Indication: + SOB/dyspnea Rate (beats per minute): 97 Rhythm: + other (Wide complex, possibly first-degree AV block) ECG Intervals/blocks: + Left bundle branch block ECG ST segments: + Nonspecific ST abnormalities and + repolarization abnormalities ECG Findings: no PACs and no PVCs Blood Pressure Blood Pressure Findings: Normal blood pressure Blood Pressure Disposition: did not require urgent referral MDM Narrative This patient was evaluated and appeared to be in critical condition. IV access was obtained and laboratory work was drawn. An order for cardiac monitoring was placed and the patient was noted to be in a wide-complex rhythm, likely first- degree AV block. He was on nonrebreather with increased work of breathing but fairly stable oxygen saturations. Patient has a long history of congestive heart failure and was recently evaluated by palliative care and placed on hospice. Patient's states she "did not quite understand" what that meant. She states she has been contacting hospice this week and they advised morphine and Lorazepam. The patient's is frustrated because no doctor was available for the patient. Patient did receive 100 mg of Lasix at home today. He was pl aced on BiPAP upon my evaluation. 40 mg of IV Lasix was ordered. Patient is noted to have a BNP of greater than 27,000 with a creatinine of 3.76. Case was discussed with case management as well as the hospitalist service. Patient will be evaluated for further management. Impression & Plan Pulmonary edema Discharge Plan Visit Data Chief Complaint: Shortness of Breath/Dyspnea Stated Complaint: SOB, CHEST PAIN ED Provider: Chanel Fuller Discharge Problem: Pulmonary edema Patient Disposition: Admitted As Inpatient Discharge Instructions Interventions: ED Discharge Assessment Last Done: 01/31/20 00:26 Discharge Problem: Pulmonary edema Qualifiers: Chronicity: acute Qualified Code(s): J81.0 - Acute pulmonary edema
[2020-01-31] MEDS ORDERED: LIDOCAINE 5% 1 PATCH TD PRN (01:47)
--- NOTE | 2020-01-31 01:50 | Billing Data ---
Date of Service January 31, 2020 Coding Level of Care Code 55366 OBS Care - Level 3
[2020-01-31 06:15] LABS: INR 1.6 (0.9-1.1); Prothrombin Time 16.4 Seconds (9.0-12.0)
[2020-01-31] MEDS: LEVOTHYROXINE SODIUM 137 MCG TABLET PO SCH (06:24)
[2020-01-31] MEDS ORDERED: FUROSEMIDE 40 MG in SYRINGE 0 ML IV ONE (07:00)
--- NOTE | 2020-01-31 07:17 | XRay Report ---
SINGLE VIEW CHEST CLINICAL HISTORY: Dyspnea. FINDINGS: An AP, portable, upright chest radiograph is compared to study dated 01/06/2020. The examinat ion is degraded by portable technique and patient rotation. There is evidence of previous cardiac estela addie. The heart is enlarged noting atherosclerotic calcification of the thoracic aorta. There is pulm onary vascular congestion with evidence of interstitial edema. There are layering pleural effusions w ith bibasilar consolidation. No pneumothorax is seen. The skeletal structures are osteopenic. The bon y thorax is grossly intact. IMPRESSION: 1. Cardiomegaly with evidence of congestive failure and interstitial edema. 2. Layering pleural effusions with bibasilar consolidation. ACT 112: Negative or not required by law. Electronically signed by: Harsha Weir M.D. 01/31/2020 7:16 AM
[2020-01-31] MEDS: METOPROLOL SUCC 50MG EXT REL TAB PO SCH (09:27)
[2020-01-31] MEDS: CLOPIDOGREL BISULFATE 75 MG TAB PO SCH (09:28)
[2020-01-31] MEDS: PANTOprazole 40 MG TAB PO SCH (09:28)
[2020-01-31] MEDS: ISOSORBIDE DINITRATE 10 MG TAB PO SCH ×2 (09:28→16:15)
--- NOTE | 2020-01-31 11:36 | Electrocardiogram Report ---
Test Reason : Blood Pressure : / mmHG Vent. Rate : 097 BPM Atrial Rate : 101 BPM P-R Int : 000 ms QRS Dur : 182 ms QT Int : 428 ms P-R-T Axes : 000 -06 144 degrees QTc Int : 543 ms Sinus rhythm with marked first degree A-V block (cannot r/o second degree block with 2:1 conduction) Left bundle branch block Abnormal ECG When compared with ECG of 02-JAN-2020 07:33, OR interval has increased (vs. possible 2:1 A-V block now present) Confirmed by Sanket Perez ([id number]) on 01/31/2020 11:36:01 AM Referred By: REFERRED SELF Confirmed By:Sanket Perez
[2020-01-31] MEDS: guaiFENesin 600 MG TABCR PO SCH ×2 (11:52→22:13)
[2020-01-31] MEDS: BENZONATATE 100 MG CAPSULE PO SCH ×2 (13:44→22:13)
[2020-01-31] MEDS ORDERED: BUMETANIDE 2 MG in SYRINGE 0 ML IV ONE (14:00)
[2020-01-31] MEDS ORDERED: WARFARIN SOD 3 MG TAB PO SCH (16:00)
--- NOTE | 2020-01-31 19:11 | Hospitalist Progress Note ---
Date of Service January 31, 2020 Assessment & Plan (1) Acute on chronic respiratory failure with hypoxia: acute component 2nd volume overload - likely combination of acute/chronic systolic CHF in setting of advanced CKD. received IV lasix x 2 overnight/this AM; will give bumex 2mg IV x 1 this afternoon. at discharge consider bumex in kelly of lasix given advanced CKD. BIPAP weaned off; now on NC O2. (2) Acute on chronic systolic heart failure: dry weight is about 176 pounds. cont to diurese as noted above. cont BB. not entresto or JOSELO/ARB candidate due to CKD stage 4/5. (3) Hospice care patient: patient WILL return home with hospice at discharge. discharge likely tomorrow AM. (4) CKD stage 4 due to type 2 diabetes mellitus: advanced CKD. (5) H/O: stroke: cont coumadin for now but consider d/c given hospice status (6) DMII (diabetes mellitus, type 2): check BSGs ac/hs lantus HS novolog meal-coverage (7) CAD (coronary artery disease): no evidence of ischemic LBBB is chronic no chest pain or other CV symptoms (8) Aortic stenosis, severe: h/o TAVR (9) History of prostate cancer: s/p prostatectomy (10) PAF (paroxysmal atrial fibrillation): in NSR cont BB cont warfarin for now (11) Hypothyroidism: check TSH in am cont synthroid spoke with - updated her by phone anticipate d/c home w/ hospice tomorrow AM Admission and Anticipated Discharge Date Admission Date: January 30, 2020 Subjective patient feeling better this am following BIPAP overnight and diuresis. BIPAP weaned off. tele stable overnight. patient asking for d/c home. I spoke with social work -- patient to return home on hospice as previous. hospital bed to be delivered to pt's home once discharge occurs. updated by phone. patient denies any new complaints. of note - pt's weight is several pounds above "dry" weight. Review of Systems Constitutional: no fever Respiratory: + cough Cardiovascular: no chest pain Gastrointestinal: no abdominal pain Physical Exam Constitutional: well developed and well nourished; no acute distress ENMT: external ear and nose normal, oropharynx normal Respiratory: Auscultation: + diminished lung sounds (Bases), + rales (Bases) and + wheezes (Mild; end-expiratory) Cardiovascular: Rate/Rhythm: regular rate and regular rhythm Heart Sounds: normal S1, normal S2 and + murmur (2/6 RUSB) Vessels: + JVD, posterior tibial pulses present and dorsalis pedis pulses present Extremities: + edema (Trace b/l) Gastrointestinal (Abdomen): normal bowel sounds, soft, nontender, no hepatosplenomegaly Psychiatric: Orientation: alert, oriented to person and oriented to place; + not oriented to time Results & Data Results & Data ([facility]) Vital Signs (Past 12 Hours) Vital Signs Temp Pulse Resp BP Pulse Ox 01/31/20 18:56 73 25 H 124/74 94 01/31/20 11:03 36.5 C 68 18 110/64 96 01/31/20 07:13 36.4 C L 77 20 123/65 93 Laboratory Results Laboratory Results - last 24 hr 01/31/20 01/31/20 05:17 21:55 PT 16.4 H INR 1.6 H POC Glucose 228 H PG Care Time/CCT Total # of Minutes Spent Total Time Spent with Patient: Total time spent is greater than 50% in coordination of care (as documented) at patient's floor/unit and/or counseling patient: Coding Level of Care Code 76499 Subseq Obs Care Lvl 3 Diagnoses Acute on chronic respiratory failure with hypoxia J96.21 Acute on chronic systolic heart failure I50.23 Hospice care patient Z51.5 CKD stage 4 due to type 2 diabetes mellitus E11.22; N18.4 H/O: stroke Z86.73 DMII (diabetes mellitus, type 2) E11.9 CAD (coronary artery disease) I25.10 Coronary Disease-Associated Artery/Lesion type: [place] artery [place] vs. transplanted heart: [place] heart Associated angina: angina presence unspecified Aortic stenosis, severe I35.0 History of prostate cancer Z85.46 PAF (paroxysmal atrial fibrillation) I48.0 Hypothyroidism E03.9 Hypothyroidism type: acquired (1) CAD (coronary artery disease) Coronary Disease-Associated Artery/Lesion type: [place] artery [place] vs. transplanted heart: [place] heart Associated angina: angina presence unspecified Qualified Code(s): I25.10 - Atherosclerotic heart disease of [place] coronary artery without angina pectoris (2) Hypothyroidism Hypothyroidism type: acquired Qualified Code(s): E03.9 - Hypothyroidism, unspecified
[2020-01-31] MEDS ORDERED: INSULIN GLARGINE SOLOSTAR 100 UNITS/ML 3 ML PEN SC SCH (21:00)
[2020-01-31] MEDS: INSULIN ASPART 100 UNITS/ML 3 ML PEN SC SCH (22:01)
[2020-02-01] MEDS: LEVOTHYROXINE SODIUM 137 MCG TABLET PO SCH (06:31)
[2020-02-01 06:36] LABS: INR 1.6 (0.9-1.1); Prothrombin Time 16.4 Seconds (9.0-12.0)
[2020-02-01 06:58] LABS: BUN Creatinine Ratio 18.7 (10-20); Creatinine Clr Calc Pharmacy 17.5 ml/min; Est GFR (African American) 18.7; Est GFR (Non-African American) 16.1; Potassium 4.2 mmol/L (3.5-5.1)
[2020-02-01 07:09] LABS: Thyroid Stimulating Hormone 3.06 uIu/ml (0.300-4.500)
[2020-02-01] MEDS: INSULIN ASPART 100 UNITS/ML 3 ML PEN SC SCH ×2 (07:38→11:36)
[2020-02-01] MEDS: ISOSORBIDE DINITRATE 10 MG TAB PO SCH (07:40)
[2020-02-01] MEDS: METOPROLOL SUCC 50MG EXT REL TAB PO SCH (07:40)
[2020-02-01] MEDS: CLOPIDOGREL BISULFATE 75 MG TAB PO SCH (07:40)
[2020-02-01] MEDS: PANTOprazole 40 MG TAB PO SCH (07:40)
[2020-02-01] MEDS: BENZONATATE 100 MG CAPSULE PO SCH (07:40)
[2020-02-01] MEDS: guaiFENesin 600 MG TABCR PO SCH (07:40)
[2020-02-01] MEDS ORDERED: BUMETANIDE 1 MG TAB PO ONE (10:29)
--- NOTE | 2020-02-01 10:45 | Discharge Summary ---
Date of Service date of admission - January 31, 2020 date of discharge - February 01, 2020 Admission HPI Per Admitting Provider Willy Soria is a 89-year-old male with a past medical history including stroke, LVH, prostate cancer, aortic stenosis, left carotid stenosis, amaurosis fugax of right eye, MGUS, dyslipidemia, cerebrovascular disease, first-degree heart block, hypertension, nonproliferative diabetic retinopathy, secondary hyperparathyroidism, tremor, vitamin D deficiency and CKD stage IV, on hospice, CHF, chronic respiratory failure who presents for dyspnea. Spouse is providing history. Willy is on BiPAP currently. Spouse notes that he has had gradually worsening dyspnea over the course of the past several days. She notes that this evening when coming to bed he complained of worsening dyspnea. contacted Hospice as directed and was frustrated by having to deal with several people. She gave morphine, ativan which did not help with dyspnea. Hospice told spouse to call 911. Spouse called 911. She denies exceeding dietary salt limits. He had decreased appetite today. She notes that they are getting a hospital bed tomorrow. Willy has been unable to sleep in bed and only can in a recliner. Spouse is exhausted from having to keep an eye on Willy as he gets up and ambulates when Spouse nods off. He was found to have acute CHF. He was treated with Lasix 40mg IV here in [place]. Spouse notes he looks improved. Spouse notes code status still DNR/DNI. He would not want intubation if needed. BNP 77138, Creat 3.76. Weight appears up 3.3 kg from last discharge. Principal Diagnosis 1. acute on chronic hypoxic respiratory failure -- acute component 2nd decompensated systolic CHF 2. hospice patient Discharge Exam Constitutional well developed and well nourished; no acute distress ENMT external ear and nose normal, oropharynx normal Respiratory no respiratory distress Auscultation: + diminished lung sounds (Bases) and + rales (Bases - minimal ); no wheezes Cardiovascular Rate/Rhythm: regular rate and regular rhythm Heart Sounds: normal S1, normal S2 and + murmur (2/6 RUSB) Vessels: posterior tibial pulses present and dorsalis pedis pulses present; no JVD Extremities: no edema Gastrointestinal (Abdomen) normal bowel sounds, soft, nontender, no hepatosplenomegaly Psychiatric Orientation: alert, oriented to person and oriented to place; + not oriented to time Discharge Data Allergies Allergy/AdvReac Type Severity Reaction Status Date / Time No Known Drug Allergies Allergy . Verified 01/30/20 23:06 Consultations Consult Case Management - Discharge Planning Routine Hospital Course (1) Acute on chronic respiratory failure with hypoxia: acute component 2nd volume overload - likely combination of acute/chronic systolic CHF in setting of advanced CKD. received multiple doses of IV diuretic over his brief stay with resolution of decompensated CHF. he initially required BIPAP; this was easily weaned off after he diuresed. at discharge, in light of advanced CKD, will utilize bumex in kelly of lasix. he will continue on NC O2 at discharge - 4/5 liters continuously. (2) Acute on chronic systolic heart failure: dry weight is about 176 pounds. he diuresed copiously while here, with discharge weight of about 175 pounds. cont metoprolol succinate. not entresto or JOSELO/ARB candidate due to CKD stage 4/5. in light of advanced CKD he will switch to bumex 2mg daily in kelly of lasix. he will continue daily weights. (3) Hospice care patient: patient WILL return home with hospice at discharge. he and were counseled to always call hospice first for any needs, concerns, or questions. (4) CKD stage 4 due to type 2 diabetes mellitus: advanced CKD. discharge Cr 3.2 with CrCL of 15-20. 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 (9) History of prostate cancer: s/p prostatectomy (10) PAF (paroxysmal atrial fibrillation): in NSR while hospitalized cont BB cont warfarin for now (11) Hypothyroidism: TSH was 3 during the stay cont synthroid Total Time Total Time Spent Total Time Spent (In Minutes): 40 Total Time Includes: Examination of the Patient, Discharge Planning and Medication Reconciliation Discharge Plan Discharge Items Patient Disposition: Hospice - Home Reason For Visit: ACUTE CHF Discharge Diagnosis: congestive heart failure (CHF) with build-up of fluid in lungs Activity: Resume your previous activity Non-emergency contact: Primary Care Provider Call non-emergency contact if: you have any medication questions, your symptoms worsen, your pain is not controlled, your pain is worsening, your pain is unusual for you and your pain is concerning for you Follow-up/Referrals: Dimitris Avila CRNP [Primary Care Provider] - 02/07/20 9:00 am (Please be there for your 9am appointment by 8:45. mask must be worn) Diet: Carb Consistent or DM2 and Heart Healthy Fluids: 1800ml (7 cups) Addtl Attending Provider Instructions: You were treated for fluid build-up in the lungs due to your congestive heart failure. You improved with IV diuretics (water pills). Your breathing has returned to normal. Your weight today, 02/01/20, is 176 pounds. Recommendations - 1. the following medications have been stopped -- * atorvastatin (lipitor) cholesterol medication * vitamin D supplement * multivitamin * furosemide (lasix) water pill 2. for your congestive heart failure and to keep fluid out of your body please change to the following diuretic/water pill -- BUMETANIDE 2mg every morning If you gain more than 2-3 pounds in 1-2 days and/or your legs start to have swelling please increase to 3mg every morning until your weight is back to about 176 pounds It is possible that you may need 3mg every day but let's start with 2mg and monitor your weights and symptoms You can start the bumetanide TOMORROW on 02/02/20 I have called this medication to [facility] for you 3. Congestive heart failure information -- Call 911 and go to the Emergency Room if: * You have tightness or pain in your chest that does not go away with rest or Nitroglycerin * You are very short of breath even with rest Call your doctor if any of the following symptoms or problems start or get worse: * Shortness of breath or difficulty breathing * Wake up at night short of breath * Chest pain * Cough * Swelling of your hands, fee, or legs * More fatigued or tired with your normal activity * Palpitations - sudden fast heart beats WEIGHT * Weigh yourself every morning after using the bathroom. * Use the same scale. * Wear the same amount of clothing. * Write your weight down on your chart. * If you gain more than 2-3 pounds in 1-2 days please increase your bumetanide water pill to 3mg daily and call the hospice company. * MEDICATIONS * Use this discharge instruction sheet for instructions. * Take your medications at the time your doctor ordered. * Do not skip a dose of your medicines. * If you miss a dose of medicine, take as soon as possible, but DO NOT DOUBLE A DOSE. * Read your medicine information when you get home. * Know all of the side effects of your medicine. * Call your doctor's office if you have any side effects. * Be sure all of your doctors know what medicine and herbs you take (including cold, flu, and herbal medicine). * Pain Medicine: If you do not get relief from your pain, please call your doctor for help. Take the following with you to your follow-up doctor appointments: * Weight Chart * Medication List * List of questions Do not drink excessive alcohol, beer or wine. For any questions, concerns, problems, needs, uncontrolled pain, difficulty breathing - anything - always contact the Hospice Agency FIRST It was my pleasure to care for you! -Dr Hagen Pending Studies at Discharge: No Stand-Alone Forms: My [facility] Medications and DC Order Prescriptions: New (DME) Oxygen Home Liters Per Minute See Rx Instructions .ROUTE .MEDSUPPLY Qty: 1 RF: 0 bumetanide 1 mg tablet 2 mg PO QAM Qty: 60 RF: 5 Continued isosorbide dinitrate 10 mg tablet 10 mg PO BIDM Qty: 60 RF: 5 (DME) Precision Xtra Test Strip See Rx Instructions .ROUTE .MEDSUPPLY Qty: 500 RF: 1 clopidogrel 75 mg tablet 75 mg PO QAM Qty: 90 RF: 1 lidocaine 5 % adhesive patch,medicated 1 patch transdermal QAM PRN (Reason: Pain) RF: 0 levothyroxine 137 mcg tablet 137 mcg PO QAM RF: 0 metoprolol succinate 200 mg tablet extended release 24 hr 200 mg PO QAM RF: 0 warfarin 3 mg tablet 3 mg PO QAM RF: 0 amlodipine 10 mg tablet 10 mg PO QAM RF: 0 pantoprazole 40 mg tablet,delayed release (DR/EC) 40 mg PO QAM RF: 0 warfarin 1 mg tablet 1 mg PO SUTUTHSA@0800 RF: 0 Novolin N NPH U-100 Insulin 100 unit/mL suspension See Rx Instructions .ROUTE .COMPLEX Qty: 100 RF: 1 Discontinued furosemide [Lasix] 20 mg tablet 20 mg PO QAM RF: 0 multivitamin tablet 1 tab PO QAM RF: 0 atorvastatin 80 mg tablet 80 mg PO HS RF: 0 cholecalciferol (vitamin D3) 2,000 unit capsule 2,000 units PO QAM RF: 0 furosemide 40 mg tablet 80 mg PO QAM Qty: 0 RF: 0 Discharge Orders: Discharge Order (Routine); Ordered 02/01/20 Ordered By: Shyam Huddleston/Other Patient Handouts: Heart Failure Signs of Flare-Up, Heart Failure: Tracking Your Weight Admission Data Admit Date/Time: 01/30/20 23:58 Attending Provider: Shyam Hagen Admit Provider: Moe Son Primary Care Provider: Dimitris Avila Other Providers: Sharda Guadalupe Other Interventions: Discharge Summary Assessment (RN) Last Done: 02/01/20 11:28 Coding Level of Care Code 76921 OBS Care - Discharge Diagnoses Acute on chronic respiratory failure with hypoxia J96.21 Acute on chronic systolic heart failure I50.23 Hospice care patient Z51.5 CKD stage 4 due to type 2 diabetes mellitus E11.22; N18.4 H/O: stroke Z86.73 DMII (diabetes mellitus, type 2) E11.9 CAD (coronary artery disease) I25.10 Associated angina: angina presence unspecified Coronary Disease-Associated Artery/Lesion type: [place] artery [place] vs. transplanted heart: [place] heart Aortic stenosis, severe I35.0 History of prostate cancer Z85.46 PAF (paroxysmal atrial fibrillation) I48.0 Hypothyroidism E03.9 Hypothyroidism type: acquired
[2020-02-01] MEDS ORDERED: WARFARIN SOD 1 MG TAB PO SCH (16:00)
== END 2020-02-01 12:06 | disposition hospice, home (50) ==
LOC: 2E 21:39 → ED 21:39 → SUATTDRO 23:58 → 2E 01-31 00:26